=== PATIENT | male | born 1960 | race American Indian/Alaskan Native ===

== ENCOUNTER 2018-02-21 18:01 | Inpatient (IN) | payer MEDICAID ==
[2018-02-21] MEDS ORDERED: NACL 0.9% 1000 ML IV ONE (21:30)
[2018-02-21] MEDS ORDERED: BABY ASPIRIN PO ONE (21:35)
[2018-02-21] MEDS ORDERED: SUBLIMAZE IV ONE (21:35)
[2018-02-21] MEDS ORDERED: ZOFRAN IV ONE (21:35)
--- NOTE | 2018-02-21 21:40 | Emergency Department Report ---
HPI - General Chief Complaint: Extremity Problem,Nontraumatic Time Seen by Provider: 02/21/18 20:31 - HPI HPI: The patient is a 58-year-old male with a significant history of diabetes, peripheral artery disease, left BKA, who presents for evaluation of leg pain. The patient reports right lower leg pain for the past couple of days, 10/10 in severity, throbbing in quality, exacerbated with movement of the leg. He reports associated drainage, redness, ulcers. The patient denies trauma to the leg, headache, chest pain, dyspnea, nausea, vomiting, abdominal pain. ED Past Medical Hx - Past Medical History Previous Medical History?: Yes Hx Diabetes: Yes (Type II) Hx GERD: Yes Additional medical history: Gout, Hyperlipidemia, anemia, - Surgical History Past Surgical History?: Yes Additional Surgical History: Bilateral LE amputee, - Social History Smoking Status: Former Smoker Substance Use Type: None ED Review of Systems ROS: Stated complaint: RIGHT FOOT PAIN Other details as noted in HPI Constitutional: denies: fever ENT: denies: throat or neck pain Respiratory: denies: cough, shortness of breath Cardiovascular: denies: chest pain Endocrine: denies unexplained weight loss or gain Gastrointestinal: denies: abdominal pain, nausea Genitourinary: denies: dysuria Musculoskeletal: Reports left leg pain Skin: denies: rash Neurological: denies: headache Hematological/Lymphatic: denies: easy bleeding or easy bruising Psych: denies sadness or hopelessness Physical Exam - Physical Exam Vital Signs: Vital Signs 02/21/18 18:44 Temperature 99.4 F Pulse Rate 59 L Respiratory 20 Rate Blood Pressure 110/55 O2 Sat by Pulse 95 Oximetry Physical Exam: General: well-nourished, well-developed, no acute distress Head: Normocephalic, atraumatic Eyes: normal sclera ENT: Mucous membranes are pink and moist Neck: trachea midline, neck supple, No neck stiffness, no cervical adenopathy Respiratory: Breath sounds equal bilaterally, no wheezing, rales, or rhonchi Cardio: S1 and S2 present, no murmurs, rubs, gallops, capillary refill is brisk Abdomen: Normoactive bowel sounds, soft abdomen, no rigidity, no guarding or rebound tenderness Musc: Left below the knee amputation present, right lower extremity exhibits a chronic right first and fifth toes, and diffuseness chronic tissue to the anterior lamb, distal pulses of the right fluid intake, right lower extremity and mixing machine tender cork gasket throughout Skin: purulent And serosanguineous drainage present to multiple ulcers to the right lamb Neuro: no facial drooping, normal speech Psych: Normal affect ED Course Vital Signs 02/21/18 18:44 Temperature 99.4 F Pulse Rate 59 L Respiratory 20 Rate Blood Pressure 110/55 O2 Sat by Pulse 95 Oximetry ED Medical Decision Making - Lab Data Result diagrams: 02/21/18 21:45 02/21/18 21:45 - Medical Decision Making The patient was seen and examined by myself. The patient is placed on a court recording monitor and continuous pulse ox. On initial evaluation, the patient was found to be in no distress. Evaluation orders were placed. The patient given pain medicine, normal saline fluid bolus, and IV clindamycin and Rocephin for treatment of severe cellulitis. Lab results reveal severe leukocytosis, WBC 20. The on-call hospitalist service was contacted. They agreed to admit the patient for further treatment and close monitoring. The ED admit order was placed. The patient was admitted in guarded condition. Critical care attestation.: If time is entered above; I have spent that time in minutes in the direct care of this critically ill patient, excluding procedure time. ED Disposition Clinical Impression: Ischemic necrosis of toe, PAD (peripheral artery disease) Cellulitis Qualifiers: Site of cellulitis: extremity Site of cellulitis of extremity: lower extremity Laterality: right Qualified Code(s): L03.115 - Cellulitis of right lower limb Leukocytosis Qualifiers: Leukocytosis type: unspecified Qualified Code(s): D72.829 - Elevated white blood cell count, unspecified Disposition: 09 OP ADMIT IP TO THIS HOSP Is pt being admited?: Yes Does the pt Need Aspirin: Yes Condition: Serious Time of Disposition: 21:39
[2018-02-21] MEDS ORDERED: CLEOCIN 600 MG/50 mL 600 MG/50 ML BAG IV SCH (22:00)
[2018-02-21 22:03] LABS: Hematocrit 33.8 % (35.5-45.6); Hemoglobin 10.7 gm/dl (11.8-15.2); Mean Corpuscular HGB Conc 32 % (32-34); Mean Corpuscular Hemoglobin 26 pg (28-32); Mean Corpuscular Volume 83 fl (84-94); Platelet Count 428 K/mm3 (140-440); Red Blood Count 4.09 M/mm3 (3.65-5.03); Red Cell Distribution Width 17.7 % (13.2-15.2)
[2018-02-21 22:13] LABS: INR 2.65 (0.87-1.13)
[2018-02-21 22:14] LABS: Partial Thromboplastin Time 47.1 Sec. (24.2-36.6)
[2018-02-21 22:23] LABS: Alanine Aminotransferase 13 units/L (7-56); Albumin 2.2 g/dL (3.9-5); BUN/Creatinine Ratio 15; Blood Urea Nitrogen 21 mg/dL (9-20); Calcium 8.8 mg/dL (8.4-10.2); Hemolysis Index 9
[2018-02-21 22:38] LABS: Basophils % (Manual) 0 % (0.0-1.8); Total Cells Counted 100
[2018-02-21 22:39] LABS: Anisocytosis 1+; Platelet Estimate Consistent w Auto; Poikilocytosis 1+
[2018-02-21 22:49] LABS: Chol/HDL Ratio 3.23 %
[2018-02-21] MEDS ORDERED: ROCEPHIN/NS 1 GM/50 ML 1 GM/50 ML BAG IV ONE (23:17)
[2018-02-21] MEDS ORDERED: KCL 10MEQ/100ML 10 MEQ/100 ML BAG IV ONE (23:43)
[2018-02-22] MEDS ORDERED: ZOFRAN IV PRN (01:04)
[2018-02-22] MEDS ORDERED: D50W (25GM) Syringe IV PRN (01:10)
[2018-02-22] MEDS ORDERED: K-DUR PO ONE ×3 (03:08→19:00)
[2018-02-22] MEDS: NACL 0.9% 1000 ML 1,000 ML IV SCH ×2 (03:17→18:36)
--- NOTE | 2018-02-22 04:05 | History and Physical Report ---
CHIEF COMPLAINT: Pain and ulceration in the right lower extremity. HISTORY OF PRESENT ILLNESS: The patient is a 58-year-old male with past medical history of diabetes mellitus, peripheral arterial disease and left below-knee amputation, presenting with pain, ulceration and swelling in the right lower extremity. The patient said the pain is severe with a level of 10/10 and throbbing in quality, exacerbated by movement. There is also history of associated drainage and redness in the right lower extremity. There is no history of fever. No history of chills. No history of nausea, vomiting or trauma. PAST MEDICAL HISTORY: Pertinent for diabetes mellitus, gastroesophageal reflux disease, gout, hyperlipidemia, anemia. PAST SURGICAL HISTORY: Pertinent for left lower extremity amputation. FAMILY HISTORY: Noncontributory. SOCIAL HISTORY: The patient used to smoke cigarette, does not smoke currently, does not use illicit drugs and does not drink alcohol. MEDICATIONS: The patient's home medications are not known at this time. REVIEW OF SYSTEMS: CONSTITUTIONAL: There is no fever, no chills, no diaphoresis. HEENT: There is no headache or sore throat. CARDIOVASCULAR: There is no chest pain or orthopnea. RESPIRATORY: There is no shortness of breath or cough. GASTROINTESTINAL: There is no nausea, no vomiting, no abdominal pain, diarrhea or constipation. NEUROLOGICAL SYSTEM: There is no numbness, no dizziness, no altered mental status. MUSCULOSKELETAL: There is pain in the right lower extremity. There is also swelling in the right lower extremity. DERMATOLOGICAL There is ulceration, redness and drainage in the right lower extremity. GENITOURINARY: There is no dysuria, hematuria or flank pain. Rest of system review is normal. PHYSICAL EXAMINATION: GENERAL: At the time of exam, the patient was found to be alert, oriented x 3 and not in acute distress. VITAL SIGNS: Shows temperature of 99.4 degrees Fahrenheit, pulse of 59, respirations 20, blood pressure 110/55, O2 sat of 95% on room air. HEENT: Showed pupils to be equal, round, reactive to light and accommodating. Extraocular muscles are intact. NECK: Supple with no JVD or carotid bruit. CARDIOVASCULAR: Showed normal first and second heart sounds with no gallops or murmurs. RESPIRATORY SYSTEM: Show good air entry on both sides of the lungs with no abnormal breath sounds. GASTROINTESTINAL SYSTEM: Show abdomen to be full, soft, nontender with no organomegaly or rigidity. NEUROLOGICAL: Shows no focal deficit. MUSCULOSKELETAL: Showed the patient to have left leg amputation and right leg shows swelling with multiple areas of ulceration with drainage of serosanguineous fluids. DERMATOLOGICAL: Show multiple ulcerations in the right lower extremity with drainage of serosanguineous liquid. GENITOURINARY: Show no costovertebral angle tenderness. PERTINENT LABORATORY DATA AND IMAGING STUDIES: The patient did not have any imaging studies done at this time. Lab results show CBC with elevated white count of 20,500, low hemoglobin of 10.7 and low hematocrit of 33.8 and CBC differential shows elevated segmented neutrophil of 82%. The patient's coagulation studies show high INR of 2.65 with high PT of 28.8. The patient's chemistry show normal sodium level with low potassium level of 2.6 and low chloride level of 97.6. The patient's total bilirubin shows slight increase of 1.3 and the patient's cardiac enzymes show high troponin level of 0.223. Brain natriuretic peptide levels show a high value of 13,105 with low albumin level of 2.2. DIAGNOSES: 1. Right lower leg cellulitis. 2. Hypokalemia. 3. Right lower limb cellulitis. 4. Elevated troponin level. PLAN: 1. The patient will be admitted to telemetry. 2. The patient will have cardiac enzyme involving troponin, total CK and CK-MB checked q. 6 hours x 2 levels. 3. The patient will be on IV Zosyn 3.375 grams q. 8 hours. 4. The patient will have 40 mEq of potassium given by mouth and also will have IV potassium chloride 20 mEq x 1 dose. 5. The patient will be on IV morphine 2 mg every 4 hours as needed for pain and IV Zofran 4 mg every 8 hours for nausea and vomiting. 6. The patient will have 5000 units of heparin subcutaneous q. 12 hours for DVT prophylaxis and will be on Tylenol 650 mg by mouth every 4 hours for fever and headache and will have wound care nurse consult. 7. The patient will be on Accu-Chek before every meals and at bedtime and will be on low-dose sliding scale using regular insulin coverage. 8. The patient's diet will be consistent carbohydrate, low sodium diet. 9. The patient will have basic metabolic panel checked in the morning to monitor potassium level and will also have magnesium level checked in the morning. JOB# [id number] OCN/NTS
[2018-02-22] MEDS: KCL 10MEQ/100ML 10 MEQ/100 ML BAG IV SCH ×6 (04:38→23:25)
[2018-02-22] MEDS: MORPHINE IV PRN ×4 (04:41→22:38)
[2018-02-22 05:59] LABS: Creatine Kinase MB 1.4 ng/mL (0.0-4.0)
[2018-02-22] MEDS ORDERED: ZOSYN/NS 3.375GM/50ML 3.375 GM/50 ML BAG IV SCH (06:00)
[2018-02-22 06:02] LABS: BUN/Creatinine Ratio 15; Blood Urea Nitrogen 18 mg/dL (9-20); Calcium 8.1 mg/dL (8.4-10.2); Hemolysis Index 8
[2018-02-22] MEDS: HumuLIN R SUB-Q SCH ×4 (08:08→22:31)
[2018-02-22] MEDS: HEPARIN SUB-Q SCH ×2 (10:43→21:46)
[2018-02-22] MEDS ORDERED: AFLURIA QUAD 2018-2019 SYRINGE IM ONE (12:00)
[2018-02-22] MEDS ORDERED: DILAUDID IV ONE (13:36)
--- NOTE | 2018-02-22 13:41 | Consultation ---
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 On examination, he has nonpalpable pedal pulses. Any manipulation of the right foot causes pain. He reports that this has been present for a year, but has worsened in the last week. He has gangrene of the right forefoot, and a large eschar associated with the calf. The gangrene is predominantly dry. The patient is in pain but not toxic-appearing. He can move his ankle, but has minimal movement of his toes. Cannot palpate right common femoral artery but this is probably secondary to his nonreducible contracture of his hip. Past History Past Medical History: diabetes, hypertension, hyperlipidemia, PVD Past Surgical History: Other (left aka) Social history: other (lives in [facility]) Family history: no significant family history Medications and Allergies Allergies Allergy/AdvReac Type Severity Reaction Status Date / Time No Known Allergies Allergy Unverified 02/21/18 18:49 Home Medications Medication Instructions Recorded Confirmed Last Taken Type Allopurinol 100 mg PO DAILY 02/22/18 02/22/18 Unknown History Amlodipine Besylate [Norvasc] 10 mg PO DAILY 02/22/18 02/22/18 Unknown History Apixaban [Eliquis] 5 mg PO BID 02/22/18 02/22/18 Unknown History Ascorbic Acid [Vitamin C] 500 mg PO BID 02/22/18 02/22/18 Unknown History Aspirin [Aspirin BABY CHEW TAB] 81 mg PO QDAY 02/22/18 02/22/18 Unknown History Carvedilol [Coreg] 6.25 mg PO BID 02/22/18 02/22/18 Unknown History Docusate Sodium [Stool Softener] 100 mg PO BID 02/22/18 02/22/18 Unknown History Folic Acid [Folvite] 1 mg PO QDAY 02/22/18 02/22/18 Unknown History Gabapentin [Neurontin] 600 mg PO Q12HR 02/22/18 02/22/18 Unknown History Lipitor 40 mg PO HS 02/22/18 02/22/18 Unknown History Multivitamin [Multiple Vitamins] 1 tab PO DAILY 02/22/18 02/22/18 Unknown History Polyethylene Glycol 3350 [Clearlax] 17 gm PO DAILY 02/22/18 02/22/18 Unknown History Sennosides [Senna] 25.8 mg PO BID 02/22/18 02/22/18 Unknown History Thiamine [Vitamin B-1] 100 mg PO QDAY 02/22/18 02/22/18 Unknown History Torsemide [Demadex] 20 mg PO DAILY 02/22/18 02/22/18 Unknown History fentaNYL [Fentanyl] 1 each TD DAILY 02/22/18 02/22/18 Unknown History Active Meds: Active Medications Acetaminophen (Tylenol) 650 mg PO Q4H PRN PRN Reason: Fever >101 Dextrose (D50w (25gm) Syringe) 50 ml IV PRN PRN PRN Reason: Hypoglycemia Heparin Sodium (Porcine) (Heparin) 5,000 unit SUB-Q Q12HR WALT Last Admin: 02/22/18 10:43 Dose: 5,000 unit Hydromorphone HCl (Dilaudid) 1 mg IV ONCE ONE Stop: 02/22/18 13:37 Sodium Chloride (Nacl 0.9% 1000 Ml) 1,000 mls @ 75 mls/hr IV DIRECT WALT Last Admin: 02/22/18 03:17 Dose: 75 mls/hr Piperacillin Sod/Tazobactam Sod (Zosyn/Ns 4.5gm/100ml) 4.5 gm in 100 mls @ 200 mls/hr IV Q8HR WALT Insulin Human Regular (Humulin R) 0 units SUB-Q WALT; Protocol Last Admin: 02/22/18 08:08 Dose: Not Given Insulin Human Regular (Humulin R) 0 units SUB-Q QHS WALT; Protocol Morphine Sulfate (Morphine) 2 mg IV Q4H PRN PRN Reason: Pain, Moderate (4-6) Last Admin: 02/22/18 11:53 Dose: 2 mg Ondansetron HCl (Zofran) 4 mg IV Q8H PRN PRN Reason: Nausea And Vomiting Review of Systems All systems: negative (see HPI) Exam - Constitutional Vitals: Temp Pulse Resp BP Pulse Ox 98.0 F 20 L 20 124/60 93 02/22/18 11:33 02/22/18 11:33 02/22/18 11:33 02/22/18 11:33 02/22/18 11:33 General appearance: Present: mild distress (with manipulation of right foot) - EENT Eyes: Present: EOM intact ENT: hearing intact - Neck Neck: Present: supple - Respiratory Respiratory effort: normal - Extremities Extremities: abnormal (see HPI) Peripheral Pulses: abnormal (see HPI) - Psychiatric Psychiatric: appropriate mood/affect, cooperative Results - Labs CBC & Chem 7: 02/21/18 21:45 02/22/18 05:11 Labs: Abnormal lab results 02/21/18 02/21/18 02/21/18 Range/Units 21:45 21:45 21:45 WBC 20.5 H (4.5-11.0) K/mm3 Hgb 10.7 L (11.8-15.2) gm/dl Hct 33.8 L (35.5-45.6) % MCV 83 L (84-94) fl MCH 26 L (28-32) pg RDW 17.7 H (13.2-15.2) % Seg Neuts % (Manual) 82.0 H (40.0-70.0) % Lymphocytes % (Manual) 11.0 L (13.4-35.0) % Seg Neutrophils # Man 16.8 H (1.8-7.7) K/mm3 Monocytes # (Manual) 1.2 H (0.0-0.8) K/mm3 PT 28.8 H (12.2-14.9) Sec. INR 2.65 H (0.87-1.13) APTT 47.1 H (24.2-36.6) Sec. Potassium (3.6-5.0) mmol/L Chloride (98-107) mmol/L BUN (9-20) mg/dL Calcium (8.4-10.2) mg/dL Magnesium (1.7-2.3) mg/dL Total Bilirubin (0.1-1.2) mg/dL Alkaline Phosphatase (35-129) units/L Total Creatine Kinase (55-170) units/L Troponin T 0.234 H* (0.00-0.029) ng/mL NT-Pro-B Natriuret Pep (0-900) pg/mL Albumin (3.9-5) g/dL LDL Cholesterol Direct 41 L (50-130) mg/dL HDL Cholesterol 26 L (40-59) mg/dL 02/21/18 02/21/18 02/21/18 Range/Units 21:45 21:45 23:49 WBC (4.5-11.0) K/mm3 Hgb (11.8-15.2) gm/dl Hct (35.5-45.6) % MCV (84-94) fl MCH (28-32) pg RDW (13.2-15.2) % Seg Neuts % (Manual) (40.0-70.0) % Lymphocytes % (Manual) (13.4-35.0) % Seg Neutrophils # Man (1.8-7.7) K/mm3 Monocytes # (Manual) (0.0-0.8) K/mm3 PT (12.2-14.9) Sec. INR (0.87-1.13) APTT (24.2-36.6) Sec. Potassium 2.6 L* (3.6-5.0) mmol/L Chloride 97.6 L (98-107) mmol/L BUN 21 H (9-20) mg/dL Calcium (8.4-10.2) mg/dL Magnesium (1.7-2.3) mg/dL Total Bilirubin 1.30 H (0.1-1.2) mg/dL Alkaline Phosphatase 180 H (35-129) units/L Total Creatine Kinase 54 L (55-170) units/L Troponin T 0.223 H* (0.00-0.029) ng/mL NT-Pro-B Natriuret Pep 55087 H (0-900) pg/mL Albumin 2.2 L (3.9-5) g/dL LDL Cholesterol Direct (50-130) mg/dL HDL Cholesterol (40-59) mg/dL 02/22/18 Range/Units 05:11 WBC (4.5-11.0) K/mm3 Hgb (11.8-15.2) gm/dl Hct (35.5-45.6) % MCV (84-94) fl MCH (28-32) pg RDW (13.2-15.2) % Seg Neuts % (Manual) (40.0-70.0) % Lymphocytes % (Manual) (13.4-35.0) % Seg Neutrophils # Man (1.8-7.7) K/mm3 Monocytes # (Manual) (0.0-0.8) K/mm3 PT (12.2-14.9) Sec. INR (0.87-1.13) APTT (24.2-36.6) Sec. Potassium 2.6 L* (3.6-5.0) mmol/L Chloride (98-107) mmol/L BUN (9-20) mg/dL Calcium 8.1 L (8.4-10.2) mg/dL Magnesium 1.40 L (1.7-2.3) mg/dL Total Bilirubin (0.1-1.2) mg/dL Alkaline Phosphatase (35-129) units/L Total Creatine Kinase (55-170) units/L Troponin T 0.183 H* (0.00-0.029) ng/mL NT-Pro-B Natriuret Pep (0-900) pg/mL Albumin (3.9-5) g/dL LDL Cholesterol Direct (50-130) mg/dL HDL Cholesterol (40-59) mg/dL Assessment and Plan 58-year-old male with history of stroke and peripheral vascular disease, left lower extremity gangrene status post above-knee amputation who presents with a contracted right lower extremity at the hip and knee which is a source of chronic pain with gangrene of the right forefoot and eschar of the right calf. This is been present for approximately a year, but has worsened within the last week. The patient has a nonfunctional right lower extremity with gangrene and leukocytosis with contracted right knee and hip with associated chronic pain. Given his nonambulatory status, nonfunctional nature of the limb, and gangrene, patient would benefit from above-knee amputation. This was discussed with the patient who understands and agrees. Lower level amputation would not provide the patient any functional benefit. Patient will need arterial duplex to demonstrate flow to the common femoral artery. I suspect he will have adequate flow to heal and above-knee amputation. Recommend continuing antibiotics. Right AKA likely on Sunday. Will need to discontinue eliquis 2 days prior to ampuation. Patient is not sure why he is on Eliquis and notes from SNF do not specifically mention the cause.
--- NOTE | 2018-02-22 14:14 | Event Note ---
Date: 02/22/18 Patient admitted this AM Rt Foot Gangrene D/w Dr Merida Needs AKA -probably Mondat-3days from now. No Eliquis or ASA since Last night
[2018-02-22] MEDS ORDERED: NON-FORMULARY (Torsemide [Demadex] 20 MG) PO SCH (14:15)
[2018-02-22] MEDS ORDERED: NON-FORMULARY (Gabapentin [Neurontin] 600 MG) PO SCH (14:15)
[2018-02-22 14:34] LABS: Creatine Kinase MB 1.3 ng/mL (0.0-4.0)
[2018-02-22] MEDS ORDERED: VANCOMYCIN 2,000 MG in NACL 0.9% 500 ML 500 ML IV ONE (14:45)
[2018-02-22] MEDS ORDERED: VANCOMYCIN PHARMACY TO DOSE IV SCH (15:00)
[2018-02-22] MEDS: ZOSYN/NS 4.5GM/100ML 4.5 GM/100 ML VIAL IV SCH ×2 (15:32→21:46)
[2018-02-22] MEDS: DURAGESIC TD SCH (16:33)
[2018-02-22] MEDS: NORVASC PO SCH (18:18)
[2018-02-22] MEDS: ZYLOPRIM PO SCH (18:18)
[2018-02-22] MEDS: DEMADEX PO SCH (18:19)
[2018-02-22] MEDS: FOLVITE PO SCH (18:19)
[2018-02-22] MEDS: VITAMIN C PO SCH ×2 (18:20→21:44)
[2018-02-22] MEDS: NEURONTIN PO SCH (21:44)
[2018-02-22] MEDS: COREG PO SCH (21:45)
[2018-02-22] MEDS: COLACE PO SCH (21:45)
[2018-02-23] MEDS: MORPHINE IV PRN ×4 (02:58→22:33)
[2018-02-23 04:22] LABS: Basophils # (Auto) 0.1 K/mm3 (0.0-0.1); Basophils % (Auto) 0.5 % (0.0-1.8); Eosinophils # (Auto) 0.2 K/mm3 (0.0-0.4); Eosinophils % (Auto) 1.4 % (0.0-4.3); Hematocrit 28.2 % (35.5-45.6); Hemoglobin 8.8 gm/dl (11.8-15.2); Lymphocytes # (Auto) 1.5 K/mm3 (1.2-5.4); Lymphocytes % (Auto) 9.8 % (13.4-35.0); Mean Corpuscular HGB Conc 31 % (32-34); Mean Corpuscular Hemoglobin 26 pg (28-32); Mean Corpuscular Volume 83 fl (84-94); Monocytes # (Auto) 1.4 K/mm3 (0.0-0.8); Monocytes % (Auto) 8.6 % (0.0-7.3); Platelet Count 343 K/mm3 (140-440); Red Blood Count 3.41 M/mm3 (3.65-5.03); Red Cell Distribution Width 17.2 % (13.2-15.2)
[2018-02-23 04:40] LABS: Alanine Aminotransferase 11 units/L (7-56); Albumin 1.9 g/dL (3.9-5); BUN/Creatinine Ratio 14; Blood Urea Nitrogen 15 mg/dL (9-20); Hemolysis Index 3
[2018-02-23] MEDS: ZOSYN/NS 4.5GM/100ML 4.5 GM/100 ML VIAL IV SCH ×3 (06:31→22:15)
[2018-02-23] MEDS: VANCOMYCIN 1,500 MG in NACL 0.9% 500 ML 500 ML IV SCH ×2 (06:37→18:23)
[2018-02-23] MEDS: HumuLIN R SUB-Q SCH ×4 (07:40→22:03)
[2018-02-23] MEDS: NORVASC PO SCH (09:49)
[2018-02-23] MEDS: VITAMIN C PO SCH ×2 (09:49→22:14)
[2018-02-23] MEDS: VITAMIN B-1 PO SCH (09:49)
[2018-02-23] MEDS: FOLVITE PO SCH (09:49)
[2018-02-23] MEDS: COLACE PO SCH ×2 (09:50→22:14)
[2018-02-23] MEDS: COREG PO SCH ×2 (09:50→22:14)
[2018-02-23] MEDS: ZYLOPRIM PO SCH (09:50)
[2018-02-23] MEDS: HEPARIN SUB-Q SCH ×2 (09:51→22:15)
[2018-02-23] MEDS: NEURONTIN PO SCH ×2 (09:55→22:14)
[2018-02-23] MEDS: DEMADEX PO SCH (10:11)
--- NOTE | 2018-02-23 12:55 | Progress Note ---
Assessment and Plan Assessment and plan: Sepsis. Patient will be continued on IV antibiotics. Follow-up blood cultures and likely gas levels. Right foot gangrene. Patient will likely have AKA on Sunday. Sinus pauses. Cardiology consultation. Diabetes mellitus type 2. Continue Accu-Cheks and sliding scale. Peripheral vascular disease. Patient with previous left BKA. Hypokalemia. Replete potassium as needed. History Interval history: No new issues overnight. Nursing for sinus pauses of 2.4 seconds Hospitalist Physical - Constitutional Vitals: Temp Pulse Resp BP Pulse Ox 97.9 F 96 H 18 118/62 99 02/23/18 12:39 02/23/18 09:50 02/23/18 12:39 02/23/18 12:39 02/22/18 23:56 General appearance: Present: mild distress (with manipulation of right foot) - EENT Eyes: Present: PERRL, EOM intact ENT: hearing intact, clear oral mucosa, dentition normal - Neck Neck: Present: supple, normal ROM - Respiratory Respiratory effort: normal Respiratory: bilateral: CTA - Cardiovascular Rhythm: regular Heart Sounds: Present: S1 & S2. Absent: gallop, rub - Extremities Extremities: no ischemia, No edema, Full ROM - Abdominal General gastrointestinal: soft, non-tender, non-distended, normal bowel sounds - Integumentary Integumentary: Present: clear, warm, dry - Neurologic Neurologic: CNII-XII intact, moves all extremities Results - Labs CBC & Chem 7: 02/23/18 03:51 02/23/18 03:51 Labs: Laboratory Last Values WBC 15.9 K/mm3 (4.5-11.0) H 02/23/18 03:51 RBC 3.41 M/mm3 (3.65-5.03) L 02/23/18 03:51 Hgb 8.8 gm/dl (11.8-15.2) L 02/23/18 03:51 Hct 28.2 % (35.5-45.6) L 02/23/18 03:51 MCV 83 fl (84-94) L 02/23/18 03:51 MCH 26 pg (28-32) L 02/23/18 03:51 MCHC 31 % (32-34) L 02/23/18 03:51 RDW 17.2 % (13.2-15.2) H 02/23/18 03:51 Plt Count 343 K/mm3 (140-440) 02/23/18 03:51 Lymph % (Auto) 9.8 % (13.4-35.0) L 02/23/18 03:51 [place] % (Auto) 8.6 % (0.0-7.3) H 02/23/18 03:51 Eos % (Auto) 1.4 % (0.0-4.3) 02/23/18 03:51 Baso % (Auto) 0.5 % (0.0-1.8) 02/23/18 03:51 Lymph # 1.5 K/mm3 (1.2-5.4) 02/23/18 03:51 [place] # 1.4 K/mm3 (0.0-0.8) H 02/23/18 03:51 Eos # 0.2 K/mm3 (0.0-0.4) 02/23/18 03:51 Baso # 0.1 K/mm3 (0.0-0.1) 02/23/18 03:51 Add Manual Diff Complete 02/21/18 21:45 Total Counted 100 02/21/18 21:45 Seg Neutrophils % 79.7 % (40.0-70.0) H 02/23/18 03:51 Seg Neuts % (Manual) 82.0 % (40.0-70.0) H 02/21/18 21:45 Band Neutrophils % 0 % 02/21/18 21:45 Lymphocytes % (Manual) 11.0 % (13.4-35.0) L 02/21/18 21:45 Reactive Lymphs % (Man) 0 % 02/21/18 21:45 Monocytes % (Manual) 6.0 % (0.0-7.3) 02/21/18 21:45 Eosinophils % (Manual) 1.0 % (0.0-4.3) 02/21/18 21:45 Basophils % (Manual) 0 % (0.0-1.8) 02/21/18 21:45 Metamyelocytes % 0 % 02/21/18 21:45 Myelocytes % 0 % 02/21/18 21:45 Promyelocytes % 0 % 02/21/18 21:45 Blast Cells % 0 % 02/21/18 21:45 Nucleated RBC % Not Reportable 02/21/18 21:45 Seg Neutrophils # 12.6 K/mm3 (1.8-7.7) H 02/23/18 03:51 Seg Neutrophils # Man 16.8 K/mm3 (1.8-7.7) H 02/21/18 21:45 Band Neutrophils # 0.0 K/mm3 02/21/18 21:45 Lymphocytes # (Manual) 2.3 K/mm3 (1.2-5.4) 02/21/18 21:45 Abs React Lymphs (Man) 0.0 K/mm3 02/21/18 21:45 Monocytes # (Manual) 1.2 K/mm3 (0.0-0.8) H 02/21/18 21:45 Eosinophils # (Manual) 0.2 K/mm3 (0.0-0.4) 02/21/18 21:45 Basophils # (Manual) 0.0 K/mm3 (0.0-0.1) 02/21/18 21:45 Metamyelocytes # 0.0 K/mm3 02/21/18 21:45 Myelocytes # 0.0 K/mm3 02/21/18 21:45 Promyelocytes # 0.0 K/mm3 02/21/18 21:45 Blast Cells # 0.0 K/mm3 02/21/18 21:45 WBC Morphology Not Reportable 02/21/18 21:45 Hypersegmented Neuts Not Reportable 02/21/18 21:45 Hyposegmented Neuts Not Reportable 02/21/18 21:45 Hypogranular Neuts Not Reportable 02/21/18 21:45 Smudge Cells Not Reportable 02/21/18 21:45 Toxic Granulation Not Reportable 02/21/18 21:45 Toxic Vacuolation Not Reportable 02/21/18 21:45 Dohle Bodies Not Reportable 02/21/18 21:45 Pelger-Huet Anomaly Not Reportable 02/21/18 21:45 Fermín Rods Not Reportable 02/21/18 21:45 Platelet Estimate Consistent w auto 02/21/18 21:45 Clumped Platelets Not Reportable 02/21/18 21:45 Plt Clumps, EDTA Not Reportable 02/21/18 21:45 Large Platelets Not Reportable 02/21/18 21:45 Giant Platelets Not Reportable 02/21/18 21:45 Platelet Satelliting Not Reportable 02/21/18 21:45 Plt Morphology Comment Not Reportable 02/21/18 21:45 RBC Morphology Not Reportable 02/21/18 21:45 Dimorphic RBCs Not Reportable 02/21/18 21:45 Polychromasia Not Reportable 02/21/18 21:45 Hypochromasia Not Reportable 02/21/18 21:45 Poikilocytosis 1+ 02/21/18 21:45 Anisocytosis 1+ 02/21/18 21:45 Microcytosis Not Reportable 02/21/18 21:45 Macrocytosis Not Reportable 02/21/18 21:45 Spherocytes Not Reportable 02/21/18 21:45 Pappenheimer Bodies Not Reportable 02/21/18 21:45 Sickle Cells Not Reportable 02/21/18 21:45 Target Cells Not Reportable 02/21/18 21:45 Tear Drop Cells Not Reportable 02/21/18 21:45 Ovalocytes Not Reportable 02/21/18 21:45 Helmet Cells Not Reportable 02/21/18 21:45 [place] Bodies Not Reportable 02/21/18 21:45 [place] Rings Not Reportable 02/21/18 21:45 [place] Cells Not Reportable 02/21/18 21:45 Bite Cells Not Reportable 02/21/18 21:45 Crenated Cell Not Reportable 02/21/18 21:45 Elliptocytes Not Reportable 02/21/18 21:45 Acanthocytes (Spur) Not Reportable 02/21/18 21:45 Rouleaux Not Reportable 02/21/18 21:45 Hemoglobin C Crystals Not Reportable 02/21/18 21:45 Schistocytes Not Reportable 02/21/18 21:45 Malaria parasites Not Reportable 02/21/18 21:45 Luis Felipe Bodies Not Reportable 02/21/18 21:45 Hem Pathologist Commnt No 02/21/18 21:45 PT 28.8 Sec. (12.2-14.9) H 02/21/18 21:45 INR 2.65 (0.87-1.13) H 02/21/18 21:45 APTT 47.1 Sec. (24.2-36.6) H 02/21/18 21:45 Sodium 142 mmol/L (137-145) 02/23/18 03:51 Potassium 3.0 mmol/L (3.6-5.0) L 02/23/18 03:51 Chloride 105.2 mmol/L (98-107) 02/23/18 03:51 Carbon Dioxide 25 mmol/L (22-30) 02/23/18 03:51 Anion Gap 15 mmol/L 02/23/18 03:51 BUN 15 mg/dL (9-20) 02/23/18 03:51 Creatinine 1.1 mg/dL (0.8-1.5) 02/23/18 03:51 Estimated GFR > 60 ml/min 02/23/18 03:51 BUN/Creatinine Ratio 14 % 02/23/18 03:51 Glucose 75 mg/dL (75-100) 02/23/18 03:51 POC Glucose 68 (70-105) L 02/23/18 06:38 Lactic Acid 1.30 mmol/L (0.7-2.0) 02/22/18 00:35 Calcium 8.0 mg/dL (8.4-10.2) L 02/23/18 03:51 Magnesium 1.40 mg/dL (1.7-2.3) L 02/22/18 05:11 Total Bilirubin 1.30 mg/dL (0.1-1.2) H 02/23/18 03:51 AST 25 units/L (5-40) 02/23/18 03:51 ALT 11 units/L (7-56) 02/23/18 03:51 Alkaline Phosphatase 189 units/L (35-129) H 02/23/18 03:51 Total Creatine Kinase 58 units/L (55-170) 02/22/18 13:53 CK-MB (CK-2) 1.3 ng/mL (0.0-4.0) 02/22/18 13:53 CK-MB (CK-2) Rel Index 2.2 (0-4) 02/22/18 13:53 Troponin T 0.177 ng/mL (0.00-0.029) H* 02/22/18 13:53 NT-Pro-B Natriuret Pep 98942 pg/mL (0-900) H 02/21/18 21:45 Total Protein 6.2 g/dL (6.3-8.2) L 02/23/18 03:51 Albumin 1.9 g/dL (3.9-5) L 02/23/18 03:51 Albumin/Globulin Ratio 0.4 % 02/23/18 03:51 Triglycerides 86 mg/dL (2-149) 02/21/18 21:45 Cholesterol 84 mg/dL (50-199) 02/21/18 21:45 LDL Cholesterol Direct 41 mg/dL (50-130) L 02/21/18 21:45 HDL Cholesterol 26 mg/dL (40-59) L 02/21/18 21:45 Cholesterol/HDL Ratio 3.23 % 02/21/18 21:45
[2018-02-23] MEDS ORDERED: K-DUR PO ONE ×2 (13:30→16:30)
[2018-02-23] MEDS: NACL 0.9% 1000 ML 1,000 ML IV SCH (22:34)
[2018-02-24] MEDS: ZOSYN/NS 4.5GM/100ML 4.5 GM/100 ML VIAL IV SCH ×3 (06:40→22:24)
[2018-02-24] MEDS: VANCOMYCIN 1,500 MG in NACL 0.9% 500 ML 500 ML IV SCH ×2 (06:40→18:00)
--- NOTE | 2018-02-24 09:32 | Consultation ---
History of Present Illness Consult date: 02/24/18 Consult reason: arrhythmia History of present illness: Impression Poor historian Admitted for intractable R lower ext pain , chronic contracture H/o CVA PVD L AKA abnormal NT-proBNP, trop, pt asymptomatic from angina or CHF. Suspect septic etiology He is on eliquis which has been stopped I believe due to afib which I detected on exam he has had asymptomatic sinus pauses last night less than 3 seconds, he is on b- lillian Diabetes HTN Hyperlipidemia Plan reduce coreg dose hold eliquis for planned amputation R lower Ext Use SQ heparin for DVT prophylaxis check echo. Further recs about operative risk after echo complete Past History Past Medical History: diabetes, hypertension, hyperlipidemia, PVD Past Surgical History: Other (left aka) Social history: other (lives in SNF) Family history: no significant family history Medications and Allergies Allergies Allergy/AdvReac Type Severity Reaction Status Date / Time No Known Allergies Allergy Unverified 02/21/18 18:49 Home Medications Medication Instructions Recorded Confirmed Last Taken Type Allopurinol 100 mg PO DAILY 02/22/18 02/22/18 Unknown History Amlodipine Besylate [Norvasc] 10 mg PO DAILY 02/22/18 02/22/18 Unknown History Apixaban [Eliquis] 5 mg PO BID 02/22/18 02/22/18 Unknown History Ascorbic Acid [Vitamin C] 500 mg PO BID 02/22/18 02/22/18 Unknown History Aspirin [Aspirin BABY CHEW TAB] 81 mg PO QDAY 02/22/18 02/22/18 Unknown History Carvedilol [Coreg] 6.25 mg PO BID 02/22/18 02/22/18 Unknown History Docusate Sodium [Stool Softener] 100 mg PO BID 02/22/18 02/22/18 Unknown History Folic Acid [Folvite] 1 mg PO QDAY 02/22/18 02/22/18 Unknown History Gabapentin [Neurontin] 600 mg PO Q12HR 02/22/18 02/22/18 Unknown History Lipitor 40 mg PO HS 02/22/18 02/22/18 Unknown History Multivitamin [Multiple Vitamins] 1 tab PO DAILY 02/22/18 02/22/18 Unknown History Polyethylene Glycol 3350 [Clearlax] 17 gm PO DAILY 02/22/18 02/22/18 Unknown History Sennosides [Senna] 25.8 mg PO BID 02/22/18 02/22/18 Unknown History Thiamine [Vitamin B-1] 100 mg PO QDAY 02/22/18 02/22/18 Unknown History Torsemide [Demadex] 20 mg PO DAILY 02/22/18 02/22/18 Unknown History fentaNYL [Fentanyl] 1 each TD DAILY 02/22/18 02/22/18 Unknown History Active Meds: Active Medications Acetaminophen (Tylenol) 650 mg PO Q4H PRN PRN Reason: Fever >101 Allopurinol (Zyloprim) 100 mg PO DAILY [facility] Last Admin: 02/23/18 09:50 Dose: 100 mg Amlodipine Besylate (Norvasc) 10 mg PO DAILY [facility] Last Admin: 02/23/18 09:49 Dose: 10 mg Ascorbic Acid (Vitamin C) 500 mg PO BID [facility] Last Admin: 02/23/18 22:14 Dose: 500 mg Carvedilol (Coreg) 3.125 mg PO BID [facility] Dextrose (D50w (25gm) Syringe) 50 ml IV PRN PRN PRN Reason: Hypoglycemia Docusate Sodium (Colace) 100 mg PO BID [facility] Last Admin: 02/23/18 22:14 Dose: 100 mg Fentanyl (Duragesic) 12 mcg TD Q72H [facility] Last Admin: 02/22/18 16:33 Dose: 12 mcg Folic Acid (Folvite) 1 mg PO QDAY [facility] Last Admin: 02/23/18 09:49 Dose: 1 mg Gabapentin (Neurontin) 600 mg PO Q12HR [facility] Last Admin: 02/23/18 22:14 Dose: 600 mg Heparin Sodium (Porcine) (Heparin) 5,000 unit SUB-Q Q12HR [facility] Last Admin: 02/23/18 22:15 Dose: 5,000 unit Sodium Chloride (Nacl 0.9% 1000 Ml) 1,000 mls @ 75 mls/hr IV DIRECT [facility] Last Admin: 02/23/18 22:34 Dose: 75 mls/hr Piperacillin Sod/Tazobactam Sod (Zosyn/Ns 4.5gm/100ml) 4.5 gm in 100 mls @ 200 mls/hr IV Q8HR [facility] Last Admin: 02/24/18 06:40 Dose: 200 mls/hr Vancomycin HCl 1,500 mg/ (Sodium Chloride) 530 mls @ 333.333 mls/hr IV Q12H [facility] Last Admin: 02/24/18 06:40 Dose: 333.333 mls/hr Insulin Human Regular (Humulin R) 0 units SUB-Q AC [facility]; Protocol Last Admin: 02/23/18 18:22 Dose: Not Given Insulin Human Regular (Humulin R) 0 units SUB-Q QHS [facility]; Protocol Last Admin: 02/23/18 22:03 Dose: Not Given Morphine Sulfate (Morphine) 2 mg IV Q4H PRN PRN Reason: Pain, Moderate (4-6) Last Admin: 02/23/18 22:33 Dose: 2 mg Ondansetron HCl (Zofran) 4 mg IV Q8H PRN PRN Reason: Nausea And Vomiting Last Admin: 02/23/18 09:50 Dose: 4 mg Thiamine HCl (Vitamin B-1) 100 mg PO QDAY [facility] Last Admin: 02/23/18 09:49 Dose: 100 mg Torsemide (Demadex) 20 mg PO DAILY [facility] Last Admin: 02/23/18 10:11 Dose: 20 mg Review of Systems ROS unobtainable: due to mental status Physical Examination Vital Signs Pulse Ox 94 02/21/18 18:40 General appearance: no acute distress HEENT: Positive: PERRL Neck: Positive: neck supple Cardiac: Positive: irregularly irregular, S1/S2 Lungs: Positive: Normal Exam Neuro: Positive: Grossly Intact Abdomen: Positive: Soft Male genitourinary: Positive: deferred Extremities: Present: Other (L AKA, Right lower contracted) Results 02/23/18 03:51 02/23/18 03:51
[2018-02-24] MEDS: HumuLIN R SUB-Q SCH ×4 (09:41→22:23)
--- NOTE | 2018-02-24 09:42 | Progress Note ---
Assessment and Plan The patient for right ximpi-[id number]-[id number] amputation tomorrow. Consent signed and on the chart. Subjective Date of service: 02/24/18 Principal diagnosis: right foot gangrene, right contracture Interval history: Patient with a history of the left [id number] amputation now presents with gangrene to his right foot. He is scheduled for an is agreeable to a right kbyso-brz-qgiz amputation as his right limb is essentially nonfunctional secondary to contractures of the knee and hip. Objective - Constitutional Vitals: Vital Signs - 12hr 02/24/18 02/24/18 02/24/18 00:13 05:00 07:56 Temperature 98.9 F 98.4 F Pulse Rate 82 82 91 H Respiratory 20 20 20 Rate Blood Pressure 105/69 129/69 147/78 O2 Sat by Pulse 88 97 95 Oximetry General appearance: Present: no acute distress - EENT Eyes: EOM intact ENT: hearing intact - Neck Neck: supple, normal ROM - Respiratory Respiratory effort: normal Extremities: abnormal - Gastrointestinal General gastrointestinal: Present: deferred - Psychiatric Psychiatric: appropriate mood/affect, cooperative - Labs CBC & Chem 7: 02/23/18 03:51 02/23/18 03:51 Labs: Abnormal lab results 02/23/18 Range/Units 12:41 POC Glucose 191 H (70-105)
[2018-02-24] MEDS: MORPHINE IV PRN ×3 (10:03→17:35)
[2018-02-24] MEDS: VITAMIN C PO SCH ×2 (10:06→21:57)
[2018-02-24] MEDS: COLACE PO SCH ×2 (10:06→22:01)
[2018-02-24] MEDS: NEURONTIN PO SCH ×2 (10:06→21:57)
[2018-02-24] MEDS: ZYLOPRIM PO SCH (10:07)
[2018-02-24] MEDS: COREG PO SCH ×2 (10:07→21:57)
[2018-02-24] MEDS: FOLVITE PO SCH (10:07)
[2018-02-24] MEDS: NORVASC PO SCH (10:08)
[2018-02-24] MEDS: HEPARIN SUB-Q SCH ×2 (10:09→22:01)
[2018-02-24] MEDS: VITAMIN B-1 PO SCH (11:00)
--- NOTE | 2018-02-24 11:25 | Progress Note ---
Assessment and Plan Assessment and plan: Sepsis. Patient will be continued on IV antibiotics. Follow-up blood cultures and likely gas levels. Right foot gangrene. Patient will likely have AKA on Sunday. Hold eliquis Sinus pauses. Cardiology following. Coreg dose decrease. Follow-up echocardiogram. Diabetes mellitus type 2. Continue Accu-Cheks and sliding scale. Peripheral vascular disease. Patient with previous left BKA. Hypokalemia. Replete potassium as needed. History Interval history: No new issues overnight. Nursing reported sinus pauses of 2.4 seconds yesterday Hospitalist Physical - Constitutional Vitals: Temp Pulse Resp BP Pulse Ox 98.4 F 93 H 20 147/78 95 02/24/18 07:56 02/24/18 10:08 02/24/18 07:56 02/24/18 07:56 02/24/18 07:56 General appearance: Present: no acute distress - EENT Eyes: Present: PERRL, EOM intact ENT: hearing intact, clear oral mucosa, dentition normal - Neck Neck: Present: supple, normal ROM - Respiratory Respiratory effort: normal Respiratory: bilateral: CTA - Cardiovascular Rhythm: regular Heart Sounds: Present: S1 & S2. Absent: gallop, rub - Extremities Extremities: no ischemia, Full ROM Extremity abnormal: other (right lower extremity dressing clean dry and intact) - Abdominal General gastrointestinal: soft, non-tender, non-distended, normal bowel sounds - Integumentary Integumentary: Present: clear, warm, dry - Neurologic Neurologic: CNII-XII intact, moves all extremities Results - Labs CBC & Chem 7: 02/23/18 03:51 02/23/18 03:51 Labs: Laboratory Last Values WBC 15.9 K/mm3 (4.5-11.0) H 02/23/18 03:51 RBC 3.41 M/mm3 (3.65-5.03) L 02/23/18 03:51 Hgb 8.8 gm/dl (11.8-15.2) L 02/23/18 03:51 Hct 28.2 % (35.5-45.6) L 02/23/18 03:51 MCV 83 fl (84-94) L 02/23/18 03:51 MCH 26 pg (28-32) L 02/23/18 03:51 MCHC 31 % (32-34) L 02/23/18 03:51 RDW 17.2 % (13.2-15.2) H 02/23/18 03:51 Plt Count 343 K/mm3 (140-440) 02/23/18 03:51 Lymph % (Auto) 9.8 % (13.4-35.0) L 02/23/18 03:51 [place] % (Auto) 8.6 % (0.0-7.3) H 02/23/18 03:51 Eos % (Auto) 1.4 % (0.0-4.3) 02/23/18 03:51 Baso % (Auto) 0.5 % (0.0-1.8) 02/23/18 03:51 Lymph # 1.5 K/mm3 (1.2-5.4) 02/23/18 03:51 [place] # 1.4 K/mm3 (0.0-0.8) H 02/23/18 03:51 Eos # 0.2 K/mm3 (0.0-0.4) 02/23/18 03:51 Baso # 0.1 K/mm3 (0.0-0.1) 02/23/18 03:51 Add Manual Diff Complete 02/21/18 21:45 Total Counted 100 02/21/18 21:45 Seg Neutrophils % 79.7 % (40.0-70.0) H 02/23/18 03:51 Seg Neuts % (Manual) 82.0 % (40.0-70.0) H 02/21/18 21:45 Band Neutrophils % 0 % 02/21/18 21:45 Lymphocytes % (Manual) 11.0 % (13.4-35.0) L 02/21/18 21:45 Reactive Lymphs % (Man) 0 % 02/21/18 21:45 Monocytes % (Manual) 6.0 % (0.0-7.3) 02/21/18 21:45 Eosinophils % (Manual) 1.0 % (0.0-4.3) 02/21/18 21:45 Basophils % (Manual) 0 % (0.0-1.8) 02/21/18 21:45 Metamyelocytes % 0 % 02/21/18 21:45 Myelocytes % 0 % 02/21/18 21:45 Promyelocytes % 0 % 02/21/18 21:45 Blast Cells % 0 % 02/21/18 21:45 Nucleated RBC % Not Reportable 02/21/18 21:45 Seg Neutrophils # 12.6 K/mm3 (1.8-7.7) H 02/23/18 03:51 Seg Neutrophils # Man 16.8 K/mm3 (1.8-7.7) H 02/21/18 21:45 Band Neutrophils # 0.0 K/mm3 02/21/18 21:45 Lymphocytes # (Manual) 2.3 K/mm3 (1.2-5.4) 02/21/18 21:45 Abs React Lymphs (Man) 0.0 K/mm3 02/21/18 21:45 Monocytes # (Manual) 1.2 K/mm3 (0.0-0.8) H 02/21/18 21:45 Eosinophils # (Manual) 0.2 K/mm3 (0.0-0.4) 02/21/18 21:45 Basophils # (Manual) 0.0 K/mm3 (0.0-0.1) 02/21/18 21:45 Metamyelocytes # 0.0 K/mm3 02/21/18 21:45 Myelocytes # 0.0 K/mm3 02/21/18 21:45 Promyelocytes # 0.0 K/mm3 02/21/18 21:45 Blast Cells # 0.0 K/mm3 02/21/18 21:45 WBC Morphology Not Reportable 02/21/18 21:45 Hypersegmented Neuts Not Reportable 02/21/18 21:45 Hyposegmented Neuts Not Reportable 02/21/18 21:45 Hypogranular Neuts Not Reportable 02/21/18 21:45 Smudge Cells Not Reportable 02/21/18 21:45 Toxic Granulation Not Reportable 02/21/18 21:45 Toxic Vacuolation Not Reportable 02/21/18 21:45 Dohle Bodies Not Reportable 02/21/18 21:45 Pelger-Huet Anomaly Not Reportable 02/21/18 21:45 Fermín Rods Not Reportable 02/21/18 21:45 Platelet Estimate Consistent w auto 02/21/18 21:45 Clumped Platelets Not Reportable 02/21/18 21:45 Plt Clumps, EDTA Not Reportable 02/21/18 21:45 Large Platelets Not Reportable 02/21/18 21:45 Giant Platelets Not Reportable 02/21/18 21:45 Platelet Satelliting Not Reportable 02/21/18 21:45 Plt Morphology Comment Not Reportable 02/21/18 21:45 RBC Morphology Not Reportable 02/21/18 21:45 Dimorphic RBCs Not Reportable 02/21/18 21:45 Polychromasia Not Reportable 02/21/18 21:45 Hypochromasia Not Reportable 02/21/18 21:45 Poikilocytosis 1+ 02/21/18 21:45 Anisocytosis 1+ 02/21/18 21:45 Microcytosis Not Reportable 02/21/18 21:45 Macrocytosis Not Reportable 02/21/18 21:45 Spherocytes Not Reportable 02/21/18 21:45 Pappenheimer Bodies Not Reportable 02/21/18 21:45 Sickle Cells Not Reportable 02/21/18 21:45 Target Cells Not Reportable 02/21/18 21:45 Tear Drop Cells Not Reportable 02/21/18 21:45 Ovalocytes Not Reportable 02/21/18 21:45 Helmet Cells Not Reportable 02/21/18 21:45 We[place] Bodies Not Reportable 02/21/18 21:45 [place] Rings Not Reportable 02/21/18 21:45 [place] Cells Not Reportable 02/21/18 21:45 Bite Cells Not Reportable 02/21/18 21:45 Crenated Cell Not Reportable 02/21/18 21:45 Elliptocytes Not Reportable 02/21/18 21:45 Acanthocytes (Spur) Not Reportable 02/21/18 21:45 Rouleaux Not Reportable 02/21/18 21:45 Hemoglobin C Crystals Not Reportable 02/21/18 21:45 Schistocytes Not Reportable 02/21/18 21:45 Malaria parasites Not Reportable 02/21/18 21:45 Luis Felipe Bodies Not Reportable 02/21/18 21:45 Hem Pathologist Commnt No 02/21/18 21:45 PT 28.8 Sec. (12.2-14.9) H 02/21/18 21:45 INR 2.65 (0.87-1.13) H 02/21/18 21:45 APTT 47.1 Sec. (24.2-36.6) H 02/21/18 21:45 Sodium 142 mmol/L (137-145) 02/23/18 03:51 Potassium 3.0 mmol/L (3.6-5.0) L 02/23/18 03:51 Chloride 105.2 mmol/L (98-107) 02/23/18 03:51 Carbon Dioxide 25 mmol/L (22-30) 02/23/18 03:51 Anion Gap 15 mmol/L 02/23/18 03:51 BUN 15 mg/dL (9-20) 02/23/18 03:51 Creatinine 1.1 mg/dL (0.8-1.5) 02/23/18 03:51 Estimated GFR > 60 ml/min 02/23/18 03:51 BUN/Creatinine Ratio 14 % 02/23/18 03:51 Glucose 75 mg/dL (75-100) 02/23/18 03:51 POC Glucose 83 (70-105) 02/24/18 05:25 Lactic Acid 1.30 mmol/L (0.7-2.0) 02/22/18 00:35 Calcium 8.0 mg/dL (8.4-10.2) L 02/23/18 03:51 Magnesium 1.40 mg/dL (1.7-2.3) L 02/22/18 05:11 Total Bilirubin 1.30 mg/dL (0.1-1.2) H 02/23/18 03:51 AST 25 units/L (5-40) 02/23/18 03:51 ALT 11 units/L (7-56) 02/23/18 03:51 Alkaline Phosphatase 189 units/L (35-129) H 02/23/18 03:51 Total Creatine Kinase 58 units/L (55-170) 02/22/18 13:53 CK-MB (CK-2) 1.3 ng/mL (0.0-4.0) 02/22/18 13:53 CK-MB (CK-2) Rel Index 2.2 (0-4) 02/22/18 13:53 Troponin T 0.177 ng/mL (0.00-0.029) H* 02/22/18 13:53 NT-Pro-B Natriuret Pep 45237 pg/mL (0-900) H 02/21/18 21:45 Total Protein 6.2 g/dL (6.3-8.2) L 02/23/18 03:51 Albumin 1.9 g/dL (3.9-5) L 02/23/18 03:51 Albumin/Globulin Ratio 0.4 % 02/23/18 03:51 Triglycerides 86 mg/dL (2-149) 02/21/18 21:45 Cholesterol 84 mg/dL (50-199) 02/21/18 21:45 LDL Cholesterol Direct 41 mg/dL (50-130) L 02/21/18 21:45 HDL Cholesterol 26 mg/dL (40-59) L 02/21/18 21:45 Cholesterol/HDL Ratio 3.23 % 02/21/18 21:45
[2018-02-24] MEDS: NACL 0.9% 1000 ML 1,000 ML IV SCH (16:32)
[2018-02-24] MEDS: DEMADEX PO SCH (16:32)
[2018-02-24] MEDS: TYLENOL PO PRN (21:57)
[2018-02-25] MEDS: NACL 0.9% 1000 ML 1,000 ML IV SCH (05:30)
[2018-02-25] MEDS: ZOSYN/NS 4.5GM/100ML 4.5 GM/100 ML VIAL IV SCH ×3 (05:32→21:28)
[2018-02-25] MEDS: VANCOMYCIN 1,500 MG in NACL 0.9% 500 ML 500 ML IV SCH ×3 (05:32→22:04)
[2018-02-25 05:44] LABS: Basophils # (Auto) 0.1 K/mm3 (0.0-0.1); Basophils % (Auto) 0.7 % (0.0-1.8); Eosinophils # (Auto) 0.3 K/mm3 (0.0-0.4); Eosinophils % (Auto) 1.9 % (0.0-4.3); Hematocrit 27.7 % (35.5-45.6); Hemoglobin 8.8 gm/dl (11.8-15.2); Lymphocytes # (Auto) 1.4 K/mm3 (1.2-5.4); Lymphocytes % (Auto) 9.7 % (13.4-35.0); Mean Corpuscular HGB Conc 32 % (32-34); Mean Corpuscular Hemoglobin 26 pg (28-32); Mean Corpuscular Volume 82 fl (84-94); Monocytes # (Auto) 1.5 K/mm3 (0.0-0.8); Monocytes % (Auto) 10.4 % (0.0-7.3); Platelet Count 357 K/mm3 (140-440); Red Blood Count 3.38 M/mm3 (3.65-5.03); Red Cell Distribution Width 17.7 % (13.2-15.2)
[2018-02-25 07:20] LABS: BUN/Creatinine Ratio 8; Blood Urea Nitrogen 8 mg/dL (9-20); Calcium 8.2 mg/dL (8.4-10.2); Hemolysis Index 3
[2018-02-25] MEDS: DEMADEX PO SCH (10:00)
--- NOTE | 2018-02-25 10:18 | Progress Note ---
Assessment and Plan Assessment and plan: Sepsis. Patient will be continued on IV antibiotics. Follow-up blood cultures and likely gas levels. Right foot gangrene. Patient will likely have AKA today. Hold eliquis Sinus pauses. Cardiology following. Coreg dose decreased. Follow-up echocardiogram. Hypokalemia. Replete potassium. Diabetes mellitus type 2. Continue Accu-Cheks and sliding scale. Peripheral vascular disease. Patient with previous left BKA. History Interval history: No new issues overnight. Hospitalist Physical - Constitutional Vitals: Temp Pulse Resp BP Pulse Ox 98.0 F 78 20 116/64 93 02/25/18 08:03 02/25/18 08:03 02/25/18 08:03 02/25/18 08:03 02/25/18 08:03 General appearance: Present: no acute distress - EENT Eyes: Present: PERRL, EOM intact ENT: hearing intact, clear oral mucosa, dentition normal - Neck Neck: Present: supple, normal ROM - Respiratory Respiratory effort: normal Respiratory: bilateral: CTA - Cardiovascular Rhythm: regular Heart Sounds: Present: S1 & S2. Absent: gallop, rub - Extremities Extremities: no ischemia, Full ROM, abnormal (right foot dressing clean dry and intact) - Abdominal General gastrointestinal: soft, non-tender, non-distended, normal bowel sounds - Integumentary Integumentary: Present: clear, warm, dry - Neurologic Neurologic: CNII-XII intact, moves all extremities Results - Labs CBC & Chem 7: 02/25/18 04:59 02/25/18 04:59 Labs: Laboratory Last Values WBC 14.2 K/mm3 (4.5-11.0) H 02/25/18 04:59 RBC 3.38 M/mm3 (3.65-5.03) L 02/25/18 04:59 Hgb 8.8 gm/dl (11.8-15.2) L 02/25/18 04:59 Hct 27.7 % (35.5-45.6) L 02/25/18 04:59 MCV 82 fl (84-94) L 02/25/18 04:59 MCH 26 pg (28-32) L 02/25/18 04:59 MCHC 32 % (32-34) 02/25/18 04:59 RDW 17.7 % (13.2-15.2) H 02/25/18 04:59 Plt Count 357 K/mm3 (140-440) 02/25/18 04:59 Lymph % (Auto) 9.7 % (13.4-35.0) L 02/25/18 04:59 [place] % (Auto) 10.4 % (0.0-7.3) H 02/25/18 04:59 Eos % (Auto) 1.9 % (0.0-4.3) 02/25/18 04:59 Baso % (Auto) 0.7 % (0.0-1.8) 02/25/18 04:59 Lymph # 1.4 K/mm3 (1.2-5.4) 02/25/18 04:59 [place] # 1.5 K/mm3 (0.0-0.8) H 02/25/18 04:59 Eos # 0.3 K/mm3 (0.0-0.4) 02/25/18 04:59 Baso # 0.1 K/mm3 (0.0-0.1) 02/25/18 04:59 Add Manual Diff Complete 02/21/18 21:45 Total Counted 100 02/21/18 21:45 Seg Neutrophils % 77.3 % (40.0-70.0) H 02/25/18 04:59 Seg Neuts % (Manual) 82.0 % (40.0-70.0) H 02/21/18 21:45 Band Neutrophils % 0 % 02/21/18 21:45 Lymphocytes % (Manual) 11.0 % (13.4-35.0) L 02/21/18 21:45 Reactive Lymphs % (Man) 0 % 02/21/18 21:45 Monocytes % (Manual) 6.0 % (0.0-7.3) 02/21/18 21:45 Eosinophils % (Manual) 1.0 % (0.0-4.3) 02/21/18 21:45 Basophils % (Manual) 0 % (0.0-1.8) 02/21/18 21:45 Metamyelocytes % 0 % 02/21/18 21:45 Myelocytes % 0 % 02/21/18 21:45 Promyelocytes % 0 % 02/21/18 21:45 Blast Cells % 0 % 02/21/18 21:45 Nucleated RBC % Not Reportable 02/21/18 21:45 Seg Neutrophils # 11.0 K/mm3 (1.8-7.7) H 02/25/18 04:59 Seg Neutrophils # Man 16.8 K/mm3 (1.8-7.7) H 02/21/18 21:45 Band Neutrophils # 0.0 K/mm3 02/21/18 21:45 Lymphocytes # (Manual) 2.3 K/mm3 (1.2-5.4) 02/21/18 21:45 Abs React Lymphs (Man) 0.0 K/mm3 02/21/18 21:45 Monocytes # (Manual) 1.2 K/mm3 (0.0-0.8) H 02/21/18 21:45 Eosinophils # (Manual) 0.2 K/mm3 (0.0-0.4) 02/21/18 21:45 Basophils # (Manual) 0.0 K/mm3 (0.0-0.1) 02/21/18 21:45 Metamyelocytes # 0.0 K/mm3 02/21/18 21:45 Myelocytes # 0.0 K/mm3 02/21/18 21:45 Promyelocytes # 0.0 K/mm3 02/21/18 21:45 Blast Cells # 0.0 K/mm3 02/21/18 21:45 WBC Morphology Not Reportable 02/21/18 21:45 Hypersegmented Neuts Not Reportable 02/21/18 21:45 Hyposegmented Neuts Not Reportable 02/21/18 21:45 Hypogranular Neuts Not Reportable 02/21/18 21:45 Smudge Cells Not Reportable 02/21/18 21:45 Toxic Granulation Not Reportable 02/21/18 21:45 Toxic Vacuolation Not Reportable 02/21/18 21:45 Dohle Bodies Not Reportable 02/21/18 21:45 Pelger-Huet Anomaly Not Reportable 02/21/18 21:45 Fermín Rods Not Reportable 02/21/18 21:45 Platelet Estimate Consistent w auto 02/21/18 21:45 Clumped Platelets Not Reportable 02/21/18 21:45 Plt Clumps, EDTA Not Reportable 02/21/18 21:45 Large Platelets Not Reportable 02/21/18 21:45 Giant Platelets Not Reportable 02/21/18 21:45 Platelet Satelliting Not Reportable 02/21/18 21:45 Plt Morphology Comment Not Reportable 02/21/18 21:45 RBC Morphology Not Reportable 02/21/18 21:45 Dimorphic RBCs Not Reportable 02/21/18 21:45 Polychromasia Not Reportable 02/21/18 21:45 Hypochromasia Not Reportable 02/21/18 21:45 Poikilocytosis 1+ 02/21/18 21:45 Anisocytosis 1+ 02/21/18 21:45 Microcytosis Not Reportable 02/21/18 21:45 Macrocytosis Not Reportable 02/21/18 21:45 Spherocytes Not Reportable 02/21/18 21:45 Pappenheimer Bodies Not Reportable 02/21/18 21:45 Sickle Cells Not Reportable 02/21/18 21:45 Target Cells Not Reportable 02/21/18 21:45 Tear Drop Cells Not Reportable 02/21/18 21:45 Ovalocytes Not Reportable 02/21/18 21:45 Helmet Cells Not Reportable 02/21/18 21:45 [place] Bodies Not Reportable 02/21/18 21:45 [place] Rings Not Reportable 02/21/18 21:45 Irene Cells Not Reportable 02/21/18 21:45 Bite Cells Not Reportable 02/21/18 21:45 Crenated Cell Not Reportable 02/21/18 21:45 Elliptocytes Not Reportable 02/21/18 21:45 Acanthocytes (Spur) Not Reportable 02/21/18 21:45 Rouleaux Not Reportable 02/21/18 21:45 Hemoglobin C Crystals Not Reportable 02/21/18 21:45 Schistocytes Not Reportable 02/21/18 21:45 Malaria parasites Not Reportable 02/21/18 21:45 Luis Felipe Bodies Not Reportable 02/21/18 21:45 Hem Pathologist Commnt No 02/21/18 21:45 PT 28.8 Sec. (12.2-14.9) H 02/21/18 21:45 INR 2.65 (0.87-1.13) H 02/21/18 21:45 APTT 47.1 Sec. (24.2-36.6) H 02/21/18 21:45 Sodium 148 mmol/L (137-145) H 02/25/18 04:59 Potassium 3.0 mmol/L (3.6-5.0) L 02/25/18 04:59 Chloride 110.2 mmol/L (98-107) H 02/25/18 04:59 Carbon Dioxide 23 mmol/L (22-30) 02/25/18 04:59 Anion Gap 18 mmol/L 02/25/18 04:59 BUN 8 mg/dL (9-20) L 02/25/18 04:59 Creatinine 1.0 mg/dL (0.8-1.5) 02/25/18 04:59 Estimated GFR > 60 ml/min 02/25/18 04:59 BUN/Creatinine Ratio 8 % 02/25/18 04:59 Glucose 82 mg/dL (75-100) 02/25/18 04:59 POC Glucose 100 (70-105) 02/25/18 05:40 Lactic Acid 1.30 mmol/L (0.7-2.0) 02/22/18 00:35 Calcium 8.2 mg/dL (8.4-10.2) L 02/25/18 04:59 Magnesium 1.40 mg/dL (1.7-2.3) L 02/22/18 05:11 Total Bilirubin 1.30 mg/dL (0.1-1.2) H 02/23/18 03:51 AST 25 units/L (5-40) 02/23/18 03:51 ALT 11 units/L (7-56) 02/23/18 03:51 Alkaline Phosphatase 189 units/L (35-129) H 02/23/18 03:51 Total Creatine Kinase 58 units/L (55-170) 02/22/18 13:53 CK-MB (CK-2) 1.3 ng/mL (0.0-4.0) 02/22/18 13:53 CK-MB (CK-2) Rel Index 2.2 (0-4) 02/22/18 13:53 Troponin T 0.177 ng/mL (0.00-0.029) H* 02/22/18 13:53 NT-Pro-B Natriuret Pep 16819 pg/mL (0-900) H 02/21/18 21:45 Total Protein 6.2 g/dL (6.3-8.2) L 02/23/18 03:51 Albumin 1.9 g/dL (3.9-5) L 02/23/18 03:51 Albumin/Globulin Ratio 0.4 % 02/23/18 03:51 Triglycerides 86 mg/dL (2-149) 02/21/18 21:45 Cholesterol 84 mg/dL (50-199) 02/21/18 21:45 LDL Cholesterol Direct 41 mg/dL (50-130) L 02/21/18 21:45 HDL Cholesterol 26 mg/dL (40-59) L 02/21/18 21:45 Cholesterol/HDL Ratio 3.23 % 02/21/18 21:45 Vancomycin Trough 4.0 ug/mL (5.0-20.0) L 02/24/18 16:51
[2018-02-25] MEDS: HumuLIN R SUB-Q SCH ×4 (10:53→22:00)
[2018-02-25] MEDS: VITAMIN B-1 PO SCH (10:55)
[2018-02-25] MEDS: COLACE PO SCH ×2 (10:55→21:29)
[2018-02-25] MEDS: VITAMIN C PO SCH ×2 (10:56→21:29)
[2018-02-25] MEDS: NORVASC PO SCH (10:56)
[2018-02-25] MEDS: FOLVITE PO SCH (10:57)
[2018-02-25] MEDS: COREG PO SCH (10:57)
[2018-02-25] MEDS: NEURONTIN PO SCH ×2 (10:59→21:29)
[2018-02-25] MEDS: ZYLOPRIM PO SCH (10:59)
[2018-02-25] MEDS: HEPARIN SUB-Q SCH ×2 (11:00→21:29)
[2018-02-25] MEDS: MORPHINE IV PRN ×2 (11:06→18:43)
--- NOTE | 2018-02-25 11:10 | Query- Nutrition ---
Deajuan Pierson____Constance Date:___02/25/2018 Cor[employer]ator Helper/CDS:___Harmony Phone#:____[phone] Exercise your independent professional judgment when responding to query. Questions asked do not imply a particular answer is desired or expected. We greatly appreciate your clarification on this issue. Clinical Documentation States: 58-year-old male who presents for evaluation of leg pain. The Hospitalist (Dr. Lynn) progress note on 02/25/2018 stated "Assessment and plan: Sepsis. Patient will be continued on IV antibiotics. Follow-up blood cultures and likely gas levels. Right foot gangrene." Clinical Findings Show: Albumin 02/21 2.2 02/23 1.9 Please select the most appropriate option 3 [] Mild Malnutrition [] Moderate Malnutrition [x] Severe Malnutrition Serum Albumin 2.8 to 3.4 g/dl or Pre-albumin 5 to 17 mg/dl1,2 Inadequate nutritional intake1,2,3,4 NPO > 5 days Weight loss: 5% in 1 month or 7.5% in 3 months or 10% in 6 months1, 3,4 BMI 16 to 18.4 or Weight <90% of ideal body weight1,2,3,4 Serum Albumin < 2.8 g/ dl1,2 Lymphocytes < 1500/ L2 Inadequate nutritional intake3, high stress e.g. major trauma, sepsis,pancreatitis, morales etc. Decubitus ulcers1,2, , skin breakdown2, easy hair pluckability2 Weight <80% standard for height2 Triceps skin fold <3 mm2 Mid-arm muscle circumference <15 cm2 Creatinine-height index <60% standard2 [ ] Cachexia [ ] Emaciated w/Malnutrition [ ] Other: [ ] Unable to determine [ ] Comment/Explanation: Present on Admission: [ x] Yes (Y) [ ] Clinically undeterminable (W) [ ] No (N) Please also document response in your Progress Notes and/or Discharge Summary and indicate if the condition was present on admission. MTDD
[2018-02-25] MEDS ORDERED: K-DUR PO ONE ×2 (11:16→14:17)
--- NOTE | 2018-02-25 11:17 | Progress Note ---
Assessment and Plan Intractable RLE pain H/o CVA PVD L AKA Paroxysmal Atrial fibrillation joby has been held for planned surgery Sinus pauses less than 3 seconds during sleep b-lillian dosage decreased Diabetes HTN Hyperlipidemia Echocardiogram and 12 lead ECG for pre-operative evaluation. Subjective Date of service: 02/25/18 Principal diagnosis: right foot gangrene, right contracture Interval history: Patient is resting in bed comfortably. Burst of NSVT and sinus pause, <3 sec seen on telemetry this morning. Sinus pause occurred while the patient was asleep, 0519. Objective Vital Signs Temp Pulse Resp BP Pulse Ox 02/25/18 10:57 73 02/25/18 10:56 73 02/25/18 08:03 98.0 F 78 20 116/64 93 02/25/18 05:09 97.6 F 54 L 18 114/66 96 02/25/18 00:57 98.7 F 81 22 121/59 100 02/24/18 22:00 18 02/24/18 19:54 101.1 F H 85 22 129/61 94 02/24/18 16:15 97.9 F 87 20 129/67 96 - Physical Examination General: No Apparent Distress HEENT: Positive: PERRL Cardiac: Positive: Reg Rate and Rhythm - Labs and Meds CBC 02/25/18 Range/Units 04:59 WBC 14.2 H (4.5-11.0) K/mm3 RBC 3.38 L (3.65-5.03) M/mm3 Hgb 8.8 L (11.8-15.2) gm/dl Hct 27.7 L (35.5-45.6) % Plt Count 357 (140-440) K/mm3 Lymph # 1.4 (1.2-5.4) K/mm3 [place] # 1.5 H (0.0-0.8) K/mm3 Eos # 0.3 (0.0-0.4) K/mm3 Baso # 0.1 (0.0-0.1) K/mm3 Comprehensive Metabolic Panel 02/25/18 Range/Units 04:59 Sodium 148 H (137-145) mmol/L Potassium 3.0 L (3.6-5.0) mmol/L Chloride 110.2 H (98-107) mmol/L Carbon Dioxide 23 (22-30) mmol/L BUN 8 L (9-20) mg/dL Creatinine 1.0 (0.8-1.5) mg/dL Glucose 82 (75-100) mg/dL Calcium 8.2 L (8.4-10.2) mg/dL
--- NOTE | 2018-02-25 13:36 | Anesthesia Consultation ---
Anesthesia Consult and Med Hx Date of service: 02/25/18 - Airway Anesthetic Teeth Evaluation: Edentulous ROM Head & Neck: Adequate Mental/Hyoid Distance: Adequate Mallampati Class: Class II Intubation Access Assessment: Probably Good - Pulmonary Exam CTA: Yes - Cardiac Exam Anesthetic Concerns: Irregular - Pre-Operative Health Status ASA Pre-Surgery Classification: ASA3 Proposed Anesthetic Plan: General - Pre-Anesthesia Comment Pre-Anesthesia Comments: sepsis, right foot gangrene. Shaista held - Pulmonary Hx Smoking: Yes (Former) - Cardiovascular System Hx Hypertension: Yes Hx Cardia Arrhythmia: Yes (SVT, AFib, <3 secs pauses) Hx Peripheral Vascular Disease: Yes (left bka) - Central Nervous System CVA: Yes - Gastrointestinal Hx Gastroesophageal Reflux Disease: Yes - Endocrine Hx Insulin Dependent Diabetes: Yes - Hematic Hx Anemia: Yes
[2018-02-25] MEDS ORDERED: XYLOCAINE MPF 2% ONE (13:55)
[2018-02-25] MEDS ORDERED: DIPRIVAN 10 MG/ML IV ONE (13:56)
[2018-02-25] MEDS ORDERED: SUBLIMAZE ONE (13:56)
[2018-02-25] MEDS ORDERED: NACL 0.9% 1000 ML 1,000 ML IV SCH (14:00)
[2018-02-25] MEDS ORDERED: PEPCID IV NR (14:00)
[2018-02-25] MEDS ORDERED: ROBINUL ONE (14:10)
[2018-02-25] MEDS ORDERED: NACL 0.9% IR ONE (15:41)
[2018-02-25] MEDS ORDERED: DILAUDID IV PRN (17:13)
--- NOTE | 2018-02-25 17:31 | Operative Report ---
Operative Report Operative Report: Operative note: Date: 02/25/2018 Preoperative diagnosis: Right leg ischemia Postoperative diagnosis: Same. Operation: Right above-knee amputation Surgeon: Jenna Phelan. Asst.:Héctor Cheung Anesthesia: Gen. EBL: 400 mL Findings: Calcified femoral arteries, severe right knee contracture Indications: 58-year-old gentleman developed right leg gangrene. Patient has a history of same sequence of events that led to left above-knee amputation previously. patient had developed right knee contracture. He was recommended to have right above-knee amputation. Patient was discussed all risks, benefits and alternatives to procedure and chose to proceed, signed informed consent. Operative details: Patient was brought to the operating room and placed under general anesthesia. Timeout performed and all team members in agreement. [place] incision was made with 10 blade curving around anterior and posterior flaps and carried down with electrocoutery down to the fascia. Dissection was complicated by a natural position of knee hanging out from operative field. Muscles were divided with electrocautery down to the femur, blood vessels were ligated and divided. Femoral artery and vein divided and ligated. . Bone was cleaned with periosteal elevator and divided with electric saw. The rest of the muscle was divided with amputation knife. Bone edges were smoothed. Hemostasis was achieved with suture ligatures and electrocautery. Wound was irrigated with saline. Fascia was closed with interrupted Vicryl stitches. Skin was closed with jaskaran. All needles and sponge counts were correct 2. Patient tolerated the procedure well and was transferred to PACU in stable condition.
[2018-02-25 17:56] LABS: Hematocrit 27.5 % (35.5-45.6); Hemoglobin 8.4 gm/dl (11.8-15.2)
[2018-02-25] MEDS: DURAGESIC TD SCH (19:52)
--- NOTE | 2018-02-25 20:26 | Anesthesia Day of Surgery ---
Anesthesia Day of Surgery - Day of Surgery Patient Examined: Yes Patient H&P Reviewed: Yes Patient is NPO: Yes
--- NOTE | 2018-02-25 20:26 | Post Anesthesia Evaluation ---
- Post Anesthesia Evaluation Patient Participated: Yes Airway Patent: Yes Stable Respiratory Function: Yes Nausea/Vomiting: No Temp > 96.8F: Yes Pain Manageable: Yes Adequeate Hydration: Yes Anesthesia Complications: No Block Receding Appropriately: Not Applicable Patient on Ventilator: No
[2018-02-25] MEDS: NORCO 5/325 PO PRN (21:35)
[2018-02-26] MEDS: ZOSYN/NS 4.5GM/100ML 4.5 GM/100 ML VIAL IV SCH ×3 (05:57→21:04)
[2018-02-26] MEDS: NORCO 5/325 PO PRN ×2 (06:21→18:03)
[2018-02-26] MEDS: VANCOMYCIN 1,500 MG in NACL 0.9% 500 ML 500 ML IV SCH ×3 (06:22→22:12)
[2018-02-26 06:23] LABS: Basophils # (Auto) 0.1 K/mm3 (0.0-0.1); Basophils % (Auto) 0.5 % (0.0-1.8); Eosinophils # (Auto) 0.1 K/mm3 (0.0-0.4); Eosinophils % (Auto) 0.3 % (0.0-4.3); Hematocrit 25.2 % (35.5-45.6); Hemoglobin 7.9 gm/dl (11.8-15.2); Lymphocytes # (Auto) 1.6 K/mm3 (1.2-5.4); Lymphocytes % (Auto) 10.3 % (13.4-35.0); Mean Corpuscular HGB Conc 31 % (32-34); Mean Corpuscular Hemoglobin 26 pg (28-32); Mean Corpuscular Volume 83 fl (84-94); Monocytes # (Auto) 1.6 K/mm3 (0.0-0.8); Monocytes % (Auto) 10.1 % (0.0-7.3); Platelet Count 351 K/mm3 (140-440); Red Blood Count 3.03 M/mm3 (3.65-5.03); Red Cell Distribution Width 17.9 % (13.2-15.2)
[2018-02-26 06:53] LABS: BUN/Creatinine Ratio 9; Blood Urea Nitrogen 7 mg/dL (9-20); Calcium 7.6 mg/dL (8.4-10.2); Hemolysis Index 6
[2018-02-26] MEDS: HumuLIN R SUB-Q SCH ×4 (06:59→22:20)
--- NOTE | 2018-02-26 10:01 | Progress Note ---
Assessment and Plan Pt s/p RLE AKA due to gangrene with infection. Check wounds in the next 24-48 hrs. Pt presently on Fentanyl patch (which he states he does not use as an outpt). Convert to oral analgesics as tolerated. D/c planning to return to [place]. - Patient Problems (1) Atherosclerosis of [place] arteries of the extremities with gangrene Current Visit: Yes Status: Acute Subjective Date of service: 02/26/18 Principal diagnosis: right foot gangrene, right contracture Interval history: Pt awake. He complains of mild to moderate incisional pain. He is o/w without complaint. Objective - Constitutional Vitals: Vital Signs - 12hr 02/26/18 02/26/18 02/26/18 00:20 05:04 08:03 Temperature 98.6 F 98.3 F 98.2 F Pulse Rate 102 H 98 H 114 H Respiratory 20 18 20 Rate Blood Pressure 128/75 118/58 Blood Pressure 112/75 [Left] O2 Sat by Pulse 99 98 98 Oximetry 02/26/18 09:47 Temperature Pulse Rate Respiratory Rate Blood Pressure Blood Pressure [Left] O2 Sat by Pulse 97 Oximetry General appearance: Present: no acute distress - EENT Eyes: EOM intact ENT: hearing intact - Respiratory Respiratory effort: normal Extremities: abnormal (Right AKA - Bandages intact, without apparent strike through.) - Neurologic Neurologic: no focal deficits - Psychiatric Psychiatric: appropriate mood/affect, cooperative - Labs CBC & Chem 7: 02/26/18 Unknown 02/26/18 Unknown Labs: Abnormal lab results 02/25/18 02/26/18 02/26/18 Range/Units 17:45 Unknown Unknown WBC 15.4 H (4.5-11.0) K/mm3 RBC 3.03 L (3.65-5.03) M/mm3 Hgb 8.4 L 7.9 L (11.8-15.2) gm/dl Hct 27.5 L 25.2 L (35.5-45.6) % MCV 83 L (84-94) fl MCH 26 L (28-32) pg MCHC 31 L (32-34) % RDW 17.9 H (13.2-15.2) % Lymph % (Auto) 10.3 L (13.4-35.0) % [place] % (Auto) 10.1 H (0.0-7.3) % [place] # 1.6 H (0.0-0.8) K/mm3 Seg Neutrophils % 78.8 H (40.0-70.0) % Seg Neutrophils # 12.1 H (1.8-7.7) K/mm3 Potassium 3.0 L (3.6-5.0) mmol/L Chloride 112.1 H (98-107) mmol/L BUN 7 L (9-20) mg/dL Glucose 74 L (75-100) mg/dL Calcium 7.6 L (8.4-10.2) mg/dL
[2018-02-26] MEDS: DEMADEX PO SCH (10:08)
[2018-02-26] MEDS: NORVASC PO SCH (10:10)
[2018-02-26] MEDS: K-DUR PO SCH ×2 (10:13→15:01)
[2018-02-26] MEDS: VITAMIN B-1 PO SCH (10:13)
[2018-02-26] MEDS: NEURONTIN PO SCH ×2 (10:13→21:02)
[2018-02-26] MEDS: VITAMIN C PO SCH ×2 (10:13→21:03)
[2018-02-26] MEDS: ZYLOPRIM PO SCH (10:13)
[2018-02-26] MEDS: COLACE PO SCH ×2 (10:13→22:19)
[2018-02-26] MEDS: HEPARIN SUB-Q SCH ×2 (10:14→21:03)
[2018-02-26] MEDS: FOLVITE PO SCH (10:14)
[2018-02-26] MEDS ORDERED: D50W (25GM) Syringe IV PRN (10:26)
--- NOTE | 2018-02-26 12:11 | Vascular Lab Report ---
LOWER EXTREMITY ARTERIAL DUPLEX: REASON FOR EXAM: Right lower extremity gangrene. COMMENTS ON THE RIGHT: Monophasic waveforms are seen proximally. Monophasic waveforms are seen distally. Findings are consistent with aortoiliac inflow disease. Common femoral artery velocity elevations are noted consistent with severe stenosis.. Scattered plaque is seen throughout. Findings are consistent with abnormal perfusion. Findings are not consistent with the ability to heal distal wounds. IMPRESSION: Severe arterial occlusive disease in the right lower extremity consistent with inability to heal distal wounds. Evidence of aortoiliac inflow disease and severe common femoral artery stenosis are noted on the right. Recommend further evaluation if clinically appropriate.
--- NOTE | 2018-02-26 12:24 | Progress Note ---
Assessment and Plan Intractable RLE pain s/p right AKA H/o CVA PVD L AKA Paroxysmal Atrial fibrillation eliquis has been held for planned surgery sinus pauses less than 3 seconds during sleep; b-lillian dosage discontinued normal TSH Diabetes HTN Hyperlipidemia Plan: Echocardiogram for LVEF assessment. Subjective Date of service: 02/26/18 Principal diagnosis: right foot gangrene, right contracture Interval history: Patient is 1 day status post right AKA. He denies chest pain and shortness of breath. Post op EKG shows atrial fibrillation with a well controlled ventricular rate. No ischemic changes. Objective Vital Signs Temp Pulse Resp BP BP Pulse Ox 02/26/18 12:11 98.0 F 20 L 20 128/76 95 02/26/18 10:10 94 H 02/26/18 09:47 97 02/26/18 08:03 98.2 F 114 H 20 118/58 98 02/26/18 08:00 88 02/26/18 05:04 98.3 F 98 H 18 128/75 98 02/26/18 00:20 98.6 F 102 H 20 112/75 99 02/25/18 20:00 76 02/25/18 19:47 97.9 F 96 H 20 108/70 98 02/25/18 18:15 97.8 F 92 H 18 107/61 98 02/25/18 18:00 98.7 F 89 15 112/75 99 02/25/18 17:45 87 16 110/62 98 02/25/18 17:30 85 15 116/64 96 02/25/18 17:25 99 H 20 115/64 97 02/25/18 17:20 92 H 16 113/64 96 02/25/18 17:15 97.4 F L 76 16 109/65 96 - Physical Examination General: No Apparent Distress HEENT: Positive: PERRL Cardiac: Positive: irregularly irregular Extremities: Present: Other (bilateral AKA) - Labs and Meds CBC 02/25/18 02/26/18 Range/Units 17:45 Unknown WBC 15.4 H (4.5-11.0) K/mm3 RBC 3.03 L (3.65-5.03) M/mm3 Hgb 8.4 L 7.9 L (11.8-15.2) gm/dl Hct 27.5 L 25.2 L (35.5-45.6) % Plt Count 351 (140-440) K/mm3 Lymph # 1.6 (1.2-5.4) K/mm3 [place] # 1.6 H (0.0-0.8) K/mm3 Eos # 0.1 (0.0-0.4) K/mm3 Baso # 0.1 (0.0-0.1) K/mm3 Comprehensive Metabolic Panel 02/26/18 Range/Units Unknown Sodium 145 (137-145) mmol/L Potassium 3.0 L (3.6-5.0) mmol/L Chloride 112.1 H (98-107) mmol/L Carbon Dioxide 24 (22-30) mmol/L BUN 7 L (9-20) mg/dL Creatinine 0.8 (0.8-1.5) mg/dL Glucose 74 L (75-100) mg/dL Calcium 7.6 L (8.4-10.2) mg/dL
--- NOTE | 2018-02-26 13:34 | Progress Note ---
Assessment and Plan Assessment and plan: Sepsis. Patient will be continued on IV antibiotics. Follow-up blood cultures. Right foot gangrene. s/p right AKA yesterday 02/25/18 Sinus pauses. Cardiology following. Coreg dose decreased. Follow-up echocardiogram. Hypokalemia. Replete potassium. Diabetes mellitus type 2. Continue Accu-Cheks and sliding scale. Peripheral vascular disease. Patient with previous left BKA. History Interval history: Had right AKA yesterday 02/25. Mild pain at surgical site Hospitalist Physical - Physical exam Narrative exam: GEN: Not in acute distress, lying in bed HEENT: Normocephalic, atraumatic, Neck: supple, No JVD Lungs: Clear to auscultation bilaterally, no crackles, no wheeze Heart:S1 and S2 regular, no murmurs, rubs or gallop, Abd:soft, non-tender, non-distended, normal bowel sounds Ext: Right AKA stump covered with dressing, bandage edema, Previous left AKA Neuro: Awake, alert, oriented x 3, no focal signs - Constitutional Vitals: Temp Pulse Resp BP Pulse Ox 98.0 F 20 L 20 128/76 95 02/26/18 12:11 02/26/18 12:11 02/26/18 12:11 02/26/18 12:11 02/26/18 12:11 General appearance: Present: no acute distress Results - Labs CBC & Chem 7: 02/26/18 Unknown 02/26/18 Unknown Labs: Laboratory Last Values WBC 15.4 K/mm3 (4.5-11.0) H 02/26/18 Unknown RBC 3.03 M/mm3 (3.65-5.03) L 02/26/18 Unknown Hgb 7.9 gm/dl (11.8-15.2) L 02/26/18 Unknown Hct 25.2 % (35.5-45.6) L 02/26/18 Unknown MCV 83 fl (84-94) L 02/26/18 Unknown MCH 26 pg (28-32) L 02/26/18 Unknown MCHC 31 % (32-34) L 02/26/18 Unknown RDW 17.9 % (13.2-15.2) H 02/26/18 Unknown Plt Count 351 K/mm3 (140-440) 02/26/18 Unknown Lymph % (Auto) 10.3 % (13.4-35.0) L 02/26/18 Unknown [place] % (Auto) 10.1 % (0.0-7.3) H 02/26/18 Unknown Eos % (Auto) 0.3 % (0.0-4.3) 02/26/18 Unknown Baso % (Auto) 0.5 % (0.0-1.8) 02/26/18 Unknown Lymph # 1.6 K/mm3 (1.2-5.4) 02/26/18 Unknown [place] # 1.6 K/mm3 (0.0-0.8) H 02/26/18 Unknown Eos # 0.1 K/mm3 (0.0-0.4) 02/26/18 Unknown Baso # 0.1 K/mm3 (0.0-0.1) 02/26/18 Unknown Add Manual Diff Complete 02/21/18 21:45 Total Counted 100 02/21/18 21:45 Seg Neutrophils % 78.8 % (40.0-70.0) H 02/26/18 Unknown Seg Neuts % (Manual) 82.0 % (40.0-70.0) H 02/21/18 21:45 Band Neutrophils % 0 % 02/21/18 21:45 Lymphocytes % (Manual) 11.0 % (13.4-35.0) L 02/21/18 21:45 Reactive Lymphs % (Man) 0 % 02/21/18 21:45 Monocytes % (Manual) 6.0 % (0.0-7.3) 02/21/18 21:45 Eosinophils % (Manual) 1.0 % (0.0-4.3) 02/21/18 21:45 Basophils % (Manual) 0 % (0.0-1.8) 02/21/18 21:45 Metamyelocytes % 0 % 02/21/18 21:45 Myelocytes % 0 % 02/21/18 21:45 Promyelocytes % 0 % 02/21/18 21:45 Blast Cells % 0 % 02/21/18 21:45 Nucleated RBC % Not Reportable 02/21/18 21:45 Seg Neutrophils # 12.1 K/mm3 (1.8-7.7) H 02/26/18 Unknown Seg Neutrophils # Man 16.8 K/mm3 (1.8-7.7) H 02/21/18 21:45 Band Neutrophils # 0.0 K/mm3 02/21/18 21:45 Lymphocytes # (Manual) 2.3 K/mm3 (1.2-5.4) 02/21/18 21:45 Abs React Lymphs (Man) 0.0 K/mm3 02/21/18 21:45 Monocytes # (Manual) 1.2 K/mm3 (0.0-0.8) H 02/21/18 21:45 Eosinophils # (Manual) 0.2 K/mm3 (0.0-0.4) 02/21/18 21:45 Basophils # (Manual) 0.0 K/mm3 (0.0-0.1) 02/21/18 21:45 Metamyelocytes # 0.0 K/mm3 02/21/18 21:45 Myelocytes # 0.0 K/mm3 02/21/18 21:45 Promyelocytes # 0.0 K/mm3 02/21/18 21:45 Blast Cells # 0.0 K/mm3 02/21/18 21:45 WBC Morphology Not Reportable 02/21/18 21:45 Hypersegmented Neuts Not Reportable 02/21/18 21:45 Hyposegmented Neuts Not Reportable 02/21/18 21:45 Hypogranular Neuts Not Reportable 02/21/18 21:45 Smudge Cells Not Reportable 02/21/18 21:45 Toxic Granulation Not Reportable 02/21/18 21:45 Toxic Vacuolation Not Reportable 02/21/18 21:45 Dohle Bodies Not Reportable 02/21/18 21:45 Pelger-Huet Anomaly Not Reportable 02/21/18 21:45 Fermín Rods Not Reportable 02/21/18 21:45 Platelet Estimate Consistent w auto 02/21/18 21:45 Clumped Platelets Not Reportable 02/21/18 21:45 Plt Clumps, EDTA Not Reportable 02/21/18 21:45 Large Platelets Not Reportable 02/21/18 21:45 Giant Platelets Not Reportable 02/21/18 21:45 Platelet Satelliting Not Reportable 02/21/18 21:45 Plt Morphology Comment Not Reportable 02/21/18 21:45 RBC Morphology Not Reportable 02/21/18 21:45 Dimorphic RBCs Not Reportable 02/21/18 21:45 Polychromasia Not Reportable 02/21/18 21:45 Hypochromasia Not Reportable 02/21/18 21:45 Poikilocytosis 1+ 02/21/18 21:45 Anisocytosis 1+ 02/21/18 21:45 Microcytosis Not Reportable 02/21/18 21:45 Macrocytosis Not Reportable 02/21/18 21:45 Spherocytes Not Reportable 02/21/18 21:45 Pappenheimer Bodies Not Reportable 02/21/18 21:45 Sickle Cells Not Reportable 02/21/18 21:45 Target Cells Not Reportable 02/21/18 21:45 Tear Drop Cells Not Reportable 02/21/18 21:45 Ovalocytes Not Reportable 02/21/18 21:45 Helmet Cells Not Reportable 02/21/18 21:45 [place] Bodies Not Reportable 02/21/18 21:45 [place] Rings Not Reportable 02/21/18 21:45 [place] Cells Not Reportable 02/21/18 21:45 Bite Cells Not Reportable 02/21/18 21:45 Crenated Cell Not Reportable 02/21/18 21:45 Elliptocytes Not Reportable 02/21/18 21:45 Acanthocytes (Spur) Not Reportable 02/21/18 21:45 Rouleaux Not Reportable 02/21/18 21:45 Hemoglobin C Crystals Not Reportable 02/21/18 21:45 Schistocytes Not Reportable 02/21/18 21:45 Malaria parasites Not Reportable 02/21/18 21:45 [place] Bodies Not Reportable 02/21/18 21:45 Hem Pathologist Commnt No 02/21/18 21:45 PT 28.8 Sec. (12.2-14.9) H 02/21/18 21:45 INR 2.65 (0.87-1.13) H 02/21/18 21:45 APTT 47.1 Sec. (24.2-36.6) H 02/21/18 21:45 Sodium 145 mmol/L (137-145) 02/26/18 Unknown Potassium 3.0 mmol/L (3.6-5.0) L 02/26/18 Unknown Chloride 112.1 mmol/L (98-107) H 02/26/18 Unknown Carbon Dioxide 24 mmol/L (22-30) 02/26/18 Unknown Anion Gap 12 mmol/L 02/26/18 Unknown BUN 7 mg/dL (9-20) L 02/26/18 Unknown Creatinine 0.8 mg/dL (0.8-1.5) 02/26/18 Unknown Estimated GFR > 60 ml/min 02/26/18 Unknown BUN/Creatinine Ratio 9 % 02/26/18 Unknown Glucose 74 mg/dL (75-100) L 02/26/18 Unknown POC Glucose 70 (70-105) 02/26/18 05:51 Lactic Acid 1.30 mmol/L (0.7-2.0) 02/22/18 00:35 Calcium 7.6 mg/dL (8.4-10.2) L 02/26/18 Unknown Magnesium 1.40 mg/dL (1.7-2.3) L 02/22/18 05:11 Total Bilirubin 1.30 mg/dL (0.1-1.2) H 02/23/18 03:51 AST 25 units/L (5-40) 02/23/18 03:51 ALT 11 units/L (7-56) 02/23/18 03:51 Alkaline Phosphatase 189 units/L (35-129) H 02/23/18 03:51 Total Creatine Kinase 58 units/L (55-170) 02/22/18 13:53 CK-MB (CK-2) 1.3 ng/mL (0.0-4.0) 02/22/18 13:53 CK-MB (CK-2) Rel Index 2.2 (0-4) 02/22/18 13:53 Troponin T 0.177 ng/mL (0.00-0.029) H* 02/22/18 13:53 NT-Pro-B Natriuret Pep 70441 pg/mL (0-900) H 02/21/18 21:45 Total Protein 6.2 g/dL (6.3-8.2) L 02/23/18 03:51 Albumin 1.9 g/dL (3.9-5) L 02/23/18 03:51 Albumin/Globulin Ratio 0.4 % 02/23/18 03:51 Triglycerides 86 mg/dL (2-149) 02/21/18 21:45 Cholesterol 84 mg/dL (50-199) 02/21/18 21:45 LDL Cholesterol Direct 41 mg/dL (50-130) L 02/21/18 21:45 HDL Cholesterol 26 mg/dL (40-59) L 02/21/18 21:45 Cholesterol/HDL Ratio 3.23 % 02/21/18 21:45 TSH 2.010 mlU/mL (0.270-4.200) 02/26/18 Unknown Vancomycin Trough 4.0 ug/mL (5.0-20.0) L 02/24/18 16:51
[2018-02-26] MEDS: TYLENOL PO PRN (13:35)
[2018-02-26] MEDS: MORPHINE IV PRN (21:09)
[2018-02-27] MEDS: NORCO 5/325 PO PRN ×4 (01:55→23:28)
[2018-02-27] MEDS: ZOSYN/NS 4.5GM/100ML 4.5 GM/100 ML VIAL IV SCH ×3 (05:56→23:27)
[2018-02-27] MEDS ORDERED: MAGNESIUM SULFATE 4GM/100ML 4 GM/100 ML BAG IV ONE (06:00)
[2018-02-27] MEDS: VANCOMYCIN 1,500 MG in NACL 0.9% 500 ML 500 ML IV SCH (06:34)
[2018-02-27] MEDS: HumuLIN R SUB-Q SCH ×3 (08:00→16:30)
[2018-02-27] MEDS: COLACE PO SCH ×2 (09:44→23:27)
[2018-02-27] MEDS: K-DUR PO SCH ×2 (09:45→14:00)
--- NOTE | 2018-02-27 09:45 | Progress Note ---
Assessment and Plan Intractable RLE pain s/p right AKA H/o CVA PVD L AKA Paroxysmal Atrial fibrillation eliquis has been held. sinus pauses less than 3 seconds during sleep; b-lillian dosage discontinued. No further events normal TSH Diabetes HTN Hyperlipidemia Plan: Echocardiogram for LVEF assessment. Resume oral anticoagulation when ok with vascular surgery. Subjective Date of service: 02/27/18 Principal diagnosis: right foot gangrene, right contracture Interval history: Patient denies chest pain and shortness of breath. No events on telemetry overnight. Objective Vital Signs Temp Pulse Pulse Resp BP Pulse Ox 02/27/18 05:39 98.9 F 91 H 20 119/74 97 02/27/18 00:21 98.6 F 60 18 117/69 100 02/26/18 20:00 85 02/26/18 19:59 98.9 F 111 H 20 115/66 96 02/26/18 18:03 16 02/26/18 16:48 98.0 F 93 H 20 106/70 98 02/26/18 12:11 98.0 F 20 L 20 128/76 95 02/26/18 10:10 94 H 02/26/18 10:00 88 16 02/26/18 09:47 97 - Physical Examination General: No Apparent Distress HEENT: Positive: PERRL Cardiac: Positive: irregularly irregular Lungs: Positive: Decreased Breath Sounds Extremities: Present: Other (bilateral AKA) - Labs and Meds Comprehensive Metabolic Panel 02/26/18 Range/Units 20:20 Potassium 3.5 L (3.6-5.0) mmol/L
[2018-02-27] MEDS: ZYLOPRIM PO SCH (09:46)
[2018-02-27] MEDS: VITAMIN C PO SCH ×2 (09:46→23:27)
[2018-02-27] MEDS: VITAMIN B-1 PO SCH (09:46)
[2018-02-27] MEDS: FOLVITE PO SCH (09:48)
[2018-02-27] MEDS: DEMADEX PO SCH (09:48)
[2018-02-27] MEDS: NORVASC PO SCH (09:49)
[2018-02-27] MEDS: NEURONTIN PO SCH ×2 (09:49→23:26)
[2018-02-27] MEDS: HEPARIN SUB-Q SCH ×2 (09:50→23:27)
--- NOTE | 2018-02-27 10:52 | Progress Note ---
Assessment and Plan Once the patient's pain is well controlled, he may be discharged home to [facility]. He'll follow-up in our office in 2 weeks for staple removal. Subjective Date of service: 02/27/18 Principal diagnosis: right foot gangrene, right contracture Interval history: Patient is doing well following right [id number] amputation. Incision is clean dry and intact. He does continue to complain of incisional pain. At baseline, the patient has a fentanyl patch Objective - Constitutional Vitals: Vital Signs - 12hr 02/27/18 02/27/18 02/27/18 00:21 05:39 09:48 Temperature 98.6 F 98.9 F Pulse Rate 60 91 H Respiratory 18 20 Rate Blood Pressure Blood Pressure 117/69 119/74 [Left] O2 Sat by Pulse 100 97 96 Oximetry 02/27/18 09:49 Temperature Pulse Rate 91 H Respiratory Rate Blood Pressure 119/74 Blood Pressure [Left] O2 Sat by Pulse Oximetry General appearance: Present: no acute distress - EENT Eyes: EOM intact ENT: hearing intact - Neck Neck: supple, normal ROM - Respiratory Respiratory effort: normal - Breasts Breasts: deferred Extremities: abnormal (bilateral [id number] amputation) - Gastrointestinal General gastrointestinal: Present: deferred Rectal Exam: deferred - Genitourinary Male genitourinary: deferred - Psychiatric Psychiatric: cooperative - Labs CBC & Chem 7: 02/26/18 Unknown 02/26/18 Unknown Labs: Abnormal lab results 02/26/18 02/26/18 02/26/18 Range/Units 12:01 20:20 20:20 Potassium 3.5 L (3.6-5.0) mmol/L POC Glucose 121 H (70-105) Magnesium 1.40 L (1.7-2.3) mg/dL Vancomycin Trough 53.9 H (5.0-20.0) ug/mL 02/27/18 Range/Units 06:29 Potassium (3.6-5.0) mmol/L POC Glucose 68 L (70-105) Magnesium (1.7-2.3) mg/dL Vancomycin Trough (5.0-20.0) ug/mL
--- NOTE | 2018-02-27 16:17 | Progress Note ---
Assessment and Plan Assessment and plan: Sepsis. Patient will be continued on IV antibiotics:Zosyn. Right foot gangrene. s/p right AKA 02/25/18 Sinus pauses. Cardiology following. Coreg dose decreased. Follow-up echocardiogram. Hypokalemia. Replete potassium. Diabetes mellitus type 2. Continue Accu-Cheks and sliding scale. Peripheral vascular disease. Patient with previous left BKA. Hypokalemia. replace and recheck Hypomagnesemia. Replace and recheck History Interval history: Had right AKA 02/25. Mild pain at surgical site Hospitalist Physical - Physical exam Narrative exam: GEN: Not in acute distress, lying in bed HEENT: Normocephalic, atraumatic, Neck: supple, No JVD Lungs: Clear to auscultation bilaterally, no crackles, no wheeze Heart:S1 and S2 regular, no murmurs, rubs or gallop, Abd:soft, non-tender, non-distended, normal bowel sounds Ext: Right AKA stump covered with dressing, bandage edema, Previous left AKA Neuro: Awake, alert, oriented x 3, no focal signs - Constitutional Vitals: Temp Pulse Resp BP Pulse Ox 98.9 F 91 H 20 119/74 96 02/27/18 05:39 02/27/18 09:49 02/27/18 05:39 02/27/18 09:49 02/27/18 09:48 General appearance: Present: no acute distress Results - Labs CBC & Chem 7: 02/26/18 Unknown 02/26/18 Unknown Labs: Laboratory Last Values WBC 15.4 K/mm3 (4.5-11.0) H 02/26/18 Unknown RBC 3.03 M/mm3 (3.65-5.03) L 02/26/18 Unknown Hgb 7.9 gm/dl (11.8-15.2) L 02/26/18 Unknown Hct 25.2 % (35.5-45.6) L 02/26/18 Unknown MCV 83 fl (84-94) L 02/26/18 Unknown MCH 26 pg (28-32) L 02/26/18 Unknown MCHC 31 % (32-34) L 02/26/18 Unknown RDW 17.9 % (13.2-15.2) H 02/26/18 Unknown Plt Count 351 K/mm3 (140-440) 02/26/18 Unknown Lymph % (Auto) 10.3 % (13.4-35.0) L 02/26/18 Unknown [place] % (Auto) 10.1 % (0.0-7.3) H 02/26/18 Unknown Eos % (Auto) 0.3 % (0.0-4.3) 02/26/18 Unknown Baso % (Auto) 0.5 % (0.0-1.8) 02/26/18 Unknown Lymph # 1.6 K/mm3 (1.2-5.4) 02/26/18 Unknown [place] # 1.6 K/mm3 (0.0-0.8) H 02/26/18 Unknown Eos # 0.1 K/mm3 (0.0-0.4) 02/26/18 Unknown Baso # 0.1 K/mm3 (0.0-0.1) 02/26/18 Unknown Add Manual Diff Complete 02/21/18 21:45 Total Counted 100 02/21/18 21:45 Seg Neutrophils % 78.8 % (40.0-70.0) H 02/26/18 Unknown Seg Neuts % (Manual) 82.0 % (40.0-70.0) H 02/21/18 21:45 Band Neutrophils % 0 % 02/21/18 21:45 Lymphocytes % (Manual) 11.0 % (13.4-35.0) L 02/21/18 21:45 Reactive Lymphs % (Man) 0 % 02/21/18 21:45 Monocytes % (Manual) 6.0 % (0.0-7.3) 02/21/18 21:45 Eosinophils % (Manual) 1.0 % (0.0-4.3) 02/21/18 21:45 Basophils % (Manual) 0 % (0.0-1.8) 02/21/18 21:45 Metamyelocytes % 0 % 02/21/18 21:45 Myelocytes % 0 % 02/21/18 21:45 Promyelocytes % 0 % 02/21/18 21:45 Blast Cells % 0 % 02/21/18 21:45 Nucleated RBC % Not Reportable 02/21/18 21:45 Seg Neutrophils # 12.1 K/mm3 (1.8-7.7) H 02/26/18 Unknown Seg Neutrophils # Man 16.8 K/mm3 (1.8-7.7) H 02/21/18 21:45 Band Neutrophils # 0.0 K/mm3 02/21/18 21:45 Lymphocytes # (Manual) 2.3 K/mm3 (1.2-5.4) 02/21/18 21:45 Abs React Lymphs (Man) 0.0 K/mm3 02/21/18 21:45 Monocytes # (Manual) 1.2 K/mm3 (0.0-0.8) H 02/21/18 21:45 Eosinophils # (Manual) 0.2 K/mm3 (0.0-0.4) 02/21/18 21:45 Basophils # (Manual) 0.0 K/mm3 (0.0-0.1) 02/21/18 21:45 Metamyelocytes # 0.0 K/mm3 02/21/18 21:45 Myelocytes # 0.0 K/mm3 02/21/18 21:45 Promyelocytes # 0.0 K/mm3 02/21/18 21:45 Blast Cells # 0.0 K/mm3 02/21/18 21:45 WBC Morphology Not Reportable 02/21/18 21:45 Hypersegmented Neuts Not Reportable 02/21/18 21:45 Hyposegmented Neuts Not Reportable 02/21/18 21:45 Hypogranular Neuts Not Reportable 02/21/18 21:45 Smudge Cells Not Reportable 02/21/18 21:45 Toxic Granulation Not Reportable 02/21/18 21:45 Toxic Vacuolation Not Reportable 02/21/18 21:45 Dohle Bodies Not Reportable 02/21/18 21:45 Pelger-Huet Anomaly Not Reportable 02/21/18 21:45 Ferm[place] Rods Not Reportable 02/21/18 21:45 Platelet Estimate Consistent w auto 02/21/18 21:45 Clumped Platelets Not Reportable 02/21/18 21:45 Plt Clumps, EDTA Not Reportable 02/21/18 21:45 Large Platelets Not Reportable 02/21/18 21:45 Giant Platelets Not Reportable 02/21/18 21:45 Platelet Satelliting Not Reportable 02/21/18 21:45 Plt Morphology Comment Not Reportable 02/21/18 21:45 RBC Morphology Not Reportable 02/21/18 21:45 Dimorphic RBCs Not Reportable 02/21/18 21:45 Polychromasia Not Reportable 02/21/18 21:45 Hypochromasia Not Reportable 02/21/18 21:45 Poikilocytosis 1+ 02/21/18 21:45 Anisocytosis 1+ 02/21/18 21:45 Microcytosis Not Reportable 02/21/18 21:45 Macrocytosis Not Reportable 02/21/18 21:45 Spherocytes Not Reportable 02/21/18 21:45 Pappenheimer Bodies Not Reportable 02/21/18 21:45 Sickle Cells Not Reportable 02/21/18 21:45 Target Cells Not Reportable 02/21/18 21:45 Tear Drop Cells Not Reportable 02/21/18 21:45 Ovalocytes Not Reportable 02/21/18 21:45 Helmet Cells Not Reportable 02/21/18 21:45 We[place] Bodies Not Reportable 02/21/18 21:45 [place] Rings Not Reportable 02/21/18 21:45 [place] Cells Not Reportable 02/21/18 21:45 Bite Cells Not Reportable 02/21/18 21:45 Crenated Cell Not Reportable 02/21/18 21:45 Elliptocytes Not Reportable 02/21/18 21:45 Acanthocytes (Spur) Not Reportable 02/21/18 21:45 Rouleaux Not Reportable 02/21/18 21:45 Hemoglobin C Crystals Not Reportable 02/21/18 21:45 Schistocytes Not Reportable 02/21/18 21:45 Malaria parasites Not Reportable 02/21/18 21:45 [place] Bodies Not Reportable 02/21/18 21:45 Hem Pathologist Commnt No 02/21/18 21:45 PT 28.8 Sec. (12.2-14.9) H 02/21/18 21:45 INR 2.65 (0.87-1.13) H 02/21/18 21:45 APTT 47.1 Sec. (24.2-36.6) H 02/21/18 21:45 Sodium 145 mmol/L (137-145) 02/26/18 Unknown Potassium 3.0 mmol/L (3.6-5.0) L 02/26/18 Unknown Chloride 112.1 mmol/L (98-107) H 02/26/18 Unknown Carbon Dioxide 24 mmol/L (22-30) 02/26/18 Unknown Anion Gap 12 mmol/L 02/26/18 Unknown BUN 7 mg/dL (9-20) L 02/26/18 Unknown Creatinine 0.8 mg/dL (0.8-1.5) 02/26/18 Unknown Estimated GFR > 60 ml/min 02/26/18 Unknown BUN/Creatinine Ratio 9 % 02/26/18 Unknown Glucose 74 mg/dL (75-100) L 02/26/18 Unknown POC Glucose 92 (70-105) 02/27/18 12:58 Lactic Acid 1.30 mmol/L (0.7-2.0) 02/22/18 00:35 Calcium 7.6 mg/dL (8.4-10.2) L 02/26/18 Unknown Magnesium 1.40 mg/dL (1.7-2.3) L 02/26/18 20:20 Total Bilirubin 1.30 mg/dL (0.1-1.2) H 02/23/18 03:51 AST 25 units/L (5-40) 02/23/18 03:51 ALT 11 units/L (7-56) 02/23/18 03:51 Alkaline Phosphatase 189 units/L (35-129) H 02/23/18 03:51 Total Creatine Kinase 58 units/L (55-170) 02/22/18 13:53 CK-MB (CK-2) 1.3 ng/mL (0.0-4.0) 02/22/18 13:53 CK-MB (CK-2) Rel Index 2.2 (0-4) 02/22/18 13:53 Troponin T 0.177 ng/mL (0.00-0.029) H* 02/22/18 13:53 NT-Pro-B Natriuret Pep 25682 pg/mL (0-900) H 02/21/18 21:45 Total Protein 6.2 g/dL (6.3-8.2) L 02/23/18 03:51 Albumin 1.9 g/dL (3.9-5) L 02/23/18 03:51 Albumin/Globulin Ratio 0.4 % 02/23/18 03:51 Triglycerides 86 mg/dL (2-149) 02/21/18 21:45 Cholesterol 84 mg/dL (50-199) 02/21/18 21:45 LDL Cholesterol Direct 41 mg/dL (50-130) L 02/21/18 21:45 HDL Cholesterol 26 mg/dL (40-59) L 02/21/18 21:45 Cholesterol/HDL Ratio 3.23 % 02/21/18 21:45 TSH 2.010 mlU/mL (0.270-4.200) 02/26/18 Unknown Vancomycin Trough 53.9 ug/mL (5.0-20.0) H 02/26/18 20:20
[2018-02-27 18:09] LABS: BUN/Creatinine Ratio 8; Blood Urea Nitrogen 8 mg/dL (9-20); Calcium 7.3 mg/dL (8.4-10.2); Hemolysis Index 1
[2018-02-28] MEDS: HumuLIN R SUB-Q SCH ×5 (00:21→22:41)
[2018-02-28] MEDS: ZOSYN/NS 4.5GM/100ML 4.5 GM/100 ML VIAL IV SCH ×3 (06:19→22:40)
[2018-02-28] MEDS: NORVASC PO SCH (10:05)
[2018-02-28] MEDS: ZYLOPRIM PO SCH (10:05)
[2018-02-28] MEDS: VITAMIN C PO SCH ×2 (10:05→22:40)
[2018-02-28] MEDS: COLACE PO SCH ×2 (10:05→22:40)
[2018-02-28] MEDS: DEMADEX PO SCH (10:06)
[2018-02-28] MEDS: VITAMIN B-1 PO SCH (10:06)
[2018-02-28] MEDS: NORCO 5/325 PO PRN ×3 (10:07→23:49)
[2018-02-28] MEDS: NEURONTIN PO SCH ×2 (10:07→22:40)
[2018-02-28] MEDS: FOLVITE PO SCH (10:07)
[2018-02-28] MEDS: HEPARIN SUB-Q SCH ×2 (10:08→22:41)
--- NOTE | 2018-02-28 10:55 | Progress Note ---
Assessment and Plan Intractable RLE pain s/p right AKA H/o CVA PVD L AKA Paroxysmal Atrial fibrillation eliquis has been held. sinus pauses less than 3 seconds during sleep; b-lillian dosage discontinued. No further events normal TSH Diabetes HTN Hyperlipidemia Subjective Date of service: 02/28/18 Principal diagnosis: right foot gangrene, right contracture Interval history: Patient denies chest pain and shortness of breath. Objective Vital Signs Temp Pulse Resp BP BP Pulse Ox 02/28/18 08:00 98.2 F 84 16 150/85 100 02/28/18 05:15 97.3 F L 67 20 131/71 94 02/28/18 05:00 89 02/28/18 00:01 98.5 F 81 20 105/58 95 02/27/18 20:47 95 02/27/18 20:46 98.5 F 76 20 114/65 95 02/27/18 20:00 85 02/27/18 16:08 99.1 F 91 H 16 117/57 100 02/27/18 11:47 98.7 F 101 H 22 104/66 95 - Physical Examination General: No Apparent Distress HEENT: Positive: PERRL Cardiac: Positive: Reg Rate and Rhythm Lungs: Positive: Decreased Breath Sounds Extremities: Present: Other (bilateral AKA) - Labs and Meds Comprehensive Metabolic Panel 02/27/18 Range/Units 17:32 Sodium 141 (137-145) mmol/L Potassium 3.7 (3.6-5.0) mmol/L Chloride 109.1 H (98-107) mmol/L Carbon Dioxide 21 L (22-30) mmol/L BUN 8 L (9-20) mg/dL Creatinine 1.0 (0.8-1.5) mg/dL Glucose 82 (75-100) mg/dL Calcium 7.3 L (8.4-10.2) mg/dL
--- NOTE | 2018-02-28 16:50 | Progress Note ---
Assessment and Plan Assessment and plan: Sepsis. Patient will be continued on IV antibiotics:Zosyn. Right foot gangrene. s/p right AKA 02/25/18 Sinus pauses. Cardiology following. Coreg dose decreased. Follow-up echocardiogram. Hypokalemia. Replete potassium. Diabetes mellitus type 2. Continue Accu-Cheks and sliding scale. Peripheral vascular disease. Patient with previous left BKA. Hypokalemia. replace and recheck Hypomagnesemia. Replace and recheck Doing better. Poss dc to SNF tomorrow. May need to resume Aspirin and Eliquis on discharge as per cardiology. History Interval history: Had right AKA 02/25. Mild pain at surgical site Hospitalist Physical - Physical exam Narrative exam: GEN: Not in acute distress, lying in bed HEENT: Normocephalic, atraumatic, Neck: supple, No JVD Lungs: Clear to auscultation bilaterally, no crackles, no wheeze Heart:S1 and S2 regular, no murmurs, rubs or gallop, Abd:soft, non-tender, non-distended, normal bowel sounds Ext: Right AKA stump covered with dressing, bandage edema, Previous left AKA Neuro: Awake, alert, oriented x 3, no focal signs - Constitutional Vitals: Temp Pulse Resp BP Pulse Ox 99.0 F 74 16 111/64 95 02/28/18 12:00 02/28/18 12:00 02/28/18 12:00 02/28/18 12:00 02/28/18 12:00 General appearance: Present: no acute distress Results - Labs CBC & Chem 7: 02/26/18 Unknown 02/27/18 17:32 Labs: Laboratory Last Values WBC 15.4 K/mm3 (4.5-11.0) H 02/26/18 Unknown RBC 3.03 M/mm3 (3.65-5.03) L 02/26/18 Unknown Hgb 7.9 gm/dl (11.8-15.2) L 02/26/18 Unknown Hct 25.2 % (35.5-45.6) L 02/26/18 Unknown MCV 83 fl (84-94) L 02/26/18 Unknown MCH 26 pg (28-32) L 02/26/18 Unknown MCHC 31 % (32-34) L 02/26/18 Unknown RDW 17.9 % (13.2-15.2) H 02/26/18 Unknown Plt Count 351 K/mm3 (140-440) 02/26/18 Unknown Lymph % (Auto) 10.3 % (13.4-35.0) L 02/26/18 Unknown Cecil % (Auto) 10.1 % (0.0-7.3) H 02/26/18 Unknown Eos % (Auto) 0.3 % (0.0-4.3) 02/26/18 Unknown Baso % (Auto) 0.5 % (0.0-1.8) 02/26/18 Unknown Lymph # 1.6 K/mm3 (1.2-5.4) 02/26/18 Unknown Cecil # 1.6 K/mm3 (0.0-0.8) H 02/26/18 Unknown Eos # 0.1 K/mm3 (0.0-0.4) 02/26/18 Unknown Baso # 0.1 K/mm3 (0.0-0.1) 02/26/18 Unknown Add Manual Diff Complete 02/21/18 21:45 Total Counted 100 02/21/18 21:45 Seg Neutrophils % 78.8 % (40.0-70.0) H 02/26/18 Unknown Seg Neuts % (Manual) 82.0 % (40.0-70.0) H 02/21/18 21:45 Band Neutrophils % 0 % 02/21/18 21:45 Lymphocytes % (Manual) 11.0 % (13.4-35.0) L 02/21/18 21:45 Reactive Lymphs % (Man) 0 % 02/21/18 21:45 Monocytes % (Manual) 6.0 % (0.0-7.3) 02/21/18 21:45 Eosinophils % (Manual) 1.0 % (0.0-4.3) 02/21/18 21:45 Basophils % (Manual) 0 % (0.0-1.8) 02/21/18 21:45 Metamyelocytes % 0 % 02/21/18 21:45 Myelocytes % 0 % 02/21/18 21:45 Promyelocytes % 0 % 02/21/18 21:45 Blast Cells % 0 % 02/21/18 21:45 Nucleated RBC % Not Reportable 02/21/18 21:45 Seg Neutrophils # 12.1 K/mm3 (1.8-7.7) H 02/26/18 Unknown Seg Neutrophils # Man 16.8 K/mm3 (1.8-7.7) H 02/21/18 21:45 Band Neutrophils # 0.0 K/mm3 02/21/18 21:45 Lymphocytes # (Manual) 2.3 K/mm3 (1.2-5.4) 02/21/18 21:45 Abs React Lymphs (Man) 0.0 K/mm3 02/21/18 21:45 Monocytes # (Manual) 1.2 K/mm3 (0.0-0.8) H 02/21/18 21:45 Eosinophils # (Manual) 0.2 K/mm3 (0.0-0.4) 02/21/18 21:45 Basophils # (Manual) 0.0 K/mm3 (0.0-0.1) 02/21/18 21:45 Metamyelocytes # 0.0 K/mm3 02/21/18 21:45 Myelocytes # 0.0 K/mm3 02/21/18 21:45 Promyelocytes # 0.0 K/mm3 02/21/18 21:45 Blast Cells # 0.0 K/mm3 02/21/18 21:45 WBC Morphology Not Reportable 02/21/18 21:45 Hypersegmented Neuts Not Reportable 02/21/18 21:45 Hyposegmented Neuts Not Reportable 02/21/18 21:45 Hypogranular Neuts Not Reportable 02/21/18 21:45 Smudge Cells Not Reportable 02/21/18 21:45 Toxic Granulation Not Reportable 02/21/18 21:45 Toxic Vacuolation Not Reportable 02/21/18 21:45 Dohle Bodies Not Reportable 02/21/18 21:45 Pelger-Huet Anomaly Not Reportable 02/21/18 21:45 Fermín Rods Not Reportable 02/21/18 21:45 Platelet Estimate Consistent w auto 02/21/18 21:45 Clumped Platelets Not Reportable 02/21/18 21:45 Plt Clumps, EDTA Not Reportable 02/21/18 21:45 Large Platelets Not Reportable 02/21/18 21:45 Giant Platelets Not Reportable 02/21/18 21:45 Platelet Satelliting Not Reportable 02/21/18 21:45 Plt Morphology Comment Not Reportable 02/21/18 21:45 RBC Morphology Not Reportable 02/21/18 21:45 Dimorphic RBCs Not Reportable 02/21/18 21:45 Polychromasia Not Reportable 02/21/18 21:45 Hypochromasia Not Reportable 02/21/18 21:45 Poikilocytosis 1+ 02/21/18 21:45 Anisocytosis 1+ 02/21/18 21:45 Microcytosis Not Reportable 02/21/18 21:45 Macrocytosis Not Reportable 02/21/18 21:45 Spherocytes Not Reportable 02/21/18 21:45 Pappenheimer Bodies Not Reportable 02/21/18 21:45 Sickle Cells Not Reportable 02/21/18 21:45 Target Cells Not Reportable 02/21/18 21:45 Tear Drop Cells Not Reportable 02/21/18 21:45 Ovalocytes Not Reportable 02/21/18 21:45 Helmet Cells Not Reportable 02/21/18 21:45 Weeks-Manton Bodies Not Reportable 02/21/18 21:45 Supai Rings Not Reportable 02/21/18 21:45 Irene Cells Not Reportable 02/21/18 21:45 Bite Cells Not Reportable 02/21/18 21:45 Crenated Cell Not Reportable 02/21/18 21:45 Elliptocytes Not Reportable 02/21/18 21:45 Acanthocytes (Spur) Not Reportable 02/21/18 21:45 Rouleaux Not Reportable 02/21/18 21:45 Hemoglobin C Crystals Not Reportable 02/21/18 21:45 Schistocytes Not Reportable 02/21/18 21:45 Malaria parasites Not Reportable 02/21/18 21:45 Luis Felipe Bodies Not Reportable 02/21/18 21:45 Hem Pathologist Commnt No 02/21/18 21:45 PT 28.8 Sec. (12.2-14.9) H 02/21/18 21:45 INR 2.65 (0.87-1.13) H 02/21/18 21:45 APTT 47.1 Sec. (24.2-36.6) H 02/21/18 21:45 Sodium 141 mmol/L (137-145) 02/27/18 17:32 Potassium 3.7 mmol/L (3.6-5.0) 02/27/18 17:32 Chloride 109.1 mmol/L (98-107) H 02/27/18 17:32 Carbon Dioxide 21 mmol/L (22-30) L 02/27/18 17:32 Anion Gap 15 mmol/L 02/27/18 17:32 BUN 8 mg/dL (9-20) L 02/27/18 17:32 Creatinine 1.0 mg/dL (0.8-1.5) 02/27/18 17:32 Estimated GFR > 60 ml/min 02/27/18 17:32 BUN/Creatinine Ratio 8 % 02/27/18 17:32 Glucose 82 mg/dL (75-100) 02/27/18 17:32 POC Glucose 103 (70-105) 02/28/18 12:12 Lactic Acid 1.30 mmol/L (0.7-2.0) 02/22/18 00:35 Calcium 7.3 mg/dL (8.4-10.2) L 02/27/18 17:32 Magnesium 2.10 mg/dL (1.7-2.3) 02/27/18 17:32 Total Bilirubin 1.30 mg/dL (0.1-1.2) H 02/23/18 03:51 AST 25 units/L (5-40) 02/23/18 03:51 ALT 11 units/L (7-56) 02/23/18 03:51 Alkaline Phosphatase 189 units/L (35-129) H 02/23/18 03:51 Total Creatine Kinase 58 units/L (55-170) 02/22/18 13:53 CK-MB (CK-2) 1.3 ng/mL (0.0-4.0) 02/22/18 13:53 CK-MB (CK-2) Rel Index 2.2 (0-4) 02/22/18 13:53 Troponin T 0.177 ng/mL (0.00-0.029) H* 02/22/18 13:53 NT-Pro-B Natriuret Pep 93242 pg/mL (0-900) H 02/21/18 21:45 Total Protein 6.2 g/dL (6.3-8.2) L 02/23/18 03:51 Albumin 1.9 g/dL (3.9-5) L 02/23/18 03:51 Albumin/Globulin Ratio 0.4 % 02/23/18 03:51 Triglycerides 86 mg/dL (2-149) 02/21/18 21:45 Cholesterol 84 mg/dL (50-199) 02/21/18 21:45 LDL Cholesterol Direct 41 mg/dL (50-130) L 02/21/18 21:45 HDL Cholesterol 26 mg/dL (40-59) L 02/21/18 21:45 Cholesterol/HDL Ratio 3.23 % 02/21/18 21:45 TSH 2.010 mlU/mL (0.270-4.200) 02/26/18 Unknown Vancomycin Trough 53.9 ug/mL (5.0-20.0) H 02/26/18 20:20
[2018-02-28] MEDS: DURAGESIC TD SCH (18:44)
[2018-03-01] MEDS: MORPHINE IV PRN ×2 (00:45→06:34)
[2018-03-01] MEDS: ZOSYN/NS 4.5GM/100ML 4.5 GM/100 ML VIAL IV SCH (06:14)
[2018-03-01 08:25] VITALS: BP 118/64
[2018-03-01] MEDS: HumuLIN R SUB-Q SCH ×2 (09:56→12:02)
--- NOTE | 2018-03-01 11:03 | Progress Note ---
Assessment and Plan Intractable RLE pain s/p right AKA H/o CVA PVD L AKA Paroxysmal Atrial fibrillation eliquis has been held. sinus pauses less than 3 seconds during sleep; b-lillian dosage discontinued. normal TSH Diabetes HTN Hyperlipidemia Echo revealing mild cardiomyopathy with regional wall motion abnormality suggesting underlying CAD Recommend: Resumption of aspirin 81 mg po daily, high intensity lipitor and eliquis when surgically feasible. Otherwise, conservative cardiac management. Subjective Date of service: 03/01/18 Principal diagnosis: right foot gangrene, right contracture Interval history: Patient is resting in bed comfortably. Afib with a well controlled ventricular rate on telemetry. Objective Vital Signs Temp Pulse Resp BP BP Pulse Ox 03/01/18 09:09 96 03/01/18 08:22 98.2 F 72 20 118/64 97 03/01/18 04:41 98.6 F 74 20 117/66 89 03/01/18 04:00 67 03/01/18 00:53 70 126/70 92 02/28/18 21:20 95 02/28/18 20:17 99.3 F 72 20 115/63 95 02/28/18 16:00 98.2 F 72 18 116/61 96 02/28/18 12:00 99.0 F 74 16 111/64 95 - Physical Examination General: No Apparent Distress Neck: Positive: trachea midline Cardiac: Positive: irregularly irregular Extremities: Present: Other (bilateral AKA)
--- NOTE | 2018-03-01 11:19 | Discharge Summary ---
Providers - Providers Date of Admission: 02/22/18 00:54 Date of discharge: 03/01/18 Attending physician: LUPE CRAIG 02/22/18 06:00 Consult to Wound/ET Nurse [CONS] Routine Reason For Exam: wound eval 02/22/18 12:03 Consult to Physician [CONS] Urgent Comment: Consulting Provider: ADALBERTO HENSON Physician Instructions: PLEASE EVALUATE FOR REVASC/AMPUTATION Reason For Exam: EVALUATE RIGHT LEG 02/23/18 13:47 Consult to Physician [CONS] Routine Comment: Consulting Provider: ELLE HERNANDEZ Physician Instructions: Reason For Exam: sinus pauses 02/25/18 Consult to Case Management [CONS] Routine Services Needed at Discharge: Other Notified:: case management coordinator Comment:: Return to [place] following hospitalization Primary care physician: MESSI LOPEZ Hospitalization Condition: Fair Disposition: DC/[place]-03 SNF W [facility] CERT Core Measure Documentation - Palliative Care Palliative Care/ Comfort Measures: Not Applicable - Core Measures Any of the following diagnoses?: none Exam - Constitutional Vitals: Temp Pulse Resp BP Pulse Ox 98.2 F 72 20 118/64 96 03/01/18 08:22 03/01/18 08:22 03/01/18 08:22 03/01/18 08:22 03/01/18 09:09 Plan Activity: advance as tolerated Diet: low fat, low cholesterol Additional Instructions: 1.Follow up with Physician at SNF in 2-3 days. 2.Follow up with Dr. Phelan, vasc surg in 1 week. 3.Follow up with cardiology in 1-2 weeks Follow up with: MESSI LOPEZ MD [Primary Care Provider] - 3-5 Days Prescriptions: oxyCODONE /ACETAMINOPHEN [Percocet 5/325] 1 tab PO Q6HR PRN #10 tablet PRN Reason: Pain
[2018-03-01] MEDS: DEMADEX PO SCH (11:48)
[2018-03-01] MEDS: NEURONTIN PO SCH (11:48)
[2018-03-01] MEDS: VITAMIN C PO SCH (11:48)
[2018-03-01] MEDS: VITAMIN B-1 PO SCH (11:48)
[2018-03-01] MEDS: FOLVITE PO SCH (11:49)
[2018-03-01] MEDS: HEPARIN SUB-Q SCH (11:49)
[2018-03-01] MEDS: ZYLOPRIM PO SCH (11:49)
[2018-03-01] MEDS: NORVASC PO SCH (11:49)
[2018-03-01] MEDS: COLACE PO SCH (11:50)
[2018-03-01] MEDS: NORCO 5/325 PO PRN (12:00)
[2018-03-01] MEDS ORDERED: ELIQUIS PO SCH (12:00)
[2018-03-01] MEDS ORDERED: HALFPRIN EC PO SCH (12:00)
== END 2018-03-01 14:30 | DRG 853 ==
LOC: ED 18:01 → 4A 02-22 00:54
PROVIDERS: ADMIT Internal Medicine; ATTEND Internal Medicine
PROC: 0Y6C0Z1 Detachment at Right Upper Leg, High, Open Approach (ICD-10-PCS; principal; 2018-02-25)
DX: A41.9 Sepsis, unspecified organism (principal); E43 Unspecified severe protein-calorie malnutrition; L03.115 Cellulitis of right lower limb; E87.6 Hypokalemia; D72.829 Elevated white blood cell count, unspecified; I10 Essential (primary) hypertension; K21.9 Gastro-esophageal reflux disease without esophagitis; I48.0 Paroxysmal atrial fibrillation; M24.551 Contracture, right hip; M24.561 Contracture, right knee; E78.5 Hyperlipidemia, unspecified; I42.9 Cardiomyopathy, unspecified; I45.5 Other specified heart block; E83.42 Hypomagnesemia; E11.52 Type 2 diabetes mellitus with diabetic peripheral angiopathy with gangrene; I70.261 Atherosclerosis of native arteries of extremities with gangrene, right leg; M10.9 Gout, unspecified; F17.210 Nicotine dependence, cigarettes, uncomplicated; Z86.73 Personal history of transient ischemic attack (TIA), and cerebral infarction without residual deficits; Z79.4 Long term (current) use of insulin; Z89.612 Acquired absence of left leg above knee; Z79.82 Long term (current) use of aspirin; Z79.899 Other long term (current) drug therapy; Z68.28 Body mass index [BMI] 28.0-28.9, adult
CPT/HCPCS: 36415; 80048; 80053; 80061; 80202; 82140; 82550; 82553; 82962; 83735; 83880; 84132; 84443; 84484; 85007; 85014; 85018; 85025; 85610; 85730; 87040; 88307; 88311; 90686; 93005; 93010; 93306; 94760; 96361; 96365; 96367; 96375; J0696; J1170; J1644; J2270; J2405; J2543; J2704; J3010; J3370; J3475; J3480; J7030; J7040

== ENCOUNTER 2019-08-12 16:48 | Inpatient (IN) | payer MEDICAID ==
--- NOTE | 2019-08-12 18:23 | Emergency Department Report ---
ED Shortness of Breath HPI - General Chief Complaint: Dyspnea/Respdistress Stated Complaint: DIFFICULTY BREATHING Time Seen by Provider: 08/12/19 18:11 Source: patient, EMS Mode of arrival: Stretcher Limitations: Physical Limitation - History of Present Illness Initial Comments: Chief complaint: "I just feel full." HPI: Mr. Cartagena is a 59-year-old male with history of type 1 diabetes mellitus, PAD S/P bilateral [id number] amputation, GERD, tobacco use, dyslipidemia, anemia, hypertension, chronic pain, recurrent UTI, severe obesity, full CODE STATUS who presents from [facility] with chest congestion. Patient states that "I feel full". He denies cough. He denies pain in the chest. Staff reports room air saturation in the 60s. Repeat saturation on nonrebreather 100%. Also has reported right hand twitching for past week. No previous history of prostate issues. No previous history of kidney disease. -: Gradual, days(s) (1) Severity: moderate Consistency: constant Improves With: oxygen Worsens With: nothing Known History Of: other (Hypertension diabetes obesity) Associated Symptoms: denies other symptoms - Related Data Home Medications Medication Instructions Recorded Confirmed Last Taken Folic Acid [Folvite] 1 mg PO QDAY 02/22/18 08/13/19 Unknown Gabapentin [Neurontin] 100 mg PO TID 02/22/18 08/13/19 Unknown Multivitamin [Multiple Vitamins] 1 tab PO DAILY 02/22/18 08/13/19 Unknown Sennosides [Senna] 25.8 mg PO BID 02/22/18 08/13/19 Unknown Thiamine [Vitamin B-1] 100 mg PO QDAY 02/22/18 08/13/19 Unknown Torsemide [Demadex] 20 mg PO DAILY 02/22/18 08/13/19 Unknown allopurinoL [Allopurinol] 100 mg PO DAILY 02/22/18 08/13/19 Unknown fentaNYL [Fentanyl] 1 each TD Q3D 02/22/18 08/13/19 Unknown Aspirin EC [Halfprin EC] 81 mg PO QDAY 08/13/19 08/13/19 Unknown AtorvaSTATin [Lipitor] 20 mg PO QHS 08/13/19 08/13/19 Unknown Mirtazapine 7.5 mg PO QDAY 08/13/19 08/13/19 Unknown NIFEdipine [Nifedipine ER] 30 mg PO QDAY 08/13/19 08/13/19 Unknown Previous Rx's Medication Instructions Recorded Last Taken Type oxyCODONE /ACETAMINOPHEN [Percocet 1 tab PO Q6HR PRN #10 tablet 03/01/18 Unknown Rx 5/325] Allergies Allergy/AdvReac Type Severity Reaction Status Date / Time No Known Allergies Allergy Unverified 08/12/19 17:31 ED Review of Systems ROS: Stated complaint: DIFFICULTY BREATHING Other details as noted in HPI Comment: All other systems reviewed and negative Constitutional: malaise. denies: fever Respiratory: shortness of breath. denies: cough Cardiovascular: denies: chest pain Gastrointestinal: denies: abdominal pain ED Past Medical Hx - Past Medical History Previous Medical History?: Yes Hx Hypertension: Yes Hx Diabetes: Yes (Type II) Hx GERD: Yes Additional medical history: Gout, Hyperlipidemia, anemia, - Surgical History Past Surgical History?: Yes Additional Surgical History: B/L AKA - Social History Smoking Status: Current Every Day Smoker - Medications Home Medications: Home Medications Medication Instructions Recorded Confirmed Last Taken Type Folic Acid [Folvite] 1 mg PO QDAY 02/22/18 08/13/19 Unknown History Gabapentin [Neurontin] 100 mg PO TID 02/22/18 08/13/19 Unknown History Multivitamin [Multiple Vitamins] 1 tab PO DAILY 02/22/18 08/13/19 Unknown History Sennosides [Senna] 25.8 mg PO BID 02/22/18 08/13/19 Unknown History Thiamine [Vitamin B-1] 100 mg PO QDAY 02/22/18 08/13/19 Unknown History Torsemide [Demadex] 20 mg PO DAILY 02/22/18 08/13/19 Unknown History allopurinoL [Allopurinol] 100 mg PO DAILY 02/22/18 08/13/19 Unknown History fentaNYL [Fentanyl] 1 each TD Q3D 02/22/18 08/13/19 Unknown History oxyCODONE /ACETAMINOPHEN [Percocet 1 tab PO Q6HR PRN #10 tablet 03/01/18 08/13/19 Unknown Rx 5/325] Aspirin EC [Halfprin EC] 81 mg PO QDAY 08/13/19 08/13/19 Unknown History AtorvaSTATin [Lipitor] 20 mg PO QHS 08/13/19 08/13/19 Unknown History Mirtazapine 7.5 mg PO QDAY 08/13/19 08/13/19 Unknown History NIFEdipine [Nifedipine ER] 30 mg PO QDAY 08/13/19 08/13/19 Unknown History ED Physical Exam - General Limitations: Physical Limitation General appearance: alert, in no apparent distress, other (Head of bed semi- supine appears comfortable with any mass) - Head Head exam: Present: atraumatic, normocephalic - Eye Eye exam: Present: normal appearance - ENT ENT exam: Present: mucous membranes moist - Neck Neck exam: Present: normal inspection, full ROM - Respiratory Respiratory exam: Present: normal lung sounds bilaterally. Absent: respiratory distress, wheezes, rales, rhonchi - Cardiovascular Cardiovascular Exam: Present: regular rate, normal rhythm, normal heart sounds. Absent: systolic murmur, diastolic murmur, rubs, gallop - GI/Abdominal GI/Abdominal exam: Present: soft. Absent: distended, tenderness, guarding, rebound - Rectal Rectal exam: Present: deferred - Extremities Exam Extremities exam: Present: other (Right hand non pitting puffy edema, lower limbs bilateral [id number] amputation with edema) - Back Exam Back exam: Present: normal inspection - Neurological Exam Neurological exam: Present: alert, oriented X3 - Psychiatric Psychiatric exam: Present: normal affect, normal mood - Skin Skin exam: Present: warm, dry, intact, normal color. Absent: rash ED Course Vital Signs 08/12/19 08/12/19 08/12/19 17:07 17:10 17:16 Temperature 97.6 F Pulse Rate 79 77 77 Pulse Rate [ Anterior Bilateral Throughout] Pulse Rate [ Anterior Bilateral] Respiratory 12 15 16 Rate Respiratory Rate [Anterior Bilateral Throughout] Respiratory Rate [Anterior Bilateral] Blood Pressure 140/72 140/72 Blood Pressure [Left] O2 Sat by Pulse 100 Oximetry 08/12/19 08/12/19 08/12/19 17:20 17:30 17:40 Temperature Pulse Rate 83 79 76 Pulse Rate [ Anterior Bilateral Throughout] Pulse Rate [ Anterior Bilateral] Respiratory 16 11 L 12 Rate Respiratory Rate [Anterior Bilateral Throughout] Respiratory Rate [Anterior Bilateral] Blood Pressure 140/72 140/72 155/132 Blood Pressure [Left] O2 Sat by Pulse Oximetry 08/12/19 08/12/19 08/12/19 17:50 18:00 18:10 Temperature Pulse Rate 78 76 75 Pulse Rate [ Anterior Bilateral Throughout] Pulse Rate [ Anterior Bilateral] Respiratory 13 15 19 Rate Respiratory Rate [Anterior Bilateral Throughout] Respiratory Rate [Anterior Bilateral] Blood Pressure 155/132 173/83 173/83 Blood Pressure [Left] O2 Sat by Pulse Oximetry 08/12/19 08/12/19 08/12/19 19:07 19:10 19:20 Temperature Pulse Rate 77 82 Pulse Rate [ Anterior Bilateral Throughout] Pulse Rate [ Anterior Bilateral] Respiratory 15 17 Rate Respiratory Rate [Anterior Bilateral Throughout] Respiratory Rate [Anterior Bilateral] Blood Pressure 173/83 147/93 147/93 Blood Pressure [Left] O2 Sat by Pulse 81 L Oximetry 08/12/19 08/12/19 08/12/19 19:30 19:40 19:43 Temperature Pulse Rate 77 75 74 Pulse Rate [ Anterior Bilateral Throughout] Pulse Rate [ Anterior Bilateral] Respiratory 14 16 Rate Respiratory Rate [Anterior Bilateral Throughout] Respiratory Rate [Anterior Bilateral] Blood Pressure 138/75 138/75 Blood Pressure 138/75 [Left] O2 Sat by Pulse 98 Oximetry 08/12/19 08/12/19 08/12/19 19:50 19:57 20:00 Temperature Pulse Rate 75 75 Pulse Rate [ Anterior Bilateral Throughout] Pulse Rate [ Anterior Bilateral] Respiratory 15 16 13 Rate Respiratory Rate [Anterior Bilateral Throughout] Respiratory Rate [Anterior Bilateral] Blood Pressure 138/75 138/75 Blood Pressure [Left] O2 Sat by Pulse 97 Oximetry 08/12/19 08/12/19 08/12/19 20:46 20:50 21:00 Temperature Pulse Rate 72 73 73 Pulse Rate [ Anterior Bilateral Throughout] Pulse Rate [ Anterior Bilateral] Respiratory 12 12 12 Rate Respiratory Rate [Anterior Bilateral Throughout] Respiratory Rate [Anterior Bilateral] Blood Pressure 148/88 148/88 166/89 Blood Pressure [Left] O2 Sat by Pulse 89 Oximetry 08/12/19 08/12/19 08/12/19 21:01 21:10 21:20 Temperature Pulse Rate Pulse Rate [ 74 Anterior Bilateral Throughout] Pulse Rate [ 80 Anterior Bilateral] Respiratory Rate Respiratory 20 Rate [Anterior Bilateral Throughout] Respiratory 20 Rate [Anterior Bilateral] Blood Pressure 166/89 166/89 Blood Pressure [Left] O2 Sat by Pulse 99 100 Oximetry 08/12/19 08/12/19 08/12/19 21:30 21:40 21:50 Temperature Pulse Rate 84 89 Pulse Rate [ Anterior Bilateral Throughout] Pulse Rate [ Anterior Bilateral] Respiratory 10 L 14 Rate Respiratory Rate [Anterior Bilateral Throughout] Respiratory Rate [Anterior Bilateral] Blood Pressure 166/89 166/89 166/89 Blood Pressure [Left] O2 Sat by Pulse 96 Oximetry 08/12/19 08/12/19 08/12/19 22:00 22:10 22:20 Temperature Pulse Rate 88 86 96 H Pulse Rate [ Anterior Bilateral Throughout] Pulse Rate [ Anterior Bilateral] Respiratory 14 12 13 Rate Respiratory Rate [Anterior Bilateral Throughout] Respiratory Rate [Anterior Bilateral] Blood Pressure 163/108 163/108 163/108 Blood Pressure [Left] O2 Sat by Pulse Oximetry 08/12/19 08/12/19 08/12/19 22:30 22:40 22:50 Temperature Pulse Rate 86 85 85 Pulse Rate [ Anterior Bilateral Throughout] Pulse Rate [ Anterior Bilateral] Respiratory 11 L 11 L 12 Rate Respiratory Rate [Anterior Bilateral Throughout] Respiratory Rate [Anterior Bilateral] Blood Pressure 163/108 163/108 163/108 Blood Pressure [Left] O2 Sat by Pulse Oximetry 08/12/19 08/12/19 08/12/19 23:00 23:10 23:20 Temperature Pulse Rate 84 85 85 Pulse Rate [ Anterior Bilateral Throughout] Pulse Rate [ Anterior Bilateral] Respiratory 14 14 13 Rate Respiratory Rate [Anterior Bilateral Throughout] Respiratory Rate [Anterior Bilateral] Blood Pressure 163/108 163/108 119/74 Blood Pressure [Left] O2 Sat by Pulse Oximetry 08/12/19 08/12/19 08/12/19 23:30 23:40 23:50 Temperature Pulse Rate 82 87 87 Pulse Rate [ Anterior Bilateral Throughout] Pulse Rate [ Anterior Bilateral] Respiratory 11 L 14 19 Rate Respiratory Rate [Anterior Bilateral Throughout] Respiratory Rate [Anterior Bilateral] Blood Pressure 119/74 119/74 119/74 Blood Pressure [Left] O2 Sat by Pulse Oximetry 08/13/19 08/13/19 08/13/19 00:00 00:10 00:11 Temperature Pulse Rate 86 85 82 Pulse Rate [ Anterior Bilateral Throughout] Pulse Rate [ Anterior Bilateral] Respiratory 12 11 L 16 Rate Respiratory Rate [Anterior Bilateral Throughout] Respiratory Rate [Anterior Bilateral] Blood Pressure 119/74 119/74 Blood Pressure 119/74 [Left] O2 Sat by Pulse 92 Oximetry 08/13/19 00:20 Temperature Pulse Rate 82 Pulse Rate [ Anterior Bilateral Throughout] Pulse Rate [ Anterior Bilateral] Respiratory 11 L Rate Respiratory Rate [Anterior Bilateral Throughout] Respiratory Rate [Anterior Bilateral] Blood Pressure 119/74 Blood Pressure [Left] O2 Sat by Pulse Oximetry ED Medical Decision Making - Lab Data Result diagrams: 08/15/19 07:49 08/15/19 07:49 - EKG Data 08/12/19 23:31 EKG obtained 2326 Atrial fibrillation 80 bpm ventricular rate diffuse T wave flattening no ST elevation low voltage QRS normal axis - Radiology Data Radiology results: report reviewed, image reviewed Chest 1 view: Moderate cardiomegaly bilateral opacities reflective of pulmonary edema small right pleural effusion according to radiology interpretation and my personal impression - Medical Decision Making Mr. Cartagena presents with acute respiratory failure hypoxia. Findings indicate kidney injury severe with normal kidney function in 2018. It does not appear that this gentleman has had previous chronic kidney disease. However with history of type 1 diabetes, diabetic nephropathy is a consideration. With elevated troponin extremely elevated BNP suspect subacute process. Consult Neprhologist Dr. Thomas recommended medical management and rule out of urinary obstruction: fontana catheter, diuresis and hyperkalemia treatment Elevated transaminases, incidental finding, no indication of sepsis without Sirs, this too is a new finding as compared to labs obtained February 2018 Critical Care Time: Yes Critical care attestation.: If time is entered above; I have spent that time in minutes in the direct care of this critically ill patient, excluding procedure time. 40 minutes of critical care time excluding procedures were used in the care of the patient. I reviewed electronic record. I discussed treatment plan with the nursing team members at the bedside. I came immediately to the bedside. I kept the patient informed. Patient required multiple interventions and reassessments. I spoke with multiple consultants. ED Disposition Clinical Impression: Acute respiratory failure with hypoxia, NOLVIA (acute kidney injury), Volume overload Disposition: OP ADMIT IP TO THIS HOSP Is pt being admited?: Yes Does the pt Need Aspirin: No Condition: Stable
[2019-08-12 19:13] LABS: Basophils # (Auto) 0.1 K/mm3 (0.0-0.1); Monocytes # (Auto) 0.8 K/mm3 (0.0-0.8)
[2019-08-12 19:20] LABS: Hematocrit 39.6 % (35.5-45.6); Hemoglobin 12.1 gm/dl (11.8-15.2); Mean Corpuscular HGB Conc 31 % (32-34); Mean Corpuscular Volume 89 fl (84-94); Platelet Count 278 K/mm3 (140-440); Red Blood Count 4.47 M/mm3 (3.65-5.03); Red Cell Distribution Width 19.1 % (13.2-15.2)
[2019-08-12 19:21] LABS: Eosinophils % (Auto) 0.3 % (0.0-4.3); Lymphocytes % (Auto) 9.1 % (13.4-35.0); Monocytes % (Auto) 6.7 % (0.0-7.3)
[2019-08-12 19:22] LABS: Basophils % (Auto) 0.3 % (0.0-1.8); Lymphocytes # (Auto) 1.1 K/mm3 (1.2-5.4)
[2019-08-12 19:30] LABS: BUN/Creatinine Ratio 11; Blood Urea Nitrogen 90 mg/dL (9-20); Calcium 8.4 mg/dL (8.4-10.2); Hemolysis Index 3
--- NOTE | 2019-08-12 19:35 | XRay Report ---
CHEST 1 VIEW INDICATION / CLINICAL INFORMATION: Dyspnea. COMPARISON: None available. FINDINGS: SUPPORT DEVICES: None. HEART / MEDIASTINUM: Moderate cardiomegaly. LUNGS / PLEURA: Dense, hazy, ill-defined pulmonary opacities with central and basilar predominance, g reater on the right. Lung apices are relatively clear. Diffuse interstitial and vascular prominence. There is a small right pleural effusion. No left pleural fluid or pneumothorax is appreciated. IMPRESSION: Moderate cardiomegaly. Bilateral pulmonary opacities likely reflect pulmonary edema, consolidation and/or atelectasis, singl y or in combination. Small right pleural effusion. Signer Name: Prasanna Matias MD Signed: 08/12/2019 7:30 PM Workstation Name: [id number]
[2019-08-12 19:37] LABS: Alanine Aminotransferase 1082 units/L (7-56)
[2019-08-12 19:55] LABS: Chol/HDL Ratio 2.38 %; HDL Cholesterol 44 mg/dL (40-59); LDL Cholesterol,Direct 37 mg/dL (50-130)
[2019-08-12] MEDS ORDERED: INSULIN REGULAR, HUMAN 100 UNITS/1 ML IV ONE (20:04)
[2019-08-12] MEDS ORDERED: SODIUM POLYSTYRENE 15 GM/60 ML ORAL LIQD PO ONE (20:04)
[2019-08-12] MEDS ORDERED: ALBUTEROL 2.5 MG/3 ML NEBU IH ONE (20:04)
[2019-08-12] MEDS ORDERED: DEXTROSE 50% IN WATER (25GM) 50 ML SYRINGE IV ONE ×2 (20:04→23:21)
[2019-08-12] MEDS ORDERED: FUROSEMIDE 40 MG/4 ML INJ IV ONE (20:04)
[2019-08-12] MEDS ORDERED: CALCIUM GLUCONATE 1,000 MG in SODIUM CHLORIDE 0.9% 100 ML IV ONE (20:30)
[2019-08-12] MEDS: SODIUM BICARB 8.4% 50 MEQ/50 ML SYRINGE IV ONE ×2 (20:53→21:10)
--- NOTE | 2019-08-12 21:05 | Cat Scan Report ---
CT ABDOMEN AND PELVIS WITHOUT CONTRAST INDICATION / CLINICAL INFORMATION: acute kidney injury hx of recurrent UTI. TECHNIQUE: Axial CT images were obtained through the abdomen and pelvis without IV contrast. All CT scans at the [facility] are performed using CT dose reduction for ALARA by means of automated exposure control. COMPARISON: None available. FINDINGS: LOWER CHEST: Small bilateral pleural effusions with partial atelectasis of both lower lobes. The hear t is enlarged. Small pericardial effusion. LIVER: Unremarkable within limitations imposed by noncontrast technique. GALLBLADDER: Stones and/or sludge are suspected based on hyperattenuating content with gravity depend ent distribution. No noncontrast CT evidence of acute appendicitis. BILE DUCTS: No significant abnormality. PANCREAS: No significant abnormality. SPLEEN: No significant abnormality. ADRENALS: No significant abnormality. RIGHT KIDNEY and URETER: Low-attenuation lesion toward the upper pole anteriorly is incompletely zachary acterized but statistically is likely to represent a simple cyst. No acute finding. LEFT KIDNEY and URETER: Tiny hypoattenuating lesions are present, the largest at the upper pole anter iorly on series 4 image 28. These are indeterminate. No acute abnormality. STOMACH and SMALL BOWEL: No significant abnormality. COLON: Diverticulosis. No evidence of acute diverticulitis. APPENDIX: Normal appendix. PERITONEUM: No free fluid. No free air. No fluid collection. LYMPH NODES: No adenopathy. AORTA and ARTERIES: Severe atherosclerosis of the infrarenal aorta and iliac arteries. No aneurysm. IVC and VEINS: Unremarkable by noncontrast technique. URINARY BLADDER: Underdistended, limiting evaluation. No significant abnormality is detected. REPRODUCTIVE ORGANS: No significant abnormality. ADDITIONAL FINDINGS: Mild subcutaneous body wall edema greatest at the flanks. SKELETAL SYSTEM: Diffuse osseous demineralization. Mild to moderate degenerative disc disease and fac et arthrosis in the lumbar spine. No acute skeletal abnormality or suspicious focal osseous lesion is identified. IMPRESSION: 1. No acute finding within limitations imposed by noncontrast technique. 2. Possible biliary sludge and/or cholelithiasis. No evidence to suggest acute cholecystitis otherwi se. 3. Indeterminate hypoattenuating lesions in both kidneys. This could be further evaluated with contr ast-enhanced CT or MR on a nonemergent basis. 4. Mild cardiomegaly. 5. Small pleural effusions. Signer Name: Prasanna Matias MD Signed: 08/12/2019 9:00 PM Workstation Name: [id number]
[2019-08-12 21:25] LABS: Albumin 2.8 g/dL (3.9-5)
[2019-08-12] MEDS ORDERED: SODIUM POLYSTYRENE 15 GM/60 ML ORAL LIQD ONE (22:27)
--- NOTE | 2019-08-12 22:27 | History and Physical Report ---
History of Present Illness History of present illness: 59-year-old man with a history of diabetes, peripheral vascular disease, gout, hyperlipidemia was sent from [facility] for evaluation. The patient states that he felt bad over the last 3 days, he is a very poor historian, unable to give details. He does complain of shortness of breath, feels full. Labs were done and it shows that the patient has acute renal failure, pleural effusion. He will be admitted and evaluated further Review Of Systems: Constitutional: no weight loss, fever, chills Ears, eyes, nose, mouth and throat: no nasal congestion, no nasal discharge, no sinus pressure, blurry vision, diplopia Neck: No neck pain or rigidity. Cardiovascular: No palpitations, chest pain Respiratory: No cough Gastrointestinal: No hematochezia, abdominal pain Genitourinary : no dysuria, frequency Musculoskeletal: no muscle ache , joint pain Integumentary: no rash, no pruritis Neurological: no parathesias, focal weakness Endocrine: no cold or heat intolerance, no polyuria or polydipsia Hematologic/Lymphatic: no easy bruising, no easy bleeding, no gland swelling Allergic/Immunologic: no urticaria, no angioedema. PAST MEDICAL HISTORY: diabetes, peripheral vascular disease, gout, hyperlipidemia PAST SURGICAL HISTORY: Bilateral AKA SOCIAL HISTORY: Denies alcohol, tobacco, drugs FAMILY HISTORY: Hypertension Medications and Allergies Allergies Allergy/AdvReac Type Severity Reaction Status Date / Time No Known Allergies Allergy Unverified 08/12/19 17:31 Home Medications Medication Instructions Recorded Confirmed Last Taken Type Folic Acid [Folvite] 1 mg PO QDAY 02/22/18 08/13/19 Unknown History Gabapentin [Neurontin] 100 mg PO TID 02/22/18 08/13/19 Unknown History Multivitamin [Multiple Vitamins] 1 tab PO DAILY 02/22/18 08/13/19 Unknown History Sennosides [Senna] 25.8 mg PO BID 02/22/18 08/13/19 Unknown History Thiamine [Vitamin B-1] 100 mg PO QDAY 02/22/18 08/13/19 Unknown History Torsemide [Demadex] 20 mg PO DAILY 02/22/18 08/13/19 Unknown History allopurinoL [Allopurinol] 100 mg PO DAILY 02/22/18 08/13/19 Unknown History fentaNYL [Fentanyl] 1 each TD Q3D 02/22/18 08/13/19 Unknown History oxyCODONE /ACETAMINOPHEN [Percocet 1 tab PO Q6HR PRN #10 tablet 03/01/18 08/13/19 Unknown Rx 5/325] Aspirin EC [Halfprin EC] 81 mg PO QDAY 08/13/19 08/13/19 Unknown History AtorvaSTATin [Lipitor] 20 mg PO QHS 08/13/19 08/13/19 Unknown History Mirtazapine 7.5 mg PO QDAY 08/13/19 08/13/19 Unknown History NIFEdipine [Nifedipine ER] 30 mg PO QDAY 08/13/19 08/13/19 Unknown History Exam - Physical Exam Narrative exam: Gen. appearance: Patient lying in bed, no apparent distress HEENT: Normocephalic, atraumatic, pupils equally round and reactive to light, extraocular movement intact, and no sclericterus,. No JVD or thyromegaly or nodule,neck supple, no carotid bruit ,mucous membranes moist, no exudate or erythema Heart: S1, S2, regular rate and rhythm Lungs: Decreased breath sound at bases bilaterally, breathing comfortable Abdomen: Positive bowel sounds, nontender, nondistended, no organomegaly Extremity: Bilateral AKA, no edema, cyanosis, clubbing Skin: No rash, nodules, warm, dry Neuro: Cranial nerves II to XII intact speech is fluent, sensory intact - Constitutional Vitals: Temp Pulse Resp BP Pulse Ox 97.6 F 74 20 138/75 98 08/12/19 17:16 08/12/19 21:01 08/12/19 21:01 08/12/19 19:43 08/12/19 19:43 Results - Labs CBC & Chem 7: 08/14/19 07:12 08/14/19 19:29 Labs: Abnormal lab results 08/12/19 08/12/19 08/12/19 Range/Units 18:39 18:39 20:39 WBC 11.8 H (4.5-11.0) K/mm3 MCH 27 L (28-32) pg MCHC 31 L (32-34) % RDW 19.1 H (13.2-15.2) % Lymph % (Auto) 9.1 L (13.4-35.0) % Lymph # 1.1 L (1.2-5.4) K/mm3 Seg Neutrophils % 83.4 H (40.0-70.0) % Seg Neutrophils # 9.5 H (1.8-7.7) K/mm3 Sodium 134 L (137-145) mmol/L Potassium 6.5 H* (3.6-5.0) mmol/L Chloride 95.0 L (98-107) mmol/L Carbon Dioxide 17 L (22-30) mmol/L BUN 90 H (9-20) mg/dL Creatinine 8.4 H (0.8-1.5) mg/dL Glucose 107 H (75-100) mg/dL Calcium (8.4-10.2) mg/dL AST 1030 H (5-40) units/L ALT 1082 H (7-56) units/L Lactate Dehydrogenase 729 H (91-180) units/L Troponin T 0.284 H* (0.00-0.029) ng/mL NT-Pro-B Natriuret Pep > 48667 H (0-900) pg/mL Albumin 3.0 L (3.9-5) g/dL LDL Cholesterol Direct 37 L (50-130) mg/dL 08/12/19 Range/Units 20:39 WBC (4.5-11.0) K/mm3 MCH (28-32) pg MCHC (32-34) % RDW (13.2-15.2) % Lymph % (Auto) (13.4-35.0) % Lymph # (1.2-5.4) K/mm3 Seg Neutrophils % (40.0-70.0) % Seg Neutrophils # (1.8-7.7) K/mm3 Sodium 135 L (137-145) mmol/L Potassium 6.7 H* (3.6-5.0) mmol/L Chloride 96.5 L (98-107) mmol/L Carbon Dioxide 17 L (22-30) mmol/L BUN 92 H (9-20) mg/dL Creatinine 8.2 H (0.8-1.5) mg/dL Glucose 106 H (75-100) mg/dL Calcium 8.0 L (8.4-10.2) mg/dL AST 942 H (5-40) units/L ALT 1031 H (7-56) units/L Lactate Dehydrogenase (91-180) units/L Troponin T (0.00-0.029) ng/mL NT-Pro-B Natriuret Pep (0-900) pg/mL Albumin 2.8 L (3.9-5) g/dL LDL Cholesterol Direct (50-130) mg/dL - Imaging and Cardiology Chest x-ray: report reviewed CT scan - abdomen: report reviewed CT scan - pelvis: report reviewed US - abdomen: report reviewed Assessment and Plan Assessment Acute renal failure Renal was consulted to see the patient Several labs were ordered, no obstruction seen on CT Hyperkalemia Status post hyperkalemia cocktail, follow potassium levels Abnormal cardiac enzymes/pleural effusion, rule out CHF Check cardiac enzymes, echo, consult cardiology Hold Lasix for now given acute renal failure Abnormal LFTs most likely secondary to liver congestion Continue to monitor Diabetes Check fingersticks, start insulin sliding scale DVT prophylaxis
[2019-08-12 22:30] LABS: Calcium 8.8 mg/dL (8.4-10.2)
[2019-08-12] MEDS ORDERED: ACETAMINOPHEN 325 MG TAB PO PRN (23:02)
[2019-08-12] MEDS ORDERED: ONDANSETRON 4 MG/2 ML INJ IV PRN (23:02)
[2019-08-12] MEDS ORDERED: DEXTROSE 50% IN WATER (25GM) 50 ML SYRINGE IV PRN (23:11)
[2019-08-12 23:20] LABS: Albumin 3.1 g/dL (3.9-5); Calcium 8.3 mg/dL (8.4-10.2)
[2019-08-12] MEDS: DEXTROSE 50% IN WATER (25GM) 50 ML SYRINGE IV PRN (23:23)
--- NOTE | 2019-08-12 23:35 | Ultrasound Report ---
ULTRASOUND RENAL INDICATION / CLINICAL INFORMATION: renal failure. COMPARISON: CT dated 08/12/19 FINDINGS: Due to the patient's large body habitus, the kidneys could not be identified. URINARY BLADDER: Moderately thickened and mildly distended. FREE FLUID: None. ADDITIONAL FINDINGS: None. IMPRESSION: 1. Moderately thickened, mildly distended urinary bladder which could represent cystitis. 2. Nonvisualization of the kidneys on the current study. There was no hydronephrosis on the CT earlie r in the day. Signer Name: Gabbi Robert MD Signed: 08/12/2019 11:31 PM Workstation Name: [id number]
[2019-08-13 00:05] LABS: Creatine Kinase MB 3.6 ng/mL (0.0-4.0)
[2019-08-13] MEDS ORDERED: DEXTROSE 50% IN WATER (25GM) 50 ML SYRINGE IV ONE (00:07)
[2019-08-13] MEDS: DEXTROSE 50% IN WATER (25GM) 50 ML SYRINGE IV PRN ×3 (00:10→02:30)
[2019-08-13 01:39] LABS: Creatinine,Urine 175.4 mg/dL (0.1-20.0)
[2019-08-13 01:43] LABS: Bacteria,Urine 4+ /HPF (Negative); Bilirubin,Urine NEG (Negative); Blood,Urine SM (Negative); Color,Urine Yellow (Yellow); Mucus,Urine 2+ /HPF; Urobilinogen,Urine < 2.0 mg/dL (<2.0)
[2019-08-13 01:51] LABS: WBC,Urine > 182.0 /HPF (0.0-6.0)
[2019-08-13 02:42] LABS: Protein/Creatinine Ratio,Urine 0.3
[2019-08-13 06:00] LABS: Basophils # (Auto) 0.1 K/mm3 (0.0-0.1); Basophils % (Auto) 0.9 % (0.0-1.8); Eosinophils # (Auto) 0.1 K/mm3 (0.0-0.4); Eosinophils % (Auto) 0.4 % (0.0-4.3); Lymphocytes # (Auto) 0.8 K/mm3 (1.2-5.4); Lymphocytes % (Auto) 6.3 % (13.4-35.0); Mean Corpuscular HGB Conc 30 % (32-34); Mean Corpuscular Volume 89 fl (84-94); Monocytes # (Auto) 1.4 K/mm3 (0.0-0.8); Monocytes % (Auto) 11.4 % (0.0-7.3); Platelet Count 250 K/mm3 (140-440); Red Blood Count 4.36 M/mm3 (3.65-5.03); Red Cell Distribution Width 19.6 % (13.2-15.2)
[2019-08-13 06:03] LABS: Hematocrit 38.8 % (35.5-45.6); Hemoglobin 11.7 gm/dl (11.8-15.2)
[2019-08-13 06:18] LABS: Creatine Kinase MB 4.3 ng/mL (0.0-4.0)
[2019-08-13 06:23] LABS: Albumin 2.8 g/dL (3.9-5); Bilirubin,Direct 0.6 mg/dL (0-0.2)
[2019-08-13] MEDS: INSULIN LISPRO 100 UNIT/ML SUB-Q SCH ×3 (08:31→17:39)
--- NOTE | 2019-08-13 08:44 | Progress Note ---
Assessment and Plan Assessment and plan: Patient is a 59 yo man from [facility] with history of PVD s/p bilateral AKA, hypertension, DM type 2, dyslipidemia, CVA, Afib on Eliquis, GERD, anemia, Tobacco dependency and Gout who presented to [facility] with SOB and hypoxia, reported O2 sat in the 60s, placed on 100% NRB and right hand twitching * pCXR IMPRESSION: Moderate cardiomegaly. Bilateral pulmonary opacities likely reflect pulmonary edema, consolidation and/or atelectasis, singly or in combination. Small right pleural effusion. * CT abd/pelvis without contrast IMPRESSION: 1. No acute finding within limitations imposed by noncontrast technique. 2. Possible biliary sludge and/or cholelithiasis. No evidence to suggest acute cholecystitis otherwise. 3. Indeterminate hypoattenuating lesions in both kidneys. This could be further evaluated with contrast-enhanced CT or MR on a nonemergent basis. 4. Mild cardiomegaly. 5. Small pleural effusions. * Renal Ultrasound bilateral IMPRESSION: 1. Moderately thickened, mildly distended urinary bladder which could represent cystitis. 2. Nonvisualization of the kidneys on the current study. There was no hydronephrosis on the CT earlier in the day. * WBC 11.9, now 12.7, k was 6.5, Cr 8.4, troponin 0.284, elevated AST 1030, ALT 1082, normal AP and bilirubin total, proBNP >35,000, UA +wbc+LE ARF, vasomotor nephrolopathy, Suspected new onset of ESRD: ?needing HD Acute hypoxic respiratory failure on Vmask 50%: try to wean off, needs diuresing Hyperkalemia: Nephrology consulted Metabolic Acidosis: treat the ARF UTI: treat with abx Hypoxia at the AL, suspected Acute hypoxic respiratory failure due to pulmonary edema from new onset CHF: treat with diuretics if kidney function steady, may need ultrafiltration Transaminiitis, ?congestive vs GB vs other: consult GI, hold statin Elevated troponin, related to ARF: monitor closely, order ECHO DVT ppx Eliquis A/C use for suspected h/o Afib Right hand shaking, etiology unclear: monitor closely h/o Bilateral AKA DM type 2; use ssi, accucheck, ada diet full code CCT 33 minutes History Interval history: Patient was seen and examined. Follow-up on current diagnosis. Overnight uneventful as no events directly reported to me. Patient denies any chest pain, shortness breath, nausea/vomiting or severe headaches. Imaging, nursing note, chart, labs and old chart reviewed. Discussed with patient. Gen: WDWN, NAD, Awake, Alert, Orientated HEENT: NCAT, EOMI, PERRL, OP Clear Neck: supple, no adenopathy, no thyromegaly, = JVD CVS/Heart: irregular irregular normal S1S2, pulses present bilaterally Chest/Lungs: diminished bs bilaterally, Symmetrical chest expansion, good air entry bilaterally GI/Abdomen: soft, NTND, good bowel sounds, no guarding or rebound /Bladder: no suprapubic tenderness, no CVA or paraspinal tenderness Extermity/Skin: no c/c/e, no obvious rash MSK: bilateral AKA Neuro: CN 2-12 grossly intact, no new focal deficits Psych: calm Hospitalist Physical - Constitutional Vitals: Temp Pulse Resp BP Pulse Ox 97.5 F L 76 18 134/71 96 08/13/19 08:12 08/13/19 08:12 08/13/19 08:12 08/13/19 08:12 08/13/19 08:30 Results - Labs CBC & Chem 7: 08/13/19 05:27 08/13/19 05:27 Labs: Laboratory Last Values WBC 12.7 K/mm3 (4.5-11.0) H 08/13/19 05:27 RBC 4.36 M/mm3 (3.65-5.03) 08/13/19 05:27 Hgb 11.7 gm/dl (11.8-15.2) L 08/13/19 05:27 Hct 38.8 % (35.5-45.6) 08/13/19 05:27 MCV 89 fl (84-94) 08/13/19 05:27 MCH 27 pg (28-32) L 08/13/19 05:27 MCHC 30 % (32-34) L 08/13/19 05:27 RDW 19.6 % (13.2-15.2) H 08/13/19 05:27 Plt Count 250 K/mm3 (140-440) 08/13/19 05:27 Lymph % (Auto) 6.3 % (13.4-35.0) L 08/13/19 05:27 Barnes % (Auto) 11.4 % (0.0-7.3) H 08/13/19 05:27 Eos % (Auto) 0.4 % (0.0-4.3) 08/13/19 05:27 Baso % (Auto) 0.9 % (0.0-1.8) 08/13/19 05:27 Lymph # 0.8 K/mm3 (1.2-5.4) L 08/13/19 05:27 Barnes # 1.4 K/mm3 (0.0-0.8) H 08/13/19 05:27 Eos # 0.1 K/mm3 (0.0-0.4) 08/13/19 05:27 Baso # 0.1 K/mm3 (0.0-0.1) 08/13/19 05:27 Seg Neutrophils % 81.0 % (40.0-70.0) H 08/13/19 05:27 Seg Neutrophils # 10.3 K/mm3 (1.8-7.7) H 08/13/19 05:27 Sodium 135 mmol/L (137-145) L 08/13/19 05:27 Potassium 5.6 mmol/L (3.6-5.0) H 08/13/19 05:27 Chloride 97.1 mmol/L (98-107) L 08/13/19 05:27 Carbon Dioxide 16 mmol/L (22-30) L 08/13/19 05:27 Anion Gap 28 mmol/L 08/13/19 05:27 BUN 92 mg/dL (9-20) H 08/13/19 05:27 Creatinine 8.5 mg/dL (0.8-1.5) H 08/13/19 05:27 Estimated GFR 8 ml/min 08/13/19 05:27 BUN/Creatinine Ratio 11 % 08/13/19 05:27 Glucose 94 mg/dL (75-100) 08/13/19 05:27 POC Glucose 99 (70-105) 08/13/19 03:16 Calcium 8.0 mg/dL (8.4-10.2) L 08/13/19 05:27 Phosphorus 8.00 mg/dL (2.5-4.5) H 08/13/19 05:27 Iron 16 ug/dL (49-181) L 08/13/19 05:27 TIBC 280 mcg/dL (250-450) 08/13/19 05:27 Total Bilirubin 0.80 mg/dL (0.1-1.2) 08/13/19 05:27 Direct Bilirubin 0.6 mg/dL (0-0.2) H 08/13/19 05:27 Indirect Bilirubin 0.2 mg/dL 08/13/19 05:27 AST 829 units/L (5-40) H 08/13/19 05:27 ALT 987 units/L (7-56) H 08/13/19 05:27 Alkaline Phosphatase 130 units/L (35-129) H 08/13/19 05:27 Lactate Dehydrogenase 729 units/L (91-180) H 08/12/19 20:39 Total Creatine Kinase 117 units/L (55-170) 08/13/19 05:27 CK-MB (CK-2) 4.3 ng/mL (0.0-4.0) H 08/13/19 05:27 CK-MB (CK-2) Rel Index 3.6 (0-4) 08/13/19 05:27 Troponin T 0.296 ng/mL (0.00-0.029) H* 08/13/19 05:27 NT-Pro-B Natriuret Pep > 60793 pg/mL (0-900) H 08/12/19 18:39 Total Protein 7.2 g/dL (6.3-8.2) 08/13/19 05:27 Albumin 2.8 g/dL (3.9-5) L 08/13/19 05:27 Albumin/Globulin Ratio 0.6 % 08/13/19 05:27 Triglycerides 141 mg/dL (2-149) 08/12/19 18:39 Cholesterol 105 mg/dL (50-199) 08/12/19 18:39 LDL Cholesterol Direct 37 mg/dL (50-130) L 08/12/19 18:39 HDL Cholesterol 44 mg/dL (40-59) 08/12/19 18:39 Cholesterol/HDL Ratio 2.38 % 08/12/19 18:39 Urine Color Yellow (Yellow) 08/13/19 00:44 Urine Turbidity Turbid (Clear) 08/13/19 00:44 Urine pH 5.0 (5.0-7.0) 08/13/19 00:44 Ur Specific [place] 1.020 (1.003-1.030) 08/13/19 00:44 Urine Protein 100 mg/dl mg/dL (Negative) 08/13/19 00:44 Urine Glucose (UA) Neg mg/dL (Negative) 08/13/19 00:44 Urine Ketones Neg mg/dL (Negative) 08/13/19 00:44 Urine Blood Sm (Negative) 08/13/19 00:44 Urine Nitrite Neg (Negative) 08/13/19:44 Urine Bilirubin Neg (Negative) 08/13/19:44 Urine Urobilinogen < 2.0 mg/dL (<2.0) 08/13/19:44 Ur Leukocyte Esterase Mod (Negative) 08/13/19 00:44 Urine WBC (Auto) > 182.0 /HPF (0.0-6.0) H 08/13/19 00:44 Urine RBC (Auto) 86.0 /HPF (0.0-6.0) 08/13/19 00:44 U Epithel Cells (Auto) 8.0 /HPF (0-13.0) 08/13/19 00:44 Urine Bacteria (Auto) 4+ /HPF (Negative) 08/13/19 00:44 Urine WBC Clumps 3+ /HPF 08/13/19 00:44 Urine Mucus 2+ /HPF 08/13/19 00:44 Urine Eosinophils None seen (None Seen) 08/13/19 00:44 Urine Creatinine 174.0 mg/dL (0.1-20.0) H 08/13/19 00:44 Urine Creatinine 175.4 mg/dL (0.1-20.0) H 08/13/19 00:44 Protein/Creatinin Ratio 0.30 08/13/19 00:44 Urine Sodium 66 mmol/L 08/13/19 00:44 Urine Urea Nitrogen 158 08/13/19 00:44 Urine Total Protein 53 mg/dL (5-11.8) H 08/13/19 00:44 Hep Bs Antigen Non-reactive (Negative) 08/12/19 20:39 Hepatitis C Antibody Non-reactive (NonReactive) 08/12/19:39 Schistocytes Smear None seen 08/12/19 20:39 Microbiology: Microbiology 08/12/19 18:39 Peripheral/Venous Blood Culture - Preliminary Culture in Progress 08/12/19 18:39 Peripheral/Venous Blood Culture - Preliminary Culture in Progress Jeffrey/IV: IV Catheter Type [Right Hand] INT / Saline Lock Active Medications - Current Medications Current Medications: Generic Name Dose Route Start Last Admin Trade Name Freq PRN Reason Stop Dose Admin Acetaminophen 650 mg 08/12/19 23:02 Tylenol PO Q4H PRN Pain MILD(1-3)/Fever >100.5/REYNA Dextrose 0 ml 08/12/19 23:02 08/13/19 02:30 D50w (25gm) Syringe IV 50 ml Q30MIN PRN Administration Hypoglycemia Protocol Enoxaparin Sodium 30 mg 08/13/19 10:00 Enoxaparin SUB-Q QDAY [facility] Insulin Human Lispro 0 unit 08/13/19 07:30 08/13/19 08:31 Humalog SUB-Q Not Given ACHS [facility] Protocol Ondansetron HCl 4 mg 08/12/19 23:02 Zofran IV Q8H PRN Nausea And Vomiting Oxycodone/Acetaminophen 1 tab 08/12/19 23:02 Percocet 5/325 PO Q6H PRN Pain, Moderate (4-6) Sodium Chloride 10 ml 08/13/19 10:00 Sodium Chloride Flush Syringe 10 Ml IV BID [facility] Sodium Chloride 10 ml 08/12/19 23:02 Sodium Chloride Flush Syringe 10 Ml IV PRN PRN LINE FLUSH
--- NOTE | 2019-08-13 09:10 | Consultation ---
History of Present Illness - Reason for Consult Consult date: 08/13/19 acute renal failure, hyperkalemia - History of Present Illness This is a 59 year old male who presents to the hospital from [facility] with a chief complaint of shortness of breath with low oxygen levels. CXR done revealed pulmonary edema vs consolidation. Labs revealed an elevated potassium of 5.6 and serum creatinine of 8.5. Patient's serum creatinine in 02/2018 was 0.8-1.0. Patient takes Demadex at the longterm. Patient has history of Diabetes Mellitus, Smoking, PAD with BKA, GERD and Hypertension. We are being consulted for management of this patient's Acute Renal Failure. Patient is somnolent. No family at bedside. Past History Past Medical History: diabetes, hypertension, renal failure, other (PAD) Past Surgical History: Other (Bilateral amputee) Social history: other (Resides at [facility]) Family history: no significant family history Medications and Allergies Allergies Allergy/AdvReac Type Severity Reaction Status Date / Time No Known Allergies Allergy Unverified 08/12/19 17:31 Home Medications Medication Instructions Recorded Confirmed Last Taken Type Folic Acid [Folvite] 1 mg PO QDAY 02/22/18 08/13/19 Unknown History Gabapentin [Neurontin] 100 mg PO TID 02/22/18 08/13/19 Unknown History Multivitamin [Multiple Vitamins] 1 tab PO DAILY 02/22/18 08/13/19 Unknown History Sennosides [Senna] 25.8 mg PO BID 02/22/18 08/13/19 Unknown History Thiamine [Vitamin B-1] 100 mg PO QDAY 02/22/18 08/13/19 Unknown History Torsemide [Demadex] 20 mg PO DAILY 02/22/18 08/13/19 Unknown History allopurinoL [Allopurinol] 100 mg PO DAILY 02/22/18 08/13/19 Unknown History fentaNYL [Fentanyl] 1 each TD Q3D 02/22/18 08/13/19 Unknown History oxyCODONE /ACETAMINOPHEN [Percocet 1 tab PO Q6HR PRN #10 tablet 03/01/18 08/13/19 Unknown Rx 5/325] Aspirin EC [Halfprin EC] 81 mg PO QDAY 08/13/19 08/13/19 Unknown History AtorvaSTATin [Lipitor] 20 mg PO QHS 08/13/19 08/13/19 Unknown History Mirtazapine 7.5 mg PO QDAY 08/13/19 08/13/19 Unknown History NIFEdipine [Nifedipine ER] 30 mg PO QDAY 08/13/19 08/13/19 Unknown History Active Meds: Active Medications Acetaminophen (Tylenol) 650 mg PO Q4H PRN PRN Reason: Pain MILD(1-3)/Fever >100.5/REYNA Dextrose (D50w (25gm) Syringe) 0 ml IV Q30MIN PRN; Protocol PRN Reason: Hypoglycemia Last Admin: 08/13/19 02:30 Dose: 50 ml Documented by: Ceftriaxone Sodium (Rocephin/Ns 1 Gm/50 Ml) 1 gm in 50 mls @ 100 mls/hr IV Q24HR [facility]; Protocol Insulin Human Lispro (Humalog) 0 unit SUB-Q ACHS [facility]; Protocol Last Admin: 08/13/19 08:31 Dose: Not Given Documented by: Ondansetron HCl (Zofran) 4 mg IV Q8H PRN PRN Reason: Nausea And Vomiting Oxycodone/Acetaminophen (Percocet 5/325) 1 tab PO Q6H PRN PRN Reason: Pain, Moderate (4-6) Sodium Chloride (Sodium Chloride Flush Syringe 10 Ml) 10 ml IV BID [facility] Sodium Chloride (Sodium Chloride Flush Syringe 10 Ml) 10 ml IV PRN PRN PRN Reason: LINE FLUSH Review of Systems ROS unobtainable: due to mental status Exam - Vital Signs Vital signs: Vital Signs Pulse Resp 79 12 08/12/19 17:07 08/12/19 17:07 - General Appearance General appearance: obese, other (patient is somnolent) EENT: ATNC Neck: Present: neck supple, trachea midline Respiratory: Decreased Breath Sounds Heart: S1S2 Gastrointestinal: Present: normoactive bowel sounds, obese Integumentary: warm and dry Neurologic: facial droop (Somnolent) Musculoskeletal: Present: other (Bilateral amputee) Results - Lab Results 08/13/19 05:27 08/13/19 05:27 Most recent lab results Calcium 8.0 mg/dL (8.4-10.2) L 08/13/19 05:27 Phosphorus 8.00 mg/dL (2.5-4.5) H 08/13/19 05:27 Urine Creatinine 174.0 mg/dL (0.1-20.0) H 08/13/19 00:44 Urine Creatinine 175.4 mg/dL (0.1-20.0) H 08/13/19 00:44 Urine Sodium 66 mmol/L 08/13/19 00:44 Urine Total Protein 53 mg/dL (5-11.8) H 08/13/19 00:44 Assessment and Plan Acute Renal Failure secondary to prerenal vs ATN in setting of diuretics and Cystitis, on possible CKD: Hyperkalemia: Metabolic Acidosis: -Serum creatinine 8.5 with a GFR of 8 ml/min noted. Renal labs inb 02/2018 showed serum creatinin of 0.8-1.0 -Given patient's advanced renal failure coupled with Anuria, Hyperkalemia and respiratory insufficiency, we will initiate hemodialysis -Vascular surgeon, Dr. Merida consulted for vasc cath placement -Hemodialysis today for UF and clearance -Ct scan and renal US reviewed-No Hydronephrosis -Urine lytes reviewed, no urine eosinophils but has active urine sediments- GN/Vasculitis work-up ordered -Avoid nephrotoxic agents -Strict I/O's monitoring -Monitor renal function closely Cystitis: -On IV Rocephin -As per primary Acute hypoxic respiratory failure due to pulmonary edema: -S/p Lasix -UF with HD Diabetes Mellitus: -As per primary Hypertension: -Controlled -Monitor BP
--- NOTE | 2019-08-13 09:53 | Event Note ---
Date: 08/13/19 Patient off the floor (echo) at the time of rounds; will follow-up at later time
[2019-08-13] MEDS ORDERED: ENOXAPARIN 30 MG/0.3 ML INJ SUB-Q SCH (10:00)
[2019-08-13] MEDS: cefTRIAXone/NS 1 GM/50 ML 1 GM/50 ML BAG IV SCH (10:26)
--- NOTE | 2019-08-13 11:26 | Consultation ---
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 He was sent to this hospital with shortness of breath. It is reported an O2 saturation in the 60's. He remains afebrile. On initial workup, the patient was found to have multiple metabolic abnormalities including a renal failure with a creatinine of 8.5, severe hyperkalemia, potassium at 6.5 and elevated transaminitis. Chest x- ray reports cardiomegaly with interstitial edema. An ECG is atrial fibrillation with a well controlled ventricular rate. History is unobtainable. Review of chart shows a cardiac history of persistent atrial fibrillation. Medication record from the group home does not list he is on any rate controlling agents nor oral anticoagulation. An echocardiogram done in 2018 reports a dilated right heart chambers with mild cardiomyopathy, ejection fraction 40-45%. Past History Past Medical History: diabetes, hypertension, renal failure, other (PAD) Past Surgical History: Other (Bilateral amputee) Social history: other (Resides at [facility]) Family history: no significant family history Medications and Allergies Allergies Allergy/AdvReac Type Severity Reaction Status Date / Time No Known Allergies Allergy Unverified 08/12/19 17:31 Home Medications Medication Instructions Recorded Confirmed Last Taken Type Folic Acid [Folvite] 1 mg PO QDAY 02/22/18 08/13/19 Unknown History Gabapentin [Neurontin] 100 mg PO TID 02/22/18 08/13/19 Unknown History Multivitamin [Multiple Vitamins] 1 tab PO DAILY 02/22/18 08/13/19 Unknown History Sennosides [Senna] 25.8 mg PO BID 02/22/18 08/13/19 Unknown History Thiamine [Vitamin B-1] 100 mg PO QDAY 02/22/18 08/13/19 Unknown History Torsemide [Demadex] 20 mg PO DAILY 02/22/18 08/13/19 Unknown History allopurinoL [Allopurinol] 100 mg PO DAILY 02/22/18 08/13/19 Unknown History fentaNYL [Fentanyl] 1 each TD Q3D 02/22/18 08/13/19 Unknown History oxyCODONE /ACETAMINOPHEN [Percocet 1 tab PO Q6HR PRN #10 tablet 03/01/18 08/13/19 Unknown Rx 5/325] Aspirin EC [Halfprin EC] 81 mg PO QDAY 08/13/19 08/13/19 Unknown History AtorvaSTATin [Lipitor] 20 mg PO QHS 08/13/19 08/13/19 Unknown History Mirtazapine 7.5 mg PO QDAY 08/13/19 08/13/19 Unknown History NIFEdipine [Nifedipine ER] 30 mg PO QDAY 08/13/19 08/13/19 Unknown History Active Meds: Active Medications Acetaminophen (Tylenol) 650 mg PO Q4H PRN PRN Reason: Pain MILD(1-3)/Fever >100.5/REYNA Dextrose (D50w (25gm) Syringe) 0 ml IV Q30MIN PRN; Protocol PRN Reason: Hypoglycemia Last Admin: 08/13/19 02:30 Dose: 50 ml Documented by: Ceftriaxone Sodium (Rocephin/Ns 1 Gm/50 Ml) 1 gm in 50 mls @ 100 mls/hr IV Q24HR [facility]; Protocol Last Admin: 08/13/19 10:26 Dose: 100 mls/hr Documented by: Insulin Human Lispro (Humalog) 0 unit SUB-Q ACHS [facility]; Protocol Last Admin: 08/13/19 08:31 Dose: Not Given Documented by: Ondansetron HCl (Zofran) 4 mg IV Q8H PRN PRN Reason: Nausea And Vomiting Oxycodone/Acetaminophen (Percocet 5/325) 1 tab PO Q6H PRN PRN Reason: Pain, Moderate (4-6) Sodium Chloride (Sodium Chloride Flush Syringe 10 Ml) 10 ml IV BID [facility] Last Admin: 08/13/19 10:32 Dose: 10 ml Documented by: Sodium Chloride (Sodium Chloride Flush Syringe 10 Ml) 10 ml IV PRN PRN PRN Reason: LINE FLUSH Physical Examination Vital Signs Pulse Resp 79 12 08/12/19 17:07 08/12/19 17:07 General appearance: no acute distress HEENT: Positive: PERRL Cardiac: Positive: irregularly irregular Lungs: Positive: Decreased Breath Sounds Extremities: Present: Other (bilateral AKA) Results 08/13/19 05:27 08/13/19 05:27 Cardiac Enzymes 08/12/19 08/12/19 08/12/19 Range/Units 18:39 20:39 20:39 AST 1030 H 942 H (5-40) units/L Lactate Dehydrogenase 729 H (91-180) units/L CK-MB (CK-2) (0.0-4.0) ng/mL 08/12/19 08/12/19 08/13/19 Range/Units 22:38 22:38 05:27 AST 928 H 829 H (5-40) units/L Lactate Dehydrogenase (91-180) units/L CK-MB (CK-2) 3.6 (0.0-4.0) ng/mL 08/13/19 Range/Units 05:27 AST (5-40) units/L Lactate Dehydrogenase (91-180) units/L CK-MB (CK-2) 4.3 H (0.0-4.0) ng/mL Lipids 08/12/19 Range/Units 18:39 Triglycerides 141 (2-149) mg/dL Cholesterol 105 (50-199) mg/dL HDL Cholesterol 44 (40-59) mg/dL Cholesterol/HDL Ratio 2.38 % CBC 08/12/19 08/13/19 Range/Units 18:39 05:27 WBC 11.8 H 12.7 H (4.5-11.0) K/mm3 RBC 4.47 4.36 (3.65-5.03) M/mm3 Hgb 12.1 11.7 L (11.8-15.2) gm/dl Hct 39.6 38.8 (35.5-45.6) % Plt Count 278 250 (140-440) K/mm3 Lymph # 1.1 L 0.8 L (1.2-5.4) K/mm3 Perkins # 0.8 1.4 H (0.0-0.8) K/mm3 Eos # 0.0 0.1 (0.0-0.4) K/mm3 Baso # 0.1 0.1 (0.0-0.1) K/mm3 Comprehensive Metabolic Panel 08/12/19 08/12/19 08/12/19 Range/Units 18:39 20:39 21:50 Sodium 134 L 135 L 135 L (137-145) mmol/L Potassium 6.5 H* 6.7 H* 6.1 H* (3.6-5.0) mmol/L Chloride 95.0 L 96.5 L 98.0 (98-107) mmol/L Carbon Dioxide 17 L 17 L 19 L (22-30) mmol/L BUN 90 H 92 H 93 H (9-20) mg/dL Creatinine 8.4 H 8.2 H 8.1 H (0.8-1.5) mg/dL Glucose 107 H 106 H 150 H (75-100) mg/dL Calcium 8.4 8.0 L 8.8 (8.4-10.2) mg/dL Direct Bilirubin (0-0.2) mg/dL Indirect Bilirubin mg/dL AST 1030 H 942 H (5-40) units/L ALT 1082 H 1031 H (7-56) units/L Alkaline Phosphatase 129 127 (35-129) units/L Total Protein 7.5 7.4 (6.3-8.2) g/dL Albumin 3.0 L 2.8 L (3.9-5) g/dL 08/12/19 08/13/19 08/13/19 Range/Units 22:38 01:58 05:27 Sodium 136 L 135 L (137-145) mmol/L Potassium 5.5 H 5.6 H (3.6-5.0) mmol/L Chloride 95.6 L 97.1 L (98-107) mmol/L Carbon Dioxide 20 L 16 L (22-30) mmol/L BUN 96 H 92 H (9-20) mg/dL Creatinine 8.5 H 8.5 H (0.8-1.5) mg/dL Glucose 66 L 62 L 94 (75-100) mg/dL Calcium 8.3 L 8.0 L (8.4-10.2) mg/dL Direct Bilirubin 0.6 H (0-0.2) mg/dL Indirect Bilirubin 0.2 mg/dL AST 928 H 829 H (5-40) units/L ALT 1080 H 987 H (7-56) units/L Alkaline Phosphatase 133 H 130 H (35-129) units/L Total Protein 6.8 7.2 (6.3-8.2) g/dL Albumin 3.1 L 2.8 L (3.9-5) g/dL Assessment and Plan Acute systolic heart failure Persistent afib rate controlled without beta blockers likely due to underlying SSS Volume overload Renal failure Severe hyperkalemia Elevated transaminitis Patient is planned to initiate dialysis as per nephrology. We will get an echocardiogram for LVEF reassessment.
[2019-08-13] MEDS ORDERED: HEPARIN 10,000 UNITS/10 ML VIAL ONE (12:56)
[2019-08-13] MEDS ORDERED: HEPARIN/NS 5000 UNIT/500ML 1,000 ML IR ONE (12:56)
[2019-08-13] MEDS ORDERED: LIDOCAINE (2%) 20 MG/1 ML VIAL 20 ML MDV INFILTRATI ONE (12:57)
[2019-08-13] MEDS ORDERED: MIDAZOLAM 2 MG/2 ML INJ ONE (12:59)
[2019-08-13] MEDS ORDERED: fentaNYL 100 MCG/2 ML INJ ONE (13:00)
--- NOTE | 2019-08-13 17:25 | Consultation ---
History of Present Illness - Reason for Consult Consult date: 08/13/19 Vas-Cath Placement Requesting physician: MAKENZIE FONSECA - History of Present Illness The patient is a 59-year-old male with a history of multiple medical problems including peripheral vascular disease requiring bilateral above-knee amputations who was brought to the emergency department from [facility] with complaints of shortness of breath and a report of oxygen saturations in the 60's while at the senior living. His work-up revealed that he was in acute renal failure with an elevated potassium and congestive heart failure with an elevated BNP. His hyperkalemia was initially treated with medical management and his fluid overload was initially attempted to manage with diuresis however this was unsuccessful and it was determined that the patient will require dialysis. He is a poor historian and I am unable to determine if he has a history of previous renal failure. Besides the shortness of breath he has no additional complaints at this time. Past History Past Medical History: diabetes, GERD, heart failure, hypertension, PVD, renal failure, other (PAD) Past Surgical History: Other (Bilateral amputee) Social history: other (Resides at [facility]) Family history: no significant family history Medications and Allergies Allergies Allergy/AdvReac Type Severity Reaction Status Date / Time No Known Allergies Allergy Unverified 08/12/19 17:31 Home Medications Medication Instructions Recorded Confirmed Last Taken Type Folic Acid [Folvite] 1 mg PO QDAY 02/22/18 08/13/19 Unknown History Gabapentin [Neurontin] 100 mg PO TID 02/22/18 08/13/19 Unknown History Multivitamin [Multiple Vitamins] 1 tab PO DAILY 02/22/18 08/13/19 Unknown History Sennosides [Senna] 25.8 mg PO BID 02/22/18 08/13/19 Unknown History Thiamine [Vitamin B-1] 100 mg PO QDAY 02/22/18 08/13/19 Unknown History Torsemide [Demadex] 20 mg PO DAILY 02/22/18 08/13/19 Unknown History allopurinoL [Allopurinol] 100 mg PO DAILY 02/22/18 08/13/19 Unknown History fentaNYL [Fentanyl] 1 each TD Q3D 02/22/18 08/13/19 Unknown History oxyCODONE /ACETAMINOPHEN [Percocet 1 tab PO Q6HR PRN #10 tablet 03/01/18 08/13/19 Unknown Rx 5/325] Aspirin EC [Halfprin EC] 81 mg PO QDAY 08/13/19 08/13/19 Unknown History AtorvaSTATin [Lipitor] 20 mg PO QHS 08/13/19 08/13/19 Unknown History Mirtazapine 7.5 mg PO QDAY 08/13/19 08/13/19 Unknown History NIFEdipine [Nifedipine ER] 30 mg PO QDAY 08/13/19 08/13/19 Unknown History Active Meds: Active Medications Acetaminophen (Tylenol) 650 mg PO Q4H PRN PRN Reason: Pain MILD(1-3)/Fever >100.5/REYNA Dextrose (D50w (25gm) Syringe) 0 ml IV Q30MIN PRN; Protocol PRN Reason: Hypoglycemia Last Admin: 08/13/19 02:30 Dose: 50 ml Documented by: Ceftriaxone Sodium (Rocephin/Ns 1 Gm/50 Ml) 1 gm in 50 mls @ 100 mls/hr IV Q24HR [facility]; Protocol Last Admin: 08/13/19 10:26 Dose: 100 mls/hr Documented by: Insulin Human Lispro (Humalog) 0 unit SUB-Q ACHS [facility]; Protocol Last Admin: 08/13/19 13:18 Dose: Not Given Documented by: Ondansetron HCl (Zofran) 4 mg IV Q8H PRN PRN Reason: Nausea And Vomiting Oxycodone/Acetaminophen (Percocet 5/325) 1 tab PO Q6H PRN PRN Reason: Pain, Moderate (4-6) Sodium Chloride (Sodium Chloride Flush Syringe 10 Ml) 10 ml IV BID [facility] Last Admin: 08/13/19 10:32 Dose: 10 ml Documented by: Sodium Chloride (Sodium Chloride Flush Syringe 10 Ml) 10 ml IV PRN PRN PRN Reason: LINE FLUSH Review of Systems All systems: negative Exam - Constitutional Vitals: Temp Pulse Resp BP Pulse Ox 97.2 F L 74 18 108/58 100 08/13/19 12:29 08/13/19 16:15 08/13/19 12:29 08/13/19 16:15 08/13/19 12:29 General appearance: Present: no acute distress - Respiratory Respiratory effort: labored (On a nonrebreather ), accessory muscle use - Extremities Extremities: abnormal (Bilateral above-knee amputation) - Abdominal General gastrointestinal: Present: soft, non-tender, other (Protuberant) Male genitourinary: Present: deferred - Rectal Rectal Exam: deferred - Integumentary Integumentary: Present: clear Results - Labs CBC & Chem 7: 08/13/19 05:27 08/13/19 05:27 Labs: Abnormal lab results 08/12/19 08/12/19 08/12/19 Range/Units 18:39 18:39 20:39 WBC 11.8 H (4.5-11.0) K/mm3 Hgb (11.8-15.2) gm/dl MCH 27 L (28-32) pg MCHC 31 L (32-34) % RDW 19.1 H (13.2-15.2) % Lymph % (Auto) 9.1 L (13.4-35.0) % Gillespie % (Auto) (0.0-7.3) % Lymph # 1.1 L (1.2-5.4) K/mm3 Gillespie # (0.0-0.8) K/mm3 Seg Neutrophils % 83.4 H (40.0-70.0) % Seg Neutrophils # 9.5 H (1.8-7.7) K/mm3 Sodium 134 L (137-145) mmol/L Potassium 6.5 H* (3.6-5.0) mmol/L Chloride 95.0 L (98-107) mmol/L Carbon Dioxide 17 L (22-30) mmol/L BUN 90 H (9-20) mg/dL Creatinine 8.4 H (0.8-1.5) mg/dL Glucose 107 H (75-100) mg/dL POC Glucose (70-105) Calcium (8.4-10.2) mg/dL Phosphorus (2.5-4.5) mg/dL Iron (49-181) ug/dL Direct Bilirubin (0-0.2) mg/dL AST 1030 H (5-40) units/L ALT 1082 H (7-56) units/L Alkaline Phosphatase (35-129) units/L Lactate Dehydrogenase 729 H (91-180) units/L CK-MB (CK-2) (0.0-4.0) ng/mL Troponin T 0.284 H* (0.00-0.029) ng/mL NT-Pro-B Natriuret Pep > 74919 H (0-900) pg/mL Albumin 3.0 L (3.9-5) g/dL LDL Cholesterol Direct 37 L (50-130) mg/dL Urine WBC (Auto) (0.0-6.0) /HPF Urine Creatinine (0.1-20.0) mg/dL Urine Total Protein (5-11.8) mg/dL 08/12/19 08/12/19 08/12/19 Range/Units 20:39 21:50 22:38 WBC (4.5-11.0) K/mm3 Hgb (11.8-15.2) gm/dl MCH (28-32) pg MCHC (32-34) % RDW (13.2-15.2) % Lymph % (Auto) (13.4-35.0) % Gillespie % (Auto) (0.0-7.3) % Lymph # (1.2-5.4) K/mm3 Gillespie # (0.0-0.8) K/mm3 Seg Neutrophils % (40.0-70.0) % Seg Neutrophils # (1.8-7.7) K/mm3 Sodium 135 L 135 L 136 L (137-145) mmol/L Potassium 6.7 H* 6.1 H* 5.5 H (3.6-5.0) mmol/L Chloride 96.5 L 95.6 L (98-107) mmol/L Carbon Dioxide 17 L 19 L 20 L (22-30) mmol/L BUN 92 H 93 H 96 H (9-20) mg/dL Creatinine 8.2 H 8.1 H 8.5 H (0.8-1.5) mg/dL Glucose 106 H 150 H 66 L (75-100) mg/dL POC Glucose (70-105) Calcium 8.0 L 8.3 L (8.4-10.2) mg/dL Phosphorus (2.5-4.5) mg/dL Iron (49-181) ug/dL Direct Bilirubin (0-0.2) mg/dL AST 942 H 928 H (5-40) units/L ALT 1031 H 1080 H (7-56) units/L Alkaline Phosphatase 133 H (35-129) units/L Lactate Dehydrogenase (91-180) units/L CK-MB (CK-2) (0.0-4.0) ng/mL Troponin T (0.00-0.029) ng/mL NT-Pro-B Natriuret Pep (0-900) pg/mL Albumin 2.8 L 3.1 L (3.9-5) g/dL LDL Cholesterol Direct (50-130) mg/dL Urine WBC (Auto) (0.0-6.0) /HPF Urine Creatinine (0.1-20.0) mg/dL Urine Total Protein (5-11.8) mg/dL 08/12/19 08/12/19 08/13/19 Range/Units 22:38 23:31 00:17 WBC (4.5-11.0) K/mm3 Hgb (11.8-15.2) gm/dl MCH (28-32) pg MCHC (32-34) % RDW (13.2-15.2) % Lymph % (Auto) (13.4-35.0) % Gillespie % (Auto) (0.0-7.3) % Lymph # (1.2-5.4) K/mm3 Gillespie # (0.0-0.8) K/mm3 Seg Neutrophils % (40.0-70.0) % Seg Neutrophils # (1.8-7.7) K/mm3 Sodium (137-145) mmol/L Potassium (3.6-5.0) mmol/L Chloride (98-107) mmol/L Carbon Dioxide (22-30) mmol/L BUN (9-20) mg/dL Creatinine (0.8-1.5) mg/dL Glucose (75-100) mg/dL POC Glucose < 40 L 63 L (70-105) Calcium (8.4-10.2) mg/dL Phosphorus (2.5-4.5) mg/dL Iron (49-181) ug/dL Direct Bilirubin (0-0.2) mg/dL AST (5-40) units/L ALT (7-56) units/L Alkaline Phosphatase (35-129) units/L Lactate Dehydrogenase (91-180) units/L CK-MB (CK-2) (0.0-4.0) ng/mL Troponin T 0.314 H* (0.00-0.029) ng/mL NT-Pro-B Natriuret Pep (0-900) pg/mL Albumin (3.9-5) g/dL LDL Cholesterol Direct (50-130) mg/dL Urine WBC (Auto) (0.0-6.0) /HPF Urine Creatinine (0.1-20.0) mg/dL Urine Total Protein (5-11.8) mg/dL 08/13/19 08/13/19 08/13/19 Range/Units 00:44 00:44 00:44 WBC (4.5-11.0) K/mm3 Hgb (11.8-15.2) gm/dl MCH (28-32) pg MCHC (32-34) % RDW (13.2-15.2) % Lymph % (Auto) (13.4-35.0) % Gillespie % (Auto) (0.0-7.3) % Lymph # (1.2-5.4) K/mm3 Gillespie # (0.0-0.8) K/mm3 Seg Neutrophils % (40.0-70.0) % Seg Neutrophils # (1.8-7.7) K/mm3 Sodium (137-145) mmol/L Potassium (3.6-5.0) mmol/L Chloride (98-107) mmol/L Carbon Dioxide (22-30) mmol/L BUN (9-20) mg/dL Creatinine (0.8-1.5) mg/dL Glucose (75-100) mg/dL POC Glucose (70-105) Calcium (8.4-10.2) mg/dL Phosphorus (2.5-4.5) mg/dL Iron (49-181) ug/dL Direct Bilirubin (0-0.2) mg/dL AST (5-40) units/L ALT (7-56) units/L Alkaline Phosphatase (35-129) units/L Lactate Dehydrogenase (91-180) units/L CK-MB (CK-2) (0.0-4.0) ng/mL Troponin T (0.00-0.029) ng/mL NT-Pro-B Natriuret Pep (0-900) pg/mL Albumin (3.9-5) g/dL LDL Cholesterol Direct (50-130) mg/dL Urine WBC (Auto) > 182.0 H (0.0-6.0) /HPF Urine Creatinine 175.4 H 174.0 H (0.1-20.0) mg/dL Urine Total Protein 53 H (5-11.8) mg/dL 08/13/19 08/13/19 08/13/19 Range/Units 01:23 01:58 02:33 WBC (4.5-11.0) K/mm3 Hgb (11.8-15.2) gm/dl MCH (28-32) pg MCHC (32-34) % RDW (13.2-15.2) % Lymph % (Auto) (13.4-35.0) % Gillespie % (Auto) (0.0-7.3) % Lymph # (1.2-5.4) K/mm3 Gillespie # (0.0-0.8) K/mm3 Seg Neutrophils % (40.0-70.0) % Seg Neutrophils # (1.8-7.7) K/mm3 Sodium (137-145) mmol/L Potassium (3.6-5.0) mmol/L Chloride (98-107) mmol/L Carbon Dioxide (22-30) mmol/L BUN (9-20) mg/dL Creatinine (0.8-1.5) mg/dL Glucose 62 L (75-100) mg/dL POC Glucose < 40 L 47 L (70-105) Calcium (8.4-10.2) mg/dL Phosphorus (2.5-4.5) mg/dL Iron (49-181) ug/dL Direct Bilirubin (0-0.2) mg/dL AST (5-40) units/L ALT (7-56) units/L Alkaline Phosphatase (35-129) units/L Lactate Dehydrogenase (91-180) units/L CK-MB (CK-2) (0.0-4.0) ng/mL Troponin T (0.00-0.029) ng/mL NT-Pro-B Natriuret Pep (0-900) pg/mL Albumin (3.9-5) g/dL LDL Cholesterol Direct (50-130) mg/dL Urine WBC (Auto) (0.0-6.0) /HPF Urine Creatinine (0.1-20.0) mg/dL Urine Total Protein (5-11.8) mg/dL 08/13/19 08/13/19 08/13/19 Range/Units 05:27 05:27 05:27 WBC 12.7 H (4.5-11.0) K/mm3 Hgb 11.7 L (11.8-15.2) gm/dl MCH 27 L (28-32) pg MCHC 30 L (32-34) % RDW 19.6 H (13.2-15.2) % Lymph % (Auto) 6.3 L (13.4-35.0) % Gillespie % (Auto) 11.4 H (0.0-7.3) % Lymph # 0.8 L (1.2-5.4) K/mm3 Gillespie # 1.4 H (0.0-0.8) K/mm3 Seg Neutrophils % 81.0 H (40.0-70.0) % Seg Neutrophils # 10.3 H (1.8-7.7) K/mm3 Sodium 135 L (137-145) mmol/L Potassium 5.6 H (3.6-5.0) mmol/L Chloride 97.1 L (98-107) mmol/L Carbon Dioxide 16 L (22-30) mmol/L BUN 92 H (9-20) mg/dL Creatinine 8.5 H (0.8-1.5) mg/dL Glucose (75-100) mg/dL POC Glucose (70-105) Calcium 8.0 L (8.4-10.2) mg/dL Phosphorus 8.00 H (2.5-4.5) mg/dL Iron 16 L (49-181) ug/dL Direct Bilirubin 0.6 H (0-0.2) mg/dL AST 829 H (5-40) units/L ALT 987 H (7-56) units/L Alkaline Phosphatase 130 H (35-129) units/L Lactate Dehydrogenase (91-180) units/L CK-MB (CK-2) 4.3 H (0.0-4.0) ng/mL Troponin T 0.296 H* (0.00-0.029) ng/mL NT-Pro-B Natriuret Pep (0-900) pg/mL Albumin 2.8 L (3.9-5) g/dL LDL Cholesterol Direct (50-130) mg/dL Urine WBC (Auto) (0.0-6.0) /HPF Urine Creatinine (0.1-20.0) mg/dL Urine Total Protein (5-11.8) mg/dL 08/13/19 08/13/19 Range/Units 08:06 12:32 WBC (4.5-11.0) K/mm3 Hgb (11.8-15.2) gm/dl MCH (28-32) pg MCHC (32-34) % RDW (13.2-15.2) % Lymph % (Auto) (13.4-35.0) % Gillespie % (Auto) (0.0-7.3) % Lymph # (1.2-5.4) K/mm3 Gillespie # (0.0-0.8) K/mm3 Seg Neutrophils % (40.0-70.0) % Seg Neutrophils # (1.8-7.7) K/mm3 Sodium (137-145) mmol/L Potassium (3.6-5.0) mmol/L Chloride (98-107) mmol/L Carbon Dioxide (22-30) mmol/L BUN (9-20) mg/dL Creatinine (0.8-1.5) mg/dL Glucose (75-100) mg/dL POC Glucose 113 H 106 H (70-105) Calcium (8.4-10.2) mg/dL Phosphorus (2.5-4.5) mg/dL Iron (49-181) ug/dL Direct Bilirubin (0-0.2) mg/dL AST (5-40) units/L ALT (7-56) units/L Alkaline Phosphatase (35-129) units/L Lactate Dehydrogenase (91-180) units/L CK-MB (CK-2) (0.0-4.0) ng/mL Troponin T (0.00-0.029) ng/mL NT-Pro-B Natriuret Pep (0-900) pg/mL Albumin (3.9-5) g/dL LDL Cholesterol Direct (50-130) mg/dL Urine WBC (Auto) (0.0-6.0) /HPF Urine Creatinine (0.1-20.0) mg/dL Urine Total Protein (5-11.8) mg/dL - Imaging and Cardiology Chest x-ray: image reviewed Assessment and Plan The patient is a 59-year-old male with a history of peripheral vascular disease, hypertension, diabetes mellitus who presented with exacerbation of CHF and acute renal insufficiency who is in need of urgent dialysis. He requires a Vas-Cath for dialysis. He has been given the risk, benefits, and alternative procedures and is consented to the procedure.
--- NOTE | 2019-08-13 17:34 | Operative Report ---
Operative Report Operative Report: Date of Procedure: 08/13/2019 Pre-operative Diagnosis: Acute Renal Failure Post-operative Diagnosis: Same Procedure(s): 1. Ultrasound-Guided Access Right Internal Jugular Vein 2. Placement of 16 Cm Pre-Curved Vas-Cath 3. Radiologic Supervision with Interpretation Surgeon: Edi Gann M.D. [employer]: None Anesthesia: 2% Lidocaine/Moderate Monitored Sedation EBL: Minimal Counts: Correct Complications: None Condition: Stable Findings: Vas-Cath placed with tip in distal SVC and both ports easily aspirated and flushed. Specimen: None Indication: The patient is a 59-year-old male who presented with acute renal insufficiency and exacerbation of CHF and is in need of urgent dialysis. He requires a Vas- Cath for dialysis. He was given the risk, benefits, and alternative procedures and consented to the procedure. Description of Procedure: The patient was brought to the [facility] and laid in supine position. After a timeout was performed his right neck and chest were prepped and draped in normal sterile fashion. Ultrasound was used to identify the right internal jugular vein and confirm patency. Once patency was confirmed the overlying skin and soft tissue was anesthetized with lidocaine. 11 blade was used to make a small stab incision and then an 18-gauge needle was used with ultrasound guidance into the right internal jugular vein. A 0.035 J-wire was advanced through the needle and into the inferior vena cava under fluoroscopy. The 18-gauge needle was removed and the tract was dilated and then the Vas-Cath was placed by Seldinger technique. The wire was removed and both ports were easily aspirated and flushed and primed with the appropriate amount of heparin. The catheter was secured in position with 2-0 Ethilon and dressed with a sterile dressing. Final fluoroscopy demonstrated the catheter was in adequate position without any evidence of pneumothorax. The patient was transported from the [facility] to the recovery area in stable condition.
[2019-08-13] MEDS ORDERED: SODIUM CHLORIDE*PRIMING MACHINE ONLY FOR DIALYSIS MC ONE (19:01)
[2019-08-13 21:00] LABS: INR 1.29 (0.87-1.13)
[2019-08-13 21:10] LABS: Albumin 2.9 g/dL (3.9-5); Calcium 7.8 mg/dL (8.4-10.2)
--- NOTE | 2019-08-13 21:12 | Gastroenterology Consultation ---
History of Present Illness - Reason for Consult Consult date: 08/13/19 elevated liver enzymes Requesting physician: PEREZ INIGUEZ - History of Present Illness The patient is a 59 yo aam who presented from longterm with sob and worsening fatigue/weakness. Patient with significant past medical history including PVD, diabetes, chf, and renal failure. He was noted to have significant elevation of liver enzymes in hepatocellular pattern for which GI has been consulted. This is a new elevation compared to labs last year at which time liver enzymes were normal. Pt is a poor historian and does not provide much history at time of exam (sleeping, arousable but does not engage in conversation). Past History Past Medical History: diabetes, GERD, heart failure, hypertension, PVD, renal failure, other (PAD) Past Surgical History: Other (Bilateral amputee) Social history: other (Resides at [facility]) Family history: no significant family history Medications and Allergies Allergies Allergy/AdvReac Type Severity Reaction Status Date / Time No Known Allergies Allergy Unverified 08/12/19 17:31 Home Medications Medication Instructions Recorded Confirmed Last Taken Type Folic Acid [Folvite] 1 mg PO QDAY 02/22/18 08/13/19 Unknown History Gabapentin [Neurontin] 100 mg PO TID 02/22/18 08/13/19 Unknown History Multivitamin [Multiple Vitamins] 1 tab PO DAILY 02/22/18 08/13/19 Unknown History Sennosides [Senna] 25.8 mg PO BID 02/22/18 08/13/19 Unknown History Thiamine [Vitamin B-1] 100 mg PO QDAY 02/22/18 08/13/19 Unknown History Torsemide [Demadex] 20 mg PO DAILY 02/22/18 08/13/19 Unknown History allopurinoL [Allopurinol] 100 mg PO DAILY 02/22/18 08/13/19 Unknown History fentaNYL [Fentanyl] 1 each TD Q3D 02/22/18 08/13/19 Unknown History oxyCODONE /ACETAMINOPHEN [Percocet 1 tab PO Q6HR PRN #10 tablet 03/01/18 08/13/19 Unknown Rx 5/325] Aspirin EC [Halfprin EC] 81 mg PO QDAY 08/13/19 08/13/19 Unknown History AtorvaSTATin [Lipitor] 20 mg PO QHS 08/13/19 08/13/19 Unknown History Mirtazapine 7.5 mg PO QDAY 08/13/19 08/13/19 Unknown History NIFEdipine [Nifedipine ER] 30 mg PO QDAY 08/13/19 08/13/19 Unknown History Active Meds: Active Medications Acetaminophen (Tylenol) 650 mg PO Q4H PRN PRN Reason: Pain MILD(1-3)/Fever >100.5/REYNA Dextrose (D50w (25gm) Syringe) 0 ml IV Q30MIN PRN; Protocol PRN Reason: Hypoglycemia Last Admin: 08/13/19 02:30 Dose: 50 ml Documented by: Ceftriaxone Sodium (Rocephin/Ns 1 Gm/50 Ml) 1 gm in 50 mls @ 100 mls/hr IV Q24HR [facility]; Protocol Last Admin: 08/13/19 10:26 Dose: 100 mls/hr Documented by: Insulin Human Lispro (Humalog) 0 unit SUB-Q ACHS [facility]; Protocol Last Admin: 08/13/19 17:39 Dose: Not Given Documented by: Ondansetron HCl (Zofran) 4 mg IV Q8H PRN PRN Reason: Nausea And Vomiting Oxycodone/Acetaminophen (Percocet 5/325) 1 tab PO Q6H PRN PRN Reason: Pain, Moderate (4-6) Sodium Chloride (Sodium Chloride Flush Syringe 10 Ml) 10 ml IV BID [facility] Last Admin: 08/13/19 10:32 Dose: 10 ml Documented by: Sodium Chloride (Sodium Chloride Flush Syringe 10 Ml) 10 ml IV PRN PRN PRN Reason: LINE FLUSH Reviewed/updated patient's home and current medications Review of Systems - Review of Systems All systems: negative (per HPI) Exam - Constitutional Vital Signs: Temp Pulse Resp BP Pulse Ox 97.4 F L 68 18 110/61 100 08/13/19 16:30 08/13/19 16:30 08/13/19 16:30 08/13/19 16:30 08/13/19 12:29 General appearance: no acute distress, obese - Respiratory Respiratory effort: normal Respiratory: bilateral: diminished - Cardiovascular Rhythm: regular Heart Sounds: Present: S1 & S2 Extremity abnormal: other (bilateral lower extremity amputation) - Gastrointestinal General gastrointestinal: Present: soft, non-tender, normal bowel sounds - Neurologic Neurological: oriented to person - Psychiatric Psychiatric: appropriate mood/affect - Labs CBC & Chem 7: 08/14/19 07:12 08/14/19 07:12 Lab Results: Laboratory Results - last 24 hr 08/12/19 08/12/19 08/12/19 20:39 20:39 20:39 WBC RBC Hgb Hct MCV MCH MCHC RDW Plt Count Lymph % (Auto) [place] % (Auto) Eos % (Auto) Baso % (Auto) Lymph # [place] # Eos # Baso # Seg Neutrophils % Seg Neutrophils # PT INR Sodium Potassium Chloride Carbon Dioxide Anion Gap BUN Creatinine Estimated GFR BUN/Creatinine Ratio Glucose POC Glucose Calcium Phosphorus Iron TIBC Total Bilirubin Direct Bilirubin Indirect Bilirubin AST ALT Alkaline Phosphatase Lactate Dehydrogenase 729 H Total Creatine Kinase CK-MB (CK-2) CK-MB (CK-2) Rel Index Troponin T Total Protein Albumin Albumin/Globulin Ratio Urine Color Urine Turbidity Urine pH Ur Specific [place] Urine Protein Urine Glucose (UA) Urine Ketones Urine Blood Urine Nitrite Urine Bilirubin Urine Urobilinogen Ur Leukocyte Esterase Urine WBC (Auto) Urine RBC (Auto) U Epithel Cells (Auto) Urine Bacteria (Auto) Urine WBC Clumps Urine Mucus Urine Eosinophils Urine Creatinine Protein/Creatinin Ratio Urine Sodium Urine Urea Nitrogen Urine Total Protein Hep Bs Antigen Non-reactive Hepatitis C Antibody Non-reactive Schistocytes Smear 08/12/19 08/12/19 08/12/19 20:39 20:39 21:50 WBC RBC Hgb Hct MCV MCH MCHC RDW Plt Count Lymph % (Auto) [place] % (Auto) Eos % (Auto) Baso % (Auto) Lymph # [place] # Eos # Baso # Seg Neutrophils % Seg Neutrophils # PT INR Sodium 135 L 135 L Potassium 6.7 H* 6.1 H* Chloride 96.5 L 98.0 Carbon Dioxide 17 L 19 L Anion Gap 28 24 BUN 92 H 93 H Creatinine 8.2 H 8.1 H Estimated GFR 8 8 BUN/Creatinine Ratio 11 11 Glucose 106 H 150 H POC Glucose Calcium 8.0 L 8.8 Phosphorus Iron TIBC Total Bilirubin 0.80 Direct Bilirubin Indirect Bilirubin AST 942 H ALT 1031 H Alkaline Phosphatase 127 Lactate Dehydrogenase Total Creatine Kinase CK-MB (CK-2) CK-MB (CK-2) Rel Index Troponin T Total Protein 7.4 Albumin 2.8 L Albumin/Globulin Ratio 0.6 Urine Color Urine Turbidity Urine pH Ur Specific [place] Urine Protein Urine Glucose (UA) Urine Ketones Urine Blood Urine Nitrite Urine Bilirubin Urine Urobilinogen Ur Leukocyte Esterase Urine WBC (Auto) Urine RBC (Auto) U Epithel Cells (Auto) Urine Bacteria (Auto) Urine WBC Clumps Urine Mucus Urine Eosinophils Urine Creatinine Protein/Creatinin Ratio Urine Sodium Urine Urea Nitrogen Urine Total Protein Hep Bs Antigen Hepatitis C Antibody Schistocytes Smear None seen 08/12/19 08/12/19 08/12/19 22:38 22:38 23:31 WBC RBC Hgb Hct MCV MCH MCHC RDW Plt Count Lymph % (Auto) [place] % (Auto) Eos % (Auto) Baso % (Auto) Lymph # [place] # Eos # Baso # Seg Neutrophils % Seg Neutrophils # PT INR Sodium 136 L Potassium 5.5 H Chloride 95.6 L Carbon Dioxide 20 L Anion Gap 26 BUN 96 H Creatinine 8.5 H Estimated GFR 8 BUN/Creatinine Ratio 11 Glucose 66 L POC Glucose < 40 L Calcium 8.3 L Phosphorus Iron TIBC Total Bilirubin 0.80 Direct Bilirubin Indirect Bilirubin AST 928 H ALT 1080 H Alkaline Phosphatase 133 H Lactate Dehydrogenase Total Creatine Kinase 121 CK-MB (CK-2) 3.6 CK-MB (CK-2) Rel Index 2.9 Troponin T 0.314 H* Total Protein 6.8 Albumin 3.1 L Albumin/Globulin Ratio 0.8 Urine Color Urine Turbidity Urine pH Ur Specific [place] Urine Protein Urine Glucose (UA) Urine Ketones Urine Blood Urine Nitrite Urine Bilirubin Urine Urobilinogen Ur Leukocyte Esterase Urine WBC (Auto) Urine RBC (Auto) U Epithel Cells (Auto) Urine Bacteria (Auto) Urine WBC Clumps Urine Mucus Urine Eosinophils Urine Creatinine Protein/Creatinin Ratio Urine Sodium Urine Urea Nitrogen Urine Total Protein Hep Bs Antigen Hepatitis C Antibody Schistocytes Smear 08/13/19 08/13/19 08/13/19 00:17 00:44 00:44 WBC RBC Hgb Hct MCV MCH MCHC RDW Plt Count Lymph % (Auto) [place] % (Auto) Eos % (Auto) Baso % (Auto) Lymph # [place] # Eos # Baso # Seg Neutrophils % Seg Neutrophils # PT INR Sodium Potassium Chloride Carbon Dioxide Anion Gap BUN Creatinine Estimated GFR BUN/Creatinine Ratio Glucose POC Glucose 63 L Calcium Phosphorus Iron TIBC Total Bilirubin Direct Bilirubin Indirect Bilirubin AST ALT Alkaline Phosphatase Lactate Dehydrogenase Total Creatine Kinase CK-MB (CK-2) CK-MB (CK-2) Rel Index Troponin T Total Protein Albumin Albumin/Globulin Ratio Urine Color Yellow Urine Turbidity Turbid Urine pH 5.0 Ur Specific [place] 1.020 Urine Protein 100 mg/dl Urine Glucose (UA) Neg Urine Ketones Neg Urine Blood Sm Urine Nitrite Neg Urine Bilirubin Neg Urine Urobilinogen < 2.0 Ur Leukocyte Esterase Mod Urine WBC (Auto) > 182.0 H Urine RBC (Auto) 86.0 U Epithel Cells (Auto) 8.0 Urine Bacteria (Auto) 4+ Urine WBC Clumps 3+ Urine Mucus 2+ Urine Eosinophils Urine Creatinine 175.4 H Protein/Creatinin Ratio Urine Sodium 66 Urine Urea Nitrogen 158 Urine Total Protein Hep Bs Antigen Hepatitis C Antibody Schistocytes Smear 08/13/19 08/13/19 08/13/19 00:44 00:44 01:23 WBC RBC Hgb Hct MCV MCH MCHC RDW Plt Count Lymph % (Auto) [place] % (Auto) Eos % (Auto) Baso % (Auto) Lymph # [place] # Eos # Baso # Seg Neutrophils % Seg Neutrophils # PT INR Sodium Potassium Chloride Carbon Dioxide Anion Gap BUN Creatinine Estimated GFR BUN/Creatinine Ratio Glucose POC Glucose < 40 L Calcium Phosphorus Iron TIBC Total Bilirubin Direct Bilirubin Indirect Bilirubin AST ALT Alkaline Phosphatase Lactate Dehydrogenase Total Creatine Kinase CK-MB (CK-2) CK-MB (CK-2) Rel Index Troponin T Total Protein Albumin Albumin/Globulin Ratio Urine Color Urine Turbidity Urine pH Ur Specific [place] Urine Protein Urine Glucose (UA) Urine Ketones Urine Blood Urine Nitrite Urine Bilirubin Urine Urobilinogen Ur Leukocyte Esterase Urine WBC (Auto) Urine RBC (Auto) U Epithel Cells (Auto) Urine Bacteria (Auto) Urine WBC Clumps Urine Mucus Urine Eosinophils None seen Urine Creatinine 174.0 H Protein/Creatinin Ratio 0.30 Urine Sodium Urine Urea Nitrogen Urine Total Protein 53 H Hep Bs Antigen Hepatitis C Antibody Schistocytes Smear 08/13/19 08/13/19 08/13/19 01:58 02:33 03:16 WBC RBC Hgb Hct MCV MCH MCHC RDW Plt Count Lymph % (Auto) [place] % (Auto) Eos % (Auto) Baso % (Auto) Lymph # [place] # Eos # Baso # Seg Neutrophils % Seg Neutrophils # PT INR Sodium Potassium Chloride Carbon Dioxide Anion Gap BUN Creatinine Estimated GFR BUN/Creatinine Ratio Glucose 62 L POC Glucose 47 L 99 Calcium Phosphorus Iron TIBC Total Bilirubin Direct Bilirubin Indirect Bilirubin AST ALT Alkaline Phosphatase Lactate Dehydrogenase Total Creatine Kinase CK-MB (CK-2) CK-MB (CK-2) Rel Index Troponin T Total Protein Albumin Albumin/Globulin Ratio Urine Color Urine Turbidity Urine pH Ur Specific [place] Urine Protein Urine Glucose (UA) Urine Ketones Urine Blood Urine Nitrite Urine Bilirubin Urine Urobilinogen Ur Leukocyte Esterase Urine WBC (Auto) Urine RBC (Auto) U Epithel Cells (Auto) Urine Bacteria (Auto) Urine WBC Clumps Urine Mucus Urine Eosinophils Urine Creatinine Protein/Creatinin Ratio Urine Sodium Urine Urea Nitrogen Urine Total Protein Hep Bs Antigen Hepatitis C Antibody Schistocytes Smear 08/13/19 08/13/19 08/13/19 05:27 05:27 05:27 WBC 12.7 H RBC 4.36 Hgb 11.7 L Hct 38.8 MCV 89 MCH 27 L MCHC 30 L RDW 19.6 H Plt Count 250 Lymph % (Auto) 6.3 L [place] % (Auto) 11.4 H Eos % (Auto) 0.4 Baso % (Auto) 0.9 Lymph # 0.8 L [place] # 1.4 H Eos # 0.1 Baso # 0.1 Seg Neutrophils % 81.0 H Seg Neutrophils # 10.3 H PT INR Sodium 135 L Potassium 5.6 H Chloride 97.1 L Carbon Dioxide 16 L Anion Gap 28 BUN 92 H Creatinine 8.5 H Estimated GFR 8 BUN/Creatinine Ratio 11 Glucose 94 POC Glucose Calcium 8.0 L Phosphorus 8.00 H Iron 16 L TIBC 280 Total Bilirubin 0.80 Direct Bilirubin 0.6 H Indirect Bilirubin 0.2 AST 829 H ALT 987 H Alkaline Phosphatase 130 H Lactate Dehydrogenase Total Creatine Kinase 117 CK-MB (CK-2) 4.3 H CK-MB (CK-2) Rel Index 3.6 Troponin T 0.296 H* Total Protein 7.2 Albumin 2.8 L Albumin/Globulin Ratio 0.6 Urine Color Urine Turbidity Urine pH Ur Specific [place] Urine Protein Urine Glucose (UA) Urine Ketones Urine Blood Urine Nitrite Urine Bilirubin Urine Urobilinogen Ur Leukocyte Esterase Urine WBC (Auto) Urine RBC (Auto) U Epithel Cells (Auto) Urine Bacteria (Auto) Urine WBC Clumps Urine Mucus Urine Eosinophils Urine Creatinine Protein/Creatinin Ratio Urine Sodium Urine Urea Nitrogen Urine Total Protein Hep Bs Antigen Hepatitis C Antibody Schistocytes Smear 08/13/19 08/13/19 08/13/19 08:06 12:32 17:38 WBC RBC Hgb Hct MCV MCH MCHC RDW Plt Count Lymph % (Auto) [place] % (Auto) Eos % (Auto) Baso % (Auto) Lymph # [place] # Eos # Baso # Seg Neutrophils % Seg Neutrophils # PT INR Sodium Potassium Chloride Carbon Dioxide Anion Gap BUN Creatinine Estimated GFR BUN/Creatinine Ratio Glucose POC Glucose 113 H 106 H 136 H Calcium Phosphorus Iron TIBC Total Bilirubin Direct Bilirubin Indirect Bilirubin AST ALT Alkaline Phosphatase Lactate Dehydrogenase Total Creatine Kinase CK-MB (CK-2) CK-MB (CK-2) Rel Index Troponin T Total Protein Albumin Albumin/Globulin Ratio Urine Color Urine Turbidity Urine pH Ur Specific [place] Urine Protein Urine Glucose (UA) Urine Ketones Urine Blood Urine Nitrite Urine Bilirubin Urine Urobilinogen Ur Leukocyte Esterase Urine WBC (Auto) Urine RBC (Auto) U Epithel Cells (Auto) Urine Bacteria (Auto) Urine WBC Clumps Urine Mucus Urine Eosinophils Urine Creatinine Protein/Creatinin Ratio Urine Sodium Urine Urea Nitrogen Urine Total Protein Hep Bs Antigen Hepatitis C Antibody Schistocytes Smear 08/13/19 08/13/19 20:19 20:19 WBC RBC Hgb Hct MCV MCH MCHC RDW Plt Count Lymph % (Auto) [place] % (Auto) Eos % (Auto) Baso % (Auto) Lymph # [place] # Eos # Baso # Seg Neutrophils % Seg Neutrophils # PT 16.3 H INR 1.29 H Sodium 133 L Potassium 5.4 H Chloride 94.6 L Carbon Dioxide 19 L Anion Gap 25 BUN 63 H Creatinine 6.5 H Estimated GFR 11 BUN/Creatinine Ratio 10 Glucose 132 H POC Glucose Calcium 7.8 L Phosphorus Iron TIBC Total Bilirubin 0.90 Direct Bilirubin Indirect Bilirubin AST ALT Alkaline Phosphatase 142 H Lactate Dehydrogenase Total Creatine Kinase CK-MB (CK-2) CK-MB (CK-2) Rel Index Troponin T Total Protein 7.0 Albumin 2.9 L Albumin/Globulin Ratio 0.7 Urine Color Urine Turbidity Urine pH Ur Specific [place] Urine Protein Urine Glucose (UA) Urine Ketones Urine Blood Urine Nitrite Urine Bilirubin Urine Urobilinogen Ur Leukocyte Esterase Urine WBC (Auto) Urine RBC (Auto) U Epithel Cells (Auto) Urine Bacteria (Auto) Urine WBC Clumps Urine Mucus Urine Eosinophils Urine Creatinine Protein/Creatinin Ratio Urine Sodium Urine Urea Nitrogen Urine Total Protein Hep Bs Antigen Hepatitis C Antibody Schistocytes Smear - Imaging CT Scan: report reviewed Assessment and Plan 1. Elevated liver enzymes - hepatocellular elevation, new onset compared to levels last year. viral hep serologies negative. given pattern/degree of elevation, suspect ischemic hepatitis as primarily etiology. likely has underlying liver disease as well (congestive hepatopathy from heart failure and nafld). will obtain RUQ US with doppler to r/o thrombosis. otherwise, trend levels and will manage conservatively from gi stand point if labs cont to improve.
[2019-08-14] MEDS: INSULIN LISPRO 100 UNIT/ML SUB-Q SCH ×5 (01:56→21:44)
[2019-08-14 07:25] LABS: Basophils # (Auto) 0.1 K/mm3 (0.0-0.1); Basophils % (Auto) 0.8 % (0.0-1.8); Eosinophils # (Auto) 0.1 K/mm3 (0.0-0.4); Eosinophils % (Auto) 0.5 % (0.0-4.3); Lymphocytes # (Auto) 0.8 K/mm3 (1.2-5.4); Lymphocytes % (Auto) 6.8 % (13.4-35.0); Mean Corpuscular HGB Conc 30 % (32-34); Mean Corpuscular Volume 88 fl (84-94); Monocytes # (Auto) 1.2 K/mm3 (0.0-0.8); Monocytes % (Auto) 10.1 % (0.0-7.3); Platelet Count 169 K/mm3 (140-440); Red Blood Count 3.99 M/mm3 (3.65-5.03); Red Cell Distribution Width 19.2 % (13.2-15.2)
[2019-08-14 07:31] LABS: Hematocrit 35.1 % (35.5-45.6); Hemoglobin 10.6 gm/dl (11.8-15.2)
[2019-08-14 07:49] LABS: Calcium 7.7 mg/dL (8.4-10.2)
[2019-08-14] MEDS: cefTRIAXone/NS 1 GM/50 ML 1 GM/50 ML BAG IV SCH (09:06)
--- NOTE | 2019-08-14 11:12 | Progress Note ---
Assessment and Plan Acute on chronic systolic heart failure echo this admission shows a 4-chamber dilated cardiomyopathy with LVEF 20- 25%. Paroxysmal afib pt reverted to sinus rhythm spontaneously Volume overload Renal failure Hyperkalemia Elevated transaminitis Bilateral AKA Medical therapy for chronic systolic heart failure and paroxysmal atrial fibr illation as tolerated. Subjective Date of service: 08/14/19 Interval history: Patient is resting in bed comfortably. Patient with plans to start dialysis. Sinus rhythm on telemetry. Objective Vital Signs Temp Pulse Resp BP BP Pulse Ox 08/14/19 10:00 95 08/14/19 08:33 98.9 F 70 18 137/71 08/14/19 06:34 71 08/14/19 05:35 98.5 F 68 20 130/65 96 08/14/19 01:02 98.2 F 75 20 147/73 97 08/13/19 22:00 97 08/13/19 21:13 98.1 F 81 20 145/70 96 08/13/19 20:55 83 08/13/19 20:15 97 08/13/19 16:30 97.4 F L 68 18 110/61 08/13/19 16:15 74 108/58 08/13/19 16:00 73 106/57 08/13/19 15:45 76 109/60 08/13/19 15:30 70 108/64 08/13/19 15:15 67 99/61 08/13/19 15:00 66 109/71 08/13/19 14:45 57 L 97/56 08/13/19 14:30 68 100/56 08/13/19 14:15 69 104/60 08/13/19 14:00 69 107/59 08/13/19 13:45 97.2 F L 66 18 104/64 08/13/19 12:29 97.2 F L 71 18 125/69 100 - Physical Examination General: No Apparent Distress HEENT: Positive: PERRL Neck: Positive: trachea midline Cardiac: Positive: Reg Rate and Rhythm Extremities: Present: Other (bilateral AKA) - Labs and Meds Cardiac Enzymes 08/13/19 Range/Units 20:19 AST 747 H (5-40) units/L Coagulation 08/13/19 Range/Units 20:19 PT 16.3 H (12.2-14.9) Sec. INR 1.29 H (0.87-1.13) CBC 08/14/19 Range/Units 07:12 WBC 12.2 H (4.5-11.0) K/mm3 RBC 3.99 (3.65-5.03) M/mm3 Hgb 10.6 L (11.8-15.2) gm/dl Hct 35.1 L (35.5-45.6) % Plt Count 169 (140-440) K/mm3 Lymph # 0.8 L (1.2-5.4) K/mm3 [place] # 1.2 H (0.0-0.8) K/mm3 Eos # 0.1 (0.0-0.4) K/mm3 Baso # 0.1 (0.0-0.1) K/mm3 Comprehensive Metabolic Panel 08/13/19 08/14/19 Range/Units 20:19 07:12 Sodium 133 L 137 (137-145) mmol/L Potassium 5.4 H 5.1 H (3.6-5.0) mmol/L Chloride 94.6 L 96.3 L (98-107) mmol/L Carbon Dioxide 19 L 21 L (22-30) mmol/L BUN 63 H 63 H (9-20) mg/dL Creatinine 6.5 H 7.5 H (0.8-1.5) mg/dL Glucose 132 H 106 H (75-100) mg/dL Calcium 7.8 L 7.7 L (8.4-10.2) mg/dL AST 747 H (5-40) units/L ALT 925 H (7-56) units/L Alkaline Phosphatase 142 H (35-129) units/L Total Protein 7.0 (6.3-8.2) g/dL Albumin 2.9 L (3.9-5) g/dL
--- NOTE | 2019-08-14 12:00 | Progress Note ---
Assessment and Plan Acute Renal Failure secondary to prerenal vs ATN in setting of diuretics and Cystitis, on possible CKD: Hyperkalemia: Metabolic Acidosis: -Renal labs reviewed. Serum creatinine 7.5 with a GFR of 9 ml/min noted. Patient was initiated on HD on 08/13/19 -Hemodialysis again today for UF and clearance -Renal labs in 02/2018 showed serum creatinine of 0.8-1.0 -Ct scan and renal US reviewed-No Hydronephrosis -Urine lytes reviewed, no urine eosinophils but has active urine sediments-GN/Vasculitis work-up ordered -So far Hepatitis- negative. No Schistocytes seen. -Will hold Aspirin as may consider renal biopsy but due to multiple commodities and obesity, may not be a candidate for renal biopsy. -Avoid nephrotoxic agents -Strict I/O's monitoring -Continue to monitor renal function closely Cystitis: -On IV Rocephin -As per primary Acute hypoxic respiratory failure due to pulmonary edema: -S/p Lasix -UF with HD Diabetes Mellitus: -As per primary Hypertension: -Controlled -Monitor BP Subjective Date of service: 08/14/19 Principal diagnosis: 08/14/19 Interval history: Patient off floor Objective - Vital Signs Vital signs: Vital Signs - 12hr 08/14/19 08/14/19 08/14/19 01:02 05:35 06:34 Temperature 98.2 F 98.5 F Pulse Rate 75 68 71 Respiratory 20 20 Rate Blood Pressure Blood Pressure 147/73 130/65 [Left] O2 Sat by Pulse 97 96 Oximetry 08/14/19 08/14/19 08/14/19 08:33 10:00 11:32 Temperature 98.9 F 97.8 F Pulse Rate 70 67 Respiratory 18 17 Rate Blood Pressure 143/65 Blood Pressure 137/71 [Left] O2 Sat by Pulse 97 98 Oximetry - Lab 08/14/19 07:12 08/14/19 07:12 Most recent lab results Calcium 7.7 mg/dL (8.4-10.2) L 08/14/19 07:12 Phosphorus 7.30 mg/dL (2.5-4.5) H 08/14/19 07:12 Urine Creatinine 174.0 mg/dL (0.1-20.0) H 08/13/19 00:44 Urine Creatinine 175.4 mg/dL (0.1-20.0) H 08/13/19 00:44 Urine Sodium 66 mmol/L 08/13/19 00:44 Urine Total Protein 53 mg/dL (5-11.8) H 08/13/19 00:44 Medications & Allergies - Medications Allergies/Adverse Reactions: Allergies No Known Allergies Allergy (Unverified 08/12/19 17:31) Home Medications: Home Medications Medication Instructions Recorded Confirmed Last Taken Type Folic Acid [Folvite] 1 mg PO QDAY 02/22/18 08/13/19 Unknown History Gabapentin [Neurontin] 100 mg PO TID 02/22/18 08/13/19 Unknown History Multivitamin [Multiple Vitamins] 1 tab PO DAILY 02/22/18 08/13/19 Unknown History Sennosides [Senna] 25.8 mg PO BID 02/22/18 08/13/19 Unknown History Thiamine [Vitamin B-1] 100 mg PO QDAY 02/22/18 08/13/19 Unknown History Torsemide [Demadex] 20 mg PO DAILY 02/22/18 08/13/19 Unknown History allopurinoL [Allopurinol] 100 mg PO DAILY 02/22/18 08/13/19 Unknown History fentaNYL [Fentanyl] 1 each TD Q3D 02/22/18 08/13/19 Unknown History oxyCODONE /ACETAMINOPHEN [Percocet 1 tab PO Q6HR PRN #10 tablet 03/01/18 08/13/19 Unknown Rx 5/325] Aspirin EC [Halfprin EC] 81 mg PO QDAY 08/13/19 08/13/19 Unknown History AtorvaSTATin [Lipitor] 20 mg PO QHS 08/13/19 08/13/19 Unknown History Mirtazapine 7.5 mg PO QDAY 08/13/19 08/13/19 Unknown History NIFEdipine [Nifedipine ER] 30 mg PO QDAY 08/13/19 08/13/19 Unknown History Active Medications: Generic Name Dose Route Start Last Admin Trade Name Freq PRN Reason Stop Dose Admin Acetaminophen 650 mg 08/12/19 23:02 Tylenol PO Q4H PRN Pain MILD(1-3)/Fever >100.5/REYNA Aspirin 81 mg 08/15/19 10:00 Aspirin PO QDAY [facility] Carvedilol 3.125 mg 08/14/19 22:00 Coreg PO BID [facility] Dextrose 0 ml 08/12/19 23:02 08/13/19 02:30 D50w (25gm) Syringe IV 50 ml Q30MIN PRN Administration Hypoglycemia Protocol Hydralazine HCl 25 mg 08/14/19 22:00 Apresoline PO BID [facility] Ceftriaxone Sodium 1 gm in 50 mls @ 100 mls/hr 08/13/19 10:00 08/14/19 09:06 Rocephin/Ns 1 Gm/50 Ml IV 100 mls/hr Q24HR [facility] Administration Protocol Insulin Human Lispro 0 unit 08/13/19 07:30 08/14/19 09:07 Humalog SUB-Q Not Given ACHS [facility] Protocol Ondansetron HCl 4 mg 08/12/19 23:02 Zofran IV Q8H PRN Nausea And Vomiting Oxycodone/Acetaminophen 1 tab 08/12/19 23:02 Percocet 5/325 PO Q6H PRN Pain, Moderate (4-6) Sodium Chloride 10 ml 08/13/19 10:00 08/14/19 09:07 Sodium Chloride Flush Syringe 10 Ml IV 10 ml BID [facility] Administration Sodium Chloride 10 ml 08/12/19 23:02 Sodium Chloride Flush Syringe 10 Ml IV PRN PRN LINE FLUSH
--- NOTE | 2019-08-14 17:32 | Ultrasound Report ---
US abdomen limited INDICATION / CLINICAL INFORMATION: elevated liver enzymes. COMPARISON: None available. FINDINGS: Liver appears diffusely echogenic, suggesting early cirrhosis. No biliary dilatation or focal liver l esions. Gallbladder is not optimally imaged due to the patient's size and inability to turn. No obvious stone s or sludge.. Common duct is normal in size. Right kidney and abdominal aorta appear negative. IMPRESSION: 1. Diffusely echogenic liver, suggesting early cirrhosis. 2. No definite gallstones. Signer Name: Murray Rico MD Signed: 08/14/2019 5:27 PM Workstation Name: [id number]
--- NOTE | 2019-08-14 18:33 | Progress Note ---
Assessment and Plan Assessment and plan: Patient is a 59 yo man from [facility] with history of PVD s/p bilateral AKA, hypertension, DM type 2, dyslipidemia, CVA, Afib on Eliquis, GERD, anemia, Tobacco dependency and Gout who presented to [facility] with SOB and hypoxia, reported O2 sat in the 60s, placed on 100% NRB and right hand twitching * pCXR IMPRESSION: Moderate cardiomegaly. Bilateral pulmonary opacities likely reflect pulmonary edema, consolidation and/or atelectasis, singly or in combination. Small right pleural effusion. * CT abd/pelvis without contrast IMPRESSION: 1. No acute finding within limitations imposed by noncontrast technique. 2. Possible biliary sludge and/or cholelithiasis. No evidence to suggest acute cholecystitis otherwise. 3. Indeterminate hypoattenuating lesions in both kidneys. This could be further evaluated with contrast-enhanced CT or MR on a nonemergent basis. 4. Mild cardiomegaly. 5. Small pleural effusions. * Renal Ultrasound bilateral IMPRESSION: 1. Moderately thickened, mildly distended urinary bladder which could represent cystitis. 2. Nonvisualization of the kidneys on the current study. There was no hydronephrosis on the CT earlier in the day. * WBC 11.9, now 12.7, k was 6.5, Cr 8.4, troponin 0.284, elevated AST 1030, ALT 1082, normal AP and bilirubin total, proBNP >35,000, UA +wbc+LE ARF, vasomotor nephrolopathy, Suspected new onset of ESRD: HD Acute hypoxic respiratory failure on Vmask 50%: try to wean off, needs diuresing Hyperkalemia: Nephrology consulted Metabolic Acidosis: treat the ARF UTI: treat with abx Hypoxia at the RI, suspected Acute hypoxic respiratory failure due to pulmonary edema from new onset CHF: treat with diuretics if kidney function steady, may need ultrafiltration Transaminiitis, ?congestive vs GB vs other: consult GI, hold statin Elevated troponin, related to ARF: monitor closely, order ECHO and reviewed Acute systolic heart failure: see ECHO, Cardiology following DVT ppx Eliquis A/C use for suspected h/o Afib Right hand shaking, etiology unclear: monitor closely h/o Bilateral AKA DM type 2; use ssi, accucheck, ada diet full code 08/14/19: Hemodialysis started yesterday. Urine culture growing GNR await finalization, ECHO reviewed EF only 25%, History Interval history: Patient was seen and examined. Follow-up on current diagnosis. Overnight uneventful as no events directly reported to me. Patient denies any chest pain, shortness breath, nausea/vomiting or severe headaches. Imaging, nursing note, chart, labs and old chart reviewed. Discussed with patient. Hospitalist Physical - Physical exam Narrative exam: Gen: WDWN, NAD, Awake, Alert, Orientated HEENT: NCAT, EOMI, PERRL, OP Clear Neck: supple, no adenopathy, no thyromegaly, = JVD CVS/Heart: irregular irregular normal S1S2, pulses present bilaterally Chest/Lungs: diminished bs bilaterally, Symmetrical chest expansion, good air entry bilaterally GI/Abdomen: soft, NTND, good bowel sounds, no guarding or rebound /Bladder: no suprapubic tenderness, no CVA or paraspinal tenderness Extermity/Skin: no c/c/e, no obvious rash MSK: bilateral AKA Neuro: CN 2-12 grossly intact, no new focal deficits Psych: calm - Constitutional Vitals: Temp Pulse Resp BP Pulse Ox 97.9 F 61 16 117/63 100 08/14/19 15:29 08/14/19 15:29 08/14/19 15:29 08/14/19 15:29 08/14/19 15:29 General appearance: Present: no acute distress Results - Labs CBC & Chem 7: 08/14/19 07:12 08/14/19 07:12 Labs: Laboratory Last Values WBC 12.2 K/mm3 (4.5-11.0) H 08/14/19 07:12 RBC 3.99 M/mm3 (3.65-5.03) 08/14/19 07:12 Hgb 10.6 gm/dl (11.8-15.2) L 08/14/19 07:12 Hct 35.1 % (35.5-45.6) L 08/14/19 07:12 MCV 88 fl (84-94) 08/14/19 07:12 MCH 27 pg (28-32) L 08/14/19 07:12 MCHC 30 % (32-34) L 08/14/19 07:12 RDW 19.2 % (13.2-15.2) H 08/14/19 07:12 Plt Count 169 K/mm3 (140-440) 08/14/19 07:12 Lymph % (Auto) 6.8 % (13.4-35.0) L 08/14/19 07:12 Ware % (Auto) 10.1 % (0.0-7.3) H 08/14/19 07:12 Eos % (Auto) 0.5 % (0.0-4.3) 08/14/19 07:12 Baso % (Auto) 0.8 % (0.0-1.8) 08/14/19 07:12 Lymph # 0.8 K/mm3 (1.2-5.4) L 08/14/19 07:12 Ware # 1.2 K/mm3 (0.0-0.8) H 08/14/19 07:12 Eos # 0.1 K/mm3 (0.0-0.4) 08/14/19 07:12 Baso # 0.1 K/mm3 (0.0-0.1) 08/14/19 07:12 Seg Neutrophils % 81.8 % (40.0-70.0) H 08/14/19 07:12 Seg Neutrophils # 9.9 K/mm3 (1.8-7.7) H 08/14/19 07:12 PT 16.3 Sec. (12.2-14.9) H 08/13/19 20:19 INR 1.29 (0.87-1.13) H 08/13/19 20:19 Sodium 137 mmol/L (137-145) 08/14/19 07:12 Potassium 5.1 mmol/L (3.6-5.0) H 08/14/19 07:12 Chloride 96.3 mmol/L (98-107) L 08/14/19 07:12 Carbon Dioxide 21 mmol/L (22-30) L 08/14/19 07:12 Anion Gap 25 mmol/L 08/14/19 07:12 BUN 63 mg/dL (9-20) H 08/14/19 07:12 Creatinine 7.5 mg/dL (0.8-1.5) H 08/14/19 07:12 Estimated GFR 9 ml/min 08/14/19 07:12 BUN/Creatinine Ratio 8 % 08/14/19 07:12 Glucose 106 mg/dL (75-100) H 08/14/19 07:12 POC Glucose 81 (70-105) 08/14/19 16:38 Calcium 7.7 mg/dL (8.4-10.2) L 08/14/19 07:12 Phosphorus 7.30 mg/dL (2.5-4.5) H 08/14/19 07:12 Iron 16 ug/dL (49-181) L 08/13/19 05:27 TIBC 280 mcg/dL (250-450) 08/13/19 05:27 Total Bilirubin 0.90 mg/dL (0.1-1.2) 08/13/19 20:19 Direct Bilirubin 0.6 mg/dL (0-0.2) H 08/13/19 05:27 Indirect Bilirubin 0.2 mg/dL 08/13/19 05:27 AST 747 units/L (5-40) H 08/13/19 20:19 ALT 925 units/L (7-56) H 08/13/19 20:19 Alkaline Phosphatase 142 units/L (35-129) H 08/13/19 20:19 Lactate Dehydrogenase 729 units/L (91-180) H 08/12/19 20:39 Total Creatine Kinase 117 units/L (55-170) 08/13/19 05:27 CK-MB (CK-2) 4.3 ng/mL (0.0-4.0) H 08/13/19 05:27 CK-MB (CK-2) Rel Index 3.6 (0-4) 08/13/19 05:27 Troponin T 0.296 ng/mL (0.00-0.029) H* 08/13/19 05:27 NT-Pro-B Natriuret Pep > 94420 pg/mL (0-900) H 08/12/19 18:39 Total Protein 7.0 g/dL (6.3-8.2) 08/13/19 20:19 Albumin 2.9 g/dL (3.9-5) L 08/13/19 20:19 Albumin/Globulin Ratio 0.7 % 08/13/19 20:19 Triglycerides 141 mg/dL (2-149) 08/12/19 18:39 Cholesterol 105 mg/dL (50-199) 08/12/19 18:39 LDL Cholesterol Direct 37 mg/dL (50-130) L 08/12/19 18:39 HDL Cholesterol 44 mg/dL (40-59) 08/12/19 18:39 Cholesterol/HDL Ratio 2.38 % 08/12/19 18:39 Urine Color Yellow (Yellow) 08/13/19 00:44 Urine Turbidity Turbid (Clear) 08/13/19 00:44 Urine pH 5.0 (5.0-7.0) 08/13/19 00:44 Ur Specific [place] 1.020 (1.003-1.030) 08/13/19 00:44 Urine Protein 100 mg/dl mg/dL (Negative) 08/13/19 00:44 Urine Glucose (UA) Neg mg/dL (Negative) 08/13/19 00:44 Urine Ketones Neg mg/dL (Negative) 08/13/19 00:44 Urine Blood Sm (Negative) 08/13/19 00:44 Urine Nitrite Neg (Negative) 08/13/19 00:44 Urine Bilirubin Neg (Negative) 08/13/19 00:44 Urine Urobilinogen < 2.0 mg/dL (<2.0) 08/13/19 00:44 Ur Leukocyte Esterase Mod (Negative) 08/13/19 00:44 Urine WBC (Auto) > 182.0 /HPF (0.0-6.0) H 08/13/19 00:44 Urine RBC (Auto) 86.0 /HPF (0.0-6.0) 08/13/19 00:44 U Epithel Cells (Auto) 8.0 /HPF (0-13.0) 08/13/19 00:44 Urine Bacteria (Auto) 4+ /HPF (Negative) 08/13/19 00:44 Urine WBC Clumps 3+ /HPF 08/13/19 00:44 Urine Mucus 2+ /HPF 08/13/19 00:44 Urine Eosinophils None seen (None Seen) 08/13/19 00:44 Urine Creatinine 174.0 mg/dL (0.1-20.0) H 08/13/19 00:44 Urine Creatinine 175.4 mg/dL (0.1-20.0) H 08/13/19 00:44 Protein/Creatinin Ratio 0.30 08/13/19 00:44 Urine Sodium 66 mmol/L 08/13/19 00:44 Urine Urea Nitrogen 158 08/13/19 00:44 Urine Total Protein 53 mg/dL (5-11.8) H 08/13/19 00:44 Hep Bs Antigen Non-reactive (Negative) 08/12/19 20:39 Hepatitis C Antibody Non-reactive (NonReactive) 08/12/19 20:39 Schistocytes Smear None seen 08/12/19 20:39 Microbiology: Microbiology 08/13/19 00:44 Urine,Catheterized - Straight Catheter Urine Culture - Preliminary Gram Negative [place] 08/13/19 07:55 Nares - Left MRSA Culture - Preliminary 08/12/19 18:39 Peripheral/Venous Blood Culture - Preliminary NO GROWTH AFTER 24 HOURS 08/12/19 18:39 Peripheral/Venous Blood Culture - Preliminary NO GROWTH AFTER 24 HOURS - Diagnostic Impressions Diagnostic Impressions: Echocardiogram 08/12/19 23:05 Transthoracic Echocardiogram Indication: Abnormal cardiac enzymes BP: 142/82 HR: 73 Conclusions *4-chamber dilated cardiomyopathy. *Global left ventricular systolic function is severely decreased. *The estimated ejection fraction is 25%. *Mild to moderate concentric left ventricular hypertrophy is observed. *There is mild mitral regurgitation. *There is mild to moderate tricuspid regurgitation. Findings Left Ventricle: The left ventricular size is moderate to severely dilated. Mild to moderate concentric left ventricular hypertrophy is observed. Global left ventricular systolic function is severely decreased. The estimated ejection fraction is 20-25%. Left Atrium: The left atrium is moderately dilated. Right Ventricle: The right ventricle is moderately dilated. The right ventricular global systolic function is moderately reduced. Right Atrium: The right atrium is moderately dilated. Aortic Valve: The aortic valve leaflets are moderately thickened. There is no evidence of aortic regurgitation. There is no evidence of aortic stenosis. Mitral Valve: The mitral valve leaflets are mildly thickened. There is mild mitral regurgitation. There is no evidence of mitral stenosis. Tricuspid Valve: There is mild to moderate tricuspid regurgitation. There is evidence of borderline pulmonary hypertension. Pulmonic Valve: There is trace pulmonic regurgitation. Pericardium: There is a minimial pericardial effusion. Aorta: There is no dilatation of the aortic root. Venous: The venous system is not well visualized. Measurements Chambers 2D Name Value Normal Range IVSd (2D) 1.34 cm (0.6 - 1.1) LVPWd (2D) 1.38 cm (0.6 - 1.1) LVIDd (2D) 4.57 cm (3.7 - 5.6) LVIDs (2D) 3.4 cm (2 - 3.8) LV FS (2D) 25.68 % - EF Teichholz (2D) 50.63 % - Ao root diameter (2D) 3.25 cm (2 - 3.7) Volumes/Mass Name Value Normal Range LA ESV SP 4CH (A/L) 49.47 ml - LA ESV SP 2CH (A/L) 55.91 ml - LA ESV BP (A/L) 55.17 ml - LA ESV BP (A/L) index 23.28 ml/m2 - LA ESV SP 4CH (MOD) 45.79 ml - LA ESV SP 2CH (MOD) 54.19 ml - LA ESV BP (MOD) 51.8 ml - LA ESV BP (MOD) index 21.86 ml/m2 - Diastolic/Systolic Function Name Value Normal Range MV E-wave Vmax 0.69 m/sec - MV deceleration time 179.05 msec - MV A-wave Vmax 0.47 m/sec - MV E:A ratio 1.49 ratio - Aortic Valve Name Value Normal Range AV Vmax 1.32 m/sec - AV VTI 21.23 cm - AV peak gradient 7.01 mmHg - AV mean gradient 3.99 mmHg - LVOT diameter 2.29 cm - LVOT Vmax 0.87 m/sec - LVOT VTI 13.08 cm - LVOT peak gradient 3.05 mmHg - LVOT mean gradient 1.53 mmHg - SV LVOT 53.73 ml - ESTRADA (continuity Vmax) 2.71 cm2 - ESTRADA (continuity VTI) 2.53 cm2 - Tricuspid Valve Name Value Normal Range TR Vmax 2.38 m/sec - TR peak gradient 23 mmHg - RAP 3 mmHg - RVSP 26 mmHg - Pulmonic Valve/Qp:Qs Name Value Normal Range PV acceleration time 95.15 msec - Jeffrey/IV: Voiding Method Indwelling Catheter IV Catheter Type [Right Hand] INT / Saline Lock Active Medications - Current Medications Current Medications: Generic Name Dose Route Start Last Admin Trade Name Freq PRN Reason Stop Dose Admin Acetaminophen 650 mg 08/12/19 23:02 Tylenol PO Q4H PRN Pain MILD(1-3)/Fever >100.5/REYNA Carvedilol 3.125 mg 08/14/19 22:00 Coreg PO BID WALT Dextrose 0 ml 08/12/19 23:02 08/13/19 02:30 D50w (25gm) Syringe IV 50 ml Q30MIN PRN Administration Hypoglycemia Protocol Hydralazine HCl 25 mg 08/14/19 22:00 Apresoline PO BID [facility] Ceftriaxone Sodium 1 gm in 50 mls @ 100 mls/hr 08/13/19 10:00 08/14/19 09:06 Rocephin/Ns 1 Gm/50 Ml IV 100 mls/hr Q24HR WALT Administration Protocol Insulin Human Lispro 0 unit 08/13/19 07:30 08/14/19 16:40 Humalog SUB-Q Not Given ACHS WALT Protocol Ondansetron HCl 4 mg 08/12/19 23:02 Zofran IV Q8H PRN Nausea And Vomiting Oxycodone/Acetaminophen 1 tab 08/12/19 23:02 Percocet 5/325 PO Q6H PRN Pain, Moderate (4-6) Sodium Chloride 10 ml 08/13/19 10:00 08/14/19 09:07 Sodium Chloride Flush Syringe 10 Ml IV 10 ml BID WALT Administration Sodium Chloride 10 ml 08/12/19 23:02 Sodium Chloride Flush Syringe 10 Ml IV PRN PRN LINE FLUSH
[2019-08-14 20:09] LABS: Albumin 2.8 g/dL (3.9-5); Calcium 7.7 mg/dL (8.4-10.2)
[2019-08-14] MEDS: hydrALAZINE 25 MG TAB PO SCH (21:51)
[2019-08-14] MEDS: carvediloL 3.125 MG TAB PO SCH (21:51)
[2019-08-15] MEDS: LIDOCAINE 1%/EPINEPHRINE 1:100,000 VIAL (20 ML) INFILTRATI ONE ×2 (01:12→12:39)
[2019-08-15] MEDS: HEPARIN 10,000 UNITS/10 ML VIAL ONE ×3 (01:20→12:41)
[2019-08-15 07:05] LABS: HIV-1 Antibody Differentiation SEE SCANNED RESULT; HIV-2 Antibody Differentiation SEE SCANNED RESULT
[2019-08-15 08:05] LABS: Basophils # (Auto) 0.1 K/mm3 (0.0-0.1); Basophils % (Auto) 0.8 % (0.0-1.8); Eosinophils # (Auto) 0.1 K/mm3 (0.0-0.4); Lymphocytes # (Auto) 0.8 K/mm3 (1.2-5.4); Lymphocytes % (Auto) 7.3 % (13.4-35.0); Mean Corpuscular HGB Conc 30 % (32-34); Mean Corpuscular Volume 88 fl (84-94); Monocytes # (Auto) 1.1 K/mm3 (0.0-0.8); Monocytes % (Auto) 9.6 % (0.0-7.3); Platelet Count 143 K/mm3 (140-440); Red Blood Count 3.91 M/mm3 (3.65-5.03); Red Cell Distribution Width 19.3 % (13.2-15.2)
[2019-08-15 08:15] LABS: Hematocrit 34.5 % (35.5-45.6); Hemoglobin 10.4 gm/dl (11.8-15.2)
[2019-08-15] MEDS ORDERED: SODIUM CHLORIDE 0.9% 100 ML IV PRN (08:30)
[2019-08-15] MEDS: carvediloL 3.125 MG TAB PO SCH ×2 (09:00→21:46)
[2019-08-15] MEDS: hydrALAZINE 25 MG TAB PO SCH ×2 (09:00→21:46)
[2019-08-15] MEDS: INSULIN LISPRO 100 UNIT/ML SUB-Q SCH ×4 (09:01→21:47)
--- NOTE | 2019-08-15 09:02 | Progress Note ---
Assessment and Plan Assessment and plan: Patient is a 59 yo man from [facility] with history of PVD s/p bilateral AKA, hypertension, DM type 2, dyslipidemia, CVA, Afib on Eliquis, GERD, anemia, Tobacco dependency and Gout who presented to [facility] with SOB and hypoxia, reported O2 sat in the 60s, placed on 100% NRB and right hand twitching * pCXR IMPRESSION: Moderate cardiomegaly. Bilateral pulmonary opacities likely reflect pulmonary edema, consolidation and/or atelectasis, singly or in combination. Small right pleural effusion. * CT abd/pelvis without contrast IMPRESSION: 1. No acute finding within limitations imposed by noncontrast technique. 2. Possible biliary sludge and/or cholelithiasis. No evidence to suggest acute cholecystitis otherwise. 3. Indeterminate hypoattenuating lesions in both kidneys. This could be further evaluated with contrast-enhanced CT or MR on a nonemergent basis. 4. Mild cardiomegaly. 5. Small pleural effusions. * Renal Ultrasound bilateral IMPRESSION: 1. Moderately thickened, mildly distended urinary bladder which could represent cystitis. 2. Nonvisualization of the kidneys on the current study. There was no hydronephrosis on the CT earlier in the day. * WBC 11.9, now 12.7, k was 6.5, Cr 8.4, troponin 0.284, elevated AST 1030, ALT 1082, normal AP and bilirubin total, proBNP >35,000, UA +wbc+LE ARF, vasomotor nephrolopathy, Suspected new onset of ESRD: HD Acute hypoxic respiratory failure on Vmask 50%: try to wean off, needs diuresing Hyperkalemia: Nephrology consulted Metabolic Acidosis: treat the ARF UTI: treat with abx Hypoxia at the IL, suspected Acute hypoxic respiratory failure due to pulmonary edema from new onset CHF: treat with diuretics if kidney function steady, may need ultrafiltration Transaminiitis, ?congestive vs GB vs other: consult GI, hold statin Elevated troponin, related to ARF: monitor closely, order ECHO and reviewed Acute systolic heart failure: see ECHO, Cardiology following DVT ppx Eliquis A/C use for suspected h/o Afib Right hand shaking, etiology unclear: monitor closely h/o Bilateral AKA DM type 2; use ssi, accucheck, ada diet full code 08/14/19: Hemodialysis started 08/13/19. Urine culture growing GNR await finalization, ECHO reviewed EF only 25%, 08/15/19: Urine growing ESBL, do contact precautions, change iv rocephin to iv Ertrapem and consulted ID History Interval history: Patient was seen and examined. Follow-up on current diagnosis. Overnight uneventful as no events directly reported to me. Patient denies any chest pain, shortness breath, nausea/vomiting or severe headaches. Imaging, nursing note, chart, labs and old chart reviewed. Discussed with patient. Hospitalist Physical - Physical exam Narrative exam: Gen: WDWN, NAD, Awake, Alert, Orientated HEENT: NCAT, EOMI, PERRL, OP Clear Neck: supple, no adenopathy, no thyromegaly, = JVD CVS/Heart: irregular irregular normal S1S2, pulses present bilaterally Chest/Lungs: diminished bs bilaterally, Symmetrical chest expansion, good air entry bilaterally GI/Abdomen: soft, NTND, good bowel sounds, no guarding or rebound /Bladder: no suprapubic tenderness, no CVA or paraspinal tenderness Extermity/Skin: no c/c/e, no obvious rash MSK: bilateral AKA Neuro: CN 2-12 grossly intact, no new focal deficits Psych: calm - Constitutional Vitals: Temp Pulse Resp BP Pulse Ox 97.4 F L 78 20 137/77 96 08/15/19 03:46 08/15/19 03:50 08/15/19 03:46 08/15/19 03:46 08/15/19 03:50 General appearance: Present: no acute distress Results - Labs CBC & Chem 7: 08/15/19 07:49 08/14/19 19:29 Labs: Laboratory Last Values WBC 11.4 K/mm3 (4.5-11.0) H 08/15/19 07:49 RBC 3.91 M/mm3 (3.65-5.03) 08/15/19 07:49 Hgb 10.4 gm/dl (11.8-15.2) L 08/15/19 07:49 Hct 34.5 % (35.5-45.6) L 08/15/19 07:49 MCV 88 fl (84-94) 08/15/19 07:49 MCH 27 pg (28-32) L 08/15/19 07:49 MCHC 30 % (32-34) L 08/15/19 07:49 RDW 19.3 % (13.2-15.2) H 08/15/19 07:49 Plt Count 143 K/mm3 (140-440) 08/15/19 07:49 Lymph % (Auto) 7.3 % (13.4-35.0) L 08/15/19 07:49 [place] % (Auto) 9.6 % (0.0-7.3) H 08/15/19 07:49 Eos % (Auto) 1.0 % (0.0-4.3) 08/15/19 07:49 Baso % (Auto) 0.8 % (0.0-1.8) 08/15/19 07:49 Lymph # 0.8 K/mm3 (1.2-5.4) L 08/15/19 07:49 [place] # 1.1 K/mm3 (0.0-0.8) H 08/15/19 07:49 Eos # 0.1 K/mm3 (0.0-0.4) 08/15/19 07:49 Baso # 0.1 K/mm3 (0.0-0.1) 08/15/19 07:49 Seg Neutrophils % 81.3 % (40.0-70.0) H 08/15/19 07:49 Seg Neutrophils # 9.3 K/mm3 (1.8-7.7) H 08/15/19 07:49 PT 16.3 Sec. (12.2-14.9) H 08/13/19 20:19 INR 1.29 (0.87-1.13) H 08/13/19 20:19 Sodium 136 mmol/L (137-145) L 08/14/19 19:29 Potassium 5.0 mmol/L (3.6-5.0) 08/14/19 19:29 Chloride 95.6 mmol/L (98-107) L 08/14/19 19:29 Carbon Dioxide 23 mmol/L (22-30) 08/14/19 19:29 Anion Gap 22 mmol/L 08/14/19 19:29 BUN 65 mg/dL (9-20) H 08/14/19 19:29 Creatinine 7.6 mg/dL (0.8-1.5) H 08/14/19 19:29 Estimated GFR 9 ml/min 08/14/19 19:29 BUN/Creatinine Ratio 9 % 08/14/19 19:29 Glucose 99 mg/dL (75-100) 08/14/19 19:29 POC Glucose 80 (70-105) 08/15/19 08:00 Calcium 7.7 mg/dL (8.4-10.2) L 08/14/19 19: Phosphorus 7.30 mg/dL (2.5-4.5) H 08/14/19 07:12 Iron 16 ug/dL (49-181) L 08/13/19 05:27 TIBC 280 mcg/dL (250-450) 08/13/19 05:27 Total Bilirubin 0.70 mg/dL (0.1-1.2) 08/14/19 19:29 Direct Bilirubin 0.6 mg/dL (0-0.2) H 08/13/19 05:27 Indirect Bilirubin 0.2 mg/dL 08/13/19 05:27 AST 509 units/L (5-40) H 08/14/19 19:29 ALT 832 units/L (7-56) H 08/14/19 19:29 Alkaline Phosphatase 141 units/L (35-129) H 08/14/19 19:29 Lactate Dehydrogenase 729 units/L (91-180) H 08/12/19 20:39 Total Creatine Kinase 117 units/L (55-170) 08/13/19 05:27 CK-MB (CK-2) 4.3 ng/mL (0.0-4.0) H 08/13/19 05:27 CK-MB (CK-2) Rel Index 3.6 (0-4) 08/13/19 05:27 Troponin T 0.296 ng/mL (0.00-0.029) H* 08/13/19 05:27 NT-Pro-B Natriuret Pep > 51790 pg/mL (0-900) H 08/12/19 18:39 Total Protein 7.0 g/dL (6.3-8.2) 08/14/19 19:29 Albumin 2.8 g/dL (3.9-5) L 08/14/19 19:29 Albumin/Globulin Ratio 0.7 % 08/14/19 19:29 Triglycerides 141 mg/dL (2-149) 08/12/19 18:39 Cholesterol 105 mg/dL (50-199) 08/12/19 18:39 LDL Cholesterol Direct 37 mg/dL (50-130) L 08/12/19 18:39 HDL Cholesterol 44 mg/dL (40-59) 08/12/19 18:39 Cholesterol/HDL Ratio 2.38 % 08/12/19 18:39 Urine Color Yellow (Yellow) 08/13/19 00:44 Urine Turbidity Turbid (Clear) 08/13/19 00:44 Urine pH 5.0 (5.0-7.0) 08/13/19 00:44 Ur Specific [place] 1.020 (1.003-1.030) 08/13/19 00:44 Urine Protein 100 mg/dl mg/dL (Negative) 08/13/19 00:44 Urine Glucose (UA) Neg mg/dL (Negative) 08/13/19 00:44 Urine Ketones Neg mg/dL (Negative) 08/13/19 00:44 Urine Blood Sm (Negative) 08/13/19 00:44 Urine Nitrite Neg (Negative) 08/13/19 00:44 Urine Bilirubin Neg (Negative) 08/13/19 00:44 Urine Urobilinogen < 2.0 mg/dL (<2.0) 08/13/19 00:44 Ur Leukocyte Esterase Mod (Negative) 08/13/19 00:44 Urine WBC (Auto) > 182.0 /HPF (0.0-6.0) H 08/13/19 00:44 Urine RBC (Auto) 86.0 /HPF (0.0-6.0) 08/13/19 00:44 U Epithel Cells (Auto) 8.0 /HPF (0-13.0) 08/13/19 00:44 Urine Bacteria (Auto) 4+ /HPF (Negative) 08/13/19 00:44 Urine WBC Clumps 3+ /HPF 08/13/19 00:44 Urine Mucus 2+ /HPF 08/13/19 00:44 Urine Eosinophils None seen (None Seen) 08/13/19 00:44 Urine Creatinine 174.0 mg/dL (0.1-20.0) H 08/13/19 00:44 Urine Creatinine 175.4 mg/dL (0.1-20.0) H 08/13/19 00:44 Protein/Creatinin Ratio 0.30 08/13/19 00:44 Urine Sodium 66 mmol/L 08/13/19 00:44 Urine Urea Nitrogen 158 08/13/19 00:44 Urine Total Protein 53 mg/dL (5-11.8) H 08/13/19 00:44 Complement C3 63 mg/dL (82-185) L 08/12/19 20:39 Complement C4 20 mg/dL (15-53) 08/12/19 20:39 Hep Bs Antigen Non-reactive (Negative) 08/12/19 20:39 Hepatitis C Antibody Non-reactive (NonReactive) 08/12/19 20:39 HIV-1 Antibody See scanned result 08/12/19 Unknown HIV-2 Ab (Immunoblot) See scanned result 08/12/19 Unknown Schistocytes Smear None seen 08/12/19 20:39 Microbiology: Microbiology 08/13/19 07:55 Nares - Left MRSA Culture - Final 08/13/19 00:44 Urine,Catheterized - Straight Catheter Urine Culture - Final Escherichia Coli 08/12/19 18:39 Peripheral/Venous Blood Culture - Preliminary NO GROWTH AFTER 48 HOURS 08/12/19 18:39 Peripheral/Venous Blood Culture - Preliminary NO GROWTH AFTER 48 HOURS - Diagnostic Impressions Diagnostic Impressions: Echocardiogram 08/12/19 23:05 Transthoracic Echocardiogram Indication: Abnormal cardiac enzymes BP: 142/82 HR: 73 Conclusions *4-chamber dilated cardiomyopathy. *Global left ventricular systolic function is severely decreased. *The estimated ejection fraction is 25%. *Mild to moderate concentric left ventricular hypertrophy is observed. *There is mild mitral regurgitation. *There is mild to moderate tricuspid regurgitation. Findings Left Ventricle: The left ventricular size is moderate to severely dilated. Mild to moderate concentric left ventricular hypertrophy is observed. Global left ventricular systolic function is severely decreased. The estimated ejection fraction is 20-25%. Left Atrium: The left atrium is moderately dilated. Right Ventricle: The right ventricle is moderately dilated. The right ventricular global systolic function is moderately reduced. Right Atrium: The right atrium is moderately dilated. Aortic Valve: The aortic valve leaflets are moderately thickened. There is no evidence of aortic regurgitation. There is no evidence of aortic stenosis. Mitral Valve: The mitral valve leaflets are mildly thickened. There is mild mitral regurgitation. There is no evidence of mitral stenosis. Tricuspid Valve: There is mild to moderate tricuspid regurgitation. There is evidence of borderline pulmonary hypertension. Pulmonic Valve: There is trace pulmonic regurgitation. Pericardium: There is a minimial pericardial effusion. Aorta: There is no dilatation of the aortic root. Venous: The venous system is not well visualized. Measurements Chambers 2D Name Value Normal Range IVSd (2D) 1.34 cm (0.6 - 1.1) LVPWd (2D) 1.38 cm (0.6 - 1.1) LVIDd (2D) 4.57 cm (3.7 - 5.6) LVIDs (2D) 3.4 cm (2 - 3.8) LV FS (2D) 25.68 % - EF Teichholz (2D) 50.63 % - Ao root diameter (2D) 3.25 cm (2 - 3.7) Volumes/Mass Name Value Normal Range LA ESV SP 4CH (A/L) 49.47 ml - LA ESV SP 2CH (A/L) 55.91 ml - LA ESV BP (A/L) 55.17 ml - LA ESV BP (A/L) index 23.28 ml/m2 - LA ESV SP 4CH (MOD) 45.79 ml - LA ESV SP 2CH (MOD) 54.19 ml - LA ESV BP (MOD) 51.8 ml - LA ESV BP (MOD) index 21.86 ml/m2 - Diastolic/Systolic Function Name Value Normal Range MV E-wave Vmax 0.69 m/sec - MV deceleration time 179.05 msec - MV A-wave Vmax 0.47 m/sec - MV E:A ratio 1.49 ratio - Aortic Valve Name Value Normal Range AV Vmax 1.32 m/sec - AV VTI 21.23 cm - AV peak gradient 7.01 mmHg - AV mean gradient 3.99 mmHg - LVOT diameter 2.29 cm - LVOT Vmax 0.87 m/sec - LVOT VTI 13.08 cm - LVOT peak gradient 3.05 mmHg - LVOT mean gradient 1.53 mmHg - SV LVOT 53.73 ml - ESTRADA (continuity Vmax) 2.71 cm2 - ESTRADA (continuity VTI) 2.53 cm2 - Tricuspid Valve Name Value Normal Range TR Vmax 2.38 m/sec - TR peak gradient 23 mmHg - RAP 3 mmHg - RVSP 26 mmHg - Pulmonic Valve/Qp:Qs Name Value Normal Range PV acceleration time 95.15 msec - Jeffrey/IV: Voiding Method Indwelling Catheter IV Catheter Type [Left Hand] INT / Saline Lock IV Catheter Type [Right Hand] INT / Saline Lock Active Medications - Current Medications Current Medications: Generic Name Dose Route Start Last Admin Trade Name Freq PRN Reason Stop Dose Admin Acetaminophen 650 mg 08/12/19 23:02 Tylenol PO Q4H PRN Pain MILD(1-3)/Fever >100.5/REYNA Carvedilol 3.125 mg 08/14/19 22:00 08/14/19 21:51 Coreg PO 3.125 mg BID WALT Administration Dextrose 0 ml 08/12/19 23:02 08/13/19 02:30 D50w (25gm) Syringe IV 50 ml Q30MIN PRN Administration Hypoglycemia Protocol Hydralazine HCl 25 mg 08/14/19 22:00 08/14/19 21:51 Apresoline PO 25 mg BID WALT Administration Sodium Chloride 100 mls @ 999 mls/hr 08/15/19 08:30 Nacl 0.9% IV LINDSAY PRN Hypotension Ertapenem 500 gm/ Sodium 50 mls @ 100 mls/hr 08/15/19 10:00 Chloride IV QDAY WALT Insulin Human Lispro 0 unit 08/13/19 07:30 08/14/19 21:44 Humalog SUB-Q Not Given ACHS [facility] Protocol Ondansetron HCl 4 mg 08/12/19 23:02 Zofran IV Q8H PRN Nausea And Vomiting Oxycodone/Acetaminophen 1 tab 08/12/19 23:02 Percocet 5/325 PO Q6H PRN Pain, Moderate (4-6) Sodium Chloride 10 ml 08/13/19 10:00 08/14/19 21:54 Sodium Chloride Flush Syringe 10 Ml IV 10 ml BID WALT Administration Sodium Chloride 10 ml 08/12/19 23:02 Sodium Chloride Flush Syringe 10 Ml IV PRN PRN LINE FLUSH
--- NOTE | 2019-08-15 09:26 | Progress Note ---
Assessment and Plan Acute on chronic systolic heart failure echo this admission shows a 4-chamber dilated cardiomyopathy with LVEF 20- 25%. Paroxysmal afib pt reverted to sinus rhythm spontaneously on carvedilol Volume overload Renal failure -initiated on dialysis Hyperkalemia Elevated transaminitis Bilateral AKA Continue medical therapy for chronic systolic heart failure and paroxysmal atrial fibrillation as tolerated. Subjective Date of service: 08/15/19 Principal diagnosis: 08/14/19 Interval history: Patient is resting in bed comfortably. Sinus rhythm on telemetry. No cardiac events reported. Objective Vital Signs Temp Pulse Resp BP BP Pulse Ox 08/15/19 09:01 96 08/15/19 09:00 67 144/62 08/15/19 03:50 78 96 08/15/19 03:46 97.4 F L 20 137/77 08/14/19 23:47 59 L 08/14/19 22:59 98.1 F 71 18 142/69 100 08/14/19 21:51 75 154/75 08/14/19 20:00 98.4 F 75 19 154/75 90 08/14/19 15:29 97.9 F 61 16 117/63 100 08/14/19 11:32 97.8 F 67 17 143/65 98 08/14/19 11:05 69 08/14/19 10:00 97 - Physical Examination General: No Apparent Distress HEENT: Positive: PERRL Neck: Positive: trachea midline Cardiac: Positive: Reg Rate and Rhythm Lungs: Positive: Decreased Breath Sounds Extremities: Present: Other (bilateral AKA) - Labs and Meds Cardiac Enzymes 08/14/19 Range/Units 19:29 AST 509 H (5-40) units/L CBC 08/15/19 Range/Units 07:49 WBC 11.4 H (4.5-11.0) K/mm3 RBC 3.91 (3.65-5.03) M/mm3 Hgb 10.4 L (11.8-15.2) gm/dl Hct 34.5 L (35.5-45.6) % Plt Count 143 (140-440) K/mm3 Lymph # 0.8 L (1.2-5.4) K/mm3 [place] # 1.1 H (0.0-0.8) K/mm3 Eos # 0.1 (0.0-0.4) K/mm3 Baso # 0.1 (0.0-0.1) K/mm3 Comprehensive Metabolic Panel 08/14/19 Range/Units 19:29 Sodium 136 L (137-145) mmol/L Potassium 5.0 (3.6-5.0) mmol/L Chloride 95.6 L (98-107) mmol/L Carbon Dioxide 23 (22-30) mmol/L BUN 65 H (9-20) mg/dL Creatinine 7.6 H (0.8-1.5) mg/dL Glucose 99 (75-100) mg/dL Calcium 7.7 L (8.4-10.2) mg/dL AST 509 H (5-40) units/L ALT 832 H (7-56) units/L Alkaline Phosphatase 141 H (35-129) units/L Total Protein 7.0 (6.3-8.2) g/dL Albumin 2.8 L (3.9-5) g/dL
[2019-08-15] MEDS ORDERED: SODIUM CHLORIDE 0.9% 50 ML IVPB ONE (10:00)
[2019-08-15] MEDS ORDERED: ERTAPENEM 1 GM ONE (10:00)
[2019-08-15] MEDS ORDERED: ASPIRIN 325 MG TAB PO SCH (10:00)
[2019-08-15 10:20] LABS: Calcium 7.7 mg/dL (8.4-10.2)
[2019-08-15 10:34] LABS: Myeloperoxidase Antibody <1.0 AI (<1.0)
[2019-08-15] MEDS: ERTAPENEM 500 GM in SODIUM CHLORIDE 0.9% 50 ML IV SCH (10:39)
--- NOTE | 2019-08-15 10:58 | Progress Note ---
Assessment and Plan Acute Renal Failure secondary to prerenal vs ATN in setting of diuretics and Cystitis, on possible CKD: Hyperkalemia: Metabolic Acidosis: -HD was not done yesterday, HD nurse stated orders in the system did not prompt dialysis in her end - HD today for clearance and volume removal - remains anuric with worsening Cr off HD, permcath requested -Renal labs in 02/2018 showed serum creatinine of 0.8-1.0 -Ct scan and renal US reviewed-No Hydronephrosis -Urine lytes reviewed, no urine eosinophils but has active urine sediments- GN/Vasculitis work-up ordered, so far negative except for low C3, ANCA and anti GBM are pending -So far Hepatitis- negative. No Schistocytes seen. -Will hold Aspirin as may consider renal biopsy but due to multiple commodities and obesity, may not be a candidate for renal biopsy. -Avoid nephrotoxic agents -Strict I/O's monitoring -Continue to monitor renal function closely -case managemnt for outpatient dialysis placement Cystitis: -On IV Rocephin -As per primary Acute hypoxic respiratory failure due to pulmonary edema: -S/p Lasix -UF with HD Diabetes Mellitus: -As per primary Hypertension: -Controlled Yohan Thomas MD [phone] Subjective Date of service: 08/15/19 Principal diagnosis: severe renal failure Interval history: no overnight events, in dialysis Objective - Vital Signs Vital signs: Vital Signs - 12hr 08/14/19 08/14/19 08/15/19 22:59 23:47 03:46 Temperature 98.1 F 97.4 F L Pulse Rate 71 59 L Respiratory 18 20 Rate Blood Pressure 142/69 137/77 O2 Sat by Pulse 100 Oximetry 08/15/19 08/15/19 08/15/19 03:50 09:00 09:01 Temperature Pulse Rate 78 67 Respiratory Rate Blood Pressure 144/62 O2 Sat by Pulse 96 96 Oximetry - General Appearance General appearance: well-developed, well-nourished EENT: ATNC, PERRL Neck: no JVD, no carotid bruit Respiratory: Present: Decreased Breath Sounds Cardiology: regular, S1S2 Gastrointestinal: normoactive bowel sounds, no tenderness, no distended Integumentary: no rash, warm and dry Neurologic: other (follows simple commands) Musculoskeletal: other (edema in BLE) Psychiatric: other (drowsy) - Lab 03/27/20 07:49 08/15/19 07:49 Most recent lab results Calcium 7.7 mg/dL (8.4-10.2) L 08/15/19 07:49 Phosphorus 8.00 mg/dL (2.5-4.5) H 08/15/19 07:49 Magnesium 2.00 mg/dL (1.7-2.3) 08/15/19 07:49 Urine Creatinine 174.0 mg/dL (0.1-20.0) H 08/13/19 00:44 Urine Creatinine 175.4 mg/dL (0.1-20.0) H 08/13/19 00:44 Urine Sodium 66 mmol/L 08/13/19 00:44 Urine Total Protein 53 mg/dL (5-11.8) H 08/13/19 00:44 Medications & Allergies - Medications Allergies/Adverse Reactions: Allergies No Known Allergies Allergy (Unverified 08/12/19 17:31) Home Medications: Home Medications Medication Instructions Recorded Confirmed Last Taken Type Folic Acid [Folvite] 1 mg PO QDAY 02/22/18 08/13/19 Unknown History Gabapentin [Neurontin] 100 mg PO TID 02/22/18 08/13/19 Unknown History Multivitamin [Multiple Vitamins] 1 tab PO DAILY 02/22/18 08/13/19 Unknown History Sennosides [Senna] 25.8 mg PO BID 02/22/18 08/13/19 Unknown History Thiamine [Vitamin B-1] 100 mg PO QDAY 02/22/18 08/13/19 Unknown History Torsemide [Demadex] 20 mg PO DAILY 02/22/18 08/13/19 Unknown History allopurinoL [Allopurinol] 100 mg PO DAILY 02/22/18 08/13/19 Unknown History fentaNYL [Fentanyl] 1 each TD Q3D 02/22/18 08/13/19 Unknown History oxyCODONE /ACETAMINOPHEN [Percocet 1 tab PO Q6HR PRN #10 tablet 03/01/18 08/13/19 Unknown Rx 5/325] Aspirin EC [Halfprin EC] 81 mg PO QDAY 08/13/19 08/13/19 Unknown History AtorvaSTATin [Lipitor] 20 mg PO QHS 08/13/19 08/13/19 Unknown History Mirtazapine 7.5 mg PO QDAY 08/13/19 08/13/19 Unknown History NIFEdipine [Nifedipine ER] 30 mg PO QDAY 08/13/19 08/13/19 Unknown History Active Medications: Generic Name Dose Route Start Last Admin Trade Name Freq PRN Reason Stop Dose Admin Acetaminophen 650 mg 08/12/19 23:02 Tylenol PO Q4H PRN Pain MILD(1-3)/Fever >100.5/REYNA Carvedilol 3.125 mg 08/14/19 22:00 08/15/19 09:00 Coreg PO 3.125 mg BID WALT Administration Dextrose 0 ml 08/12/19 23:02 08/13/19 02:30 D50w (25gm) Syringe IV 50 ml Q30MIN PRN Administration Hypoglycemia Protocol Hydralazine HCl 25 mg 08/14/19 22:00 08/15/19 09:00 Apresoline PO 25 mg BID WALT Administration Sodium Chloride 100 mls @ 999 mls/hr 08/15/19 08:30 Nacl 0.9% IV LINDSAY PRN Hypotension Ertapenem 500 gm/ Sodium 50 mls @ 100 mls/hr 08/15/19 10:00 08/15/19 10:39 Chloride IV 100 mls/hr QDAY WALT Administration Insulin Human Lispro 0 unit 08/13/19 07:30 08/15/19 09:01 Humalog SUB-Q Not Given ACHS WALT Protocol Ondansetron HCl 4 mg 08/12/19 23:02 Zofran IV Q8H PRN Nausea And Vomiting Oxycodone/Acetaminophen 1 tab 08/12/19 23:02 Percocet 5/325 PO Q6H PRN Pain, Moderate (4-6) Sodium Chloride 10 ml 08/13/19 10:00 08/15/19 09:02 Sodium Chloride Flush Syringe 10 Ml IV 10 ml BID WALT Administration Sodium Chloride 10 ml 08/12/19 23:02 Sodium Chloride Flush Syringe 10 Ml IV PRN PRN LINE FLUSH
[2019-08-15] MEDS ORDERED: SODIUM CHLORIDE 0.9% 250ML 250 ML ONE (11:50)
[2019-08-15] MEDS ORDERED: HEPARIN/NS 5000 UNIT/500ML 500 ML IR ONE (11:50)
--- NOTE | 2019-08-15 11:53 | Gastroenterology Progress Note ---
Assessment and Plan - Patient Problems (1) Abnormal liver enzymes Current Visit: Yes Status: Acute Plan to address problem: - Hepatitis serologies negative, and US negative mass (though suggestive of probable early cirrhosis). 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 - No further workup indicated at present; may d/c home to f/u in our clinic. - Would not pursue liver biopsy unless gross worsening. - Will sign off; please call if needed. Subjective Date of service: 08/15/19 Principal diagnosis: Abnormal Liver Enzymes Interval history: The patient has no F/C/V but has a poor appetite per nursing (eating little of his trays). Denies abdominal pain. Appears edematous. Objective - Constitutional Vitals: Temp Pulse Resp BP Pulse Ox 97.4 F L 67 20 144/62 97 08/15/19 03:46 08/15/19 09:00 08/15/19 03:46 08/15/19 09:00 08/15/19 10:00 General appearance: no acute distress - EENT Eyes: PERRL, EOM intact - Respiratory Respiratory effort: normal Respiratory: bilateral: CTA - Cardiovascular Rhythm: regular Heart Sounds: Present: S1 & S2 - Gastrointestinal General gastrointestinal: Present: soft, non-tender, non-distended - Labs CBC & Chem 7: 08/15/19 07:49 08/15/19 07:49 Labs: Laboratory Results - last 24 hr 08/12/19 08/12/19 08/12/19 20:39 20:39 20:39 WBC RBC Hgb Hct MCV MCH MCHC RDW Plt Count Lymph % (Auto) [place] % (Auto) Eos % (Auto) Baso % (Auto) Lymph # [place] # Eos # Baso # Seg Neutrophils % Seg Neutrophils # Sodium Potassium Chloride Carbon Dioxide Anion Gap BUN Creatinine Estimated GFR BUN/Creatinine Ratio Glucose POC Glucose Calcium Phosphorus Magnesium Total Bilirubin AST ALT Alkaline Phosphatase Total Protein Albumin Albumin/Globulin Ratio Proteinase 3 (PR3) Ab <1.0 Myeloperoxidase Ab <1.0 Complement C3 63 L Complement C4 20 HIV-1 Antibody HIV-2 Ab (Immunoblot) 08/12/19 08/14/19 08/14/19 Unknown 16:38 19:29 WBC RBC Hgb Hct MCV MCH MCHC RDW Plt Count Lymph % (Auto) [place] % (Auto) Eos % (Auto) Baso % (Auto) Lymph # [place] # Eos # Baso # Seg Neutrophils % Seg Neutrophils # Sodium 136 L Potassium 5.0 Chloride 95.6 L Carbon Dioxide 23 Anion Gap 22 BUN 65 H Creatinine 7.6 H Estimated GFR 9 BUN/Creatinine Ratio 9 Glucose 99 POC Glucose 81 Calcium 7.7 L Phosphorus Magnesium Total Bilirubin 0.70 AST 509 H ALT 832 H Alkaline Phosphatase 141 H Total Protein 7.0 Albumin 2.8 L Albumin/Globulin Ratio 0.7 Proteinase 3 (PR3) Ab Myeloperoxidase Ab Complement C3 Complement C4 HIV-1 Antibody See scanned result HIV-2 Ab (Immunoblot) See scanned result 08/14/19 08/15/19 08/15/19 20:56 07:49 07:49 WBC 11.4 H RBC 3.91 Hgb 10.4 L Hct 34.5 L MCV 88 MCH 27 L MCHC 30 L RDW 19.3 H Plt Count 143 Lymph % (Auto) 7.3 L [place] % (Auto) 9.6 H Eos % (Auto) 1.0 Baso % (Auto) 0.8 Lymph # 0.8 L [place] # 1.1 H Eos # 0.1 Baso # 0.1 Seg Neutrophils % 81.3 H Seg Neutrophils # 9.3 H Sodium 135 L Potassium 4.8 Chloride 95.3 L Carbon Dioxide 20 L Anion Gap 25 BUN 71 H Creatinine 8.0 H Estimated GFR 8 BUN/Creatinine Ratio 9 Glucose 79 POC Glucose 94 Calcium 7.7 L Phosphorus 8.00 H Magnesium Total Bilirubin AST ALT Alkaline Phosphatase Total Protein Albumin Albumin/Globulin Ratio Proteinase 3 (PR3) Ab Myeloperoxidase Ab Complement C3 Complement C4 HIV-1 Antibody HIV-2 Ab (Immunoblot) 08/15/19 08/15/19 07:49 08:00 WBC RBC Hgb Hct MCV MCH MCHC RDW Plt Count Lymph % (Auto) [place] % (Auto) Eos % (Auto) Baso % (Auto) Lymph # [place] # Eos # Baso # Seg Neutrophils % Seg Neutrophils # Sodium Potassium Chloride Carbon Dioxide Anion Gap BUN Creatinine Estimated GFR BUN/Creatinine Ratio Glucose POC Glucose 80 Calcium Phosphorus Magnesium 2.00 Total Bilirubin AST ALT Alkaline Phosphatase Total Protein Albumin Albumin/Globulin Ratio Proteinase 3 (PR3) Ab Myeloperoxidase Ab Complement C3 Complement C4 HIV-1 Antibody HIV-2 Ab (Immunoblot)
[2019-08-15 12:30] LABS: ANA Screen, IFA Negative (Negative)
--- NOTE | 2019-08-15 13:39 | Operative Report ---
Operative Report Operative Report: Date of Procedure: 08/15/2019 Pre-operative Diagnosis: End-Stage Renal Disease Post-operative Diagnosis: Same Procedure(s): 1. Exchange of Right Internal Jugular Vas-Cath to 27 Cm Glidepath Permacath Over Wire 2. Radiologic Supervision with Interpretation Surgeon: Edi Gann M.D. Nursery Rn: None Anesthesia: 2% Lidocaine EBL: Minimal Counts: Correct Complications: None Condition: Stable Findings: Successful exchange of right internal jugular Vas-Cath to permacath with distal tip in the right atrium. Both ports easily aspirated and flushed. Specimen: None Indication: The patient is a 59-year-old male who presented with acute renal failure requiring urgent placement of a Vas-Cath. Despite medical management and hemodialysis he has had no recovery of his renal function and requires a permacath prior to discharge. He was given the risk, benefits, and alternative procedures and consented to the procedure. Description of Procedure: The patient was brought to the [facility] and laid in supine position. After a timeout was performed the patient's right neck, chest, and indwelling catheter were prepped and draped in normal sterile fashion. I advanced a 0.035 Bentson wire through the Vas-Cath and into the inferior vena cava under fluoroscopy. 2% lidocaine was used to anesthetize the entry site around the Vas-Cath and the presumed tract. I then used an 11 blade to make a small stab incision on the right chest wall and used a tunneler connected to the permacath to tunnel the catheter and a subcutaneous tunnel towards the entry site on the neck. Once I had tunneled the catheter through the entry site on the neck I removed the Vas- Cath leaving the wire in place and inserted the peel-away sheath through the internal jugular vein by Seldinger technique. I removed the dilator and wire and then inserted the permacath into the peel-away sheath. Once the permacath had been inserted I peeled the sheath away while applying for pressure on the permacath. Once the SafeSheath had been peeled away I position the permacath with the distal tip in the right atrium. Both ports easily aspirated and flushed and were primed with the appropriate amount of heparin. The entry site on the neck was then closed with 4-0 Monocryl in interrupted fashion and dressed with Dermabond. The catheter was then secured in position with 2-0 Ethilon and dressed with a sterile dressing. The final fluoroscopy demonstrated the catheter was in adequate position with the distal tip in the right atrium without evidence of pneumothorax. The patient tolerated the procedure well was transported back to his room in stable condition.
--- NOTE | 2019-08-15 17:14 | Consultation ---
History of Present Illness - Reason for Consult Consult date: 08/15/19 - History of Present Illness 59-year-old man past medical history diabetes, PVD, gout, hyperlipidemia [facility] with generalized malaise. As noted the symptoms began approximately 3 days prior to admission, more associated with shortness of breath. He was found to be in acute renal failure congestive heart failure on admission. He was treated medically on admission, however it was determined that he would need dialysis. A right internal jugular Vas-Cath was placed during this admission. He is generally a poor historian. Afebrile since admission with an elevated white count hovering around 12. HIV negative. Currently receiving ertapenem. Urine cultures with ESBL E. coli. Imaging personally reviewed: CT abdomen pelvis: No acute infective focus Review of Systems: Bold if positive, otherwise negative General: fevers, chills, rigors, malaise HEENT: visual disturbance, diplopia, eye pain Respiratory: cough, sputum, hemoptysis, shortness of breath Cardiovascular: chest pain, syncope Gastrointestinal: nausea, vomiting, diarrhea, abdominal pain Genitourinary: dysuria, hematuria, flank pain Musculoskeletal: neck pain, back pain, joint pain, edema Neurologic: headaches, seizures Hematologic: easy bruising or bleeding Endocrine: night sweats, acute weight loss Skin: rash, jaundice, redness Psychiatric: suicidal, homicidal ideation Past History Past Medical History: diabetes, GERD, heart failure, hypertension, PVD, renal failure, other (PAD) Past Surgical History: Other (Bilateral amputee) Social history: other (Resides at [facility]) Family history: no significant family history Medications and Allergies Allergies Allergy/AdvReac Type Severity Reaction Status Date / Time No Known Allergies Allergy Unverified 08/12/19 17:31 Home Medications Medication Instructions Recorded Confirmed Last Taken Type Folic Acid [Folvite] 1 mg PO QDAY 02/22/18 08/13/19 Unknown History Gabapentin [Neurontin] 100 mg PO TID 02/22/18 08/13/19 Unknown History Multivitamin [Multiple Vitamins] 1 tab PO DAILY 02/22/18 08/13/19 Unknown History Sennosides [Senna] 25.8 mg PO BID 02/22/18 08/13/19 Unknown History Thiamine [Vitamin B-1] 100 mg PO QDAY 02/22/18 08/13/19 Unknown History Torsemide [Demadex] 20 mg PO DAILY 02/22/18 08/13/19 Unknown History allopurinoL [Allopurinol] 100 mg PO DAILY 02/22/18 08/13/19 Unknown History fentaNYL [Fentanyl] 1 each TD Q3D 02/22/18 08/13/19 Unknown History oxyCODONE /ACETAMINOPHEN [Percocet 1 tab PO Q6HR PRN #10 tablet 03/01/18 08/13/19 Unknown Rx 5/325] Aspirin EC [Halfprin EC] 81 mg PO QDAY 08/13/19 08/13/19 Unknown History AtorvaSTATin [Lipitor] 20 mg PO QHS 08/13/19 08/13/19 Unknown History Mirtazapine 7.5 mg PO QDAY 08/13/19 08/13/19 Unknown History NIFEdipine [Nifedipine ER] 30 mg PO QDAY 08/13/19 08/13/19 Unknown History Active Meds: Active Medications Acetaminophen (Tylenol) 650 mg PO Q4H PRN PRN Reason: Pain MILD(1-3)/Fever >100.5/REYNA Carvedilol (Coreg) 3.125 mg PO BID [facility] Last Admin: 08/15/19 09:00 Dose: 3.125 mg Documented by: Dextrose (D50w (25gm) Syringe) 0 ml IV Q30MIN PRN; Protocol PRN Reason: Hypoglycemia Last Admin: 08/13/19 02:30 Dose: 50 ml Documented by: Hydralazine HCl (Apresoline) 25 mg PO BID [facility] Last Admin: 08/15/19 09:00 Dose: 25 mg Documented by: Sodium Chloride (Nacl 0.9%) 100 mls @ 999 mls/hr IV LINDSAY PRN PRN Reason: Hypotension Ertapenem 500 gm/ Sodium (Chloride) 50 mls @ 100 mls/hr IV QDAY [facility] Last Admin: 08/15/19 10:39 Dose: 100 mls/hr Documented by: Insulin Human Lispro (Humalog) 0 unit SUB-Q ACHS [facility]; Protocol Last Admin: 08/15/19 12:56 Dose: Not Given Documented by: Ondansetron HCl (Zofran) 4 mg IV Q8H PRN PRN Reason: Nausea And Vomiting Oxycodone/Acetaminophen (Percocet 5/325) 1 tab PO Q6H PRN PRN Reason: Pain, Moderate (4-6) Sodium Chloride (Sodium Chloride Flush Syringe 10 Ml) 10 ml IV BID [facility] Last Admin: 08/15/19 09:02 Dose: 10 ml Documented by: Sodium Chloride (Sodium Chloride Flush Syringe 10 Ml) 10 ml IV PRN PRN PRN Reason: LINE FLUSH Physical Examination - Physical Exam Narrative exam: Physical Exam: Constitutional: Alert, cooperative. No acute distress Head, Ears, Nose: Normocephalic, atraumatic. External ears, nose normal Eyes: Conjunctivae/corneas clear. No icterus. No ptosis. Neck: Supple, no meningeal signs Oral: dentition fair, no thrush Cardiovascular: S1, S2 normal. Respiratory: Good air entry, clear to auscultation bilaterally GI: Soft, non-tender; bowel sounds normal. No peritoneal signs. Musculoskeletal: No pedal edema, no cyanosis. Right-sided Vas-Cath Skin: No rash or abscess Hem/Lymphatic: No palpable cervical or supraclavicular nodes. No lymphangitis Psych: Mood ok. Affect normal Neurological: Awake, alert, oriented. No gross abnormality - Constitutional Vitals: Vital Signs Temp Pulse Resp BP Pulse Ox 97.4 F L 70 20 165/81 97 08/15/19 14:15 08/15/19 17:00 08/15/19 14:15 08/15/19 17:00 08/15/19 10:00 Temperature -Last 24 Hours Temperature 97.4 F Temperature 97.4 F Temperature 98.1 F Temperature 98.4 F Results - Labs CBC & Chem 7: 08/15/19 07:49 08/15/19 07:49 Labs: Abnormal lab results 08/12/19 08/14/19 08/15/19 Range/Units 20:39 19:29 07:49 WBC 11.4 H (4.5-11.0) K/mm3 Hgb 10.4 L (11.8-15.2) gm/dl Hct 34.5 L (35.5-45.6) % MCH 27 L (28-32) pg MCHC 30 L (32-34) % RDW 19.3 H (13.2-15.2) % Lymph % (Auto) 7.3 L (13.4-35.0) % [place] % (Auto) 9.6 H (0.0-7.3) % Lymph # 0.8 L (1.2-5.4) K/mm3 [place] # 1.1 H (0.0-0.8) K/mm3 Seg Neutrophils % 81.3 H (40.0-70.0) % Seg Neutrophils # 9.3 H (1.8-7.7) K/mm3 Sodium 136 L (137-145) mmol/L Chloride 95.6 L (98-107) mmol/L Carbon Dioxide (22-30) mmol/L BUN 65 H (9-20) mg/dL Creatinine 7.6 H (0.8-1.5) mg/dL Calcium 7.7 L (8.4-10.2) mg/dL Phosphorus (2.5-4.5) mg/dL AST 509 H (5-40) units/L ALT 832 H (7-56) units/L Alkaline Phosphatase 141 H (35-129) units/L Albumin 2.8 L (3.9-5) g/dL Complement C3 63 L (82-185) mg/dL 08/15/19 Range/Units 07:49 WBC (4.5-11.0) K/mm3 Hgb (11.8-15.2) gm/dl Hct (35.5-45.6) % MCH (28-32) pg MCHC (32-34) % RDW (13.2-15.2) % Lymph % (Auto) (13.4-35.0) % [place] % (Auto) (0.0-7.3) % Lymph # (1.2-5.4) K/mm3 [place] # (0.0-0.8) K/mm3 Seg Neutrophils % (40.0-70.0) % Seg Neutrophils # (1.8-7.7) K/mm3 Sodium 135 L (137-145) mmol/L Chloride 95.3 L (98-107) mmol/L Carbon Dioxide 20 L (22-30) mmol/L BUN 71 H (9-20) mg/dL Creatinine 8.0 H (0.8-1.5) mg/dL Calcium 7.7 L (8.4-10.2) mg/dL Phosphorus 8.00 H (2.5-4.5) mg/dL AST (5-40) units/L ALT (7-56) units/L Alkaline Phosphatase (35-129) units/L Albumin (3.9-5) g/dL Complement C3 (82-185) mg/dL Assessment and Plan Cultures: Blood culture 08/12/2019 no growth to date Urine culture 08/13/2019 ESBL E. coli A/P: 59-year-old man past medical history diabetes, PVD, gout, hyperlipidemia admitted to the hospital with acute renal heart failure, ESBL E. coli UTI. #ESBL E. coli UTI: Recommend continuing treatment with ertapenem renally dosed. He will need 7 days of therapy for acute cystitis in a male. Unfortunately cannot use fosfomycin as patient is currently anuric. #ESRD on HD: Renally dose antibiotics as appropriate #Diabetes: tight glycemic control for best outcomes. Recs: -Continue ertapenem renally dosed -Case management consult placed for ertapenem to complete 7 days of therapy. -Midline ordered -Okay for discharge from antibiotics and midline arranged. Thank you for the consult, we will sign off for now. Please call with questions MD [facility] M: [phone] O: [phone] F: [phone]
[2019-08-15] MEDS: oxyCODONE /ACETAMINOPHEN 5-325MG TAB PO PRN (21:47)
[2019-08-16 00:14] LABS: Albumin 2.7 g/dL (3.9-5); Calcium 7.5 mg/dL (8.4-10.2)
[2019-08-16] MEDS: oxyCODONE /ACETAMINOPHEN 5-325MG TAB PO PRN ×2 (04:23→22:05)
[2019-08-16 08:32] LABS: Basophils # (Auto) 0.1 K/mm3 (0.0-0.1); Basophils % (Auto) 0.9 % (0.0-1.8); Eosinophils # (Auto) 0.2 K/mm3 (0.0-0.4); Eosinophils % (Auto) 1.7 % (0.0-4.3); Lymphocytes # (Auto) 0.8 K/mm3 (1.2-5.4); Lymphocytes % (Auto) 8.4 % (13.4-35.0); Mean Corpuscular HGB Conc 31 % (32-34); Mean Corpuscular Volume 88 fl (84-94); Monocytes # (Auto) 0.9 K/mm3 (0.0-0.8); Monocytes % (Auto) 9.9 % (0.0-7.3); Platelet Count 118 K/mm3 (140-440); Red Blood Count 4.05 M/mm3 (3.65-5.03); Red Cell Distribution Width 19.3 % (13.2-15.2)
[2019-08-16 08:45] LABS: Hemoglobin 10.9 gm/dl (11.8-15.2)
[2019-08-16 08:46] LABS: Hematocrit 35.6 % (35.5-45.6)
[2019-08-16 09:18] LABS: Calcium 7.3 mg/dL (8.4-10.2)
[2019-08-16] MEDS ORDERED: ERTAPENEM 1 GM ONE (10:00)
[2019-08-16] MEDS ORDERED: SODIUM CHLORIDE 0.9% 50 ML IVPB ONE (10:00)
[2019-08-16] MEDS: carvediloL 3.125 MG TAB PO SCH ×2 (10:20→22:05)
[2019-08-16] MEDS: hydrALAZINE 25 MG TAB PO SCH ×2 (10:20→22:05)
[2019-08-16] MEDS: ERTAPENEM 500 GM in SODIUM CHLORIDE 0.9% 50 ML IV SCH (10:26)
[2019-08-16] MEDS: INSULIN LISPRO 100 UNIT/ML SUB-Q SCH ×4 (10:27→22:44)
[2019-08-16] MEDS ORDERED: SODIUM CHLORIDE 0.9% 100 ML IV PRN (11:11)
--- NOTE | 2019-08-16 11:11 | Progress Note ---
Assessment and Plan Acute Renal Failure secondary to prerenal vs ATN in setting of diuretics and Cystitis, on possible CKD: Hyperkalemia: Metabolic Acidosis: -HD today for clearance and volume removal -s/p Permcath yesterday. -Renal labs in 02/2018 showed serum creatinine of 0.8-1.0 -Ct scan and renal US reviewed-No Hydronephrosis -Urine lytes reviewed, no urine eosinophils but has active urine sediments- GN/Vasculitis work-up ordered, so far negative except for low C3, ANCA and anti GBM are pending -So far Hepatitis- negative. No Schistocytes seen. -Will hold Aspirin as may consider renal biopsy but due to multiple commodities and obesity, may not be a candidate for renal biopsy. -Avoid nephrotoxic agents -Strict I/O's monitoring -Continue to monitor renal function closely -case managemnt for outpatient dialysis placement Cystitis: -On IV Rocephin -As per primary Acute hypoxic respiratory failure due to pulmonary edema: -S/p Lasix -UF with HD Diabetes Mellitus: -As per primary Hypertension: -Controlled Adrian Perez MD [phone] Subjective Date of service: 08/16/19 Principal diagnosis: Abnormal Liver Enzymes Interval history: HD today. s/p Permcath yesterday. Objective - Exam Narrative Exam: General appearance: well-developed, well-nourished EENT: ATNC, PERRL Neck: no JVD, no carotid bruit Respiratory: Present: Decreased Breath Sounds Cardiology: regular, S1S2 Gastrointestinal: normoactive bowel sounds, no tenderness, no distended Integumentary: no rash, warm and dry Neurologic: other (follows simple commands) Musculoskeletal: other (edema in BLE) Psychiatric: other (drowsy) - Vital Signs Vital signs: Vital Signs - 12hr 08/15/19 08/16/19 23:36 03:42 Temperature 98.0 F 98.0 F Pulse Rate 59 L 65 Respiratory 20 18 Rate Blood Pressure 176/83 164/89 O2 Sat by Pulse 96 98 Oximetry - Lab 08/16/19 07:58 08/16/19 07:58 Most recent lab results Calcium 7.3 mg/dL (8.4-10.2) L 08/16/19 07:58 Phosphorus 5.50 mg/dL (2.5-4.5) H D 08/16/19 07:58 Magnesium 2.00 mg/dL (1.7-2.3) 08/15/19 07:49 Urine Creatinine 174.0 mg/dL (0.1-20.0) H 08/13/19 00:44 Urine Creatinine 175.4 mg/dL (0.1-20.0) H 08/13/19 00:44 Urine Sodium 66 mmol/L 08/13/19 00:44 Urine Total Protein 53 mg/dL (5-11.8) H 08/13/19 00:44 Medications & Allergies - Medications Allergies/Adverse Reactions: Allergies No Known Allergies Allergy (Unverified 08/12/19 17:31) Home Medications: Home Medications Medication Instructions Recorded Confirmed Last Taken Type Folic Acid [Folvite] 1 mg PO QDAY 02/22/18 08/13/19 Unknown History Gabapentin [Neurontin] 100 mg PO TID 02/22/18 08/13/19 Unknown History Multivitamin [Multiple Vitamins] 1 tab PO DAILY 02/22/18 08/13/19 Unknown History Sennosides [Senna] 25.8 mg PO BID 02/22/18 08/13/19 Unknown History Thiamine [Vitamin B-1] 100 mg PO QDAY 02/22/18 08/13/19 Unknown History Torsemide [Demadex] 20 mg PO DAILY 02/22/18 08/13/19 Unknown History allopurinoL [Allopurinol] 100 mg PO DAILY 02/22/18 08/13/19 Unknown History fentaNYL [Fentanyl] 1 each TD Q3D 02/22/18 08/13/19 Unknown History oxyCODONE /ACETAMINOPHEN [Percocet 1 tab PO Q6HR PRN #10 tablet 03/01/18 08/13/19 Unknown Rx 5/325] Aspirin EC [Halfprin EC] 81 mg PO QDAY 08/13/19 08/13/19 Unknown History AtorvaSTATin [Lipitor] 20 mg PO QHS 08/13/19 08/13/19 Unknown History Mirtazapine 7.5 mg PO QDAY 08/13/19 08/13/19 Unknown History NIFEdipine [Nifedipine ER] 30 mg PO QDAY 08/13/19 08/13/19 Unknown History Active Medications: Generic Name Dose Route Start Last Admin Trade Name Freq PRN Reason Stop Dose Admin Acetaminophen 650 mg 08/12/19 23:02 Tylenol PO Q4H PRN Pain MILD(1-3)/Fever >100.5/REYNA Carvedilol 3.125 mg 08/14/19 22:00 08/16/19 10:20 Coreg PO 3.125 mg BID [facility] Administration Dextrose 0 ml 08/12/19 23:02 08/13/19 02:30 D50w (25gm) Syringe IV 50 ml Q30MIN PRN Administration Hypoglycemia Protocol Hydralazine HCl 25 mg 08/14/19 22:00 08/16/19 10:20 Apresoline PO 25 mg BID [facility] Administration Sodium Chloride 100 mls @ 999 mls/hr 08/15/19 08:30 Nacl 0.9% IV LINDSAY PRN Hypotension Ertapenem 500 gm/ Sodium 50 mls @ 100 mls/hr 08/15/19 10:00 08/16/19 10:26 Chloride IV 100 mls/hr QDAY [facility] Administration Insulin Human Lispro 0 unit 08/13/19 07:30 08/16/19 10:27 Humalog SUB-Q Not Given ACHS [facility] Protocol Ondansetron HCl 4 mg 08/12/19 23:02 Zofran IV Q8H PRN Nausea And Vomiting Oxycodone/Acetaminophen 1 tab 08/12/19 23:02 08/16/19 04:23 Percocet 5/325 PO 1 tab Q6H PRN Administration Pain, Moderate (4-6) Sodium Chloride 10 ml 08/13/19 10:00 08/16/19 10:20 Sodium Chloride Flush Syringe 10 Ml IV 10 ml BID [facility] Administration Sodium Chloride 10 ml 08/12/19 23:02 Sodium Chloride Flush Syringe 10 Ml IV PRN PRN LINE FLUSH
--- NOTE | 2019-08-16 11:33 | Progress Note ---
Assessment and Plan Assessment and plan: Patient is a 59 yo man from [facility] with history of PVD s/p bilateral AKA, hypertension, DM type 2, dyslipidemia, CVA, Afib on Eliquis, GERD, anemia, Tobacco dependency and Gout who presented to [facility] ED with SOB and hypoxia, reported O2 sat in the 60s, placed on 100% NRB and right hand twitching * pCXR IMPRESSION: Moderate cardiomegaly. Bilateral pulmonary opacities likely reflect pulmonary edema, consolidation and/or atelectasis, singly or in combination. Small right pleural effusion. * CT abd/pelvis without contrast IMPRESSION: 1. No acute finding within limitations imposed by noncontrast technique. 2. Possible biliary sludge and/or cholelithiasis. No evidence to suggest acute cholecystitis otherwise. 3. Indeterminate hypoattenuating lesions in both kidneys. This could be further evaluated with contrast-enhanced CT or MR on a nonemergent basis. 4. Mild cardiomegaly. 5. Small pleural effusions. * Renal Ultrasound bilateral IMPRESSION: 1. Moderately thickened, mildly distended urinary bladder which could represent cystitis. 2. Nonvisualization of the kidneys on the current study. There was no hydronephrosis on the CT earlier in the day. * WBC 11.9, now 12.7, k was 6.5, Cr 8.4, troponin 0.284, elevated AST 1030, ALT 1082, normal AP and bilirubin total, proBNP >35,000, UA +wbc+LE ARF, vasomotor nephrolopathy, Suspected new onset of ESRD: HD Acute hypoxic respiratory failure on Vmask 50%: try to wean off, needs diuresing Hyperkalemia: Nephrology consulted Metabolic Acidosis: treat the ARF UTI: treat with abx Hypoxia at the NM, suspected Acute hypoxic respiratory failure due to pulmonary edema from new onset CHF: treat with diuretics if kidney function steady, may need ultrafiltration Transaminiitis, ?congestive vs GB vs other: consult GI, hold statin Elevated troponin, related to ARF: monitor closely, order ECHO and reviewed Acute systolic heart failure: see ECHO, Cardiology following DVT ppx Eliquis A/C use for suspected h/o Afib Right hand shaking, etiology unclear: monitor closely h/o Bilateral AKA DM type 2; use ssi, accucheck, ada diet full code 08/14/19: Hemodialysis started 08/13/19. Urine culture growing GNR await finalization, ECHO reviewed EF only 25%, 08/15/19: Urine growing ESBL, do contact precautions, change iv rocephin to iv Ertrapem and consulted ID 08/16/19: await outpatient HD set up History Interval history: Patient was seen and examined. Follow-up on current diagnosis. Overnight uneventful as no events directly reported to me. Patient denies any chest pain, shortness breath, nausea/vomiting or severe headaches. Imaging, nursing note, chart, labs and old chart reviewed. Discussed with patient. Hospitalist Physical - Physical exam Narrative exam: Gen: WDWN, NAD, Awake, Alert, Orientated HEENT: NCAT, EOMI, PERRL, OP Clear Neck: supple, no adenopathy, no thyromegaly, = JVD CVS/Heart: irregular irregular normal S1S2, pulses present bilaterally Chest/Lungs: diminished bs bilaterally, Symmetrical chest expansion, good air entry bilaterally GI/Abdomen: soft, NTND, good bowel sounds, no guarding or rebound /Bladder: no suprapubic tenderness, no CVA or paraspinal tenderness Extermity/Skin: no c/c/e, no obvious rash MSK: bilateral AKA Neuro: CN 2-12 grossly intact, no new focal deficits Psych: calm - Constitutional Vitals: Temp Pulse Resp BP Pulse Ox 98.0 F 65 18 164/89 98 08/16/19 03:42 08/16/19 03:42 08/16/19 03:42 08/16/19 03:42 08/16/19 03:42 General appearance: Present: no acute distress Results - Labs CBC & Chem 7: 08/16/19 07:58 08/16/19 07:58 Labs: Laboratory Last Values WBC 9.5 K/mm3 (4.5-11.0) 08/16/19 07:58 RBC 4.05 M/mm3 (3.65-5.03) 08/16/19 07:58 Hgb 10.9 gm/dl (11.8-15.2) L 08/16/19 07:58 Hct 35.6 % (35.5-45.6) 08/16/19 07:58 MCV 88 fl (84-94) 08/16/19 07:58 MCH 27 pg (28-32) L 08/16/19 07:58 MCHC 31 % (32-34) L 08/16/19 07:58 RDW 19.3 % (13.2-15.2) H 08/16/19 07:58 Plt Count 118 K/mm3 (140-440) L 08/16/19 07:58 Lymph % (Auto) 8.4 % (13.4-35.0) L 08/16/19 07:58 [place] % (Auto) 9.9 % (0.0-7.3) H 08/16/19 07:58 Eos % (Auto) 1.7 % (0.0-4.3) 08/16/19 07:58 Baso % (Auto) 0.9 % (0.0-1.8) 08/16/19 07:58 Lymph # 0.8 K/mm3 (1.2-5.4) L 08/16/19 07:58 [place] # 0.9 K/mm3 (0.0-0.8) H 08/16/19 07:58 Eos # 0.2 K/mm3 (0.0-0.4) 08/16/19 07:58 Baso # 0.1 K/mm3 (0.0-0.1) 08/16/19 07:58 Seg Neutrophils % 79.1 % (40.0-70.0) H 08/16/19 07:58 Seg Neutrophils # 7.5 K/mm3 (1.8-7.7) 08/16/19 07:58 PT 16.3 Sec. (12.2-14.9) H 08/13/19 20:19 INR 1.29 (0.87-1.13) H 08/13/19 20:19 Sodium 132 mmol/L (137-145) L 08/16/19 07:58 Potassium 3.6 mmol/L (3.6-5.0) 08/16/19 07:58 Chloride 93.8 mmol/L (98-107) L 08/16/19 07:58 Carbon Dioxide 20 mmol/L (22-30) L D 08/16/19 07:58 Anion Gap 22 mmol/L 08/16/19 07:58 BUN 47 mg/dL (9-20) H 08/16/19 07:58 Creatinine 6.1 mg/dL (0.8-1.5) H 08/16/19 07:58 Estimated GFR 11 ml/min 08/16/19 07:58 BUN/Creatinine Ratio 8 % 08/16/19 07:58 Glucose 104 mg/dL (75-100) H 08/16/19 07:58 POC Glucose 108 (70-105) H 08/16/19 08:45 Calcium 7.3 mg/dL (8.4-10.2) L 08/16/19 07:58 Phosphorus 5.50 mg/dL (2.5-4.5) H D 08/16/19 07:58 Magnesium 2.00 mg/dL (1.7-2.3) 08/15/19 07:49 Iron 16 ug/dL (49-181) L 08/13/19 05:27 TIBC 280 mcg/dL (250-450) 08/13/19 05:27 Total Bilirubin 0.90 mg/dL (0.1-1.2) 08/15/19 23:33 Direct Bilirubin 0.6 mg/dL (0-0.2) H 08/13/19 05:27 Indirect Bilirubin 0.2 mg/dL 08/13/19 05:27 AST 200 units/L (5-40) H 08/15/19 23:33 ALT 562 units/L (7-56) H 08/15/19 23:33 Alkaline Phosphatase 154 units/L (35-129) H 08/15/19 23:33 Lactate Dehydrogenase 729 units/L (91-180) H 08/12/19 20:39 Total Creatine Kinase 117 units/L (55-170) 08/13/19 05:27 CK-MB (CK-2) 4.3 ng/mL (0.0-4.0) H 08/13/19 05:27 CK-MB (CK-2) Rel Index 3.6 (0-4) 08/13/19 05:27 Troponin T 0.296 ng/mL (0.00-0.029) H* 08/13/19 05:27 NT-Pro-B Natriuret Pep > 14339 pg/mL (0-900) H 08/12/19 18:39 Total Protein 6.7 g/dL (6.3-8.2) 08/15/19 23:33 Albumin 2.7 g/dL (3.9-5) L 08/15/19 23:33 Albumin/Globulin Ratio 0.7 % 08/15/19 23:33 Triglycerides 141 mg/dL (2-149) 08/12/19 18:39 Cholesterol 105 mg/dL (50-199) 08/12/19 18:39 LDL Cholesterol Direct 37 mg/dL (50-130) L 08/12/19 18:39 HDL Cholesterol 44 mg/dL (40-59) 08/12/19 18:39 Cholesterol/HDL Ratio 2.38 % 08/12/19 18:39 Urine Color Yellow (Yellow) 08/13/19 00:44 Urine Turbidity Turbid (Clear) 08/13/19 00:44 Urine pH 5.0 (5.0-7.0) 08/13/19 00:44 Ur Specific Louisa 1.020 (1.003-1.030) 08/13/19 00:44 Urine Protein 100 mg/dl mg/dL (Negative) 08/13/19 00:44 Urine Glucose (UA) Neg mg/dL (Negative) 08/13/19 00:44 Urine Ketones Neg mg/dL (Negative) 08/13/19 00:44 Urine Blood Sm (Negative) 08/13/19 00:44 Urine Nitrite Neg (Negative) 08/13/19 00:44 Urine Bilirubin Neg (Negative) 08/13/19 00:44 Urine Urobilinogen < 2.0 mg/dL (<2.0) 08/13/19 00:44 Ur Leukocyte Esterase Mod (Negative) 08/13/19 00:44 Urine WBC (Auto) > 182.0 /HPF (0.0-6.0) H 08/13/19 00:44 Urine RBC (Auto) 86.0 /HPF (0.0-6.0) 08/13/19 00:44 U Epithel Cells (Auto) 8.0 /HPF (0-13.0) 08/13/19 00:44 Urine Bacteria (Auto) 4+ /HPF (Negative) 08/13/19 00:44 Urine WBC Clumps 3+ /HPF 08/13/19 00:44 Urine Mucus 2+ /HPF 08/13/19 00:44 Urine Eosinophils None seen (None Seen) 08/13/19 00:44 Urine Creatinine 174.0 mg/dL (0.1-20.0) H 08/13/19 00:44 Urine Creatinine 175.4 mg/dL (0.1-20.0) H 08/13/19 00:44 Protein/Creatinin Ratio 0.30 08/13/19 00:44 Urine Sodium 66 mmol/L 08/13/19 00:44 Urine Urea Nitrogen 158 08/13/19 00:44 Urine Total Protein 53 mg/dL (5-11.8) H 08/13/19 00:44 PAYTON Screen Negative (Negative) 08/12/19 20:39 Proteinase 3 (PR3) Ab <1.0 AI (<1.0) 08/12/19 20:39 Myeloperoxidase Ab <1.0 AI (<1.0) 08/12/19 20:39 Complement C3 63 mg/dL (82-185) L 08/12/19 20:39 Complement C4 20 mg/dL (15-53) 08/12/19 20:39 Hep Bs Antigen Non-reactive (Negative) 08/12/19 20:39 Hepatitis C Antibody Non-reactive (NonReactive) 08/12/19 20:39 HIV-1 Antibody See scanned result 08/12/19 Unknown HIV-2 Ab (Immunoblot) See scanned result 08/12/19 Unknown Schistocytes Smear None seen 08/12/19 20:39 Microbiology: Microbiology 08/12/19 18:39 Peripheral/Venous Blood Culture - Preliminary NO GROWTH AFTER 72 HOURS 08/12/19 18:39 Peripheral/Venous Blood Culture - Preliminary NO GROWTH AFTER 72 HOURS 08/13/19 07:55 Nares - Left MRSA Culture - Final 08/13/19 00:44 Urine,Catheterized - Straight Catheter Urine Culture - Final Escherichia Coli - Diagnostic Impressions Diagnostic Impressions: Echocardiogram 08/12/19 23:05 Transthoracic Echocardiogram Indication: Abnormal cardiac enzymes BP: 142/82 HR: 73 Conclusions *4-chamber dilated cardiomyopathy. *Global left ventricular systolic function is severely decreased. *The estimated ejection fraction is 25%. *Mild to moderate concentric left ventricular hypertrophy is observed. *There is mild mitral regurgitation. *There is mild to moderate tricuspid regurgitation. Findings Left Ventricle: The left ventricular size is moderate to severely dilated. Mild to moderate concentric left ventricular hypertrophy is observed. Global left ventricular systolic function is severely decreased. The estimated ejection fraction is 20-25%. Left Atrium: The left atrium is moderately dilated. Right Ventricle: The right ventricle is moderately dilated. The right ventricular global systolic function is moderately reduced. Right Atrium: The right atrium is moderately dilated. Aortic Valve: The aortic valve leaflets are moderately thickened. There is no evidence of aortic regurgitation. There is no evidence of aortic stenosis. Mitral Valve: The mitral valve leaflets are mildly thickened. There is mild mitral regurgitation. There is no evidence of mitral stenosis. Tricuspid Valve: There is mild to moderate tricuspid regurgitation. There is evidence of borderline pulmonary hypertension. Pulmonic Valve: There is trace pulmonic regurgitation. Pericardium: There is a minimial pericardial effusion. Aorta: There is no dilatation of the aortic root. Venous: The venous system is not well visualized. Measurements Chambers 2D Name Value Normal Range IVSd (2D) 1.34 cm (0.6 - 1.1) LVPWd (2D) 1.38 cm (0.6 - 1.1) LVIDd (2D) 4.57 cm (3.7 - 5.6) LVIDs (2D) 3.4 cm (2 - 3.8) LV FS (2D) 25.68 % - EF Teichholz (2D) 50.63 % - Ao root diameter (2D) 3.25 cm (2 - 3.7) Volumes/Mass Name Value Normal Range LA ESV SP 4CH (A/L) 49.47 ml - LA ESV SP 2CH (A/L) 55.91 ml - LA ESV BP (A/L) 55.17 ml - LA ESV BP (A/L) index 23.28 ml/m2 - LA ESV SP 4CH (MOD) 45.79 ml - LA ESV SP 2CH (MOD) 54.19 ml - LA ESV BP (MOD) 51.8 ml - LA ESV BP (MOD) index 21.86 ml/m2 - Diastolic/Systolic Function Name Value Normal Range MV E-wave Vmax 0.69 m/sec - MV deceleration time 179.05 msec - MV A-wave Vmax 0.47 m/sec - MV E:A ratio 1.49 ratio - Aortic Valve Name Value Normal Range AV Vmax 1.32 m/sec - AV VTI 21.23 cm - AV peak gradient 7.01 mmHg - AV mean gradient 3.99 mmHg - LVOT diameter 2.29 cm - LVOT Vmax 0.87 m/sec - LVOT VTI 13.08 cm - LVOT peak gradient 3.05 mmHg - LVOT mean gradient 1.53 mmHg - SV LVOT 53.73 ml - ESTRADA (continuity Vmax) 2.71 cm2 - ESTRADA (continuity VTI) 2.53 cm2 - Tricuspid Valve Name Value Normal Range TR Vmax 2.38 m/sec - TR peak gradient 23 mmHg - RAP 3 mmHg - RVSP 26 mmHg - Pulmonic Valve/Qp:Qs Name Value Normal Range PV acceleration time 95.15 msec - Jeffrey/IV: Voiding Method Indwelling Catheter IV Catheter Type [Right Chest] VAS Cath IV Catheter Type [Left Hand] INT / Saline Lock IV Catheter Type [Right Hand] INT / Saline Lock Active Medications - Current Medications Current Medications: Generic Name Dose Route Start Last Admin Trade Name Freq PRN Reason Stop Dose Admin Acetaminophen 650 mg 08/12/19 23:02 Tylenol PO Q4H PRN Pain MILD(1-3)/Fever >100.5/REYNA Carvedilol 3.125 mg 08/14/19 22:00 08/16/19 10:20 Coreg PO 3.125 mg BID WALT Administration Dextrose 0 ml 08/12/19 23:02 08/13/19 02:30 D50w (25gm) Syringe IV 50 ml Q30MIN PRN Administration Hypoglycemia Protocol Hydralazine HCl 25 mg 08/14/19 22:00 08/16/19 10:20 Apresoline PO 25 mg BID WALT Administration Sodium Chloride 100 mls @ 999 mls/hr 08/15/19 08:30 Nacl 0.9% IV LINDSAY PRN Hypotension Ertapenem 500 gm/ Sodium 50 mls @ 100 mls/hr 08/15/19 10:00 08/16/19 10:26 Chloride IV 100 mls/hr QDAY WALT Administration Sodium Chloride 100 mls @ 999 mls/hr 08/16/19 11:11 Nacl 0.9% IV LINDSAY PRN Hypotension Insulin Human Lispro 0 unit 08/13/19 07:30 08/16/19 10:27 Humalog SUB-Q Not Given ACHS WALT Protocol Ondansetron HCl 4 mg 08/12/19 23:02 Zofran IV Q8H PRN Nausea And Vomiting Oxycodone/Acetaminophen 1 tab 08/12/19 23:02 08/16/19 04:23 Percocet 5/325 PO 1 tab Q6H PRN Administration Pain, Moderate (4-6) Sodium Chloride 10 ml 08/13/19 10:00 08/16/19 10:20 Sodium Chloride Flush Syringe 10 Ml IV 10 ml BID WALT Administration Sodium Chloride 10 ml 08/12/19 23:02 Sodium Chloride Flush Syringe 10 Ml IV PRN PRN LINE FLUSH
--- NOTE | 2019-08-16 14:52 | Progress Note ---
Assessment and Plan Acute on chronic systolic heart failure echo this admission shows a 4-chamber dilated cardiomyopathy with LVEF 20- 25%. Paroxysmal afib pt reverted to sinus rhythm spontaneously on carvedilol Volume overload Renal failure -initiated on dialysis Hyperkalemia Elevated transaminitis Bilateral AKA Continue medical therapy for chronic systolic heart failure and paroxysmal atrial fibrillation as tolerated. Start systemic anticaogulation once invasive procedures completed Subjective Date of service: 08/16/19 Principal diagnosis: Abnormal Liver Enzymes Interval history: No acute events Objective Vital Signs Temp Pulse Resp BP Pulse Ox 08/16/19 10:00 55 L 18 94 08/16/19 03:42 98.0 F 65 18 164/89 98 08/15/19 23:36 98.0 F 59 L 20 176/83 96 08/15/19 22:00 68 96 08/15/19 21:46 70 175/84 08/15/19 21:16 98 08/15/19 19:28 98.0 F 60 18 175/84 99 08/15/19 17:25 97.4 F L 75 20 156/84 08/15/19 17:16 66 151/74 08/15/19 17:00 70 165/81 08/15/19 16:15 55 L 133/58 08/15/19 16:00 57 L 123/66 08/15/19 15:45 35 L 133/51 08/15/19 15:36 59 L 123/67 08/15/19 15:16 59 L 149/62 08/15/19 15:00 58 L 128/63 - Physical Examination General: No Apparent Distress HEENT: Positive: PERRL Neck: Positive: trachea midline Cardiac: Positive: Reg Rate and Rhythm Lungs: Positive: clear to auscultation Abdomen: Positive: Soft, Active Bowel Sounds Extremities: Present: Other (bilateral AKA) - Labs and Meds Cardiac Enzymes 08/15/19 Range/Units 23:33 AST 200 H (5-40) units/L CBC 08/16/19 Range/Units 07:58 WBC 9.5 (4.5-11.0) K/mm3 RBC 4.05 (3.65-5.03) M/mm3 Hgb 10.9 L (11.8-15.2) gm/dl Hct 35.6 (35.5-45.6) % Plt Count 118 L (140-440) K/mm3 Lymph # 0.8 L (1.2-5.4) K/mm3 [place] # 0.9 H (0.0-0.8) K/mm3 Eos # 0.2 (0.0-0.4) K/mm3 Baso # 0.1 (0.0-0.1) K/mm3 Comprehensive Metabolic Panel 08/15/19 08/16/19 Range/Units 23:33 07:58 Sodium 138 132 L (137-145) mmol/L Potassium 3.8 D 3.6 (3.6-5.0) mmol/L Chloride 95.5 L 93.8 L (98-107) mmol/L Carbon Dioxide 27 D 20 L D (22-30) mmol/L BUN 46 H 47 H (9-20) mg/dL Creatinine 5.9 H 6.1 H (0.8-1.5) mg/dL Glucose 101 H 104 H (75-100) mg/dL Calcium 7.5 L 7.3 L (8.4-10.2) mg/dL AST 200 H (5-40) units/L ALT 562 H (7-56) units/L Alkaline Phosphatase 154 H (35-129) units/L Total Protein 6.7 (6.3-8.2) g/dL Albumin 2.7 L (3.9-5) g/dL
[2019-08-17 01:03] LABS: Albumin 2.6 g/dL (3.9-5); Calcium 7.6 mg/dL (8.4-10.2)
[2019-08-17 04:24] LABS: Albumin 2.7 g/dL (3.8-4.8); Gamma Globulin 1.4 g/dL (0.8-1.7)
[2019-08-17 06:38] LABS: Basophils # (Auto) 0.1 K/mm3 (0.0-0.1); Basophils % (Auto) 0.9 % (0.0-1.8); Eosinophils # (Auto) 0.4 K/mm3 (0.0-0.4); Eosinophils % (Auto) 4.5 % (0.0-4.3); Lymphocytes # (Auto) 1.4 K/mm3 (1.2-5.4); Lymphocytes % (Auto) 15.2 % (13.4-35.0); Mean Corpuscular HGB Conc 30 % (32-34); Mean Corpuscular Volume 87 fl (84-94); Monocytes # (Auto) 1.3 K/mm3 (0.0-0.8); Monocytes % (Auto) 13.8 % (0.0-7.3); Platelet Count 123 K/mm3 (140-440); Red Blood Count 4.12 M/mm3 (3.65-5.03); Red Cell Distribution Width 18.7 % (13.2-15.2)
[2019-08-17 06:42] LABS: Hematocrit 35.8 % (35.5-45.6); Hemoglobin 10.9 gm/dl (11.8-15.2)
[2019-08-17 07:02] LABS: Calcium 7.6 mg/dL (8.4-10.2)
[2019-08-17] MEDS: INSULIN LISPRO 100 UNIT/ML SUB-Q SCH ×4 (08:12→22:42)
[2019-08-17] MEDS: hydrALAZINE 25 MG TAB PO SCH ×2 (09:36→21:15)
[2019-08-17] MEDS: oxyCODONE /ACETAMINOPHEN 5-325MG TAB PO PRN ×2 (09:36→15:37)
[2019-08-17] MEDS: carvediloL 3.125 MG TAB PO SCH ×2 (09:36→21:14)
[2019-08-17] MEDS: ERTAPENEM 500 GM in SODIUM CHLORIDE 0.9% 50 ML IV SCH (09:36)
[2019-08-17] MEDS ORDERED: SODIUM CHLORIDE 0.9% 50 ML IVPB ONE (10:00)
[2019-08-17] MEDS ORDERED: ERTAPENEM 1 GM ONE (10:00)
--- NOTE | 2019-08-17 11:17 | Progress Note ---
Assessment and Plan Acute on chronic systolic heart failure echo this admission shows a 4-chamber dilated cardiomyopathy with LVEF 20- 25%. Paroxysmal afib pt reverted to sinus rhythm spontaneously on carvedilol Volume overload Renal failure -initiated on dialysis Hyperkalemia Elevated transaminitis Bilateral AKA Continue medical therapy for chronic systolic heart failure and paroxysmal atrial fibrillation as tolerated. Start systemic anticaogulation once invasive procedures completed Subjective Date of service: 08/17/19 Principal diagnosis: Abnormal Liver Enzymes Interval history: No acute events Objective Vital Signs Temp Pulse Pulse Pulse Resp BP BP 08/17/19 08:21 98.4 F 55 L 18 143/68 08/17/19 05:49 66 08/17/19 04:33 55 L 08/17/19 03:21 98.0 F 54 L 18 154/70 08/16/19 23:41 98.0 F 64 18 166/73 08/16/19 22:05 72 148/57 08/16/19 22:00 72 72 18 08/16/19 21:56 98.2 F 72 20 148/57 08/16/19 21:54 72 20 148/57 08/16/19 21:40 98.2 F 77 20 150/75 08/16/19 21:15 70 127/73 08/16/19 21:00 68 140/70 08/16/19 20:45 61 134/64 08/16/19 20:30 67 128/62 08/16/19 20:15 65 126/67 08/16/19 20:00 61 135/63 08/16/19 19:50 70 08/16/19 19:45 68 135/77 08/16/19 19:30 64 126/70 08/16/19 19:15 66 136/62 08/16/19 19:00 70 128/58 08/16/19 18:45 57 L 134/71 08/16/19 18:30 58 L 149/72 08/16/19 18:25 97.7 F 71 16 141/82 08/16/19 12:55 97.7 F 52 L 20 148/81 Pulse Ox 08/17/19 08:21 08/17/19 05:49 08/17/19 04:33 08/17/19 03:21 99 08/16/19 23:41 92 08/16/19 22:05 08/16/19 22:00 95 08/16/19 21:56 08/16/19 21:54 95 08/16/19 21:40 08/16/19 21:15 08/16/19 21:00 08/16/19 20:45 08/16/19 20:30 08/16/19 20:15 08/16/19 20:00 08/16/19 19:50 08/16/19 19:45 08/16/19 19:30 08/16/19 19:15 08/16/19 19:00 08/16/19 18:45 08/16/19 18:30 08/16/19 18:25 08/16/19 12:55 91 - Physical Examination General: No Apparent Distress HEENT: Positive: PERRL Neck: Positive: trachea midline Cardiac: Positive: Reg Rate and Rhythm Abdomen: Positive: Soft, Active Bowel Sounds Extremities: Present: Other (bilateral AKA). Absent: edema - Labs and Meds Cardiac Enzymes 08/17/19 Range/Units 00:15 AST 83 H (5-40) units/L CBC 08/17/19 Range/Units 06:15 WBC 9.3 (4.5-11.0) K/mm3 RBC 4.12 (3.65-5.03) M/mm3 Hgb 10.9 L (11.8-15.2) gm/dl Hct 35.8 (35.5-45.6) % Plt Count 123 L (140-440) K/mm3 Lymph # 1.4 (1.2-5.4) K/mm3 [place] # 1.3 H (0.0-0.8) K/mm3 Eos # 0.4 (0.0-0.4) K/mm3 Baso # 0.1 (0.0-0.1) K/mm3 Comprehensive Metabolic Panel 08/13/19 08/17/19 08/17/19 Range/Units 20:19 00:15 06:15 Sodium 136 L 135 L (137-145) mmol/L Potassium 3.4 L 3.6 (3.6-5.0) mmol/L Chloride 95.3 L 96.3 L (98-107) mmol/L Carbon Dioxide 26 22 (22-30) mmol/L BUN 30 H 31 H (9-20) mg/dL Creatinine 4.5 H 4.9 H (0.8-1.5) mg/dL Glucose 82 87 (75-100) mg/dL Calcium 7.6 L 7.6 L (8.4-10.2) mg/dL AST 83 H (5-40) units/L ALT 385 H (7-56) units/L Alkaline Phosphatase 124 (35-129) units/L Total Protein 6.3 (6.3-8.2) g/dL Albumin 2.7 L 2.6 L (3.8-4.8) g/dL
--- NOTE | 2019-08-17 11:40 | Progress Note ---
Assessment and Plan Acute Renal Failure secondary to prerenal vs ATN in setting of diuretics and Cystitis, on possible CKD: Hyperkalemia: Metabolic Acidosis: -s/p HD yesterday. No HD today, Eval for need daily. -s/p Permcath Sunday. -Renal labs in 02/2018 showed serum creatinine of 0.8-1.0 -Ct scan and renal US reviewed-No Hydronephrosis -Urine lytes reviewed, no urine eosinophils but has active urine sediments-GN/Vasculitis work-up ordered, so far negative except for low C3, ANCA and anti GBM are pending -So far Hepatitis- negative. No Schistocytes seen. -Will hold Aspirin as may consider renal biopsy but due to multiple commodities and obesity, may not be a candidate for renal biopsy. -Avoid nephrotoxic agents -Strict I/O's monitoring -Continue to monitor renal function closely -case management for outpatient dialysis placement Cystitis: -On IV Rocephin -As per primary Acute hypoxic respiratory failure due to pulmonary edema: -S/p Lasix -UF with HD Diabetes Mellitus: -As per primary Hypertension: -Controlled Adrian Perez MD [phone] Subjective Date of service: 08/17/19 Principal diagnosis: Abnormal Liver Enzymes Interval history: Tolerated HD yesterday. Objective - Exam Narrative Exam: General appearance: well-developed, well-nourished EENT: ATNC, PERRL Neck: no JVD, no carotid bruit Respiratory: Present: Decreased Breath Sounds Cardiology: regular, S1S2 Gastrointestinal: normoactive bowel sounds, no tenderness, no distended Integumentary: no rash, warm and dry Neurologic: other (follows simple commands) Musculoskeletal: other (edema in BLE) Psychiatric: other (drowsy) - Vital Signs Vital signs: Vital Signs - 12hr 08/16/19 08/17/19 08/17/19 23:41 03:21 04:33 Temperature 98.0 F 98.0 F Pulse Rate 64 54 L 55 L Respiratory 18 18 Rate Blood Pressure 166/73 154/70 Blood Pressure [Left] O2 Sat by Pulse 92 99 Oximetry 08/17/19 08/17/19 05:49 08:21 Temperature 98.4 F Pulse Rate 66 55 L Respiratory 18 Rate Blood Pressure Blood Pressure 143/68 [Left] O2 Sat by Pulse Oximetry - Lab 08/17/19 06:15 08/17/19 06:15 Most recent lab results Calcium 7.6 mg/dL (8.4-10.2) L 08/17/19 06:15 Phosphorus 4.40 mg/dL (2.5-4.5) 08/17/19 06:15 Magnesium 2.00 mg/dL (1.7-2.3) 08/15/19 07:49 Urine Creatinine 174.0 mg/dL (0.1-20.0) H 08/13/19 00:44 Urine Creatinine 175.4 mg/dL (0.1-20.0) H 08/13/19 00:44 Urine Sodium 66 mmol/L 08/13/19 00:44 Urine Total Protein 53 mg/dL (5-11.8) H 08/13/19 00:44 Medications & Allergies - Medications Allergies/Adverse Reactions: Allergies No Known Allergies Allergy (Unverified 08/12/19 17:31) Home Medications: Home Medications Medication Instructions Recorded Confirmed Last Taken Type Folic Acid [Folvite] 1 mg PO QDAY 02/22/18 08/13/19 Unknown History Gabapentin [Neurontin] 100 mg PO TID 02/22/18 08/13/19 Unknown History Multivitamin [Multiple Vitamins] 1 tab PO DAILY 02/22/18 08/13/19 Unknown History Sennosides [Senna] 25.8 mg PO BID 02/22/18 08/13/19 Unknown History Thiamine [Vitamin B-1] 100 mg PO QDAY 02/22/18 08/13/19 Unknown History Torsemide [Demadex] 20 mg PO DAILY 02/22/18 08/13/19 Unknown History allopurinoL [Allopurinol] 100 mg PO DAILY 02/22/18 08/13/19 Unknown History fentaNYL [Fentanyl] 1 each TD Q3D 02/22/18 08/13/19 Unknown History oxyCODONE /ACETAMINOPHEN [Percocet 1 tab PO Q6HR PRN #10 tablet 03/01/18 08/13/19 Unknown Rx 5/325] Aspirin EC [Halfprin EC] 81 mg PO QDAY 08/13/19 08/13/19 Unknown History AtorvaSTATin [Lipitor] 20 mg PO QHS 08/13/19 08/13/19 Unknown History Mirtazapine 7.5 mg PO QDAY 08/13/19 08/13/19 Unknown History NIFEdipine [Nifedipine ER] 30 mg PO QDAY 08/13/19 08/13/19 Unknown History Active Medications: Generic Name Dose Route Start Last Admin Trade Name Freq PRN Reason Stop Dose Admin Acetaminophen 650 mg 08/12/19 23:02 Tylenol PO Q4H PRN Pain MILD(1-3)/Fever >100.5/REYNA Carvedilol 3.125 mg 08/14/19 22:00 08/17/19 09:36 Coreg PO 3.125 mg BID WALT Administration Dextrose 0 ml 08/12/19 23:02 08/13/19 02:30 D50w (25gm) Syringe IV 50 ml Q30MIN PRN Administration Hypoglycemia Protocol Hydralazine HCl 25 mg 08/14/19 22:00 08/17/19 09:36 Apresoline PO 25 mg BID WALT Administration Sodium Chloride 100 mls @ 999 mls/hr 08/15/19 08:30 Nacl 0.9% IV LINDSAY PRN Hypotension Ertapenem 500 gm/ Sodium 50 mls @ 100 mls/hr 08/15/19 10:00 08/17/19 09:36 Chloride IV 100 mls/hr QDAY WALT Administration Sodium Chloride 100 mls @ 999 mls/hr 08/16/19 11:11 Nacl 0.9% IV LINDSAY PRN Hypotension Insulin Human Lispro 0 unit 08/13/19 07:30 08/17/19 08:12 Humalog SUB-Q Not Given ACHS WALT Protocol Ondansetron HCl 4 mg 08/12/19 23:02 Zofran IV Q8H PRN Nausea And Vomiting Oxycodone/Acetaminophen 1 tab 08/12/19 23:02 08/17/19 09:36 Percocet 5/325 PO 1 tab Q6H PRN Administration Pain, Moderate (4-6) Sodium Chloride 10 ml 08/13/19 10:00 08/17/19 09:36 Sodium Chloride Flush Syringe 10 Ml IV 10 ml BID WALT Administration Sodium Chloride 10 ml 08/12/19 23:02 Sodium Chloride Flush Syringe 10 Ml IV PRN PRN LINE FLUSH
--- NOTE | 2019-08-17 14:06 | Progress Note ---
Assessment and Plan Assessment and plan: Patient is a 59 yo man from [facility] with history of PVD s/p bilateral AKA, hypertension, DM type 2, dyslipidemia, CVA, Afib on Eliquis, GERD, anemia, Tobacco dependency and Gout who presented to [facility] ED with SOB and hypoxia, reported O2 sat in the 60s, placed on 100% NRB and right hand twitching * pCXR IMPRESSION: Moderate cardiomegaly. Bilateral pulmonary opacities likely reflect pulmonary edema, consolidation and/or atelectasis, singly or in combination. Small right pleural effusion. * CT abd/pelvis without contrast IMPRESSION: 1. No acute finding within limitations imposed by noncontrast technique. 2. Possible biliary sludge and/or cholelithiasis. No evidence to suggest acute cholecystitis otherwise. 3. Indeterminate hypoattenuating lesions in both kidneys. This could be further evaluated with contrast-enhanced CT or MR on a nonemergent basis. 4. Mild cardiomegaly. 5. Small pleural effusions. * Renal Ultrasound bilateral IMPRESSION: 1. Moderately thickened, mildly distended urinary bladder which could represent cystitis. 2. Nonvisualization of the kidneys on the current study. There was no hydronephrosis on the CT earlier in the day. * WBC 11.9, now 12.7, k was 6.5, Cr 8.4, troponin 0.284, elevated AST 1030, ALT 1082, normal AP and bilirubin total, proBNP >35,000, UA +wbc+LE ARF, vasomotor nephrolopathy, Suspected new onset of ESRD: HD Acute hypoxic respiratory failure on Vmask 50%: try to wean off, needs diuresing Hyperkalemia: Nephrology consulted Metabolic Acidosis: treat the ARF UTI: treat with abx Hypoxia at the [place], suspected Acute hypoxic respiratory failure due to pulmonary edema from new onset CHF: treat with diuretics if kidney function steady, may need ultrafiltration Transaminiitis, ?congestive vs GB vs other: consult GI, hold statin Elevated troponin, related to ARF: monitor closely, order ECHO and reviewed Acute systolic heart failure: see ECHO, Cardiology following DVT ppx Eliquis A/C use for suspected h/o Afib Right hand shaking, etiology unclear: monitor closely h/o Bilateral AKA DM type 2; use ssi, accucheck, ada diet full code 08/14/19: Hemodialysis started 08/13/19. Urine culture growing GNR await finalization, ECHO reviewed EF only 25%, 08/15/19: Urine growing ESBL, do contact precautions, change iv rocephin to iv Ertrapem and consulted ID 08/16/19: await outpatient HD set up 08/17/19: Midline today, continue to monitor Iv ABX, Await HD setup History Interval history: Patient was seen and examined. Follow-up on current diagnosis. Overnight uneventful as no events directly reported to me. Patient denies any chest pain, shortness breath, nausea/vomiting or severe headaches. Imaging, nursing note, chart, labs and old chart reviewed. Discussed with patient. Hospitalist Physical - Physical exam Narrative exam: Gen: WDWN, NAD, Awake, Alert, Orientated HEENT: NCAT, EOMI, PERRL, OP Clear Neck: supple, no adenopathy, no thyromegaly, = JVD CVS/Heart: irregular irregular normal S1S2, pulses present bilaterally Chest/Lungs: diminished bs bilaterally, Symmetrical chest expansion, good air entry bilaterally GI/Abdomen: soft, NTND, good bowel sounds, no guarding or rebound /Bladder: no suprapubic tenderness, no CVA or paraspinal tenderness Extermity/Skin: no c/c/e, no obvious rash MSK: bilateral AKA Neuro: CN 2-12 grossly intact, no new focal deficits Psych: calm - Constitutional Vitals: Temp Pulse Resp BP Pulse Ox 98.3 F 62 16 175/95 97 08/17/19 12:22 08/17/19 12:22 08/17/19 12:22 08/17/19 12:22 08/17/19 12:22 General appearance: Present: no acute distress Results - Labs CBC & Chem 7: 08/17/19 06:15 08/17/19 06:15 Labs: Laboratory Last Values WBC 9.3 K/mm3 (4.5-11.0) 08/17/19 06:15 RBC 4.12 M/mm3 (3.65-5.03) 08/17/19 06:15 Hgb 10.9 gm/dl (11.8-15.2) L 08/17/19 06:15 Hct 35.8 % (35.5-45.6) 08/17/19 06:15 MCV 87 fl (84-94) 08/17/19 06:15 MCH 26 pg (28-32) L 08/17/19 06:15 MCHC 30 % (32-34) L 08/17/19 06:15 RDW 18.7 % (13.2-15.2) H 08/17/19 06:15 Plt Count 123 K/mm3 (140-440) L 08/17/19 06:15 Lymph % (Auto) 15.2 % (13.4-35.0) 08/17/19 06:15 [place] % (Auto) 13.8 % (0.0-7.3) H 08/17/19 06:15 Eos % (Auto) 4.5 % (0.0-4.3) H 08/17/19 06:15 Baso % (Auto) 0.9 % (0.0-1.8) 08/17/19 06:15 Lymph # 1.4 K/mm3 (1.2-5.4) 08/17/19 06:15 [place] # 1.3 K/mm3 (0.0-0.8) H 08/17/19 06:15 Eos # 0.4 K/mm3 (0.0-0.4) 08/17/19 06:15 Baso # 0.1 K/mm3 (0.0-0.1) 08/17/19 06:15 Seg Neutrophils % 65.6 % (40.0-70.0) 08/17/19 06:15 Seg Neutrophils # 6.1 K/mm3 (1.8-7.7) 08/17/19 06:15 PT 16.3 Sec. (12.2-14.9) H 08/13/19 20:19 INR 1.29 (0.87-1.13) H 08/13/19 20:19 Sodium 135 mmol/L (137-145) L 08/17/19 06:15 Potassium 3.6 mmol/L (3.6-5.0) 08/17/19 06:15 Chloride 96.3 mmol/L (98-107) L 08/17/19 06:15 Carbon Dioxide 22 mmol/L (22-30) 08/17/19 06:15 Anion Gap 20 mmol/L 08/17/19 06:15 BUN 31 mg/dL (9-20) H 08/17/19 06:15 Creatinine 4.9 mg/dL (0.8-1.5) H 08/17/19 06:15 Estimated GFR 15 ml/min 08/17/19 06:15 BUN/Creatinine Ratio 6 % 08/17/19 06:15 Glucose 87 mg/dL (75-100) 08/17/19 06:15 POC Glucose 91 (70-105) 08/17/19 12:35 Calcium 7.6 mg/dL (8.4-10.2) L 08/17/19 06:15 Phosphorus 4.40 mg/dL (2.5-4.5) 08/17/19 06:15 Magnesium 2.00 mg/dL (1.7-2.3) 08/15/19 07:49 Iron 16 ug/dL (49-181) L 08/13/19 05:27 TIBC 280 mcg/dL (250-450) 08/13/19 05:27 Total Bilirubin 1.10 mg/dL (0.1-1.2) 08/17/19 00:15 Direct Bilirubin 0.6 mg/dL (0-0.2) H 08/13/19 05:27 Indirect Bilirubin 0.2 mg/dL 08/13/19 05:27 AST 83 units/L (5-40) H 08/17/19 00:15 ALT 385 units/L (7-56) H 08/17/19 00:15 Alkaline Phosphatase 124 units/L (35-129) 08/17/19 00:15 Lactate Dehydrogenase 729 units/L (91-180) H 08/12/19 20:39 Total Creatine Kinase 117 units/L (55-170) 08/13/19 05:27 CK-MB (CK-2) 4.3 ng/mL (0.0-4.0) H 08/13/19 05:27 CK-MB (CK-2) Rel Index 3.6 (0-4) 08/13/19 05:27 Troponin T 0.296 ng/mL (0.00-0.029) H* 08/13/19 05:27 NT-Pro-B Natriuret Pep > 17625 pg/mL (0-900) H 08/12/19 18:39 Serum Total Protein 6.6 g/dL (6.1-8.1) 08/13/19 20:19 Total Protein 6.3 g/dL (6.3-8.2) 08/17/19 00:15 Albumin 2.6 g/dL (3.9-5) L 08/17/19 00:15 Albumin/Globulin Ratio 0.7 % 08/17/19 00:15 Sagyx-4-Fdkkmbusm 0.5 g/dL (0.2-0.3) H 08/13/19 20:19 Chlol-9-Ccuyzycah 0.9 g/dL (0.5-0.9) 08/13/19 20:19 Beta Globulins 0.6 g/dL (0.2-0.5) H 08/13/19 20:19 Gamma Globulins 1.4 g/dL (0.8-1.7) 08/13/19 20:19 Abnorm Protein Band 1 see below 08/13/19 20:19 PEP Interpretation see below H 08/13/19 20:19 Triglycerides 141 mg/dL (2-149) 08/12/19 18:39 Cholesterol 105 mg/dL (50-199) 08/12/19 18:39 LDL Cholesterol Direct 37 mg/dL (50-130) L 08/12/19 18:39 HDL Cholesterol 44 mg/dL (40-59) 08/12/19 18:39 Cholesterol/HDL Ratio 2.38 % 08/12/19 18:39 Urine Color Yellow (Yellow) 08/13/19 00:44 Urine Turbidity Turbid (Clear) 08/13/19 00:44 Urine pH 5.0 (5.0-7.0) 08/13/19 00:44 Ur Specific [place] 1.020 (1.003-1.030) 08/13/19 00:44 Urine Protein 100 mg/dl mg/dL (Negative) 08/13/19 00:44 Urine Glucose (UA) Neg mg/dL (Negative) 08/13/19 00:44 Urine Ketones Neg mg/dL (Negative) 08/13/19 00:44 Urine Blood Sm (Negative) 08/13/19 00:44 Urine Nitrite Neg (Negative) 08/13/19 00:44 Urine Bilirubin Neg (Negative) 08/13/19 00:44 Urine Urobilinogen < 2.0 mg/dL (<2.0) 08/13/19 00:44 Ur Leukocyte Esterase Mod (Negative) 08/13/19 00:44 Urine WBC (Auto) > 182.0 /HPF (0.0-6.0) H 08/13/19 00:44 Urine RBC (Auto) 86.0 /HPF (0.0-6.0) 08/13/19 00:44 U Epithel Cells (Auto) 8.0 /HPF (0-13.0) 08/13/19 00:44 Urine Bacteria (Auto) 4+ /HPF (Negative) 08/13/19 00:44 Urine WBC Clumps 3+ /HPF 08/13/19 00:44 Urine Mucus 2+ /HPF 08/13/19 00:44 Urine Eosinophils None seen (None Seen) 08/13/19 00:44 Urine Creatinine 174.0 mg/dL (0.1-20.0) H 08/13/19 00:44 Urine Creatinine 175.4 mg/dL (0.1-20.0) H 08/13/19 00:44 Protein/Creatinin Ratio 0.30 08/13/19 00:44 Urine Sodium 66 mmol/L 08/13/19 00:44 Urine Urea Nitrogen 158 08/13/19 00:44 Urine Total Protein 53 mg/dL (5-11.8) H 08/13/19 00:44 PAYTON Screen Negative (Negative) 08/12/19 20:39 Proteinase 3 (PR3) Ab <1.0 AI (<1.0) 08/12/19 20:39 Myeloperoxidase Ab <1.0 AI (<1.0) 08/12/19 20:39 Complement C3 63 mg/dL (82-185) L 08/12/19 20:39 Complement C4 20 mg/dL (15-53) 08/12/19 20:39 Hep Bs Antigen Non-reactive (Negative) 08/12/19 20:39 Hepatitis C Antibody Non-reactive (NonReactive) 08/12/19 20:39 HIV-1 Antibody See scanned result 08/12/19 Unknown HIV-2 Ab (Immunoblot) See scanned result 08/12/19 Unknown Schistocytes Smear None seen 08/12/19 20:39 Microbiology: Microbiology 08/12/19 18:39 Peripheral/Venous Blood Culture - Preliminary NO GROWTH AFTER 4 DAYS 08/12/19 18:39 Peripheral/Venous Blood Culture - Preliminary NO GROWTH AFTER 4 DAYS - Diagnostic Impressions Diagnostic Impressions: Echocardiogram 08/12/19 23:05 Transthoracic Echocardiogram Indication: Abnormal cardiac enzymes BP: 142/82 HR: 73 Conclusions *4-chamber dilated cardiomyopathy. *Global left ventricular systolic function is severely decreased. *The estimated ejection fraction is 25%. *Mild to moderate concentric left ventricular hypertrophy is observed. *There is mild mitral regurgitation. *There is mild to moderate tricuspid regurgitation. Findings Left Ventricle: The left ventricular size is moderate to severely dilated. Mild to moderate concentric left ventricular hypertrophy is observed. Global left ventricular systolic function is severely decreased. The estimated ejection fraction is 20-25%. Left Atrium: The left atrium is moderately dilated. Right Ventricle: The right ventricle is moderately dilated. The right ventricular global systolic function is moderately reduced. Right Atrium: The right atrium is moderately dilated. Aortic Valve: The aortic valve leaflets are moderately thickened. There is no evidence of aortic regurgitation. There is no evidence of aortic stenosis. Mitral Valve: The mitral valve leaflets are mildly thickened. There is mild mitral regurgitation. There is no evidence of mitral stenosis. Tricuspid Valve: There is mild to moderate tricuspid regurgitation. There is evidence of borderline pulmonary hypertension. Pulmonic Valve: There is trace pulmonic regurgitation. Pericardium: There is a minimial pericardial effusion. Aorta: There is no dilatation of the aortic root. Venous: The venous system is not well visualized. Measurements Chambers 2D Name Value Normal Range IVSd (2D) 1.34 cm (0.6 - 1.1) LVPWd (2D) 1.38 cm (0.6 - 1.1) LVIDd (2D) 4.57 cm (3.7 - 5.6) LVIDs (2D) 3.4 cm (2 - 3.8) LV FS (2D) 25.68 % - EF Teichholz (2D) 50.63 % - Ao root diameter (2D) 3.25 cm (2 - 3.7) Volumes/Mass Name Value Normal Range LA ESV SP 4CH (A/L) 49.47 ml - LA ESV SP 2CH (A/L) 55.91 ml - LA ESV BP (A/L) 55.17 ml - LA ESV BP (A/L) index 23.28 ml/m2 - LA ESV SP 4CH (MOD) 45.79 ml - LA ESV SP 2CH (MOD) 54.19 ml - LA ESV BP (MOD) 51.8 ml - LA ESV BP (MOD) index 21.86 ml/m2 - Diastolic/Systolic Function Name Value Normal Range MV E-wave Vmax 0.69 m/sec - MV deceleration time 179.05 msec - MV A-wave Vmax 0.47 m/sec - MV E:A ratio 1.49 ratio - Aortic Valve Name Value Normal Range AV Vmax 1.32 m/sec - AV VTI 21.23 cm - AV peak gradient 7.01 mmHg - AV mean gradient 3.99 mmHg - LVOT diameter 2.29 cm - LVOT Vmax 0.87 m/sec - LVOT VTI 13.08 cm - LVOT peak gradient 3.05 mmHg - LVOT mean gradient 1.53 mmHg - SV LVOT 53.73 ml - ESTRADA (continuity Vmax) 2.71 cm2 - ESTRADA (continuity VTI) 2.53 cm2 - Tricuspid Valve Name Value Normal Range TR Vmax 2.38 m/sec - TR peak gradient 23 mmHg - RAP 3 mmHg - RVSP 26 mmHg - Pulmonic Valve/Qp:Qs Name Value Normal Range PV acceleration time 95.15 msec - Jeffrey/IV: Voiding Method Incontinent IV Catheter Type [Left Upper Mid-line arm] IV Catheter Type [Right Chest] VAS Cath IV Catheter Type [Left Hand] INT / Saline Lock IV Catheter Type [Right Hand] INT / Saline Lock Active Medications - Current Medications Current Medications: Generic Name Dose Route Start Last Admin Trade Name Cristian PRN Reason Stop Dose Admin Acetaminophen 650 mg 08/12/19 23:02 Tylenol PO Q4H PRN Pain MILD(1-3)/Fever >100.5/REYNA Carvedilol 3.125 mg 08/14/19 22:00 08/17/19 09:36 Coreg PO 3.125 mg BID WALT Administration Dextrose 0 ml 08/12/19 23:02 08/13/19 02:30 D50w (25gm) Syringe IV 50 ml Q30MIN PRN Administration Hypoglycemia Protocol Hydralazine HCl 25 mg 08/14/19 22:00 08/17/19 09:36 Apresoline PO 25 mg BID WALT Administration Sodium Chloride 100 mls @ 999 mls/hr 08/15/19 08:30 Nacl 0.9% IV LINDSAY PRN Hypotension Ertapenem 500 gm/ Sodium 50 mls @ 100 mls/hr 08/15/19 10:00 08/17/19 09:36 Chloride IV 100 mls/hr QDAY WALT Administration Sodium Chloride 100 mls @ 999 mls/hr 08/16/19 11:11 Nacl 0.9% IV LINDSAY PRN Hypotension Insulin Human Lispro 0 unit 08/13/19 07:30 08/17/19 12:46 Humalog SUB-Q Not Given ACHS [facility] Protocol Ondansetron HCl 4 mg 08/12/19 23:02 Zofran IV Q8H PRN Nausea And Vomiting Oxycodone/Acetaminophen 1 tab 08/12/19 23:02 08/17/19 09:36 Percocet 5/325 PO 1 tab Q6H PRN Administration Pain, Moderate (4-6) Sodium Chloride 10 ml 08/13/19 10:00 08/17/19 09:36 Sodium Chloride Flush Syringe 10 Ml IV 10 ml BID WALT Administration Sodium Chloride 10 ml 08/12/19 23:02 Sodium Chloride Flush Syringe 10 Ml IV PRN PRN LINE FLUSH
[2019-08-18 01:28] LABS: Albumin 2.4 g/dL (3.9-5); Calcium 7.5 mg/dL (8.4-10.2)
[2019-08-18] MEDS: oxyCODONE /ACETAMINOPHEN 5-325MG TAB PO PRN ×3 (03:22→22:45)
[2019-08-18 06:26] LABS: Basophils # (Auto) 0.1 K/mm3 (0.0-0.1); Basophils % (Auto) 1.1 % (0.0-1.8); Eosinophils # (Auto) 0.5 K/mm3 (0.0-0.4); Eosinophils % (Auto) 5.8 % (0.0-4.3); Lymphocytes # (Auto) 1.9 K/mm3 (1.2-5.4); Lymphocytes % (Auto) 22.3 % (13.4-35.0); Mean Corpuscular HGB Conc 30 % (32-34); Mean Corpuscular Volume 87 fl (84-94); Monocytes # (Auto) 1.2 K/mm3 (0.0-0.8); Monocytes % (Auto) 13.9 % (0.0-7.3); Platelet Count 132 K/mm3 (140-440); Red Blood Count 4.21 M/mm3 (3.65-5.03); Red Cell Distribution Width 18.8 % (13.2-15.2)
[2019-08-18 06:30] LABS: Hematocrit 36.7 % (35.5-45.6); Hemoglobin 11.2 gm/dl (11.8-15.2)
[2019-08-18 06:49] LABS: Calcium 7.7 mg/dL (8.4-10.2)
[2019-08-18] MEDS: INSULIN LISPRO 100 UNIT/ML SUB-Q SCH ×4 (09:33→22:47)
[2019-08-18] MEDS: hydrALAZINE 25 MG TAB PO SCH ×2 (09:47→22:45)
[2019-08-18] MEDS: carvediloL 3.125 MG TAB PO SCH ×2 (09:48→22:44)
[2019-08-18] MEDS ORDERED: ERTAPENEM 0.5 GM in SODIUM CHLORIDE 0.9% 50 ML IV SCH (10:00)
--- NOTE | 2019-08-18 10:11 | Progress Note ---
Assessment and Plan Acute on chronic systolic heart failure echo this admission shows a 4-chamber dilated cardiomyopathy with LVEF 20- 25%. Paroxysmal afib pt reverted to sinus rhythm spontaneously on carvedilol Volume overload Renal failure -initiated on dialysis Hyperkalemia Elevated transaminitis -trending downwards Bilateral AKA Continue medical therapy for chronic systolic heart failure and paroxysmal atrial fibrillation as tolerated. He was previously on anticoagulation with Eliquis, but stopped for unclear reasons. 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 Subjective Date of service: 08/18/19 Principal diagnosis: Abnormal Liver Enzymes Interval history: Patient is resting in bed comfortably. Sinus rhythm on telemetry. Objective Vital Signs Temp Pulse Resp BP BP Pulse Ox 08/18/19 09:48 64 164/80 08/18/19 09:47 60 164/80 08/18/19 03:33 98.0 F 63 18 187/88 88 08/18/19 00:11 98.0 F 60 20 146/74 100 08/17/19 22:00 60 18 97 08/17/19 21:15 55 L 149/80 08/17/19 21:14 55 L 149/80 08/17/19 19:51 97.4 F L 55 L 20 149/80 98 08/17/19 18:35 97.5 F L 66 16 132/90 91 08/17/19 17:30 97.5 F L 66 16 223/109 91 08/17/19 12:22 98.3 F 62 16 175/95 97 - Physical Examination General: No Apparent Distress HEENT: Positive: PERRL Neck: Positive: trachea midline Cardiac: Positive: Reg Rate and Rhythm Lungs: Positive: Decreased Breath Sounds Extremities: Present: Other (bilateral AKA) - Labs and Meds Cardiac Enzymes 08/18/19 Range/Units 00:52 AST 42 H (5-40) units/L CBC 08/18/19 Range/Units 05:10 WBC 8.5 (4.5-11.0) K/mm3 RBC 4.21 (3.65-5.03) M/mm3 Hgb 11.2 L (11.8-15.2) gm/dl Hct 36.7 (35.5-45.6) % Plt Count 132 L (140-440) K/mm3 Lymph # 1.9 (1.2-5.4) K/mm3 [place] # 1.2 H (0.0-0.8) K/mm3 Eos # 0.5 H (0.0-0.4) K/mm3 Baso # 0.1 (0.0-0.1) K/mm3 Comprehensive Metabolic Panel 08/18/19 08/18/19 Range/Units 00:52 05:10 Sodium 135 L 135 L (137-145) mmol/L Potassium 3.6 3.5 L (3.6-5.0) mmol/L Chloride 95.6 L 94.8 L (98-107) mmol/L Carbon Dioxide 26 22 (22-30) mmol/L BUN 36 H 36 H (9-20) mg/dL Creatinine 5.3 H 5.5 H (0.8-1.5) mg/dL Glucose 87 79 (75-100) mg/dL Calcium 7.5 L 7.7 L (8.4-10.2) mg/dL AST 42 H (5-40) units/L ALT 256 H (7-56) units/L Alkaline Phosphatase 113 (35-129) units/L Total Protein 6.0 L (6.3-8.2) g/dL Albumin 2.4 L (3.9-5) g/dL
--- NOTE | 2019-08-18 12:53 | Progress Note ---
Assessment and Plan Assessment and plan: Patient is a 59 yo man from [facility] with history of PVD s/p bilateral AKA, hypertension, DM type 2, dyslipidemia, CVA, Afib on Eliquis, GERD, anemia, Tobacco dependency and Gout who presented to [facility] ED with SOB and hypoxia, reported O2 sat in the 60s, placed on 100% NRB and right hand twitching * pCXR IMPRESSION: Moderate cardiomegaly. Bilateral pulmonary opacities likely reflect pulmonary edema, consolidation and/or atelectasis, singly or in combination. Small right pleural effusion. * CT abd/pelvis without contrast IMPRESSION: 1. No acute finding within limitations imposed by noncontrast technique. 2. Possible biliary sludge and/or cholelithiasis. No evidence to suggest acute cholecystitis otherwise. 3. Indeterminate hypoattenuating lesions in both kidneys. This could be further evaluated with contrast-enhanced CT or MR on a nonemergent basis. 4. Mild cardiomegaly. 5. Small pleural effusions. * Renal Ultrasound bilateral IMPRESSION: 1. Moderately thickened, mildly distended urinary bladder which could represent cystitis. 2. Nonvisualization of the kidneys on the current study. There was no hydronephrosis on the CT earlier in the day. * WBC 11.9, now 12.7, k was 6.5, Cr 8.4, troponin 0.284, elevated AST 1030, ALT 1082, normal AP and bilirubin total, proBNP >35,000, UA +wbc+LE ARF, vasomotor nephrolopathy, Suspected new onset of ESRD: HD Acute hypoxic respiratory failure on Vmask 50%: try to wean off, needs diuresing Hyperkalemia: Nephrology consulted Metabolic Acidosis: treat the ARF UTI: treat with abx Hypoxia at the MT, suspected Acute hypoxic respiratory failure due to pulmonary edema from new onset CHF: treat with diuretics if kidney function steady, may need ultrafiltration Transaminiitis, ?congestive vs GB vs other: consult GI, hold statin Elevated troponin, related to ARF: monitor closely, order ECHO and reviewed Acute systolic heart failure: see ECHO, Cardiology following DVT ppx Eliquis A/C use for suspected h/o Afib Right hand shaking, etiology unclear: monitor closely h/o Bilateral AKA DM type 2; use ssi, accucheck, ada diet full code 08/14/19: Hemodialysis started 08/13/19. Urine culture growing GNR await finalization, ECHO reviewed EF only 25%, 08/15/19: Urine growing ESBL, do contact precautions, change iv rocephin to iv Ertrapem and consulted ID 08/16/19: await outpatient HD set up 08/17/19: Midline today, continue to monitor Iv ABX, Await HD setup 08/18/19: He removed Midline, will not replace, await Nephrology to designate patient as ESRD for outpatient HD setup History Interval history: Patient was seen and examined. Follow-up on current diagnosis. Overnight uneventful as no events directly reported to me. Patient denies any chest pain, shortness breath, nausea/vomiting or severe headaches. Imaging, nursing note, chart, labs and old chart reviewed. Discussed with patient. Hospitalist Physical - Physical exam Narrative exam: Gen: WDWN, NAD, Awake, Alert, Orientated HEENT: NCAT, EOMI, PERRL, OP Clear Neck: supple, no adenopathy, no thyromegaly, = JVD CVS/Heart: irregular irregular normal S1S2, pulses present bilaterally Chest/Lungs: diminished bs bilaterally, Symmetrical chest expansion, good air entry bilaterally GI/Abdomen: soft, NTND, good bowel sounds, no guarding or rebound /Bladder: no suprapubic tenderness, no CVA or paraspinal tenderness Extermity/Skin: no c/c/e, no obvious rash MSK: bilateral AKA Neuro: CN 2-12 grossly intact, no new focal deficits Psych: calm - Constitutional Vitals: Temp Pulse Resp BP Pulse Ox 98.0 F 64 18 164/80 90 08/18/19 09:03 08/18/19 09:48 08/18/19 09:03 08/18/19 09:48 08/18/19 09:03 General appearance: Present: no acute distress Results - Labs CBC & Chem 7: 08/18/19 05:10 08/18/19 05:10 Labs: Laboratory Last Values WBC 8.5 K/mm3 (4.5-11.0) 08/18/19 05:10 RBC 4.21 M/mm3 (3.65-5.03) 08/18/19 05:10 Hgb 11.2 gm/dl (11.8-15.2) L 08/18/19 05:10 Hct 36.7 % (35.5-45.6) 08/18/19 05:10 MCV 87 fl (84-94) 08/18/19 05:10 MCH 27 pg (28-32) L 08/18/19 05:10 MCHC 30 % (32-34) L 08/18/19 05:10 RDW 18.8 % (13.2-15.2) H 08/18/19 05:10 Plt Count 132 K/mm3 (140-440) L 08/18/19 05:10 Lymph % (Auto) 22.3 % (13.4-35.0) 08/18/19 05:10 Sherman % (Auto) 13.9 % (0.0-7.3) H 08/18/19 05:10 Eos % (Auto) 5.8 % (0.0-4.3) H 08/18/19 05:10 Baso % (Auto) 1.1 % (0.0-1.8) 08/18/19 05:10 Lymph # 1.9 K/mm3 (1.2-5.4) 08/18/19 05:10 Sherman # 1.2 K/mm3 (0.0-0.8) H 08/18/19 05:10 Eos # 0.5 K/mm3 (0.0-0.4) H 08/18/19 05:10 Baso # 0.1 K/mm3 (0.0-0.1) 08/18/19 05:10 Seg Neutrophils % 56.9 % (40.0-70.0) 08/18/19 05:10 Seg Neutrophils # 4.9 K/mm3 (1.8-7.7) 08/18/19 05:10 PT 16.3 Sec. (12.2-14.9) H 08/13/19 20:19 INR 1.29 (0.87-1.13) H 08/13/19 20:19 Sodium 135 mmol/L (137-145) L 08/18/19 05:10 Potassium 3.5 mmol/L (3.6-5.0) L 08/18/19 05:10 Chloride 94.8 mmol/L (98-107) L 08/18/19 05:10 Carbon Dioxide 22 mmol/L (22-30) 08/18/19 05:10 Anion Gap 22 mmol/L 08/18/19 05:10 BUN 36 mg/dL (9-20) H 08/18/19 05:10 Creatinine 5.5 mg/dL (0.8-1.5) H 08/18/19 05:10 Estimated GFR 13 ml/min 08/18/19 05:10 BUN/Creatinine Ratio 7 % 08/18/19 05:10 Glucose 79 mg/dL (75-100) 08/18/19 05:10 POC Glucose 89 (70-105) 08/18/19 11:55 Calcium 7.7 mg/dL (8.4-10.2) L 08/18/19 05:10 Phosphorus 5.20 mg/dL (2.5-4.5) H 08/18/19 05:10 Magnesium 2.00 mg/dL (1.7-2.3) 08/15/19 07:49 Iron 16 ug/dL (49-181) L 08/13/19 05:27 TIBC 280 mcg/dL (250-450) 08/13/19 05:27 Total Bilirubin 0.80 mg/dL (0.1-1.2) 08/18/19 00:52 Direct Bilirubin 0.6 mg/dL (0-0.2) H 08/13/19 05:27 Indirect Bilirubin 0.2 mg/dL 08/13/19 05:27 AST 42 units/L (5-40) H 08/18/19 00:52 ALT 256 units/L (7-56) H 08/18/19 00:52 Alkaline Phosphatase 113 units/L (35-129) 08/18/19 00:52 Lactate Dehydrogenase 729 units/L (91-180) H 08/12/19 20:39 Total Creatine Kinase 117 units/L (55-170) 08/13/19 05:27 CK-MB (CK-2) 4.3 ng/mL (0.0-4.0) H 08/13/19 05:27 CK-MB (CK-2) Rel Index 3.6 (0-4) 08/13/19 05:27 Troponin T 0.296 ng/mL (0.00-0.029) H* 08/13/19 05:27 NT-Pro-B Natriuret Pep > 89820 pg/mL (0-900) H 08/12/19 18:39 Serum Total Protein 6.6 g/dL (6.1-8.1) 08/13/19 20:19 Total Protein 6.0 g/dL (6.3-8.2) L 08/18/19 00:52 Albumin 2.4 g/dL (3.9-5) L 08/18/19 00:52 Albumin/Globulin Ratio 0.7 % 08/18/19 00:52 Tjhlg-4-Twxoruktt 0.5 g/dL (0.2-0.3) H 08/13/19 20:19 Xrytg-3-Jdfnrpglu 0.9 g/dL (0.5-0.9) 08/13/19 20:19 Beta Globulins 0.6 g/dL (0.2-0.5) H 08/13/19 20:19 Gamma Globulins 1.4 g/dL (0.8-1.7) 08/13/19 20:19 Abnorm Protein Band 1 see below 08/13/19 20:19 PEP Interpretation see below H 08/13/19 20:19 Triglycerides 141 mg/dL (2-149) 08/12/19 18:39 Cholesterol 105 mg/dL (50-199) 08/12/19 18:39 LDL Cholesterol Direct 37 mg/dL (50-130) L 08/12/19 18:39 HDL Cholesterol 44 mg/dL (40-59) 08/12/19 18:39 Cholesterol/HDL Ratio 2.38 % 08/12/19 18:39 Urine Color Yellow (Yellow) 08/13/19 00:44 Urine Turbidity Turbid (Clear) 08/13/19 00:44 Urine pH 5.0 (5.0-7.0) 08/13/19 00:44 Ur Specific Flint 1.020 (1.003-1.030) 08/13/19 00:44 Urine Protein 100 mg/dl mg/dL (Negative) 08/13/19 00:44 Urine Glucose (UA) Neg mg/dL (Negative) 08/13/19 00:44 Urine Ketones Neg mg/dL (Negative) 08/13/19 00:44 Urine Blood Sm (Negative) 08/13/19 00:44 Urine Nitrite Neg (Negative) 08/13/19 00:44 Urine Bilirubin Neg (Negative) 08/13/19 00:44 Urine Urobilinogen < 2.0 mg/dL (<2.0) 08/13/19 00:44 Ur Leukocyte Esterase Mod (Negative) 08/13/19 00:44 Urine WBC (Auto) > 182.0 /HPF (0.0-6.0) H 08/13/19 00:44 Urine RBC (Auto) 86.0 /HPF (0.0-6.0) 08/13/19 00:44 U Epithel Cells (Auto) 8.0 /HPF (0-13.0) 08/13/19 00:44 Urine Bacteria (Auto) 4+ /HPF (Negative) 08/13/19 00:44 Urine WBC Clumps 3+ /HPF 08/13/19 00:44 Urine Mucus 2+ /HPF 08/13/19 00:44 Urine Eosinophils None seen (None Seen) 08/13/19 00:44 Urine Creatinine 174.0 mg/dL (0.1-20.0) H 08/13/19 00:44 Urine Creatinine 175.4 mg/dL (0.1-20.0) H 08/13/19 00:44 Protein/Creatinin Ratio 0.30 08/13/19 00:44 Urine Sodium 66 mmol/L 08/13/19 00:44 Urine Urea Nitrogen 158 08/13/19 00:44 Urine Total Protein 53 mg/dL (5-11.8) H 08/13/19 00:44 PAYTON Screen Negative (Negative) 08/12/19 20:39 Proteinase 3 (PR3) Ab <1.0 AI (<1.0) 08/12/19 20:39 Myeloperoxidase Ab <1.0 AI (<1.0) 08/12/19 20:39 Complement C3 63 mg/dL (82-185) L 08/12/19 20:39 Complement C4 20 mg/dL (15-53) 08/12/19 20:39 Hep Bs Antigen Non-reactive (Negative) 08/12/19 20:39 Hepatitis C Antibody Non-reactive (NonReactive) 08/12/19 20:39 HIV-1 Antibody See scanned result 08/12/19 Unknown HIV-2 Ab (Immunoblot) See scanned result 08/12/19 Unknown Schistocytes Smear None seen 08/12/19 20:39 Microbiology: Microbiology 08/12/19 18:39 Peripheral/Venous Blood Culture - Final NO GROWTH AFTER 5 DAYS 08/12/19 18:39 Peripheral/Venous Blood Culture - Final NO GROWTH AFTER 5 DAYS - Diagnostic Impressions Diagnostic Impressions: Echocardiogram 08/12/19 23:05 Transthoracic Echocardiogram Indication: Abnormal cardiac enzymes BP: 142/82 HR: 73 Conclusions *4-chamber dilated cardiomyopathy. *Global left ventricular systolic function is severely decreased. *The estimated ejection fraction is 25%. *Mild to moderate concentric left ventricular hypertrophy is observed. *There is mild mitral regurgitation. *There is mild to moderate tricuspid regurgitation. Findings Left Ventricle: The left ventricular size is moderate to severely dilated. Mild to moderate concentric left ventricular hypertrophy is observed. Global left ventricular systolic function is severely decreased. The estimated ejection fraction is 20-25%. Left Atrium: The left atrium is moderately dilated. Right Ventricle: The right ventricle is moderately dilated. The right ventricular global systolic function is moderately reduced. Right Atrium: The right atrium is moderately dilated. Aortic Valve: The aortic valve leaflets are moderately thickened. There is no evidence of aortic regurgitation. There is no evidence of aortic stenosis. Mitral Valve: The mitral valve leaflets are mildly thickened. There is mild mitral regurgitation. There is no evidence of mitral stenosis. Tricuspid Valve: There is mild to moderate tricuspid regurgitation. There is evidence of borderline pulmonary hypertension. Pulmonic Valve: There is trace pulmonic regurgitation. Pericardium: There is a minimial pericardial effusion. Aorta: There is no dilatation of the aortic root. Venous: The venous system is not well visualized. Measurements Chambers 2D Name Value Normal Range IVSd (2D) 1.34 cm (0.6 - 1.1) LVPWd (2D) 1.38 cm (0.6 - 1.1) LVIDd (2D) 4.57 cm (3.7 - 5.6) LVIDs (2D) 3.4 cm (2 - 3.8) LV FS (2D) 25.68 % - EF Teichholz (2D) 50.63 % - Ao root diameter (2D) 3.25 cm (2 - 3.7) Volumes/Mass Name Value Normal Range LA ESV SP 4CH (A/L) 49.47 ml - LA ESV SP 2CH (A/L) 55.91 ml - LA ESV BP (A/L) 55.17 ml - LA ESV BP (A/L) index 23.28 ml/m2 - LA ESV SP 4CH (MOD) 45.79 ml - LA ESV SP 2CH (MOD) 54.19 ml - LA ESV BP (MOD) 51.8 ml - LA ESV BP (MOD) index 21.86 ml/m2 - Diastolic/Systolic Function Name Value Normal Range MV E-wave Vmax 0.69 m/sec - MV deceleration time 179.05 msec - MV A-wave Vmax 0.47 m/sec - MV E:A ratio 1.49 ratio - Aortic Valve Name Value Normal Range AV Vmax 1.32 m/sec - AV VTI 21.23 cm - AV peak gradient 7.01 mmHg - AV mean gradient 3.99 mmHg - LVOT diameter 2.29 cm - LVOT Vmax 0.87 m/sec - LVOT VTI 13.08 cm - LVOT peak gradient 3.05 mmHg - LVOT mean gradient 1.53 mmHg - SV LVOT 53.73 ml - ESTRADA (continuity Vmax) 2.71 cm2 - ESTRADA (continuity VTI) 2.53 cm2 - Tricuspid Valve Name Value Normal Range TR Vmax 2.38 m/sec - TR peak gradient 23 mmHg - RAP 3 mmHg - RVSP 26 mmHg - Pulmonic Valve/Qp:Qs Name Value Normal Range PV acceleration time 95.15 msec - Jeffrey/IV: Voiding Method Incontinent IV Catheter Type [Left Upper Mid-line arm] IV Catheter Type [Right Chest] VAS Cath IV Catheter Type [Left Hand] INT / Saline Lock IV Catheter Type [Right Hand] INT / Saline Lock Active Medications - Current Medications Current Medications: Generic Name Dose Route Start Last Admin Trade Name Freq PRN Reason Stop Dose Admin Acetaminophen 650 mg 08/12/19 23:02 Tylenol PO Q4H PRN Pain MILD(1-3)/Fever >100.5/REYNA Carvedilol 3.125 mg 08/14/19 22:00 08/18/19 09:48 Coreg PO 3.125 mg BID WALT Administration Dextrose 0 ml 08/12/19 23:02 08/13/19 02:30 D50w (25gm) Syringe IV 50 ml Q30MIN PRN Administration Hypoglycemia Protocol Hydralazine HCl 25 mg 08/14/19 22:00 08/18/19 09:47 Apresoline PO 25 mg BID WALT Administration Sodium Chloride 100 mls @ 999 mls/hr 08/15/19 08:30 Nacl 0.9% IV LINDSAY PRN Hypotension Sodium Chloride 100 mls @ 999 mls/hr 08/16/19 11:11 Nacl 0.9% IV LINDSAY PRN Hypotension Ertapenem 0.5 gm/ Sodium 50 mls @ 100 mls/hr 08/18/19 10:00 Chloride IV 08/21/19 23:59 DAILY [facility] Insulin Human Lispro 0 unit 08/13/19 07:30 08/18/19 09:33 Humalog SUB-Q Not Given ACHS [facility] Protocol Ondansetron HCl 4 mg 08/12/19 23:02 Zofran IV Q8H PRN Nausea And Vomiting Oxycodone/Acetaminophen 1 tab 08/12/19 23:02 08/18/19 03:22 Percocet 5/325 PO 1 tab Q6H PRN Administration Pain, Moderate (4-6) Sodium Chloride 10 ml 08/13/19 10:00 08/17/19 21:15 Sodium Chloride Flush Syringe 10 Ml IV 10 ml BID WALT Administration Sodium Chloride 10 ml 08/12/19 23:02 Sodium Chloride Flush Syringe 10 Ml IV PRN PRN LINE FLUSH
--- NOTE | 2019-08-18 13:21 | Progress Note ---
Assessment and Plan End Stage Renal Disease: Hyperkalemia, Resolved: Metabolic Acidosis, Resolved: -Renal labs reviewed. Serum creatinine 5.5. Patient was initiated on HD on 08/13/19 -Hemodialysis tomorrow for UF and clearance -Ct scan and renal US reviewed-No Hydronephrosis -Urine lytes reviewed, no urine eosinophils but has active urine sediments- GN/Vasculitis work-up ordered -So far Hepatitis and PAYTON- negative. No Schistocytes seen. -Will hold Aspirin as may consider renal biopsy but due to multiple commodities and obesity, may not be a candidate for renal biopsy. -Avoid nephrotoxic agents -Strict I/O's monitoring -Case management consulted for outpatient HD arrangement to [facility] Cystitis: -S/P IV Rocephin -Now on Ertapenem -As per primary Acute hypoxic respiratory failure due to pulmonary edema: -S/p Lasix -UF with HD Diabetes Mellitus: -As per primary Hypertension: -On Coreg -Monitor BP Subjective Date of service: 08/18/19 Principal diagnosis: Abnormal Liver Enzymes Interval history: Patient seen lying in bed. Awake but confused. Objective - Vital Signs Vital signs: Vital Signs - 12hr 08/18/19 08/18/19 08/18/19 03:33 09:03 09:47 Temperature 98.0 F 98.0 F Pulse Rate 63 58 L 60 Respiratory 18 18 Rate Blood Pressure 187/88 164/80 164/80 O2 Sat by Pulse 88 90 Oximetry 08/18/19 09:48 Temperature Pulse Rate 64 Respiratory Rate Blood Pressure 164/80 O2 Sat by Pulse Oximetry - General Appearance General appearance: well-developed, obese, fatigue EENT: ATNC, PERRL, hearing intact, vision intact Neck: no JVD, supple Respiratory: Present: Decreased Breath Sounds Cardiology: regular, S1S2 Gastrointestinal: normoactive bowel sounds Integumentary: warm and dry Neurologic: alert and oriented x3 Musculoskeletal: other (Bilateral amputee) - Lab 08/18/19 05:10 08/18/19 05:10 Most recent lab results Calcium 7.7 mg/dL (8.4-10.2) L 08/18/19 05:10 Phosphorus 5.20 mg/dL (2.5-4.5) H 08/18/19 05:10 Magnesium 2.00 mg/dL (1.7-2.3) 08/15/19 07:49 Urine Creatinine 174.0 mg/dL (0.1-20.0) H 08/13/19 00:44 Urine Creatinine 175.4 mg/dL (0.1-20.0) H 08/13/19 00:44 Urine Sodium 66 mmol/L 08/13/19 00:44 Urine Total Protein 53 mg/dL (5-11.8) H 08/13/19 00:44 Medications & Allergies - Medications Allergies/Adverse Reactions: Allergies No Known Allergies Allergy (Unverified 08/12/19 17:31) Home Medications: Home Medications Medication Instructions Recorded Confirmed Last Taken Type Folic Acid [Folvite] 1 mg PO QDAY 02/22/18 08/13/19 Unknown History Gabapentin [Neurontin] 100 mg PO TID 02/22/18 08/13/19 Unknown History Multivitamin [Multiple Vitamins] 1 tab PO DAILY 02/22/18 08/13/19 Unknown History Sennosides [Senna] 25.8 mg PO BID 02/22/18 08/13/19 Unknown History Thiamine [Vitamin B-1] 100 mg PO QDAY 02/22/18 08/13/19 Unknown History Torsemide [Demadex] 20 mg PO DAILY 02/22/18 08/13/19 Unknown History allopurinoL [Allopurinol] 100 mg PO DAILY 02/22/18 08/13/19 Unknown History fentaNYL [Fentanyl] 1 each TD Q3D 02/22/18 08/13/19 Unknown History oxyCODONE /ACETAMINOPHEN [Percocet 1 tab PO Q6HR PRN #10 tablet 03/01/18 08/13/19 Unknown Rx 5/325] Aspirin EC [Halfprin EC] 81 mg PO QDAY 08/13/19 08/13/19 Unknown History AtorvaSTATin [Lipitor] 20 mg PO QHS 08/13/19 08/13/19 Unknown History Mirtazapine 7.5 mg PO QDAY 08/13/19 08/13/19 Unknown History NIFEdipine [Nifedipine ER] 30 mg PO QDAY 08/13/19 08/13/19 Unknown History Active Medications: Generic Name Dose Route Start Last Admin Trade Name Freq PRN Reason Stop Dose Admin Acetaminophen 650 mg 08/12/19 23:02 Tylenol PO Q4H PRN Pain MILD(1-3)/Fever >100.5/REYNA Carvedilol 3.125 mg 08/14/19 22:00 08/18/19 09:48 Coreg PO 3.125 mg BID WALT Administration Dextrose 0 ml 08/12/19 23:02 08/13/19 02:30 D50w (25gm) Syringe IV 50 ml Q30MIN PRN Administration Hypoglycemia Protocol Hydralazine HCl 25 mg 08/14/19 22:00 08/18/19 09:47 Apresoline PO 25 mg BID WALT Administration Sodium Chloride 100 mls @ 999 mls/hr 08/15/19 08:30 Nacl 0.9% IV LINDSAY PRN Hypotension Sodium Chloride 100 mls @ 999 mls/hr 08/16/19 11:11 Nacl 0.9% IV LINDSAY PRN Hypotension Ertapenem 0.5 gm/ Sodium 50 mls @ 100 mls/hr 08/18/19 10:00 Chloride IV 08/21/19 23:59 DAILY [facility] Insulin Human Lispro 0 unit 08/13/19 07:30 08/18/19 13:02 Humalog SUB-Q Not Given ACHS [facility] Protocol Ondansetron HCl 4 mg 08/12/19 23:02 Zofran IV Q8H PRN Nausea And Vomiting Oxycodone/Acetaminophen 1 tab 08/12/19 23:02 08/18/19 03:22 Percocet 5/325 PO 1 tab Q6H PRN Administration Pain, Moderate (4-6) Sodium Chloride 10 ml 08/13/19 10:00 08/17/19 21:15 Sodium Chloride Flush Syringe 10 Ml IV 10 ml BID WALT Administration Sodium Chloride 10 ml 08/12/19 23:02 Sodium Chloride Flush Syringe 10 Ml IV PRN PRN LINE FLUSH
[2019-08-18] MEDS: ERTAPENEM 0.5 GM in SODIUM CHLORIDE 0.9% 50 ML IV SCH (14:12)
[2019-08-19 02:20] LABS: Albumin 2.5 g/dL (3.9-5); Calcium 7.4 mg/dL (8.4-10.2)
[2019-08-19] MEDS: INSULIN LISPRO 100 UNIT/ML SUB-Q SCH ×4 (08:23→21:45)
[2019-08-19 09:17] LABS: Basophils # (Auto) 0.1 K/mm3 (0.0-0.1); Basophils % (Auto) 1.1 % (0.0-1.8); Eosinophils # (Auto) 0.6 K/mm3 (0.0-0.4); Eosinophils % (Auto) 7.6 % (0.0-4.3); Lymphocytes # (Auto) 2.2 K/mm3 (1.2-5.4); Lymphocytes % (Auto) 27.1 % (13.4-35.0); Mean Corpuscular HGB Conc 31 % (32-34); Mean Corpuscular Volume 87 fl (84-94); Monocytes # (Auto) 1.2 K/mm3 (0.0-0.8); Monocytes % (Auto) 15.3 % (0.0-7.3); Platelet Count 138 K/mm3 (140-440); Red Cell Distribution Width 19.1 % (13.2-15.2)
[2019-08-19 09:19] LABS: Hematocrit 37.4 % (35.5-45.6); Hemoglobin 11.5 gm/dl (11.8-15.2)
[2019-08-19 09:38] LABS: Calcium 7.8 mg/dL (8.4-10.2)
[2019-08-19] MEDS: hydrALAZINE 25 MG TAB PO SCH ×2 (10:33→21:43)
[2019-08-19] MEDS: oxyCODONE /ACETAMINOPHEN 5-325MG TAB PO PRN ×2 (10:33→21:43)
[2019-08-19] MEDS: carvediloL 3.125 MG TAB PO SCH ×2 (10:33→21:42)
[2019-08-19] MEDS: ERTAPENEM 0.5 GM in SODIUM CHLORIDE 0.9% 50 ML IV SCH (10:34)
--- NOTE | 2019-08-19 11:05 | Progress Note ---
Assessment and Plan Acute on chronic systolic heart failure echo this admission shows a 4-chamber dilated cardiomyopathy with LVEF 20- 25%. Paroxysmal afib pt reverted to sinus rhythm spontaneously on carvedilol Volume overload Renal failure -initiated on dialysis Hyperkalemia Elevated transaminitis -trending downwards Bilateral AKA Continue medical therapy for chronic systolic heart failure and paroxysmal atrial fibrillation as tolerated. He was previously on anticoagulation with Eliquis, but stopped for unclear reasons. Recommend terminal carman anticoagulation before discharge. Subjective Date of service: 08/19/19 Principal diagnosis: Abnormal Liver Enzymes Interval history: Patient is resting in bed comfortably. Noted a burst of NSVT on telemetry during sleep. Patient remained asymptomatic. Objective Vital Signs Temp Pulse Resp BP Pulse Ox 08/19/19 10:33 69 154/84 08/19/19 07:14 98.1 F 43 L 20 154/61 91 08/19/19 04:44 97.5 F L 54 L 20 142/71 94 08/18/19 22:45 64 20 145/75 08/18/19 22:44 64 145/75 08/18/19 22:41 99.6 F 69 20 156/73 95 08/18/19 22:00 64 18 08/18/19 19:56 98.7 F 64 20 145/75 96 08/18/19 19:50 96 08/18/19 16:41 98.0 F 67 18 147/74 92 - Physical Examination General: No Apparent Distress HEENT: Positive: PERRL Neck: Positive: trachea midline Cardiac: Positive: Reg Rate and Rhythm Lungs: Positive: Decreased Breath Sounds Abdomen: Positive: Soft, Active Bowel Sounds Extremities: Present: Other (bilateral AKA) - Labs and Meds Cardiac Enzymes 08/19/19 Range/Units 00:59 AST 25 (5-40) units/L CBC 08/19/19 Range/Units 08:42 WBC 8.2 (4.5-11.0) K/mm3 RBC 4.30 (3.65-5.03) M/mm3 Hgb 11.5 L (11.8-15.2) gm/dl Hct 37.4 (35.5-45.6) % Plt Count 138 L (140-440) K/mm3 Lymph # 2.2 (1.2-5.4) K/mm3 Pettis # 1.2 H (0.0-0.8) K/mm3 Eos # 0.6 H (0.0-0.4) K/mm3 Baso # 0.1 (0.0-0.1) K/mm3 Comprehensive Metabolic Panel 08/19/19 08/19/19 Range/Units 00:59 08:42 Sodium 135 L 134 L (137-145) mmol/L Potassium 3.6 3.8 (3.6-5.0) mmol/L Chloride 95.4 L 95.2 L (98-107) mmol/L Carbon Dioxide 26 22 (22-30) mmol/L BUN 41 H 41 H (9-20) mg/dL Creatinine 5.7 H 5.8 H (0.8-1.5) mg/dL Glucose 73 L 84 (75-100) mg/dL Calcium 7.4 L 7.8 L (8.4-10.2) mg/dL AST 25 (5-40) units/L ALT 168 H (7-56) units/L Alkaline Phosphatase 100 (35-129) units/L Total Protein 5.3 L (6.3-8.2) g/dL Albumin 2.5 L (3.9-5) g/dL
--- NOTE | 2019-08-19 11:39 | Progress Note ---
Assessment and Plan End Stage Renal Disease: Hyperkalemia, Resolved: Metabolic Acidosis, Resolved: -Patient was initiated on HD on 08/13/19 -Hemodialysis todayfor UF and clearance -Ct scan and renal US reviewed-No Hydronephrosis -Urine lytes reviewed, no urine eosinophils but has active urine sediments- GN/Vasculitis work-up ordered -So far Hepatitis and PAYTON- negative. No Schistocytes seen. -Will hold Aspirin as may consider renal biopsy but due to multiple commodities and obesity, may not be a candidate for renal biopsy. -Avoid nephrotoxic agents -Strict I/O's monitoring -Case management consulted for outpatient HD arrangement to [facility] Cystitis: -S/P IV Rocephin -Now on Ertapenem -As per primary Acute hypoxic respiratory failure due to pulmonary edema: -S/p Lasix -UF with HD Diabetes Mellitus: -As per primary Hypertension: -On Coreg -Monitor BP Yohan Thomas MD [phone] Subjective Date of service: 08/19/19 Principal diagnosis: Abnormal Liver Enzymes Interval history: no overnight events reported Objective - Vital Signs Vital signs: Vital Signs - 12hr 08/19/19 08/19/19 08/19/19 04:44 07:14 10:00 Temperature 97.5 F L 98.1 F Pulse Rate 54 L 43 L Respiratory 20 20 Rate Blood Pressure 142/71 154/61 O2 Sat by Pulse 94 91 97 Oximetry 08/19/19 08/19/19 10:31 10:33 Temperature Pulse Rate 72 69 Respiratory Rate Blood Pressure 154/84 154/84 O2 Sat by Pulse 95 Oximetry - General Appearance General appearance: well-developed, well-nourished EENT: ATNC, PERRL Neck: no JVD Respiratory: Present: Decreased Breath Sounds Cardiology: regular, S1S2 Gastrointestinal: obese Integumentary: no rash, warm and dry Neurologic: no focal deficit Musculoskeletal: other (no edema) Psychiatric: other (drowsy) - Lab 08/19/19 08:42 08/19/19 08:42 Most recent lab results Calcium 7.8 mg/dL (8.4-10.2) L 08/19/19 08:42 Phosphorus 5.20 mg/dL (2.5-4.5) H 08/18/19 05:10 Magnesium 2.00 mg/dL (1.7-2.3) 08/15/19 07:49 Urine Creatinine 174.0 mg/dL (0.1-20.0) H 08/13/19 00:44 Urine Creatinine 175.4 mg/dL (0.1-20.0) H 08/13/19 00:44 Urine Sodium 66 mmol/L 08/13/19 00:44 Urine Total Protein 53 mg/dL (5-11.8) H 08/13/19 00:44 Medications & Allergies - Medications Allergies/Adverse Reactions: Allergies No Known Allergies Allergy (Unverified 08/12/19 17:31) Home Medications: Home Medications Medication Instructions Recorded Confirmed Last Taken Type Folic Acid [Folvite] 1 mg PO QDAY 02/22/18 08/13/19 Unknown History Gabapentin [Neurontin] 100 mg PO TID 02/22/18 08/13/19 Unknown History Multivitamin [Multiple Vitamins] 1 tab PO DAILY 02/22/18 08/13/19 Unknown History Sennosides [Senna] 25.8 mg PO BID 02/22/18 08/13/19 Unknown History Thiamine [Vitamin B-1] 100 mg PO QDAY 02/22/18 08/13/19 Unknown History Torsemide [Demadex] 20 mg PO DAILY 02/22/18 08/13/19 Unknown History allopurinoL [Allopurinol] 100 mg PO DAILY 02/22/18 08/13/19 Unknown History fentaNYL [Fentanyl] 1 each TD Q3D 02/22/18 08/13/19 Unknown History oxyCODONE /ACETAMINOPHEN [Percocet 1 tab PO Q6HR PRN #10 tablet 03/01/18 08/13/19 Unknown Rx 5/325] Aspirin EC [Halfprin EC] 81 mg PO QDAY 08/13/19 08/13/19 Unknown History AtorvaSTATin [Lipitor] 20 mg PO QHS 08/13/19 08/13/19 Unknown History Mirtazapine 7.5 mg PO QDAY 08/13/19 08/13/19 Unknown History NIFEdipine [Nifedipine ER] 30 mg PO QDAY 08/13/19 08/13/19 Unknown History Active Medications: Generic Name Dose Route Start Last Admin Trade Name Freq PRN Reason Stop Dose Admin Acetaminophen 650 mg 08/12/19 23:02 Tylenol PO Q4H PRN Pain MILD(1-3)/Fever >100.5/REYNA Carvedilol 3.125 mg 08/14/19 22:00 08/19/19 10:33 Coreg PO 3.125 mg BID WALT Administration Dextrose 0 ml 08/12/19 23:02 08/13/19 02:30 D50w (25gm) Syringe IV 50 ml Q30MIN PRN Administration Hypoglycemia Protocol Hydralazine HCl 25 mg 08/14/19 22:00 08/19/19 10:33 Apresoline PO 25 mg BID WALT Administration Sodium Chloride 100 mls @ 999 mls/hr 08/16/19 11:11 Nacl 0.9% IV LINDSAY PRN Hypotension Ertapenem 0.5 gm/ Sodium 50 mls @ 100 mls/hr 08/18/19 10:00 08/19/19 10:34 Chloride IV 08/21/19 23:59 100 mls/hr DAILY WALT Administration Insulin Human Lispro 0 unit 08/13/19 07:30 08/19/19 08:23 Humalog SUB-Q Not Given ACHS WALT Protocol Ondansetron HCl 4 mg 08/12/19 23:02 Zofran IV Q8H PRN Nausea And Vomiting Oxycodone/Acetaminophen 1 tab 08/12/19 23:02 08/19/19 10:33 Percocet 5/325 PO 1 tab Q6H PRN Administration Pain, Moderate (4-6) Sodium Chloride 10 ml 08/13/19 10:00 08/18/19 22:47 Sodium Chloride Flush Syringe 10 Ml IV 10 ml BID WALT Administration Sodium Chloride 10 ml 08/12/19 23:02 Sodium Chloride Flush Syringe 10 Ml IV PRN PRN LINE FLUSH
--- NOTE | 2019-08-19 16:12 | Progress Note ---
Assessment and Plan ARF progressed to ESRD: started on HD Acute hypoxic respiratory failure: due to pulmonary edema from CHF. s/p Vmask 50%: Now on N/c Hyperkalemia: Nephrology consulted and improved with HD Metabolic Acidosis: due to ESRD, improved with HD UTI: treat with abx New onset CHF- Cont ultrafiltration by ESRD Transaminiitis, due to congestive vs GB vs other: consulted GI, hold statin Elevated troponin, related to ARF: monitor closely, ordered ECHO and reviewed Acute systolic heart failure: Cardiology following. echo this admission shows a 4-chamber dilated cardiomyopathy with LVEF 20-25%. A/C use for suspected h/o Afib Right hand tremor, etiology unclear: monitor closely h/o Bilateral AKA - supportive care DM type 2; use ssi, accucheck, ada diet DVT ppx Eliquis full code 08/14/19: Hemodialysis started 08/13/19. Urine culture growing GNR await finalization, ECHO reviewed EF only 25%, 08/15/19: Urine growing ESBL, do contact precautions, change iv rocephin to iv Ertrapem and consulted ID 08/16/19: await outpatient HD set up 08/17/19: Midline today, continue to monitor Iv ABX, Await HD setup 08/18/19: He removed Midline, will not replace, await Nephrology to designate patient as ESRD for outpatient HD setup 08/19/19 CM consulted for outpt HD set up Brief History Patient is a 59 [address] man from [facility] with history of PVD s/p bilateral AKA, hypertension, DM type 2, dyslipidemia, CVA, Afib on Eliquis, GERD, anemia, Tobacco dependency and Gout who presented to [facility] ED with SOB and hypoxia, reported O2 sat in the 60s, placed on 100% NRB and right hand twitching pCXR IMPRESSION: Moderate cardiomegaly. Bilateral pulmonary opacities likely reflect pulmonary edema, consolidation and/or atelectasis, singly or in combination. Small right pleural effusion. CT abd/pelvis without contrast IMPRESSION: 1. No acute finding within limitations imposed by noncontrast technique. 2. Possible biliary sludge and/or cholelithiasis. No evidence to suggest acute cholecystitis otherwise. 3. Indeterminate hypoattenuating lesions in both kidneys. This could be further evaluated with contrast-enhanced CT or MR on a nonemergent basis. 4. Mild cardiomegaly. 5. Small pleural effusions. Renal Ultrasound bilateral IMPRESSION: 1. Moderately thickened, mildly distended urinary bladder which could represent cystitis. 2. Nonvisualization of the kidneys on the current study. There was no hydronephrosis on the CT earlier in the day. WBC 11.9, now 12.7, k was 6.5, Cr 8.4, troponin 0.284, elevated AST 1030, ALT 1082, normal AP and bilirubin total, proBNP >35,000, UA +wbc+LE Hospitalist Physical GENERAL: morbidly obese AAM lying on bed appeared to be in no discomfort. HEENT: Normocephalic. Atraumatic. No conjunctival congestion or icterus. Patient has moist mucous membranes. NECK: Supple. Trachea midline. CHEST/LUNGS: Clear to auscultated bilaterally, breathing nonlabored. No wheezes crackles or rhonchi. HEART/CARDIOVASCULAR: Regular in rate and rhythm. S1 and S2 positive. ABDOMEN: Abdomen is soft, nontender. Patient has normal bowel sounds. SKIN: There is no rash. Warm and dry. NEURO: No focal motor deficit. Follows command. MUSCULOSKELETAL: No joint effusion or tenderness. Bilateral AKA EXTRIMITY: No edema, no cyanosis or clubbing. PSYCH: Cooperative. Subjective Date of service: 08/19/19 Principal diagnosis: Abnormal Liver Enzymes Interval history: Patient seen and examined. Medical records and medication list reviewed. No acute event overnight noted by the RN. Patient denies any chest pain or difficulty breathing. Patient is tolerating diet. Discussed plan of care at bedside with patient. Discharge pending on outpatient dialysis set up Objective - Constitutional Vitals: Vital Signs - 12hr 08/19/19 08/19/19 08/19/19 04:44 07:14 10:00 Temperature 97.5 F L 98.1 F Pulse Rate 54 L 43 L 72 Pulse Rate [ 69 Apical] Pulse Rate [ 69 Left Radial] Pulse Rate [ 69 Right Radial] Respiratory 20 20 26 H Rate Blood Pressure 142/71 154/61 O2 Sat by Pulse 94 91 96 Oximetry 08/19/19 08/19/19 08/19/19 10:31 10:33 11:38 Temperature 98.1 F Pulse Rate 72 69 Pulse Rate [ Apical] Pulse Rate [ Left Radial] Pulse Rate [ Right Radial] Respiratory 20 Rate Blood Pressure 154/84 154/84 O2 Sat by Pulse 95 Oximetry - Labs CBC & Chem 7: 08/19/19 08:42 08/20/19 05:41 Labs: Abnormal lab results 08/19/19 08/19/19 08/19/19 Range/Units 00:59 07:28 08:42 Hgb 11.5 L (11.8-15.2) gm/dl MCH 27 L (28-32) pg MCHC 31 L (32-34) % RDW 19.1 H (13.2-15.2) % Plt Count 138 L (140-440) K/mm3 [place] % (Auto) 15.3 H (0.0-7.3) % Eos % (Auto) 7.6 H (0.0-4.3) % [place] # 1.2 H (0.0-0.8) K/mm3 Eos # 0.6 H (0.0-0.4) K/mm3 Sodium 135 L (137-145) mmol/L Chloride 95.4 L (98-107) mmol/L BUN 41 H (9-20) mg/dL Creatinine 5.7 H (0.8-1.5) mg/dL Glucose 73 L (75-100) mg/dL POC Glucose 67 L (70-105) Calcium 7.4 L (8.4-10.2) mg/dL ALT 168 H (7-56) units/L Total Protein 5.3 L (6.3-8.2) g/dL Albumin 2.5 L (3.9-5) g/dL 08/19/19 Range/Units 08:42 Hgb (11.8-15.2) gm/dl MCH (28-32) pg MCHC (32-34) % RDW (13.2-15.2) % Plt Count (140-440) K/mm3 [place] % (Auto) (0.0-7.3) % Eos % (Auto) (0.0-4.3) % [place] # (0.0-0.8) K/mm3 Eos # (0.0-0.4) K/mm3 Sodium 134 L (137-145) mmol/L Chloride 95.2 L (98-107) mmol/L BUN 41 H (9-20) mg/dL Creatinine 5.8 H (0.8-1.5) mg/dL Glucose (75-100) mg/dL POC Glucose (70-105) Calcium 7.8 L (8.4-10.2) mg/dL ALT (7-56) units/L Total Protein (6.3-8.2) g/dL Albumin (3.9-5) g/dL
[2019-08-20 06:24] LABS: Calcium 7.5 mg/dL (8.4-10.2)
--- NOTE | 2019-08-20 09:19 | Progress Note ---
Assessment and Plan Acute on chronic systolic heart failure echo this admission shows a 4-chamber dilated cardiomyopathy with LVEF 20- 25%. Paroxysmal afib pt reverted to sinus rhythm spontaneously on carvedilol Volume overload Renal failure -initiated on dialysis Elevated transaminitis -trending downwards Bilateral AKA Continue medical therapy for chronic systolic heart failure and paroxysmal atrial fibrillation as tolerated. He was previously on anticoagulation with Eliquis, but stopped for unclear reasons. If no invasive procedures are planned recommend starting extermination inspector anticoagulation for CVA prophylaxis. Subjective Date of service: 08/20/19 Principal diagnosis: Abnormal Liver Enzymes Interval history: Patient is resting in bed comfortably. Objective Vital Signs Temp Pulse Pulse Pulse Pulse Resp BP 08/20/19 08:27 98.9 F 55 L 20 135/71 08/20/19 07:47 08/20/19 04:19 98.5 F 58 L 18 148/62 08/20/19 00:41 98.9 F 69 20 167/98 08/20/19 00:15 69 168/92 08/20/19 00:00 98.2 F 74 18 187/82 08/19/19 23:45 62 173/97 08/19/19 23:30 55 L 188/88 08/19/19 23:21 08/19/19 23:15 55 L 188/88 08/19/19 23:00 54 L 177/71 08/19/19 22:45 74 196/94 08/19/19 22:30 68 194/84 08/19/19 22:15 69 193/96 08/19/19 22:00 69 69 69 69 26 H 131/69 08/19/19 21:45 55 L 131/71 08/19/19 21:43 57 L 20 131/69 08/19/19 21:42 57 L 131/69 08/19/19 21:35 98.9 F 58 L 19 168/78 08/19/19 19:38 98.0 F 57 L 18 131/69 08/19/19 17:00 55 L 08/19/19 15:08 98.2 F 56 L 20 144/69 08/19/19 11:38 98.1 F 20 08/19/19 10:33 69 154/84 08/19/19 10:31 72 154/84 08/19/19 10:00 72 69 69 69 26 H BP Pulse Ox 08/20/19 08:27 93 08/20/19 07:47 97 08/20/19 04:19 97 08/20/19 00:41 08/20/19 00:15 08/20/19 00:00 196/94 96 08/19/19 23:45 08/19/19 23:30 08/19/19 23:21 100 08/19/19 23:15 08/19/19 23:00 08/19/19 22:45 08/19/19 22:30 08/19/19 22:15 08/19/19 22:00 96 08/19/19 21:45 08/19/19 21:43 08/19/19 21:42 08/19/19 21:35 08/19/19 19:38 96 08/19/19 17:00 08/19/19 15:08 100 08/19/19 11:38 08/19/19 10:33 08/19/19 10:31 95 08/19/19 10:00 96 - Physical Examination General: No Apparent Distress HEENT: Positive: PERRL Neck: Positive: trachea midline Cardiac: Positive: Reg Rate and Rhythm Lungs: Positive: Decreased Breath Sounds Extremities: Present: Other (bilateral AKA) - Labs and Meds CBC 08/19/19 Range/Units 08:42 WBC 8.2 (4.5-11.0) K/mm3 RBC 4.30 (3.65-5.03) M/mm3 Hgb 11.5 L (11.8-15.2) gm/dl Hct 37.4 (35.5-45.6) % Plt Count 138 L (140-440) K/mm3 Lymph # 2.2 (1.2-5.4) K/mm3 Comprehensive Metabolic Panel 08/19/19 08/20/19 Range/Units 08:42 05:41 Sodium 134 L 137 (137-145) mmol/L Potassium 3.8 3.7 (3.6-5.0) mmol/L Chloride 95.2 L 98.2 (98-107) mmol/L Carbon Dioxide 22 27 (22-30) mmol/L BUN 41 H 29 H (9-20) mg/dL Creatinine 5.8 H 4.7 H (0.8-1.5) mg/dL Glucose 84 72 L (75-100) mg/dL Calcium 7.8 L 7.5 L (8.4-10.2) mg/dL
[2019-08-20] MEDS: carvediloL 3.125 MG TAB PO SCH (10:05)
[2019-08-20] MEDS: INSULIN LISPRO 100 UNIT/ML SUB-Q SCH ×2 (10:06→12:49)
[2019-08-20] MEDS: hydrALAZINE 25 MG TAB PO SCH (10:06)
[2019-08-20] MEDS: oxyCODONE /ACETAMINOPHEN 5-325MG TAB PO PRN (10:06)
[2019-08-20] MEDS: ERTAPENEM 0.5 GM in SODIUM CHLORIDE 0.9% 50 ML IV SCH (10:08)
[2019-08-20 12:04] VITALS: BP 144/69
[2019-08-20] MEDS ORDERED: METOPROLOL TARTRATE 25 MG TAB PO SCH (14:00)
--- NOTE | 2019-08-20 15:17 | Discharge Summary ---
Providers - Providers Date of Admission: 08/12/19 22:27 Date of discharge: 08/20/19 Attending physician: ALDEN HUDSON 08/12/19 19:57 Consult to Physician [CONS] Stat Comment: Dr. Lopez spoke with Dr. Thomas @ 1953 Consulting Provider: MAKENZIE THOMAS Physician Instructions: Reason For Exam: nolvia 08/12/19 23:06 Consult to Physician [CONS] Routine Comment: Consulting Provider: ELLE HERNANDEZ Physician Instructions: Reason For Exam: sob 08/13/19 08:46 Consult to Physician [CONS] Routine Comment: Consulting Provider: ERIKA OLIVA Physician Instructions: Reason For Exam: elevated ast, alt, GB sludge 08/13/19 09:30 Consult to Interventional Radiology [CONS] Routine Consulting Provider: ADALBERTO RUEDA Reason For Exam: vasc cath placement Place consult to:: Dr. Rueda Notified:: James GERMAIN Phone number called:: Was contact made?: Yes If yes, spoke with:: Petey-office Time called:: 09:47 08/15/19 08:55 Consult to Physician [CONS] Routine Comment: Consulting Provider: PREMA SMITH Physician Instructions: I notified Reason For Exam: ESBL urine 08/15/19 17:26 Consult to Case Management [CONS] Routine Services Needed at Discharge: Home Health Services Notified:: caseworker intake Phone number called:: - Additional Physician Instructions: Jag Smith MD [facility] infectious disease consultants ([facility]) M: [phone] O: [phone] F: [phone] Outpatient parenteral antibiotic therapy orders Diagnosis: ESBL E. coli UTI Antibiotic administration: Ertapenem 5 mg every 24 hours until 08/22/2019 Line: Midline Lab monitoring: CBC with differential, BUN, creatinine, LFTs once per week preferably on Sunday or Sunday For critical labs, call office: [phone] Jag Smith Consult to PICC Line RN [CONS] Routine Reason For Exam: Short term antibiotics, cannot use dialysis line Type Line:: Midline Primary care physician: MIXOLOGIST Hospitalization Condition: Stable Hospital course: Patient is a 59 yo man from [facility] with history of PVD s/p bilateral AKA, hypertension, DM type 2, dyslipidemia, CVA, Afib on Eliquis, GERD, anemia, Tobacco dependency and Gout who presented to [facility] ED with SOB and hypoxia, reported O2 sat in the 60s, placed on 100% NRB. Patient's 2D echocardiogram rev ealed ejection fraction of 20 to 25%. Cardiology was consulted and recommended medical management. Patient also noted to have metabolic acidosis with NOLVIA progressed to end-stage renal disease. Nephrology was consulted and patient was placed on hemodialysis. Following hemodialysis patient symptoms significantly improved. Outpatient dialysis was set up and then patient was discharged back to [facility] in stable condition. Laboratory data on admission: WBC 11.9, now 12.7, k was 6.5, Cr 8.4, troponin 0.284, elevated AST 1030, ALT 1082, normal AP and bilirubin total, proBNP >35,000, UA +wbc+LE Radiological data. pCXR IMPRESSION: Moderate cardiomegaly. Bilateral pulmonary opacities likely reflect pulmonary edema, consolidation and/or atelectasis, singly or in combination. Small right pleural effusion. CT abd/pelvis without contrast IMPRESSION: 1. No acute finding within limitations imposed by noncontrast technique. 2. Possible biliary sludge and/or cholelithiasis. No evidence to suggest acute cholecystitis otherwise. 3. Indeterminate hypoattenuating lesions in both kidneys. This could be further evaluated with contrast-enhanced CT or MR on a nonemergent basis. 4. Mild cardiomegaly. 5. Small pleural effusions. Renal Ultrasound bilateral IMPRESSION: 1. Moderately thickened, mildly distended urinary bladder which could represent cystitis. 2. Nonvisualization of the kidneys on the current study. There was no hydronephrosis on the CT earlier in the day. Discharge diagnosis: ARF progressed to ESRD: started on HD Acute hypoxic respiratory failure: due to pulmonary edema from CHF. s/p Vmask 50%: Now on N/c Hyperkalemia: Nephrology consulted and improved with HD Metabolic Acidosis: due to ESRD, improved with HD UTI: treated with abx Transaminiitis, due to congestive vs GB vs other: consulted GI, hold statin Elevated troponin, related to ARF: monitor closely, ordered ECHO and reviewed Acute systolic heart failure: Cardiology following. echo this admission shows a 4-chamber dilated cardiomyopathy with LVEF 20-25%. A/C use for suspected h/o Afib Right hand tremor, etiology unclear: monitor closely h/o Bilateral AKA - supportive care DM type 2; use ssi, accucheck, ada diet DVT ppx Eliquis Physical exam: GENERAL: morbidly obese AAM lying on bed appeared to be in no discomfort. HEENT: Normocephalic. Atraumatic. No conjunctival congestion or icterus. Patient has moist mucous membranes. NECK: Supple. Trachea midline. CHEST/LUNGS: Clear to auscultated bilaterally, breathing nonlabored. No wheezes crackles or rhonchi. HEART/CARDIOVASCULAR: Regular in rate and rhythm. S1 and S2 positive. ABDOMEN: Abdomen is soft, nontender. Patient has normal bowel sounds. SKIN: There is no rash. Warm and dry. NEURO: No focal motor deficit. Follows command. MUSCULOSKELETAL: No joint effusion or tenderness. Bilateral AKA EXTRIMITY: No edema, no cyanosis or clubbing. PSYCH: Cooperative. Disposition: DC/[place]-03 [facility] CERT Time spent for discharge: 34 minutes Core Measure Documentation - Palliative Care Palliative Care/ Comfort Measures: Not Applicable - Core Measures Any of the following diagnoses?: heart failure - Heart Failure Discharge Requirements ABIODUN/ARB for LVSD if EF <40%: Not Applicable Reason for no ABIODUN/ARB: Renal impairment Beta lillian at discharge: Yes Exam - Constitutional Vitals: Temp Pulse Resp BP Pulse Ox 98.9 F 59 L 20 144/69 93 08/20/19 11:58 08/20/19 11:58 08/20/19 11:58 08/20/19 11:58 08/20/19 11:58 Plan Activity: fall precautions Weight Bearing Status: Non-Weight Bearing Diet: renal Special Instructions: restrict fluid intake to (1L per day), record daily weights, record daily BP diary Follow up with: ASHKAN CRISTOBAL MD [Primary Care Provider] - 3-5 Days ELLE HERNANDEZ MD [Staff Physician] - 7 Days Prescriptions: Apixaban [Eliquis] 5 mg PO BID #60 tablet
--- NOTE | 2019-08-20 15:43 | Progress Note ---
Assessment and Plan End Stage Renal Disease: Hyperkalemia, Resolved: Metabolic Acidosis, Resolved: -Patient was initiated on HD on 08/13/19 -Hemodialysis today for UF and clearance -Ct scan and renal US reviewed-No Hydronephrosis -Urine lytes reviewed, no urine eosinophils but has active urine sediments- GN/Vasculitis work-up ordered -So far Hepatitis and PAYTON- negative. No Schistocytes seen. -Will hold Aspirin as may consider renal biopsy but due to multiple commodities and obesity, may not be a candidate for renal biopsy. -Avoid nephrotoxic agents -Strict I/O's monitoring -Patient accepted to [facility] Cystitis: -S/P IV Rocephin -Now on Ertapenem -As per primary Acute hypoxic respiratory failure due to pulmonary edema: -S/p Lasix -UF with HD Diabetes Mellitus: -As per primary Hypertension: -On Coreg -Monitor BP Subjective Date of service: 08/20/19 Principal diagnosis: Abnormal Liver Enzymes Interval history: Patient seen lying in bed. Awake. No family at bedside. Objective - Vital Signs Vital signs: Vital Signs - 12hr 08/20/19 08/20/19 08/20/19 04:19 07:47 08:27 Temperature 98.5 F 98.9 F Pulse Rate 58 L 55 L Respiratory 18 20 Rate Blood Pressure 148/62 135/71 O2 Sat by Pulse 97 97 93 Oximetry 08/20/19 08/20/19 10:00 11:58 Temperature 98.9 F Pulse Rate 60 59 L Respiratory 20 Rate Blood Pressure 144/69 O2 Sat by Pulse 93 Oximetry - General Appearance General appearance: obese, fatigue EENT: ATNC, PERRL, hearing intact Neck: no JVD, supple Respiratory: Present: Decreased Breath Sounds Cardiology: S1S2 Gastrointestinal: normoactive bowel sounds, obese Integumentary: warm and dry Neurologic: other (Awake and alert) Musculoskeletal: other (Bilateral amputee) - Lab 08/19/19 08:42 08/20/19 05:41 Most recent lab results Calcium 7.5 mg/dL (8.4-10.2) L 08/20/19 05:41 Phosphorus 4.80 mg/dL (2.5-4.5) H 08/20/19 05:41 Magnesium 1.60 mg/dL (1.7-2.3) L 08/20/19 05:41 Urine Creatinine 174.0 mg/dL (0.1-20.0) H 08/13/19 00:44 Urine Creatinine 175.4 mg/dL (0.1-20.0) H 08/13/19 00:44 Urine Sodium 66 mmol/L 08/13/19 00:44 Urine Total Protein 53 mg/dL (5-11.8) H 08/13/19 00:44 Medications & Allergies - Medications Allergies/Adverse Reactions: Allergies No Known Allergies Allergy (Unverified 08/12/19 17:31) Home Medications: Home Medications Medication Instructions Recorded Confirmed Last Taken Type Folic Acid [Folvite] 1 mg PO QDAY 02/22/18 08/13/19 Unknown History Gabapentin [Neurontin] 100 mg PO TID 02/22/18 08/13/19 Unknown History Multivitamin [Multiple Vitamins] 1 tab PO DAILY 02/22/18 08/13/19 Unknown History Sennosides [Senna] 25.8 mg PO BID 02/22/18 08/13/19 Unknown History Thiamine [Vitamin B-1] 100 mg PO QDAY 02/22/18 08/13/19 Unknown History allopurinoL [Allopurinol] 100 mg PO DAILY 02/22/18 08/13/19 Unknown History fentaNYL [Fentanyl] 1 each TD Q3D 02/22/18 08/13/19 Unknown History oxyCODONE /ACETAMINOPHEN [Percocet 1 tab PO Q6HR PRN #10 tablet 03/01/18 08/13/19 Unknown Rx 5/325 mg] Aspirin EC [Halfprin EC] 81 mg PO QDAY 08/13/19 08/13/19 Unknown History Mirtazapine 7.5 mg PO QDAY 08/13/19 08/13/19 Unknown History Apixaban [Eliquis] 5 mg PO BID #60 tablet 08/20/19 Unknown Rx Metoprolol [Lopressor TAB] 25 mg PO Q8HR tablet 08/20/19 Unknown Rx hydrALAZINE [Apresoline TAB] 25 mg PO BID tablet 08/20/19 Unknown Rx Active Medications: Generic Name Dose Route Start Last Admin Trade Name Freq PRN Reason Stop Dose Admin Acetaminophen 650 mg 08/12/19 23:02 Tylenol PO Q4H PRN Pain MILD(1-3)/Fever >100.5/REYNA Dextrose 0 ml 08/12/19 23:02 08/13/19 02:30 D50w (25gm) Syringe IV 50 ml Q30MIN PRN Administration Hypoglycemia Protocol Hydralazine HCl 25 mg 08/14/19 22:00 08/20/19 10:06 Apresoline PO 25 mg BID WALT Administration Sodium Chloride 100 mls @ 999 mls/hr 08/16/19 11:11 Nacl 0.9% IV LINDSAY PRN Hypotension Ertapenem 0.5 gm/ Sodium 50 mls @ 100 mls/hr 08/18/19 10:00 08/20/19 10:08 Chloride IV 08/21/19 23:59 100 mls/hr DAILY WALT Administration Insulin Human Lispro 0 unit 08/13/19 07:30 08/20/19 12:49 Humalog SUB-Q Not Given ACHS WALT Protocol Metoprolol Tartrate 25 mg 08/20/19 14:00 08/20/19 14:24 Metoprolol PO 25 mg Q8HR WALT Administration Ondansetron HCl 4 mg 08/12/19 23:02 Zofran IV Q8H PRN Nausea And Vomiting Oxycodone/Acetaminophen 1 tab 08/12/19 23:02 08/20/19 10:06 Percocet 5/325 PO 1 tab Q6H PRN Administration Pain, Moderate (4-6) Sodium Chloride 10 ml 08/13/19 10:00 08/20/19 10:06 Sodium Chloride Flush Syringe 10 Ml IV 10 ml BID WALT Administration Sodium Chloride 10 ml 08/12/19 23:02 Sodium Chloride Flush Syringe 10 Ml IV PRN PRN LINE FLUSH
== END 2019-08-20 17:02 | DRG 673 ==
LOC: ED 16:48 → 4A 22:27
PROVIDERS: ADMIT Internal Medicine; ATTEND Internal Medicine
PROC: 02HV33Z Insertion of Infusion Device into Superior Vena Cava, Percutaneous Approach (ICD-10-PCS; principal; 2019-08-13)
PROC: B548ZZA Ultrasonography of Superior Vena Cava, Guidance (ICD-10-PCS; 2019-08-13)
PROC: 02PAX3Z Removal of Infusion Device from Heart, External Approach (ICD-10-PCS; 2019-08-15)
PROC: 02H633Z Insertion of Infusion Device into Right Atrium, Percutaneous Approach (ICD-10-PCS; 2019-08-15)
PROC: B5181ZA Fluoroscopy of Superior Vena Cava using Low Osmolar Contrast, Guidance (ICD-10-PCS; 2019-08-15)
PROC: 0JH63XZ Insertion of Tunneled Vascular Access Device into Chest Subcutaneous Tissue and Fascia, Percutaneous Approach (ICD-10-PCS; 2019-08-15)
PROC: 5A1D70Z Performance of Urinary Filtration, Intermittent, Less than 6 Hours Per Day (ICD-10-PCS; 2019-08-19)
PROC: 5A1D70Z Performance of Urinary Filtration, Intermittent, Less than 6 Hours Per Day (ICD-10-PCS; 2019-08-20)
DX: N17.9 Acute kidney failure, unspecified (principal); J96.01 Acute respiratory failure with hypoxia; I50.21 Acute systolic (congestive) heart failure; E87.5 Hyperkalemia; K21.9 Gastro-esophageal reflux disease without esophagitis; N18.6 End stage renal disease; I13.2 Hypertensive heart and chronic kidney disease with heart failure and with stage 5 chronic kidney disease, or end stage renal disease; E78.5 Hyperlipidemia, unspecified; D64.9 Anemia, unspecified; G89.29 Other chronic pain; E66.9 Obesity, unspecified; E87.70 Fluid overload, unspecified; M10.9 Gout, unspecified; E11.51 Type 2 diabetes mellitus with diabetic peripheral angiopathy without gangrene; I48.91 Unspecified atrial fibrillation; E11.22 Type 2 diabetes mellitus with diabetic chronic kidney disease; Z68.42 Body mass index [BMI] 45.0-49.9, adult; Z79.899 Other long term (current) drug therapy; Z79.82 Long term (current) use of aspirin; Z86.73 Personal history of transient ischemic attack (TIA), and cerebral infarction without residual deficits
CPT/HCPCS: 36415; 36556; 36558; 71045; 74176; 76705; 76770; 76937; 77001; 80048; 80053; 80061; 80076; 81001; 82550; 82553; 82570; 82947; 82962; 83520; 83550; 83615; 83735; 83880; 84100; 84156; 84165; 84300; 84484; 84520; 85025; 85610; 86021; 86038; 86160; 86689; 86706; 86803; 87040; 87076; 87086; 87116; 87186; 89050; 93005; 93010; 93306; 94644; 94760; G0378; C1750; C1752; C1769; J0610; J0696; J1335; J1644; J1815; J1940; J2250; J2405; J3010; J7030; J7050